=== PATIENT | male | born 1960 | race Caucasian/White ===

== ENCOUNTER → 2016-09-28 | Outpatient (CLI) | payer MEDICARE, BC, OTHER ==
[~2016-09-28] MED LIST: /AMLO25TA PO; /AUGM875TA; Bactrim DS PO; CAPT12.5; Captopril; Carvedilol PO; DOCU100C PO; FLUO20CA8 PO; GABA300C2 PO; LANS30CA PO; METF500T4; MYFO360T PO; Multivitamin PO; OXYC30TA84 PO; PRED5TAB PO; PROP10TAB; Propranolol; RANI75TA12 PO; SULFAMETHOXAZOLE PO; TACR5CAP PO; TACR5CAP4 PO; TRAM50TA2; TRIMETHOPRIM PO; ZOLPIDEM PO
[2016-09-28 17:49] LABS: ALBUMIN 3.9 GM/DL (3.2-5.2); ALBUMIN/GLOBULIN RATIO 1.44 (1.00-1.93); BILIRUBIN,TOTAL 0.6 MG/DL (0.2-1.0); CALCIUM LEVEL 8.7 MG/DL (8.5-10.1); CREATININE FOR GFR 1.96 MG/DL (0.70-1.30); GLOMERULAR FILTRATION RATE 37.7 (>56); MAGNESIUM LEVEL 1.8 MG/DL (1.8-2.4); POTASSIUM SERUM 3.6 MEQ/L (3.5-5.1); TOTAL PROTEIN 6.6 GM/DL (6.4-8.2)
[2016-09-28 17:54] LABS: MEAN CORPUSCULAR HGB CONC 33.4 g/dl (32.0-36.5); MEAN CORPUSCULAR VOLUME 89.8 fl (80.0-96.0); RED CELL DISTRIBUTION WIDTH 14.6 % (11.5-14.5); WHITE BLOOD COUNT 4.9 K/mm3 (4.0-10.0)
== END ==
LOC: M WUC 10:51
PROVIDERS: ATTEND Nurse Practitioner Adult Health
DX: Z94.4 Liver transplant status (principal); Z41.8 Encounter for other procedures for purposes other than remedying health state; Z79.899 Other long term (current) drug therapy

== ENCOUNTER → 2016-09-28 | Outpatient (CLI) | payer MEDICARE, BC, OTHER ==
[2016-09-28 17:55] LABS: BASO # 0.1 K/mm3 (0.0-0.2); BASO % 1.4 % (0.0-1.0); EOS # 0.1 K/mm3 (0.0-0.50); LARGE UNSTAINED CELL # 0.1 K/mm3 (0.0-0.4); LARGE UNSTAINED CELL % 1.5 % (0.0-4.0); LYMPH # 1.5 K/mm3 (1.5-4.5); LYMPH % 26.1 % (24.0-44.0); MEAN CORPUSCULAR HEMOGLOBIN 29.8 pg (27.0-33.0); MEAN CORPUSCULAR HGB CONC 33.2 g/dl (32.0-36.5); MEAN CORPUSCULAR VOLUME 89.7 fl (80.0-96.0); MONO # 0.4 K/mm3 (0.0-0.8); NEUTROPHILS # 3.3 K/mm3 (1.8-7.7); PLATELET COUNT, AUTOMATED 134 k/mm3 (150-450); RED CELL DISTRIBUTION WIDTH 14.7 % (11.5-14.5); WHITE BLOOD COUNT 5.3 K/mm3 (4.0-10.0)
[2016-09-28 18:30] LABS: FOLATE > 24.0 NG/ML; VITAMIN B12 LEVEL > 2000 PG/ML
[2016-09-28 18:31] LABS: ALBUMIN 3.9 GM/DL (3.2-5.2); ALBUMIN/GLOBULIN RATIO 1.39 (1.00-1.93); ALKALINE PHOSPHATASE 76 U/L (45-117); ALT/SGPT 17 U/L (12-78); ANION GAP 11 MEQ/L (8-16); AST/SGOT 27 U/L (15-37); BILIRUBIN,TOTAL 0.5 MG/DL (0.2-1.0); BLOOD UREA NITROGEN 24 MG/DL (7-18); CALCIUM LEVEL 8.6 MG/DL (8.5-10.1); CARBON DIOXIDE LEVEL 26 MEQ/L (21-32); CHLORIDE LEVEL 106 MEQ/L (98-107); CHOLESTEROL LEVEL 136 MG/DL (<200); CREATININE FOR GFR 1.98 MG/DL (0.70-1.30); GLOMERULAR FILTRATION RATE 37.3 (>56); GLUCOSE, FASTING 71 MG/DL (70-105); MAGNESIUM LEVEL 1.8 MG/DL (1.8-2.4); POTASSIUM SERUM 3.6 MEQ/L (3.5-5.1); SODIUM LEVEL 143 MEQ/L (136-145); TOTAL PROTEIN 6.7 GM/DL (6.4-8.2); TRIGLYCERIDES LEVEL 124 MG/DL (<150)
== END ==
LOC: M WUC 10:48
PROVIDERS: ATTEND Emergency Medicine
DX: I10 Essential (primary) hypertension (principal); E83.42 Hypomagnesemia; E78.2 Mixed hyperlipidemia; E55.9 Vitamin D deficiency, unspecified; Z98.84 Bariatric surgery status; N18.3 Chronic kidney disease, stage 3 (moderate); N40.1 Benign prostatic hyperplasia with lower urinary tract symptoms; Z94.4 Liver transplant status; Z41.8 Encounter for other procedures for purposes other than remedying health state; Z79.899 Other long term (current) drug therapy
CPT/HCPCS: 36415; 80053; 80061; 80197; 82306; 82607; 82746; 82977; 83735; 85025; G0103

== ENCOUNTER → 2016-11-09 | Outpatient (CLI) | payer MEDICARE, BC, OTHER ==
[2016-11-09 16:53] LABS: BASO % 0.4 % (0.0-1.0); EOS # 0.1 K/mm3 (0.0-0.50); EOS % 2.1 % (0.0-3.0); LARGE UNSTAINED CELL # 0.1 K/mm3 (0.0-0.4); LYMPH # 1.1 K/mm3 (1.5-4.5); LYMPH % 18.2 % (24.0-44.0); MEAN CORPUSCULAR HEMOGLOBIN 29.2 pg (27.0-33.0); MEAN CORPUSCULAR VOLUME 91.3 fl (80.0-96.0); MONO # 0.4 K/mm3 (0.0-0.8); MONO % 6.4 % (0.0-5.0); NEUTROPHILS # 4.3 K/mm3 (1.8-7.7); NEUTROPHILS % 70.9 % (36.0-66.0); PLATELET COUNT, AUTOMATED 156 k/mm3 (150-450); RED CELL DISTRIBUTION WIDTH 13.6 % (11.5-14.5); WHITE BLOOD COUNT 6.1 K/mm3 (4.0-10.0)
[2016-11-09 17:13] LABS: ALBUMIN/GLOBULIN RATIO 1.33 (1.00-1.93); BILIRUBIN,TOTAL 0.5 MG/DL (0.2-1.0); CALCIUM LEVEL 9.1 MG/DL (8.5-10.1); CREATININE FOR GFR 1.87 MG/DL (0.70-1.30); FREE T4 0.89 NG/DL (0.76-1.46); GLOMERULAR FILTRATION RATE 39.8 (>56); POTASSIUM SERUM 4.9 MEQ/L (3.5-5.1)
== END ==
LOC: M WUC 12:20
PROVIDERS: ATTEND Internal Medicine Nephrology
DX: Z94.4 Liver transplant status (principal); N25.81 Secondary hyperparathyroidism of renal origin; E03.9 Hypothyroidism, unspecified

== ENCOUNTER → 2016-11-18 | Outpatient (CLI) | payer MEDICARE, BC, OTHER ==
[2016-11-18 13:55] LABS: MEAN CORPUSCULAR HEMOGLOBIN 29.5 pg (27.0-33.0); MEAN CORPUSCULAR HGB CONC 32.7 g/dl (32.0-36.5); MEAN CORPUSCULAR VOLUME 90.2 fl (80.0-96.0); WHITE BLOOD COUNT 6.2 K/mm3 (4.0-10.0)
[2016-11-18 14:33] LABS: ALBUMIN 3.6 GM/DL (3.2-5.2); ALBUMIN/GLOBULIN RATIO 1.33 (1.00-1.93); BILIRUBIN,TOTAL 0.3 MG/DL (0.2-1.0); CALCIUM LEVEL 8.9 MG/DL (8.5-10.1); CREATININE FOR GFR 1.55 MG/DL (0.70-1.30); GLOMERULAR FILTRATION RATE 49.4 (>56); MAGNESIUM LEVEL 2.2 MG/DL (1.8-2.4); POTASSIUM SERUM 5.1 MEQ/L (3.5-5.1); TOTAL PROTEIN 6.3 GM/DL (6.4-8.2)
== END ==
LOC: M WUC 10:48
PROVIDERS: ATTEND Nurse Practitioner Adult Health
DX: Z41.8 Encounter for other procedures for purposes other than remedying health state (principal); Z94.4 Liver transplant status; Z79.899 Other long term (current) drug therapy

== ENCOUNTER → 2017-01-13 | Outpatient (CLI) | payer MEDICARE, BC, OTHER ==
[2017-01-13 12:53] LABS: MEAN CORPUSCULAR HEMOGLOBIN 30.8 pg (27.0-33.0); MEAN CORPUSCULAR HGB CONC 33.7 g/dl (32.0-36.5); MEAN CORPUSCULAR VOLUME 91.4 fl (80.0-96.0); RED CELL DISTRIBUTION WIDTH 13.9 % (11.5-14.5); WHITE BLOOD COUNT 4.5 K/mm3 (4.0-10.0)
[2017-01-13 13:37] LABS: ALBUMIN 3.6 GM/DL (3.2-5.2); ALBUMIN/GLOBULIN RATIO 1.29 (1.00-1.93); BILIRUBIN,TOTAL 0.5 MG/DL (0.2-1.0); CALCIUM LEVEL 8.9 MG/DL (8.5-10.1); CREATININE FOR GFR 1.52 MG/DL (0.70-1.30); GLOMERULAR FILTRATION RATE 50.6 (>56); MAGNESIUM LEVEL 2.5 MG/DL (1.8-2.4); POTASSIUM SERUM 4.4 MEQ/L (3.5-5.1); TOTAL PROTEIN 6.4 GM/DL (6.4-8.2)
== END ==
LOC: M WUC 10:34
PROVIDERS: ATTEND Internal Medicine Gastroenterology
DX: Z94.4 Liver transplant status (principal); Z41.8 Encounter for other procedures for purposes other than remedying health state; Z79.899 Other long term (current) drug therapy

== ENCOUNTER → 2017-02-15 | Outpatient (CLI) | payer MEDICARE, BC, OTHER ==
[2017-02-15 12:53] LABS: BASO % 0.1 % (0.0-1.0); EOS % 0.4 % (0.0-3.0); LARGE UNSTAINED CELL % 1.1 % (0.0-4.0); LYMPH % 5.5 % (24.0-44.0); MEAN CORPUSCULAR HEMOGLOBIN 31.3 pg (27.0-33.0); MEAN CORPUSCULAR HGB CONC 33.7 g/dl (32.0-36.5); MEAN CORPUSCULAR VOLUME 92.8 fl (80.0-96.0); NEUTROPHILS # 8.2 K/mm3 (1.8-7.7); NEUTROPHILS % 88.9 % (36.0-66.0); PLATELET COUNT, AUTOMATED 141 k/mm3 (150-450); RED CELL DISTRIBUTION WIDTH 13.2 % (11.5-14.5); WHITE BLOOD COUNT 9.2 K/mm3 (4.0-10.0)
[2017-02-15 12:54] LABS: DIFF SLIDE NUMBER 173; LARGE UNSTAINED CELL # 0.1 K/mm3 (0.0-0.4); LYMPH # 0.5 K/mm3 (1.5-4.5); MONO # 0.4 K/mm3 (0.0-0.8)
[2017-02-15 13:00] LABS: ALBUMIN 3.4 GM/DL (3.2-5.2); ALBUMIN/GLOBULIN RATIO 1.1 (1.00-1.93); BILIRUBIN,TOTAL 0.6 MG/DL (0.2-1.0); CALCIUM LEVEL 8.8 MG/DL (8.5-10.1); CREATININE FOR GFR 1.54 MG/DL (0.70-1.30); GLOMERULAR FILTRATION RATE 49.8 (>56); POTASSIUM SERUM 4.8 MEQ/L (3.5-5.1); TOTAL PROTEIN 6.5 GM/DL (6.4-8.2)
== END ==
LOC: M WUC 09:38
PROVIDERS: ATTEND Internal Medicine Nephrology
DX: Z94.4 Liver transplant status (principal); N25.81 Secondary hyperparathyroidism of renal origin; E55.9 Vitamin D deficiency, unspecified

== ENCOUNTER → 2017-04-06 | Outpatient (CLI) | payer MEDICARE, BC, OTHER ==
[2017-04-06 17:07] LABS: MEAN CORPUSCULAR HEMOGLOBIN 31.6 pg (27.0-33.0); MEAN CORPUSCULAR HGB CONC 34.1 g/dl (32.0-36.5); MEAN CORPUSCULAR VOLUME 92.6 fl (80.0-96.0); RED CELL DISTRIBUTION WIDTH 13.7 % (11.5-14.5); WHITE BLOOD COUNT 4.7 K/mm3 (4.0-10.0)
[2017-04-06 17:53] LABS: ALBUMIN 3.9 GM/DL (3.2-5.2); ALBUMIN/GLOBULIN RATIO 1.39 (1.00-1.93); BILIRUBIN,TOTAL 0.8 MG/DL (0.2-1.0); CALCIUM LEVEL 8.6 MG/DL (8.5-10.1); CREATININE FOR GFR 1.34 MG/DL (0.70-1.30); GLOMERULAR FILTRATION RATE 58.3 (>56); MAGNESIUM LEVEL 1.8 MG/DL (1.8-2.4); POTASSIUM SERUM 4.5 MEQ/L (3.5-5.1); TOTAL PROTEIN 6.7 GM/DL (6.4-8.2)
== END ==
LOC: M WUC 11:00
PROVIDERS: ATTEND Internal Medicine Gastroenterology
DX: Z94.4 Liver transplant status (principal); Z41.8 Encounter for other procedures for purposes other than remedying health state; Z79.899 Other long term (current) drug therapy; I12.9 Hypertensive chronic kidney disease with stage 1 through stage 4 chronic kidney disease, or unspecified chronic kidney disease; N18.3 Chronic kidney disease, stage 3 (moderate); E78.2 Mixed hyperlipidemia; E55.9 Vitamin D deficiency, unspecified; Z98.84 Bariatric surgery status

== ENCOUNTER → 2017-04-06 | Outpatient (CLI) | payer MEDICARE, BC, OTHER ==
[2017-04-06 17:08] LABS: BASO % 1.5 % (0.0-1.0); EOS # 0.1 K/mm3 (0.0-0.50); EOS % 2.9 % (0.0-3.0); LARGE UNSTAINED CELL # 0.1 K/mm3 (0.0-0.4); LARGE UNSTAINED CELL % 2.4 % (0.0-4.0); LYMPH % 29.4 % (24.0-44.0); MEAN CORPUSCULAR HEMOGLOBIN 31.1 pg (27.0-33.0); MEAN CORPUSCULAR HGB CONC 33.9 g/dl (32.0-36.5); MEAN CORPUSCULAR VOLUME 91.9 fl (80.0-96.0); MONO # 0.3 K/mm3 (0.0-0.8); MONO % 8.1 % (0.0-5.0); NEUTROPHILS # 1.8 K/mm3 (1.8-7.7); NEUTROPHILS % 55.8 % (36.0-66.0); PLATELET COUNT, AUTOMATED 126 k/mm3 (150-450); RED CELL DISTRIBUTION WIDTH 13.9 % (11.5-14.5); WHITE BLOOD COUNT 3.3 K/mm3 (4.0-10.0)
[2017-04-06 17:56] LABS: ALBUMIN 3.9 GM/DL (3.2-5.2); ALBUMIN/GLOBULIN RATIO 1.3 (1.00-1.93); BILIRUBIN,TOTAL 0.9 MG/DL (0.2-1.0); CALCIUM LEVEL 8.6 MG/DL (8.5-10.1); CREATININE FOR GFR 1.32 MG/DL (0.70-1.30); GLOMERULAR FILTRATION RATE 59.3 (>56); MAGNESIUM LEVEL 1.9 MG/DL (1.8-2.4); POTASSIUM SERUM 4.2 MEQ/L (3.5-5.1); TOTAL PROTEIN 6.9 GM/DL (6.4-8.2)
[2017-04-06 19:32] LABS: FOLATE 23.8 NG/ML
== END ==
LOC: M WUC 10:55
PROVIDERS: ATTEND Emergency Medicine
DX: I12.9 Hypertensive chronic kidney disease with stage 1 through stage 4 chronic kidney disease, or unspecified chronic kidney disease (principal); N18.3 Chronic kidney disease, stage 3 (moderate); E78.2 Mixed hyperlipidemia; E55.9 Vitamin D deficiency, unspecified; Z98.84 Bariatric surgery status

== ENCOUNTER → 2017-06-26 | Outpatient (CLI) | payer MEDICARE, OTHER, BC ==
[2017-06-26 13:29] LABS: MEAN CORPUSCULAR HEMOGLOBIN 31.1 pg (27.0-33.0); MEAN CORPUSCULAR HGB CONC 34.8 g/dl (32.0-36.5); MEAN CORPUSCULAR VOLUME 89.6 fl (80.0-96.0); RED CELL DISTRIBUTION WIDTH 13.6 % (11.5-14.5)
[2017-06-26 13:49] LABS: ALBUMIN 3.5 GM/DL (3.2-5.2); ALBUMIN/GLOBULIN RATIO 1.35 (1.00-1.93); BILIRUBIN,TOTAL 0.6 MG/DL (0.2-1.0); CALCIUM LEVEL 9.1 MG/DL (8.5-10.1); CREATININE FOR GFR 1.45 MG/DL (0.70-1.30); GLOMERULAR FILTRATION RATE 53.2 (>56); MAGNESIUM LEVEL 2.1 MG/DL (1.8-2.4); POTASSIUM SERUM 5.1 MEQ/L (3.5-5.1); TOTAL PROTEIN 6.1 GM/DL (6.4-8.2)
== END ==
LOC: M WUC 10:13
PROVIDERS: ATTEND Nurse Practitioner Adult Health
DX: Z51.81 Encounter for therapeutic drug level monitoring (principal); Z79.899 Other long term (current) drug therapy; Z94.4 Liver transplant status; Z41.8 Encounter for other procedures for purposes other than remedying health state

== ENCOUNTER → 2017-08-21 | Outpatient (CLI) | payer MEDICARE, OTHER, BC ==
[2017-08-21 14:33] LABS: BASO % 0.6 % (0.0-1.0); EOS # 0.1 10^3/uL (0.0-0.50); EOS % 1.6 % (0.0-3.0); IMMATURE GRANULOCYTE % 0.2 % (0-0); LYMPH # 1.3 10^3/uL (1.5-4.5); LYMPH % 25.7 % (24.0-44.0); MEAN CORPUSCULAR HEMOGLOBIN 30.4 pg (27.0-33.0); MEAN CORPUSCULAR HGB CONC 32.9 g/dl (32.0-36.5); MEAN CORPUSCULAR VOLUME 92.4 fl (80.0-96.0); MONO # 0.4 10^3/uL (0.0-0.8); NEUTROPHILS # 3.1 10^3/uL (1.8-7.7); NEUTROPHILS % 62.9 % (36.0-66.0); PLATELET COUNT, AUTOMATED 147 10^3/uL (150-450); RED CELL DISTRIBUTION WIDTH 14.1 % (11.5-14.5); WHITE BLOOD COUNT 4.9 10^3/uL (4.0-10.0)
[2017-08-21 15:36] LABS: ALBUMIN 3.6 GM/DL (3.2-5.2); ALBUMIN/GLOBULIN RATIO 1.33 (1.00-1.93); BILIRUBIN,TOTAL 0.6 MG/DL (0.2-1.0); CALCIUM LEVEL 9.1 MG/DL (8.5-10.1); CREATININE FOR GFR 1.31 MG/DL (0.70-1.30); GLOMERULAR FILTRATION RATE 59.8 (>56); POTASSIUM SERUM 4.4 MEQ/L (3.5-5.1); TOTAL PROTEIN 6.3 GM/DL (6.4-8.2)
== END ==
LOC: M WUC 10:15
PROVIDERS: ATTEND Internal Medicine Nephrology
DX: N25.81 Secondary hyperparathyroidism of renal origin (principal); Z94.4 Liver transplant status

== ENCOUNTER → 2017-08-21 | Outpatient (CLI) | payer MEDICARE, OTHER, BC ==
[2017-08-21 14:33] LABS: MEAN CORPUSCULAR HEMOGLOBIN 30.3 pg (27.0-33.0); MEAN CORPUSCULAR HGB CONC 32.9 g/dl (32.0-36.5); MEAN CORPUSCULAR VOLUME 92.2 fl (80.0-96.0); PLATELET COUNT, AUTOMATED 149 10^3/uL (150-450); RED CELL DISTRIBUTION WIDTH 14.1 % (11.5-14.5); WHITE BLOOD COUNT 5.3 10^3/uL (4.0-10.0)
[2017-08-21 15:14] LABS: ALBUMIN 3.5 GM/DL (3.2-5.2); ALBUMIN/GLOBULIN RATIO 1.21 (1.00-1.93); ALKALINE PHOSPHATASE 85 U/L (45-117); ALT/SGPT 15 U/L (12-78); ANION GAP 9 MEQ/L (8-16); AST/SGOT 13 U/L (7-37); BILIRUBIN,TOTAL 0.7 MG/DL (0.2-1.0); BLOOD UREA NITROGEN 19 MG/DL (7-18); CARBON DIOXIDE LEVEL 28 MEQ/L (21-32); CHLORIDE LEVEL 103 MEQ/L (98-107); CREATININE FOR GFR 1.29 MG/DL (0.70-1.30); GAMMA GLUTAMYLTRANSPEPTIDASE 36 U/L (15-85); GLOMERULAR FILTRATION RATE > 60.0 (>56); GLUCOSE, FASTING 69 MG/DL (70-105); POTASSIUM SERUM 4.7 MEQ/L (3.5-5.1); SODIUM LEVEL 140 MEQ/L (136-145); TOTAL PROTEIN 6.4 GM/DL (6.4-8.2)
== END ==
LOC: M WUC 10:19
PROVIDERS: ATTEND Nurse Practitioner Adult Health
DX: Z41.8 Encounter for other procedures for purposes other than remedying health state (principal); N25.81 Secondary hyperparathyroidism of renal origin; Z94.4 Liver transplant status

== ENCOUNTER → 2017-09-27 | Outpatient (CLI) | payer MEDICARE, OTHER, BC ==
[2017-09-27 13:58] LABS: BASO % 0.4 % (0.0-1.0); EOS # 0.1 10^3/uL (0.0-0.50); EOS % 1.7 % (0.0-3.0); HEMATOCRIT 36.6 % (42.0-52.0); HEMOGLOBIN 12.3 g/dl (14.0-18.0); IMMATURE GRANULOCYTE % 0.2 % (0-0); LYMPH % 19.4 % (24.0-44.0); MEAN CORPUSCULAR HEMOGLOBIN 30.8 pg (27.0-33.0); MEAN CORPUSCULAR HGB CONC 33.6 g/dl (32.0-36.5); MEAN CORPUSCULAR VOLUME 91.5 fl (80.0-96.0); MONO # 0.6 10^3/uL (0.0-0.8); MONO % 10.5 % (0.0-5.0); NEUTROPHILS # 3.6 10^3/uL (1.8-7.7); NEUTROPHILS % 67.8 % (36.0-66.0); PLATELET COUNT, AUTOMATED 155 10^3/uL (150-450); RED CELL DISTRIBUTION WIDTH 13.6 % (11.5-14.5); WHITE BLOOD COUNT 5.3 10^3/uL (4.0-10.0)
[2017-09-27 14:10] LABS: FOLATE > 24.0 NG/ML; TOTAL 25(OH) VITAMIN D 65.9 NG/ML (30.0-100.0); VITAMIN B12 LEVEL > 2000 PG/ML
[2017-09-27 14:13] LABS: ALBUMIN 3.2 GM/DL (3.2-5.2); ALBUMIN/GLOBULIN RATIO 1.07 (1.00-1.93); ALKALINE PHOSPHATASE 92 U/L (45-117); ALT/SGPT 33 U/L (12-78); ANION GAP 8 MEQ/L (8-16); AST/SGOT 62 U/L (7-37); BILIRUBIN,TOTAL 0.7 MG/DL (0.2-1.0); BLOOD UREA NITROGEN 25 MG/DL (7-18); CALCIUM LEVEL 8.6 MG/DL (8.5-10.1); CARBON DIOXIDE LEVEL 27 MEQ/L (21-32); CHLORIDE LEVEL 99 MEQ/L (98-107); CHOLESTEROL LEVEL 148 MG/DL (<200); CHOLESTEROL RISK RATIO 1.423 (<5); CREATININE FOR GFR 1.23 MG/DL (0.70-1.30); GLOMERULAR FILTRATION RATE > 60.0 (>56); GLUCOSE, FASTING 58 MG/DL (70-105); HDL CHOLESTEROL 104 MG/DL (>40); MAGNESIUM LEVEL 1.9 MG/DL (1.8-2.4); NON-HDL-C 44 MG/DL; PROSTATIC SPECIFIC AG MONITOR 2.38 NG/ML (< 4.0); SODIUM LEVEL 134 MEQ/L (136-145); TOTAL PROTEIN 6.2 GM/DL (6.4-8.2); TRIGLYCERIDES LEVEL 45 MG/DL (<150)
== END ==
LOC: M WUC 10:18
DX: I10 Essential (primary) hypertension (principal); E78.2 Mixed hyperlipidemia; E55.9 Vitamin D deficiency, unspecified
CPT/HCPCS: 82746

== ENCOUNTER → 2017-11-20 | Outpatient (CLI) | payer MEDICARE, OTHER, BC ==
[2017-11-20 13:40] LABS: ALBUMIN 3.5 GM/DL (3.2-5.2); ALBUMIN/GLOBULIN RATIO 1.21 (1.00-1.93); ALKALINE PHOSPHATASE 100 U/L (45-117); ALT/SGPT 19 U/L (12-78); ANION GAP 10 MEQ/L (8-16); AST/SGOT 36 U/L (7-37); BILIRUBIN,TOTAL 0.3 MG/DL (0.2-1.0); BLOOD UREA NITROGEN 22 MG/DL (7-18); CALCIUM LEVEL 8.3 MG/DL (8.5-10.1); CARBON DIOXIDE LEVEL 26 MEQ/L (21-32); CHLORIDE LEVEL 102 MEQ/L (98-107); CREATININE FOR GFR 1.42 MG/DL (0.70-1.30); GAMMA GLUTAMYLTRANSPEPTIDASE 61 U/L (15-85); GLOMERULAR FILTRATION RATE 54.5 (>56); GLUCOSE, FASTING 86 MG/DL (70-100); POTASSIUM SERUM 4.1 MEQ/L (3.5-5.1); SODIUM LEVEL 138 MEQ/L (136-145); TOTAL PROTEIN 6.4 GM/DL (6.4-8.2)
== END ==
LOC: M WUC 09:28
DX: Z51.81 Encounter for therapeutic drug level monitoring (principal); Z94.4 Liver transplant status; Z41.8 Encounter for other procedures for purposes other than remedying health state; Z79.899 Other long term (current) drug therapy
CPT/HCPCS: 82977

== ENCOUNTER → 2018-03-06 | Outpatient (CLI) | payer MEDICARE, OTHER, BC ==
[2018-03-06 15:55] LABS: BASO % 0.3 % (0.0-1.0); EOS # 0.1 10^3/uL (0.0-0.50); EOS % 0.7 % (0.0-3.0); HEMATOCRIT 32.2 % (42.0-52.0); HEMOGLOBIN 10.8 g/dl (13.5-17.5); IMMATURE GRANULOCYTE % 0.6 % (0-3.0); LYMPH # 0.9 10^3/uL (1.5-4.5); LYMPH % 13.2 % (24.0-44.0); MEAN CORPUSCULAR HEMOGLOBIN 29.8 pg (27.0-33.0); MEAN CORPUSCULAR HGB CONC 33.5 g/dl (32.0-36.5); MONO # 0.7 10^3/uL (0.0-0.8); MONO % 9.8 % (0.0-5.0); NEUTROPHILS # 5.2 10^3/uL (1.8-7.7); NEUTROPHILS % 75.4 % (36.0-66.0); PLATELET COUNT, AUTOMATED 162 10^3/uL (150-450); RED BLOOD COUNT 3.62 10^6/uL (4.30-6.10); RED CELL DISTRIBUTION WIDTH 13.4 % (11.5-14.5); WHITE BLOOD COUNT 6.9 10^3/uL (4.0-10.0)
[2018-03-06 15:58] LABS: ALBUMIN 3.6 GM/DL (3.2-5.2); ALBUMIN/GLOBULIN RATIO 1.16 (1.00-1.93); ALKALINE PHOSPHATASE 83 U/L (45-117); ALT/SGPT 18 U/L (12-78); ANION GAP 10 MEQ/L (8-16); AST/SGOT 17 U/L (7-37); BLOOD UREA NITROGEN 29 MG/DL (7-18); CARBON DIOXIDE LEVEL 26 MEQ/L (21-32); CHLORIDE LEVEL 93 MEQ/L (98-107); CREATININE FOR GFR 1.69 MG/DL (0.70-1.30); GLOMERULAR FILTRATION RATE 44.6 (>56); GLUCOSE, FASTING 89 MG/DL (70-100); POTASSIUM SERUM 4.5 MEQ/L (3.5-5.1); SODIUM LEVEL 129 MEQ/L (136-145); TOTAL PROTEIN 6.7 GM/DL (6.4-8.2)
[2018-03-06 16:03] LABS: PTH INTACT 36.3 PG/ML (18.5-88.0)
[2018-03-06 16:46] LABS: APPEARANCE, URINE CLEAR (CLEAR); BACTERIA, URINE AUTO NEGATIVE (NEGATIVE); BILIRUBIN, URINE AUTO 1+ (NEGATIVE); BLOOD, URINE BLOOD NEGATIVE (NEGATIVE); COLOR, URINE YELLOW (YELLOW); GLUCOSE, URINE (UA) AUTO NEGATIVE (NEGATIVE); KETONE, URINE AUTO NEGATIVE (NEGATIVE); LEUKOCYTE ESTERASE, URINE AUTO NEGATIVE (NEGATIVE); MUCUS, URINE SMALL (NEGATIVE); NITRITE, URINE AUTO NEGATIVE (NEGATIVE); PROTEIN, URINE AUTO NEGATIVE (NEGATIVE); RBC, URINE AUTO 4 /HPF (0-3); SPECIFIC GRAVITY URINE AUTO 1.017 (1.002-1.035); SQUAMOUS EPITHELIAL CELL UR AU 0 /HPF (0-6); UROBILINOGEN, URINE AUTO 0.2 mg/dL (0.0-2.0); WBC, URINE AUTO 1 /HPF (0-3)
== END ==
LOC: M WUC 11:12
DX: Z94.4 Liver transplant status (principal); N25.81 Secondary hyperparathyroidism of renal origin

== ENCOUNTER → 2018-03-06 | Outpatient (CLI) | payer MEDICARE, OTHER, BC ==
[2018-03-06 15:54] LABS: HEMATOCRIT 32.2 % (42.0-52.0); MEAN CORPUSCULAR HEMOGLOBIN 30.5 pg (27.0-33.0); MEAN CORPUSCULAR HGB CONC 34.2 g/dl (32.0-36.5); MEAN CORPUSCULAR VOLUME 89.2 fl (80.0-96.0); PLATELET COUNT, AUTOMATED 170 10^3/uL (150-450); RED BLOOD COUNT 3.61 10^6/uL (4.30-6.10); RED CELL DISTRIBUTION WIDTH 13.3 % (11.5-14.5)
[2018-03-06 15:56] LABS: ALBUMIN 3.5 GM/DL (3.2-5.2); ALBUMIN/GLOBULIN RATIO 1.09 (1.00-1.93); ALKALINE PHOSPHATASE 89 U/L (45-117); ALT/SGPT 17 U/L (12-78); ANION GAP 9 MEQ/L (8-16); AST/SGOT 18 U/L (7-37); BLOOD UREA NITROGEN 28 MG/DL (7-18); CARBON DIOXIDE LEVEL 26 MEQ/L (21-32); CHLORIDE LEVEL 94 MEQ/L (98-107); CREATININE FOR GFR 1.69 MG/DL (0.70-1.30); GAMMA GLUTAMYLTRANSPEPTIDASE 35 U/L (15-85); GLOMERULAR FILTRATION RATE 44.6 (>56); GLUCOSE, FASTING 87 MG/DL (70-100); MAGNESIUM LEVEL 1.8 MG/DL (1.8-2.4); POTASSIUM SERUM 4.5 MEQ/L (3.5-5.1); SODIUM LEVEL 129 MEQ/L (136-145); TOTAL PROTEIN 6.7 GM/DL (6.4-8.2)
== END ==
LOC: M WUC 11:08
DX: Z51.81 Encounter for therapeutic drug level monitoring (principal); Z79.899 Other long term (current) drug therapy; N25.81 Secondary hyperparathyroidism of renal origin; Z94.4 Liver transplant status
CPT/HCPCS: 82977

== ENCOUNTER → 2018-04-09 | Outpatient (CLI) | payer MEDICARE, OTHER, BC ==
[2018-04-09 13:10] LABS: BASO % 0.5 % (0.0-1.0); EOS # 0.1 10^3/uL (0.0-0.50); EOS % 1.5 % (0.0-3.0); HEMATOCRIT 31.1 % (42.0-52.0); HEMOGLOBIN 10.5 g/dl (13.5-17.5); IMMATURE GRANULOCYTE % 0.3 % (0-3.0); LYMPH # 1.8 10^3/uL (1.5-4.5); LYMPH % 23.8 % (24.0-44.0); MEAN CORPUSCULAR HEMOGLOBIN 30.3 pg (27.0-33.0); MEAN CORPUSCULAR HGB CONC 33.8 g/dl (32.0-36.5); MEAN CORPUSCULAR VOLUME 89.9 fl (80.0-96.0); MONO # 0.6 10^3/uL (0.0-0.8); NEUTROPHILS # 4.9 10^3/uL (1.8-7.7); NEUTROPHILS % 65.9 % (36.0-66.0); PLATELET COUNT, AUTOMATED 148 10^3/uL (150-450); RED BLOOD COUNT 3.46 10^6/uL (4.30-6.10); RED CELL DISTRIBUTION WIDTH 14.3 % (11.5-14.5); WHITE BLOOD COUNT 7.4 10^3/uL (4.0-10.0)
[2018-04-09 13:33] LABS: ALBUMIN 3.3 GM/DL (3.2-5.2); ALBUMIN/GLOBULIN RATIO 1.06 (1.00-1.93); ALKALINE PHOSPHATASE 96 U/L (45-117); ALT/SGPT 16 U/L (12-78); ANION GAP 9 MEQ/L (8-16); AST/SGOT 15 U/L (7-37); BILIRUBIN,TOTAL 0.6 MG/DL (0.2-1.0); BLOOD UREA NITROGEN 27 MG/DL (7-18); CALCIUM LEVEL 8.5 MG/DL (8.5-10.1); CARBON DIOXIDE LEVEL 28 MEQ/L (21-32); CHLORIDE LEVEL 101 MEQ/L (98-107); CHOLESTEROL LEVEL 117 MG/DL (<200); CHOLESTEROL RISK RATIO 1.409 (<5); CREATININE FOR GFR 1.54 MG/DL (0.70-1.30); GLOMERULAR FILTRATION RATE 49.5 (>56); GLUCOSE, FASTING 73 MG/DL (70-100); HDL CHOLESTEROL 83 MG/DL (>40); NON-HDL-C 34 MG/DL; POTASSIUM SERUM 4.5 MEQ/L (3.5-5.1); SODIUM LEVEL 138 MEQ/L (136-145); TOTAL PROTEIN 6.4 GM/DL (6.4-8.2); TRIGLYCERIDES LEVEL 50 MG/DL (<150)
[2018-04-09 14:59] LABS: FOLATE 21.9 NG/ML; TOTAL 25(OH) VITAMIN D 78.7 NG/ML (30.0-100.0); VITAMIN B12 LEVEL 1941 PG/ML
== END ==
LOC: M WUC 10:27
DX: I10 Essential (primary) hypertension (principal); E78.2 Mixed hyperlipidemia; E55.9 Vitamin D deficiency, unspecified; Z98.84 Bariatric surgery status
CPT/HCPCS: 82746

== ENCOUNTER → 2018-07-09 | Outpatient (CLI) | payer MEDICARE, OTHER, BC ==
[2018-07-09 13:25] LABS: HEMATOCRIT 34.4 % (42.0-52.0); HEMOGLOBIN 11.3 g/dl (13.5-17.5); MEAN CORPUSCULAR HEMOGLOBIN 30.2 pg (27.0-33.0); MEAN CORPUSCULAR HGB CONC 32.8 g/dl (32.0-36.5); PLATELET COUNT, AUTOMATED 149 10^3/uL (150-450); RED BLOOD COUNT 3.74 10^6/uL (4.30-6.10); RED CELL DISTRIBUTION WIDTH 13.2 % (11.5-14.5); WHITE BLOOD COUNT 4.9 10^3/uL (4.0-10.0)
[2018-07-09 13:49] LABS: ALBUMIN 3.3 GM/DL (3.2-5.2); ALBUMIN/GLOBULIN RATIO 1.14 (1.00-1.93); ALKALINE PHOSPHATASE 86 U/L (45-117); ALT/SGPT 14 U/L (12-78); ANION GAP 11 MEQ/L (8-16); AST/SGOT 13 U/L (7-37); BILIRUBIN,TOTAL 0.5 MG/DL (0.2-1.0); BLOOD UREA NITROGEN 26 MG/DL (7-18); CALCIUM LEVEL 8.5 MG/DL (8.5-10.1); CARBON DIOXIDE LEVEL 24 MEQ/L (21-32); CHLORIDE LEVEL 106 MEQ/L (98-107); CREATININE FOR GFR 1.33 MG/DL (0.70-1.30); GAMMA GLUTAMYLTRANSPEPTIDASE 35 U/L (15-85); GLOMERULAR FILTRATION RATE 58.6 (>56); GLUCOSE, FASTING 81 MG/DL (70-100); MAGNESIUM LEVEL 1.9 MG/DL (1.8-2.4); POTASSIUM SERUM 4.2 MEQ/L (3.5-5.1); SODIUM LEVEL 141 MEQ/L (136-145); TOTAL PROTEIN 6.2 GM/DL (6.4-8.2)
[2018-07-12 00:08] LABS: FK 506 (TACROLIMUS) LABCORP 3.3 ng/mL (2.0-20.0)
== END ==
LOC: M WUC 09:55
DX: Z79.4 Long term (current) use of insulin (principal)
CPT/HCPCS: 82977

== ENCOUNTER 2019-04-02 09:58 | Emergency (ER) | payer MEDICARE, BC, OTHER ==
[~2019-04-02] VITALS: Ht 177.8 cm; Wt 63.6 kg
[~2019-04-02 09:58] MED LIST changes: -/AMLO25TA PO; +NORV2TAB PO
[2019-04-02] MEDS ORDERED: GABA-843 (10:05)
[2019-04-02] MEDS ORDERED: TRAZ-252 (10:05)
--- NOTE | 2019-04-02 11:06 | REP ---
LEFT WRIST SERIES: Four views. HISTORY: Injury in a fall. FINDINGS: Four views left wrist demonstrate an impacted fracture of the distal radial metaphysis. There is diffuse osteopenia. No distal ulnar fracture is appreciated. No carpal fracture is seen. Vascular calcification is seen. There is associated soft-tissue swelling. IMPRESSION: Impacted fracture of the distal radius. Diffuse osteopenia. Vascular calcification and soft tissue swelling. Electronically Signed by Jeramie Luna MD 04/02/2019 04:51 P
[2019-04-02 12:12] VITALS: BP 128/85
== END 2019-04-02 12:13 | disposition home or self-care (01) ==
LOC: M ED 09:58
DX: S52.592A Other fractures of lower end of left radius, initial encounter for closed fracture (principal); W18.39XA Other fall on same level, initial encounter; Y92.018 Other place in single-family (private) house as the place of occurrence of the external cause; I12.9 Hypertensive chronic kidney disease with stage 1 through stage 4 chronic kidney disease, or unspecified chronic kidney disease; N18.3 Chronic kidney disease, stage 3 (moderate); E11.9 Type 2 diabetes mellitus without complications; F33.9 Major depressive disorder, recurrent, unspecified; F41.9 Anxiety disorder, unspecified; Z94.4 Liver transplant status; Z98.84 Bariatric surgery status

== ENCOUNTER → 2019-04-12 | Outpatient (REF) | payer MEDICARE, OTHER ==
[~2019-04-12] MED LIST changes: +GABA-843; +TRAZ-252
[2019-04-22 14:07] LABS: ALPRAZOLAM, URINE Negative (Cutoff=100); BENZODIAZEPINES, URINE Positive ng/mL (Cutoff=100); CANNABINOID, URINE Positive (Cutoff=20); CARBOXY THC (GC/MS) 108 ng/mL (Cutoff=10); CLONAZEPAM, URINE Negative (Cutoff=100); CODEINE, URINE Negative (Cutoff=100); CREATININE, URINE 171.4 mg/dL (20.0-300.0); FLURAZEPAM, URINE Negative (Cutoff=100); HYDROCODONE, URINE Negative (Cutoff=100); HYDROMORPHONE CONFIRM, URINE 372 ng/mL (Cutoff=100); HYDROMORPHONE, URINE Positive (.); LORAZEPAM, URINE Negative (Cutoff=100); MIDAZOLAM, URINE Negative (Cutoff=100); MORPHINE CONFIRM, URINE >10000 ng/mL (Cutoff=100); MORPHINE, URINE Positive (.); NORDIAZEPAM, URINE Positive (.); NORDIAZEPAM, URINE CONFIRM 362 ng/mL (Cutoff=100); OPIATES, URINE Positive ng/mL (Cutoff=300); OXAZEPAM, URINE Positive (.); OXAZEPAM, URINE CONFIRM 17200 ng/mL (Cutoff=100); TEMAZEPAM, URINE Positive (.); TEMAZEPAM, URINE CONFIRM >1000 ng/mL (Cutoff=100); TRIAZOLAM, URINE Negative (Cutoff=100)
== END ==
LOC: M SFHCLACO 15:08
PROVIDERS: ATTEND Physician Assistant
DX: Z79.891 Long term (current) use of opiate analgesic (principal)
CPT/HCPCS: 80307; G0463

== ENCOUNTER 2020-11-15 06:37 | Inpatient (IN) | payer BC, MEDICARE, OTHER ==
[2020-11-15] VITALS (11 sets, daily range): BP systolic 132–164; BP diastolic 71–91
[~2020-11-15] VITALS: Ht 177.8 cm; Wt 76.5 kg
[~2020-11-15 06:37] MED LIST changes: +GABA-282; -GABA-843
[2020-11-15 08:13] LABS: BASO # 0.1 10^3/uL (0.0-0.2); BASO % 0.6 % (0.0-1.0); EOS # 0.6 10^3/uL (0.0-0.5); EOS % 7.1 % (0.0-3.0); HEMATOCRIT 23.1 % (42.0-52.0); HEMOGLOBIN 7.2 g/dl (13.5-17.5); LYMPH # 1.7 10^3/uL (1.5-5.0); LYMPH % 20.3 % (24.0-44.0); MEAN CORPUSCULAR HEMOGLOBIN 27.6 pg (27.0-33.0); MEAN CORPUSCULAR HGB CONC 31.2 g/dl (32.0-36.5); MEAN CORPUSCULAR VOLUME 88.5 fl (80.0-96.0); MONO # 0.9 10^3/uL (0.0-0.8); MONO % 10.7 % (2.0-8.0); NEUTROPHILS # 5.1 10^3/uL (1.5-8.5); NEUTROPHILS % 60.8 % (36.0-66.0); PLATELET COUNT, AUTOMATED 139 10^3/uL (150-450); RED BLOOD COUNT 2.61 10^6/uL (4.30-6.10); WHITE BLOOD COUNT 8.3 10^3/uL (4.0-10.0)
[2020-11-15 08:22] LABS: INR 1.01; PROTHROMBIN TIME 13.5 SECONDS (12.5-14.3)
[2020-11-15 08:23] LABS: PARTIAL THROMBOPLASTIN TIME 29.7 SECONDS (24.2-38.5)
--- NOTE | 2020-11-15 08:24 | REP ---
INDICATION: chest discomfort, sob. COMPARISON: 06/29/2015 TECHNIQUE: Two views. FINDINGS: The lung savage are well inflated there is no pleural effusion or pneumothorax. There may be some patchy atelectasis or infiltrate in the infrahilar region of the right lung. No dense consolidation with air bronchograms. No apical scarring or pneumothorax. Heart is not enlarged. There is no vascular redistribution or pulmonary edema. Some calcification of the aortic arch noted without aneurysm. Airway intact. Bony thorax shows no compression deformity or focal lesion. IMPRESSION: Some patchy infrahilar atelectasis or infiltrate on the right is suggested with no dense consolidation, pleural effusion or other acute finding. No cardiomegaly, edema, pneumothorax or focal bone lesion. <Electronically signed by Faizan Israel > 11/15/20 [id number]
[2020-11-15 08:27] LABS: ALBUMIN 2.5 GM/DL (3.2-5.2); ALT/SGPT 20 U/L (12-78); BILIRUBIN,DIRECT < 0.1 MG/DL (0.0-0.2); BILIRUBIN,TOTAL 0.1 MG/DL (0.2-1.0); C REACTIVE PROTEIN QUANTITATIV < 0.30 MG/DL (0.00-0.30); CK-MB VALUE MASS 10.8 NG/ML (<3.6); CPK CREATINE PHOSPHOKINASE 186 U/L (39-308); MB/CK RELATIVE INDEX 5.81 (< OR =4); TOTAL PROTEIN 5.8 GM/DL (6.4-8.2); TROPONIN I 0.03 NG/ML (< 0.10)
--- NOTE | 2020-11-15 08:34 | REP ---
INDICATION: severe leg pain, swelling. TECHNIQUE: Multiple ultrasonographic images of the deep venous structures of the bilateral thighs were obtained from the level of the common femoral vein to the popliteal vein in the longitudinal and transverse scan planes along with Doppler interrogation and color flow Doppler imaging. FINDINGS: There is no abnormal echogenic material seen within any of the visualized deep venous structures that would suggest acute thrombosis. Coaptation is unremarkable throughout. Doppler interrogation shows an expected response to respiratory variability and augmentation. The color flow Doppler images show what appears to be a normal vascular pattern throughout. The left side in the proximal calf within the gastrocnemius muscle is a small vein with nonocclusive thrombus. IMPRESSION: There is nonocclusive thrombus in a small calf vein within the gastrocnemius on the left. This is not considered a deep vein thrombosis. There is no ultrasonographic evidence of deep venous thrombosis involving any of the visualized deep venous structures of the bilateral thighs as described above. Accredited by the [employer] in Vascular Peripheral Ultrasound. <Electronically signed by Faizan Israel > 11/15/20 0831
[2020-11-15] MEDS ORDERED: GABA-282 PO (08:38)
[2020-11-15] MEDS ORDERED: TACR1CAP3 PO ×2 (08:38)
[2020-11-15] MEDS ORDERED: ZOLO100T PO (08:38)
[2020-11-15] MEDS ORDERED: DIAZ5TAB PO (08:38)
[2020-11-15] MEDS ORDERED: MIRT-62 PO (08:38)
[2020-11-15] MEDS ORDERED: VITA100018 PO (08:38)
[2020-11-15] MEDS ORDERED: MYCO1TAB PO (08:38)
[2020-11-15] MEDS ORDERED: VITA200038 PO (08:38)
[2020-11-15] MEDS ORDERED: TRAZ-252 PO (08:38)
[2020-11-15] MEDS ORDERED: LANS30CA PO (08:38)
[2020-11-15] MEDS ORDERED: OXYC10TA12 PO (08:38)
[2020-11-15 08:58] LABS: ERYTHROCYTE SEDIMENTATION RATE 73 mm/hr (0-20)
[2020-11-15] MEDS ORDERED: hydrALAZINE 20MG/ML 1ML VIAL (J0360 PER 20MG) IV ONE (09:00)
[2020-11-15] MEDS ORDERED: MORPHINE 2 MG/ML 1ML VIAL (J2270) IV ONE (09:00)
[2020-11-15] MEDS ORDERED: ONDANSETRON 4MG/2ML VIAL IV ONE (09:00)
[2020-11-15] MEDS ORDERED: ENTER DRUG NAME HERE (PATIENT'S OWN MED) PO SCH (09:00)
[2020-11-15 09:19] LABS: AMPHETAMINES LEVEL URINE NEGATIVE (NEGATIVE); BARBITURATES URINE NEGATIVE (NEGATIVE); BENZODIAZEPINES URINE NEGATIVE (NEGATIVE); CANNABINOIDS URINE NEGATIVE (NEGATIVE); COCAINE METABOLITE URINE NEGATIVE (NEGATIVE); METHADONE URINE NEGATIVE (NEGATIVE); OPIATES URINE NEGATIVE (NEGATIVE); PHENCYCLIDINE URINE NEGATIVE (NEGATIVE)
[2020-11-15 09:32] LABS: ACETAMINOPHEN LEVEL < 2.0 UG/ML (10.0-30.0); ETHYL ALCOHOL (ETHANOL) < 0.003 % (0.000-0.010); NT-PRO BNP 46380 PG/ML (<125); SALICYLATE LEVEL < 1.7 MG/DL (5.0-30.0)
--- NOTE | 2020-11-15 09:33 | ECGEPIP ---
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
[2020-11-15 10:28] LABS: FERRITIN 172 NG/ML (26-388); IRON (FE) 64 UG/DL (65-175); PERCENT SATURATION 25.6 % (19.7-50.0); TOTAL IRON BINDING CAPACITY 250 UG/DL (250-450)
[2020-11-15] MEDS: SUCRALFATE 1 GM TAB PO SCH ×3 (10:53→21:07)
[2020-11-15] MEDS: NITROGLYCERIN 2% OINT 1 GM *U/D* PKT TOP SCH ×3 (10:55→20:00)
[2020-11-15] MEDS ORDERED: cloNIDine 0.1MG TABLET PO ONE (11:00)
[2020-11-15] MEDS ORDERED: PERCOCET 5MG/325MG TAB PO ONE (11:00)
[2020-11-15] MEDS ORDERED: HYDROMORPHONE HCL 0.5 MG/ 0.5 ML SYRINGE (J1170 PER 1) IV ONE (11:00)
--- NOTE | 2020-11-15 11:19 | REP ---
INDICATION: RENAL FAILURE. COMPARISON: 05/27/2013 TECHNIQUE: Standard renal sonography FINDINGS: Sonographic evaluation shows the right kidney 11.5 x 5.5 x 4.4 cm. The cortex is echogenic compared to that of the adjacent liver. No cortical atrophy. I see no hydronephrosis or hydroureter. No visible stone, mass or cyst on these images. A trace of perinephric fluid is seen. The left kidney is 11.8 x 4.3 x 5.4 cm. It also has an echogenic cortex. Both kidneys show echogenic vessels at the hilus. There is no hydronephrosis or hydroureter visible. There is no cyst, stone or mass visible. Trace of perinephric fluid is seen. The bladder measures 7.7 by 7.1 x 5.1 cm. No visible mass, stone, debris or wall thickening. IMPRESSION: 1. No atrophy but the renal cortex is hyperechoic compared to that of the liver indicating medical renal disease. No visible cyst, solid mass, stone or hydronephrosis. There is a trace amount of perinephric fluid bilaterally. 2. The bladder partially filled without the abnormal wall thickness, stone, mass or debris. <Electronically signed by Faizan Israel > 11/15/20 [id number]
--- NOTE | 2020-11-15 11:26 | HPEPDOC ---
[facility] Medical History & Physical Date of Admission Nov 15, 2020 Date of Service: Nov 15, 2020 History and Physical CHIEF COMPLAINT:" My feet hurt" x 1 month HISTORY OF PRESENT ILLNESS: 60-year-old male for code with past medical history significant for choledochoduodenostomy with biliary leak and Manoj-en-Y hepaticojejunostomy, laparoscopic sleeve gastrectomy, chronic kidney disease stage III, hypertension, diabetes, dyslipidemia, reflux, liver cirrhosis, nonalcoholic, anxiety, depression, insomnia, degenerative joint disease. Vitamin D deficiency. Positive PPD treated with INH and chronic urine retention was in his usual state of health until about a month ago when he started to complain of bilateral lower extremity pain, worse in the past week, unable to ambulate due to severe pain rated a 10 out of 10 with swelling and redness. Patient denies any fever, chills he's had increasing lower extremity edema but notes complaints of chest pain, pressure, tightness, lightheadedness, shortness of breath, dyspnea on exertion or pleuritic chest pain. In the ER evaluation included venous Dopplers bilateral lower extremities which was negative for deep venous thrombosis but with superficial nonocclusive thrombus, chest x-ray shows no acute infiltrate, coronavirus 19 is negative, patient was found to be anemic with hemoglobin of 7.2, hypertensive with systolic pressure of 200 and creatinine of 3.0. Hospitalist was called to admit for evaluation of anemia, lower extremity pain and RBC transfusion. Patient had denied any bright red blood per rectum, melena, black tarry stools, coffee-ground emesis, no prior history of esophageal varices, peptic ulcer disease. He denies any nonsteroidal anti-inflammatory use. Despite uncontrolled hypertension with systolic pressure over 200. Patient denies any visual changes, headache or confusion. PAST MEDICAL HISTORY: Hypertension, diabetes, dyslipidemia, chronic kidney disease stage III, peripheral venous insufficiency, gastroesophageal reflux disease, liver cirr hosis , not due to alcohol, gastric sleeve surgery, major depression, generalized anxiety disorder, insomnia, degenerative joint disease of the knees and joints. Vitamin D deficiency. Magnesium deficiency, history of positive PPD treated with INH. Chronic urine retention PAST SURGICAL HISTORY: Gastric bypass surgery with Manoj-en-Y hepaticojejunostomy due to biliary leak after choledochoduodenostomy 2012, liver transplant, September 2012, laparoscopic sleeve gastrectomy 2011, left knee replacement 2008 SOCIAL HISTORY: Denies any recreational drug use, alcohol or cigarette use. full code FAMILY HISTORY: Mother: Father: ALLERGIES: Please see below. REVIEW OF SYSTEMS: 12 point review of systems negative aside from positive findings in HPI HOME MEDICATIONS: Please see below. PHYSICAL EXAMINATION: VITAL SIGNS: See below GENERAL APPEARANCE: Awake, alert, oriented to person, place and time. Patient has pressured speech, difficult to ask questions and has tangential conver sations unrelated to directed questioning Slight pallor. No icterus or jaundice, cachectic, disheveled HEENT: Dry mucous membranes. No JVD, thyromegaly. Poor dentition. No cervical lymphadenopathy CARDIOVASCULAR: S1, S2, sinus rhythm LUNGS: Diminished fine crepitations bilaterally ABDOMEN: Positive bowel sounds. Surgical scars well-healed. No rebound, guarding EXTREMITIES: No cyanosis or clubbing. Positive edema bilateral lower extremities with some erythema. Chronic venous changes LABORATORY DATA: See below. IMAGIN11/15/20 VENOUS DOPPLER B/L LE INDICATION: severe leg pain, swelling. TECHNIQUE: Multiple ultrasonographic images of the deep venous structures of the bilateral thighs were obtained from the level of the common femoral vein to the popliteal vein in the longitudinal and transverse scan planes along with Doppler interrogation and color flow Doppler imaging. FINDINGS: There is no abnormal echogenic material seen within any of the visualized deep venous structures that would suggest acute thrombosis. Coaptation is unremarkable throughout. Doppler interrogation shows an expected response to respiratory variability and augmentation. The color flow Doppler images show what appears to be a normal vascular pattern throughout. The left side in the proximal calf within the gastrocnemius muscle is a small vein with nonocclusive thrombus. IMPRESSION: There is nonocclusive thrombus in a small calf vein within the gastrocnemius on the left. This is not considered a deep vein thrombosis. There is no ultrasonographic evidence of deep venous thrombosis involving any of the visualized deep venous structures of the bilateral thighs as described above. Accredited by the [employer] in Vascular Peripheral Ultrasound. <Electronically signed by Faizan Israel > 11/15/20 0831 CXR 11/15/20 INDICATION: chest discomfort, sob. COMPARISON: 06/29/2015 TECHNIQUE: Two views. FINDINGS: The lung savage are well inflated there is no pleural effusion or pneumothorax. There may be some patchy atelectasis or infiltrate in the infrahilar region of the right lung. No dense consolidation with air bronchograms. No apical scarring or pneumothorax. Heart is not enlarged. There is no vascular redistribution or pulmonary edema. Some calcification of the aortic arch noted without aneurysm. Airway intact. Bony thorax shows no compression deformity or focal lesion. IMPRESSION: Some patchy infrahilar atelectasis or infiltrate on the right is suggested with no dense consolidation, pleural effusion or other acute finding. No cardiomegaly, edema, pneumothorax or focal bone lesion. <Electronically signed by Faizan Israel > 11/15/20 0820 MICROBIOLOGY: Please see below. ASSESSMENT/PLAN: 60-year-old male for code with past medical history significant for choledochoduodenostomy with biliary leak and Manoj-en-Y hepaticojejunostomy, laparoscopic sleeve gastrectomy, chronic kidney disease stage III, hypertension, diabetes, dyslipidemia, reflux, liver cirrhosis, nonalcoholic, anxiety, depression, insomnia, degenerative joint disease. Vitamin D deficiency. Positive PPD treated with INH and chronic urine retention was in his usual state of health until about a month ago when he started to complain of bilateral lower extremity pain, worse in the past week, unable to ambulate due to severe pain rated a 10 out of 10 with swelling and redness. Patient denies any fever, chills he's had increasing lower extremity edema but denies lightheadedness, shortness of breath, dyspnea on exertion or pleuritic chest pain. In the ER evaluation included venous Dopplers bilateral lower extremities which was negative for deep venous thrombosis but with superficial nonocclusive thrombus, chest x-ray shows no acute infiltrate, coronavirus 19 is negative, patient was found to be anemic with hemoglobin of 7.2 and creatinine of 3.0. Hospitalist was called to admit for evaluation of anemia, lower extremity pain and RBC transfusion. Patient had denied any bright red blood per rectum, melena, black tarry stools, coffee- ground emesis, no prior history of esophageal varices, peptic ulcer disease. He denies any nonsteroidal anti-inflammatory use.. He does complain of chest pressure without radiation of the neck or down the left arm Hypertensive urgency -Patient hasn't been admitted to the telemetry unit. EKG showed no acute ischemic changes. Patient has been given nitroglycerin 1 inch every 4 hourly, clonidine, he may be resumed on his home medications to keep systolic pressure less than 1 40 mmHg cycle cardiac markers every 6 hourly and transfuse RBC to keep hemoglobin above 9 Anemia, hemoglobin of 7 -Iron studies, Hemoccult stool have been sent, reticulocyte count, peripheral blood smell. Transfuse 3 units of RBCs to keep hemoglobin above 9 due to complaints of chest pain and unstable angina. He has active bleeding at this time and will not be given DVT prophylaxis with Lovenox or heparin compression stockings will be given. Acute on chronic renal failure Creatinine of 3 -Renal ultrasound. Strict I's and O's, daily weights, and Dillon catheter placement. Monitor urine output Bilateral lower extremity pain. Negative DVT on ultrasound -Rule out peripheral arterial disease with arterial Dopplers bilateral lower ext remities. When necessary pain medications, IV for breakthrough pain diabetes Insulin sliding scale with coverage consistent carbohydrate diet. Hypoglycemic protocol. Check A1c dyslipidemia, Check lipid profile in the morning peripheral venous insufficiency, -Patient has chronic venous stasis changes in bilateral lower extremities -No DVT on venous Dopplers bilateral lower extremities gastroesophageal reflux disease, -Started on PPI and Carafate every before meals at bedtime liver cirrhosis , Nonalcoholic , Avoid excessive acetaminophen use History of liver transplant, resume on home medications , Anxiety, depression, insomnia -Chronic DVT prophylaxis compression stockings Diet renal consistent carbohydrate CODE STATUS full code Vital Signs Vital Signs Date Time Temp Pulse Resp B/P (MAP) Pulse Ox O2 Delivery O2 Flow Rate FiO2 11/15/20 10:15 96.4 83 22 191/83 (119) 100 Room Air Laboratory Data Labs 24H Laboratory Tests 2 11/15/20 07:16: Immature Granulocyte % (Auto) 0.5, Neutrophils (%) (Auto) 60.8, Lymphocytes (%) (Auto) 20.3L, Monocytes (%) (Auto) 10.7H, Eosinophils (%) (Auto) 7.1H, Basophils (%) (Auto) 0.6, Neutrophils # (Auto) 5.1, Lymphocytes # (Auto) 1.7, Monocytes # (Auto) 0.9H, Eosinophils # (Auto) 0.6H, Basophils # (Auto) 0.1, Nucleated Red Blood Cells % (auto) 0.0, Erythrocyte Sedimentation Rate 73H, Prothrombin Time 13.5, Prothromb Time International Ratio 1.01, Activated Partial Thromboplast Time 29.7, Lactic Acid Level 0.7, Iron Level 64L, Total Iron Binding Capacity 250, Transferrin % Saturation 25.6, Ferritin 172, Total Bilirubin 0.1L, Direct Bilirubin < 0.1, Aspartate Amino Transf (AST/SGOT) 22, Alanine Aminotransferase (ALT/SGPT) 20, Alkaline Phosphatase 129H, Total Creatine Kinase 186, Creatine Kinase MB 10.8H, Creatine Kinase MB Relative Index 5.81H, Troponin I 0.03, C- Reactive Protein, Quantitative < 0.30, AR-Bcz-E-Type Natriuretic Peptide 30579F, Total Protein 5.8L, Albumin 2.5L, Albumin/Globulin Ratio 0.8, Prostate Specific Antigen Screen 0.65, Thyroid Stimulating Hormone (TSH) 3.340, Salicylates Level < 1.7L, Acetaminophen Level < 2.0L, Ethyl Alcohol Level < 0.003 11/15/20 07:25: Reticulocyte # (auto) 30.2, Differential Slide Review Report, Peripheral Blood Smear Path Consult PERIPHERAL SMEAR, Percent Reticulocyte Count 1.1, Reticulocyte Hemoglobin Equivalent 33.1 11/15/20 07:54: POC Glucose (Misc Panel) 67L, POC Sodium (Misc Panel) 141, POC Potassium (Misc Panel) 4.7, POC Chloride (Misc Panel) 116H, POC Total CO2 (Misc Panel) 17.0L, POC Blood Urea Nitrogen (Misc Panel 49H, POC Ionized Calcium (Misc Panel) 4.7, POC Creatinine (Misc Panel) 3.4H, POC Hematocrit (Misc Panel) 19.0L 11/15/20 08:48: Urine Color YELLOW, Urine Appearance HAZY, Urine pH 5.0, Urine Specific [place] 1.014, Urine Protein 3+H, Urine Glucose (UA) 1+H, Urine Ketones NEGATIVE, Urine Blood 1+H, Urine Nitrite NEGATIVE, Urine Bilirubin NEGATIVE, Urine Urobilinogen 0.2, Urine Leukocyte Esterase NEGATIVE, Urine WBC (Auto) 4H, Urine RBC (Auto) 12H, Urine Hyaline Casts (Auto) 0, Urine Bacteria (Auto) NEGATIVE, Urine Squamous Epithelial Cells 0, Urine Amorphous Sediment SMALLH, Urine Granular Casts (Auto) 8, Urine Sperm (Auto) , Urine Opiates Screen NEGATIVE, Urine Methad one Screen NEGATIVE, Urine Barbiturates Screen NEGATIVE, Urine Phencyclidine Screen NEGATIVE, Urine Amphetamines Screen NEGATIVE, Urine Benzodiazepines Screen NEGATIVE, Urine Cocaine Metabolite Screen NEGATIVE, Urine Cannabinoids Screen NEGATIVE CBC/BMP Laboratory Tests 11/15/20 07:16 Microbiology Microbiology 11/15/20 Respiratory Virus Panel (PCR) (SIVAKUMAR) - Final, Complete 11/15/20 Blood Culture, Received Pending 11/15/20 Blood Culture, Received Pending Home Medications Scheduled Mycophenolate Sodium (Mycophenolic Acid) 180 Mg Tablet.dr, 180 MG PO BID Tacrolimus (Tacrolimus) 1 Mg Capsule, 2 MG PO DAILY Tacrolimus (Tacrolimus) 1 Mg Capsule, 1 MG PO QHS Scheduled PRN Diazepam (Diazepam) 5 Mg Tablet, 5 MG PO TID PRN for ANXIETY Oxycodone HCl (Oxycodone HCl) 10 Mg Tablet, 10 MG PO Q6H PRN for PAIN Allergies Coded Allergies: No Known Allergies (Unverified , 11/15/20) A-FIB/CHADSVASC A-FIB History Current/History of A-Fib/PAF?: No Current PO Anticoag Therapy: No Age/Risk Factor Scoring CHADSVASC: CHADSVASC Response (Comments) Value Age Risk Factor Age < 65 years old 0 Gender Risk Factor Male 0 Hx of CHF No 0 Hx of HTN Yes 1 Hx of Stroke/TIA/or VTE No 0 Hx of Diabetes Yes 1 Hx of Vascular Disease No 0 Total 2 Treatment Treatment ordered: NONE KUSH RENEE MD Nov 15, 2020 10:44
[2020-11-15] MEDS ORDERED: DEXTROSE 50% 50 ML SYRINGE IV PRN (14:30)
[2020-11-15] MEDS ORDERED: GLUCOSE 4GM CHEW TABLET PO PRN (14:30)
[2020-11-15] MEDS ORDERED: GLUCAGON INJ 1MG VIAL SC PRN (14:30)
[2020-11-15] MEDS: TACROLIMUS 1 MG CAP (J7507) PO SCH ×2 (15:03→21:07)
[2020-11-15] MEDS: TRIAMCINOLONE ACET 0.1% OINTMENT 15 GM TOP SCH ×2 (16:27→21:07)
[2020-11-15] MEDS: diazePAM 5MG TABLET PO PRN (17:35)
[2020-11-15] MEDS: HumaLOG INSULIN (NovoLOG) PER UNIT SC SCH ×2 (17:49→20:57)
[2020-11-15 19:48] LABS: HEMATOCRIT 29.8 % (42.0-52.0)
[2020-11-15 19:54] LABS: HEMOGLOBIN 9.5 g/dl (13.5-17.5)
[2020-11-16] VITALS (9 sets, daily range): BP systolic 130–194; BP diastolic 71–94; O2SAT 96
[2020-11-16] MEDS: NITROGLYCERIN 2% OINT 1 GM *U/D* PKT TOP SCH ×2 (00:11→04:38)
[2020-11-16 00:18] LABS: HEMATOCRIT 29.8 % (42.0-52.0); HEMOGLOBIN 9.5 g/dl (13.5-17.5)
[2020-11-16] MEDS: diazePAM 5MG TABLET PO PRN ×2 (00:22→09:33)
[2020-11-16] MEDS: oxyCODONE 5MG TAB PO PRN ×3 (00:22→20:58)
[2020-11-16 06:39] LABS: ALBUMIN 2.2 GM/DL (3.2-5.2); BILIRUBIN,TOTAL 0.3 MG/DL (0.2-1.0); CALCIUM LEVEL 7.5 MG/DL (8.8-10.2); CREATININE FOR GFR 3.09 MG/DL (0.70-1.30); HEMATOCRIT 28.7 % (42.0-52.0); HEMOGLOBIN 9.1 g/dl (13.5-17.5); MAGNESIUM LEVEL 1.9 MG/DL (1.8-2.4); MEAN CORPUSCULAR HEMOGLOBIN 27.9 pg (27.0-33.0); MEAN CORPUSCULAR HGB CONC 31.7 g/dl (32.0-36.5); PLATELET COUNT, AUTOMATED 133 10^3/uL (150-450); POTASSIUM SERUM 5.1 MEQ/L (3.5-5.1); RED BLOOD COUNT 3.26 10^6/uL (4.30-6.10); TOTAL PROTEIN 5.1 GM/DL (6.4-8.2); WHITE BLOOD COUNT 6.3 10^3/uL (4.0-10.0)
[2020-11-16] MEDS ORDERED: DEXTROSE 50% 50 ML SYRINGE IV ONE (07:15)
[2020-11-16] MEDS: HumaLOG INSULIN (NovoLOG) PER UNIT SC SCH ×4 (07:30→21:00)
[2020-11-16] MEDS ORDERED: NS 1,000 ML IV ONE (07:30)
[2020-11-16] MEDS: **hydrALAZINE HCL** 25 MG TAB PO SCH ×4 (08:00→23:40)
[2020-11-16 09:30] LABS: CK-MB VALUE MASS 7.7 NG/ML (<3.6); MB/CK RELATIVE INDEX 5.7 (< OR =4); TROPONIN I 0.02 NG/ML (< 0.10)
[2020-11-16] MEDS: GABAPENTIN 100 MG CAP PO SCH ×4 (09:33→20:58)
[2020-11-16] MEDS: SODIUM BICARBONATE 325 MG TAB PO SCH ×2 (09:33→20:58)
[2020-11-16] MEDS: SUCRALFATE 1 GM TAB PO SCH ×4 (09:33→20:58)
[2020-11-16] MEDS: TACROLIMUS 1 MG CAP (J7507) PO SCH ×2 (09:35→20:58)
[2020-11-16] MEDS: TRIAMCINOLONE ACET 0.1% OINTMENT 15 GM TOP SCH ×2 (09:35→21:00)
--- NOTE | 2020-11-16 09:38 | IPN ---
PROGRESS NOTE DATE: 11/16/2020 SUBJECTIVE: The patient complains of bilateral burning pain in his lower extremities, not alleviated by dilaudid given yesterday. He denies any bright red blood per rectum, melena, back tarry stools, coffee-ground emesis, hematemesis with hemoglobin increasing to 9.1 with previous admission hemoglobin of 7.2. The patient denies any chest pain, pressure, tightness, lightheadedness or dizziness. Repeat creatinine was 3.0 this morning with admission creatinine of 3.4. Urine output overnight was 250 and 400 after midnight. Current weight is 76.6 kilograms. He denies any chest pain, pressure, tightness, lightheadedness, dizziness or shortness of breath, no palpitations. Telemetry was unremarkable, remains in sinus rhythm, ventricular rate of 61 to 94. OBJECTIVE: PHYSICAL EXAM: VITAL SIGNS: Temperature 97.6, pulse 68, respiratory rate 18, blood pressure 140/88, 100% on room air. GENERAL: The patient is awake, alert and oriented to person, place and time. He is slightly irritated with pressured speech, difficult to get words in and the patient has long winded answers and goes back to his prior surgeries in [place] whenever asked how he is. No respiratory distress. Use of accessory muscles. He has no pallor, icterus, jaundice. HEENT: Dry mucous membranes. NECK: No JVD, thyromegaly or cervical lymphadenopathy. LUNGS: Diminished. Air entry is equal, clear to auscultation. No wheezing or rales. HEART: S1, S2, sinus rhythm. ABDOMEN: Soft, nontender and nondistended. Positive bowel sounds. EXTREMITIES: No cyanosis, no clubbing. Some erythema. LABORATORY DATA: White count 6.3, hemoglobin 9.5, hematocrit 28. Previous hemoglobin is 7.2, hematocrit 23, platelet count 133. Previous platelet count was 139. Metabolic panel: Sodium 144, potassium 5.1, chloride 116, bicarb 18, BUN 60, creatinine 3.09, glucose of 59. Renal ultrasound showed no hydronephrosis, kidney stone, no atrophy with hyperechoic renal cortex, indicating medical renal disease. Respiratory panel for coronavirus was negative. Chest x-ray showed patchy infrahilar atelectasis or infiltrate on the right with no consolidation, pleural effusion or acute finding. No pneumothorax. ASSESSMENT AND PLAN: This is a 60-year-old male with history of laparoscopic sleeve gastrectomy with choledochoduodenostomy with biliary leak and Manoj-en-Y hepatojejunostomy, nonalcoholic liver cirrhosis, chronic kidney disease stage 3, hypertension, diabetes, dyslipidemia, anxiety, depression, insomnia, vitamin D deficiency, presented to the emergency room with complaints of bilateral lower extremity pain for the past one month, found to be anemic with hemoglobin of 7 with [id number] renal failure, creatinine of 3 and hypertensive urgency with systolic pressure of 248. IMPRESSION: 1. Hypertensive urgency, resolved. The patient was given nitro patch one inch every four hourly, one dose of clonidine 0.3 in the emergency room. Due to renal failure, the patient could not be given ARBs or ROSARIO inhibitors. He will be transitioned to isosorbide and hydralazine today and discontinue nitroglycerine one inch ointment q.4 hourly, keep blood pressure less than 130 mmHg systolic. 2. Anemia. Awaiting stool for blood. The patient has been transfused three units of blood with resultant improvement of hemoglobin from 7 to 9. He did have complaints of chest tightness yesterday most likely due to unstable angina but could not be treated with aspirin due to severe anemia with possible GI bleed. The patient was given PPI and Carafate. Troponins were cycled with troponin being 0.03. 3. [id number] renal failure, stage 3-4. Renally dose all medications. Obtain a nuclear med renal scan, renal Doppler ultrasound to rule out renal artery stenosis due to hypertensive urgency and renal failure, avoid ROSARIO inhibitors and ARB until renal ultrasound with Doppler. He is kept NPO for now for renal ultrasound with Doppler. 4. Nonalcoholic liver cirrhosis. No signs of decompensation at this time. 5. Chronic thrombocytopenia most likely due to liver disease. 6. Metabolic acidosis most likely due to renal failure. Monitor and sodium bicarb supplements. 7. Bilateral lower extremity pain most likely due to neuropathy from diabetes. We will check for peripheral arterial disease with arterial Dopplers. The patient will be given and started on Neurontin to be titrated for comfort. 8. Anxiety, depression, chronic. 9. DVT prophylaxis due to anemia ,compression stockings. [facility]
[2020-11-16] MEDS: ISOSORBIDE MONONITRATE 10MG TABLET PO SCH ×2 (09:47→14:31)
--- NOTE | 2020-11-16 14:37 | REP ---
INDICATION: htn urgency renal failure r/o renal artery sternosis. COMPARISON: Comparison urinary tract sonography November 15, 2021.. TECHNIQUE: Renal sonography and renal artery Doppler exam. FINDINGS: Renal cortical echogenicity pattern is increased bilaterally consistent with chronic medical renal disease. Right renal dimensions are 12.8 x 7.6 x 5.2 cm. The left kidney measures 13.1 x 5.3 x 5.9 cm. There is no evidence of hydronephrosis. Renal Doppler: The abdominal aorta and the proximal renal arteries could not be assessed directly by Doppler ultrasound due to bowel gas. Resistive indices and acceleration times are measured in the intralobar arteries of each or of kidney in the upper, mid and lower pole region. These values are normal bilaterally. There is no indirect evidence to suggest renal artery stenosis. IMPRESSION: The exam is significantly limited by bowel gas precluding visualization of the aorta and the main renal arteries. Intra lobar arterial Doppler data is normal the some no indirect evidence of renal artery stenosis. Increased renal cortical echogenicity consistent with chronic medical renal disease. <Electronically signed by Rocael Luna > 11/16/20 [id number]
--- NOTE | 2020-11-16 14:39 | REP ---
INDICATION: claudication r/o peripheral arterial disease. COMPARISON: None. TECHNIQUE: Bilateral lower extremity arterial Doppler ultrasound. FINDINGS: Ankle brachial indices could not be acquired due to heavily calcified noncompressible vessels. Mild plaquing is observed with extensively calcified arteries bilaterally. No high-grade stenosis or occlusion is appreciated. Relatively normal arterial waveforms are noted, biphasic and triphasic throughout. The Right lower extremity arterial Doppler velocity chart: Right BUSINESS ADVISOR PSV 67 cm/S Profundal 52 Proximal SFA 63 Mid SFA 78 Distal SFA 82 Popliteal 80 Proximal SEAMUS 42 Tibial-peroneal trunk 76 Proximal VACUUM EXTRACTOR OPERATOR 60 Distal VACUUM EXTRACTOR OPERATOR 103 Distal SEAMUS 88 Left lower extremity arterial Doppler velocity chart: Left BUSINESS ADVISOR PSV 81 cm/S Profundal 38 Proximal SFA 25 Mid SFA 95 Distal SFA 89 Popliteal 66 Proximal SEAMUS 62 Tibial-peroneal trunk 62 Proximal VACUUM EXTRACTOR OPERATOR 50 Distal VACUUM EXTRACTOR OPERATOR 111 Distal SEAMUS 87 IMPRESSION: Heavily calcified vessels. Mild atherosclerotic changes. No high-grade stenosis or occlusion. <Electronically signed by Rocael Luna > 11/16/20 [id number]
--- NOTE | 2020-11-16 14:58 | REP ---
INDICATION: renal failure. COMPARISON: Comparison is made with renal sonography from November 15 and November 16, 2020.. TECHNIQUE: 8.3 mCi of Technetium-99m MAG3 is injected and sequential posterior flow and excretory phase imaging are acquired. Renal cortical regions of interest are drawn and time activity curves are plotted for renal functional analysis. Pre and postvoid images including the kidneys and bladder were acquired. FINDINGS: Posterior flow study shows symmetric LEEP very poor renal bed perfusion. Excretory phase images show no evidence of a renal mass on either side. The renal collecting systems are labeled bilaterally on the 4 minutes image. Subsequent images show no evidence of obstructive uropathy. Differential renal function analysis is essentially symmetric with 47% of overall renal cortical counts coming from the right kidney and 53% from the left. Time to peak activity is normal approximately 1 minute bilaterally. Time to half max activity is delayed bilaterally, 14 minutes on the left and greater than 30 minutes on the right. Bilaterally flat excretion curves are noted. IMPRESSION: Delayed flow symmetrically and bilaterally. Impaired renal excretion with flat excretion curves bilaterally. No evidence of obstructive uropathy. <Electronically signed by Rocael Luna > 11/16/20 [id number]
[2020-11-17 06:00] VITALS: BP 172/90
[2020-11-17] MEDS: ISOSORBIDE MONONITRATE 10MG TABLET PO SCH ×2 (06:04→14:54)
[2020-11-17] MEDS: **hydrALAZINE HCL** 25 MG TAB PO SCH ×3 (06:04→17:39)
[2020-11-17 06:59] LABS: HEMATOCRIT 28.3 % (42.0-52.0); MEAN CORPUSCULAR HGB CONC 31.8 g/dl (32.0-36.5); MEAN CORPUSCULAR VOLUME 88.2 fl (80.0-96.0); PLATELET COUNT, AUTOMATED 141 10^3/uL (150-450); RED BLOOD COUNT 3.21 10^6/uL (4.30-6.10); WHITE BLOOD COUNT 7.2 10^3/uL (4.0-10.0)
[2020-11-17 07:30] LABS: BILIRUBIN,TOTAL 0.2 MG/DL (0.2-1.0); CALCIUM LEVEL 7.7 MG/DL (8.8-10.2); GLOMERULAR FILTRATION RATE 22.8 (>49); MAGNESIUM LEVEL 1.9 MG/DL (1.8-2.4); POTASSIUM SERUM 5.2 MEQ/L (3.5-5.1); TOTAL PROTEIN 4.7 GM/DL (6.4-8.2)
[2020-11-17] MEDS: SUCRALFATE 1 GM TAB PO SCH ×4 (07:30→20:01)
[2020-11-17] MEDS: HumaLOG INSULIN (NovoLOG) PER UNIT SC SCH ×4 (07:30→20:02)
[2020-11-17] MEDS: TACROLIMUS 1 MG CAP (J7507) PO SCH ×2 (09:23→20:01)
[2020-11-17] MEDS: GABAPENTIN 100 MG CAP PO SCH ×4 (09:24→20:01)
[2020-11-17] MEDS: SODIUM BICARBONATE 325 MG TAB PO SCH ×2 (09:24→20:01)
[2020-11-17] MEDS: TRIAMCINOLONE ACET 0.1% OINTMENT 15 GM TOP SCH ×2 (09:24→20:02)
[2020-11-17 14:00] VITALS: BP 161/78
--- NOTE | 2020-11-17 14:16 | IPNPDOC ---
Text Note Date of Service The patient was seen on 11/17/20. NOTE Subjective: Patient was seen and examined this morning at bedside. Very talkative and distractible tangential in his speech. Denies any blood in stool. Denies black stools. States his lower extremity pain is better. Denies any dizziness or lightheadedness. Tells me he is making good urine output. There is no acute overnight events reported to me. Patient denies chest pain or shortness of breath. Objective: Constitutional: Awake and alert, in no apparent distress, tangential speech ENT: Sclera are clear Respiratory: Lungs CTA bilaterally. No respiratory distress. Cardiovascular: RRR S1 and S2 are normal Gastrointestinal: Abdomen is soft, non distended, non tender, BS present. Musculoskeletal: Trace lower extremity edema Neurologic: No focal neurological deficit. Mental Status: A&O x3 Skin: Warm, dry Assessment/plan: This is a 60-year-old male with history of laparoscopic sleeve gastrectomy with choledochoduodenostomy with biliary leak and Manoj-en-Y hepatojejunostomy, nonalcoholic liver cirrhosis, chronic kidney disease stage 3, hypertension, diabetes, dyslipidemia, anxiety, depression, insomnia, vitamin D deficiency, presented to the emergency room with complaints of bilateral lower extremity pain for the past one month, found to be anemic with hemoglobin of 7 with [id number] renal failure, creatinine of 3 and hypertensive urgency with systolic pressure of 248. # hypertensive urgency: Blood pressure improved. Due to his renal failure micky ent cannot be given ARBs/ROSARIO inhibitors. He was transitioned to isosorbide and hydralazine. # Anemia: Stool occult blood ordered. Patient is being transfused 3 units of blood his hemoglobin did improve from 7->9 and is stable. Patient is on PPI and Carafate. # Acute on chronic renal failure stage 3-4: I consulted nephrology given that renal function hasn't substantially improved. Avoid nephrotoxins. Renally dose medications. # Nonalcoholic liver cirrhosis: Compensated. # s/p Liver transplant: ok to continue tacrolimus and mecophenolate. Follow up with PCP. # Chronic thrombocytopenia: This is likely due to his underlying liver disease # Bilateral lower extremity pain: This is likely neuropathy from diabetes patient was started on gabapentin. Pain improved. # DVT prophylaxis: Compression stockings only due to anemia A Yousef Hospitalist Ada BROCK, I+O VS, Ada I+O Laboratory Tests 11/17/20 06:29 Vital Signs Date Time Temp Pulse Resp B/P (MAP) Pulse Ox O2 Delivery O2 Flow Rate FiO2 11/17/20 12:20 157/76 11/17/20 06:00 97.5 67 17 99 Room Air 11/16/20 09:34 18.0 I&O- Last 24 Hours up to 6 AM 11/17/20 06:00 Intake Total 2840 ml Output Total 900 ml Balance 1940 ml LAILA FISHER MD Nov 17, 2020 14:16
[2020-11-17] MEDS ORDERED: NS 1,000 ML IV SCH (14:30)
[2020-11-17] MEDS: EXCEDRIN MIGRAINE TABLET PO PRN (14:54)
[2020-11-17] MEDS ORDERED: SOD POLYSTYRENE SULFONATE SUSP 15 GM/60 ML UD PO ONE (15:30)
[2020-11-17 22:00] VITALS: BP 170/92
[2020-11-18] MEDS: EXCEDRIN MIGRAINE TABLET PO PRN ×2 (00:51→10:09)
[2020-11-18] MEDS: diazePAM 5MG TABLET PO PRN (00:51)
[2020-11-18] MEDS: **hydrALAZINE HCL** 25 MG TAB PO SCH ×3 (00:51→12:02)
[2020-11-18 06:00] VITALS: BP 160/86
[2020-11-18] MEDS: ISOSORBIDE MONONITRATE 10MG TABLET PO SCH ×2 (06:07→15:18)
[2020-11-18 06:33] LABS: HEMATOCRIT 27.8 % (42.0-52.0); HEMOGLOBIN 8.8 g/dl (13.5-17.5); MEAN CORPUSCULAR HEMOGLOBIN 27.8 pg (27.0-33.0); MEAN CORPUSCULAR HGB CONC 31.7 g/dl (32.0-36.5); PLATELET COUNT, AUTOMATED 140 10^3/uL (150-450); RED BLOOD COUNT 3.16 10^6/uL (4.30-6.10); WHITE BLOOD COUNT 7.3 10^3/uL (4.0-10.0)
[2020-11-18] MEDS: oxyCODONE 5MG TAB PO PRN (06:53)
[2020-11-18 07:05] LABS: ALBUMIN 1.9 GM/DL (3.2-5.2); BILIRUBIN,TOTAL 0.2 MG/DL (0.2-1.0); CALCIUM LEVEL 8.1 MG/DL (8.8-10.2); CREATININE FOR GFR 2.9 MG/DL (0.70-1.30); GLOMERULAR FILTRATION RATE 23.7 (>49); MAGNESIUM LEVEL 1.8 MG/DL (1.8-2.4); POTASSIUM SERUM 4.2 MEQ/L (3.5-5.1); TOTAL PROTEIN 5.1 GM/DL (6.4-8.2)
[2020-11-18] MEDS: HumaLOG INSULIN (NovoLOG) PER UNIT SC SCH ×2 (07:30→12:05)
[2020-11-18] MEDS: FUROSEMIDE 40MG/4ML VIAL (J1940) IV SCH ×2 (09:30→10:08)
[2020-11-18] MEDS: TRIAMCINOLONE ACET 0.1% OINTMENT 15 GM TOP SCH (09:58)
[2020-11-18] MEDS: GABAPENTIN 100 MG CAP PO SCH ×2 (09:58→12:02)
[2020-11-18] MEDS: TACROLIMUS 1 MG CAP (J7507) PO SCH (09:58)
[2020-11-18] MEDS: SODIUM BICARBONATE 325 MG TAB PO SCH (09:58)
[2020-11-18] MEDS: SUCRALFATE 1 GM TAB PO SCH ×2 (09:59→12:05)
[2020-11-18] MEDS ORDERED: amLODIPine 5 MG TAB PO SCH (10:30)
--- NOTE | 2020-11-18 11:53 | CR ---
CONSULTATION DATE: 11/18/2020 REQUESTING PHYSICIAN: LAILA FISHER MD CONSULTING PHYSICIAN: OCTAVIO HARRISON MD REASON FOR CONSULTATION: Management of acute renal failure and hypertension. CHIEF COMPLAINT: The patient presented to the hospital on November 15 with uncontrolled hypertension and foot pain. HISTORY OF PRESENT ILLNESS: Note: History was obtained from the Medical Team and from patient's chart, patient is not a very good historian and he is very tangential in his thoughts and history. Flor Henderson is a 60-year-old man with a past medical history of gastric bypass surgery. Postop course had a lot of complications. He needed choledochoduodenostomy which had a biliary leak. He was admitted to the hospital for a long time. He reports because of that he developed liver cirrhosis, he ended up needing a liver transplant in 2012. The patient also reports a history of chronic kidney disease Stage III, currently not following up with any generator repairer as an outpatient. He presented to the hospital on November 15, 2020 with progressive swelling of the bilateral lower extremities. He was found to have bilateral lower extremity edema. He was found to have elevated blood pressures, his systolic blood pressures were in the 200s. He had acute kidney injury with a creatinine of 3 on arrival. His blood pressure was optimized by the Medical Team. He is currently on hydralazine and isosorbide. Systolic blood pressures are running in the 150s and 160s. Despite that, his renal function did not significantly improve. His creatinine is 2.9 on the latest labs so Nephrology Service was called for further help in the management of this patient. I saw and evaluated the patient today morning at the bedside. He was actually sitting up on the sofa. He denies any chest pain or shortness of breath. He does report lower extremity edema but he reports that is slightly better today as compared with three days ago. PAST MEDICAL HISTORY: History of hypertension, diabetes, liver transplant status, hyperlipidemia, peripheral vascular disease, chronic kidney disease Stage III. The best creatinine that I have in our system is from 2018 and it was 1.3. Gastroesophageal reflux disease. Gastric bypass surgery. Major depression. Generalized anxiety disorder. Degenerative joint disease. History of positive PPD treated with INH and chronic urinary retention. PAST SURGICAL HISTORY: Status post gastric bypass surgery with Manoj-en-Y hepato-jejunostomy due to biliary leak after choledochoduodenostomy in 2012, liver transplant was done in September 2012, laparoscopic sleeve gastrectomy was done in 2011, and left knee replacement in 2008. ALLERGIES: No known drug allergies. FAMILY HISTORY: No significant family history of endstage renal disease. SOCIAL HISTORY: He denies any smoking or illicit drug abuse, or alcohol abuse. REVIEW OF SYSTEMS: Constitutional: He denies any fevers or chills. Eyes: He denies any blurry vision or double vision. ENT: Denies any dysphagia or odynophagia. Cardiovascular: He did report chest tightness when he arrived. He currently denies any cardiovascular symptoms except lower extremity edema. Respiratory: He denies any cough. He did have shortness of breath on arrival. GI: He reports liver transplant status and gastric bypass. Genitourinary: He denies any dysuria or hematuria. Musculoskeletal: He reports bilateral lower extremity pain because of edema. Skin: He denies any rashes or ulcers. Psych: He reports a history of depression and anxiety. Hematologic/Oncologic: He denies any easy bleeding or bruising. CALL CENTER CONSULTANT: He denies any strokes or seizures. All other review of systems are negative. PHYSICAL EXAMINATION: GENERAL: Patient is awake, alert and oriented x3 sitting up on the sofa in no apparent distress. VITAL SIGNS: Temperature is 97.8 degrees Fahrenheit, blood pressure is 160/86, pulse is 69, respiratory rate of 18, saturating 98% on room air. HEAD AND NECK EXAM: Extraocular muscles intact. Patient has bitemporal wasting. Mucous membranes are moist. Neck is supple. Mildly elevated JVD. CARDIOVASCULAR: S1 and S2, regular rate. 2+ edema of the bilateral lower extremities. RESPIRATORY: Chest is clear to auscultation bilaterally. Bilateral equal air entry. No rales or rhonchi. ABDOMEN: Soft, positive bowel sounds. Old surgical scars from liver transplant is noted. GENITOURINARY: Bladder is nonpalpable. MUSCULOSKELETAL: No clubbing or cyanosis. Lower extremity edema and mild erythema in the ankle was noted bilaterally. CALL CENTER CONSULTANT: No focal deficit. Power is 5/5 in all extremities. LABORATORY DATA: CBC showed a WBC of 7.3, hemoglobin 8.8, platelets of 740,00. Urinalysis done on November 15 showed 3+ protein and 1+ blood. BMP showed a sodium of 141, potassium of 4.2, chloride 114, bicarbonate 18, BUN 65, creatinine is 2.9. Magnesium is 1.8. Albumin is 1.9. Microbiology: Respiratory viral panel is negative. Blood cultures are negative. IMAGING: Nuclear renal scan was done yesterday which showed delayed flow symmetrically and bilaterally impaired renal excretion bilaterally. No evidence of obstructive uropathy. A renal Doppler was also done yesterday which was negative for renal artery stenosis. Ultrasound done on November 15 showed renal cortex hyperechoic compared to that of the liver. CURRENT INPATIENT MEDICATIONS: Patient's medications were all reviewed by myself. He is on Tylenol p.r.n., amlodipine was started by myself 5 mg p.o. daily, he is on Valium 5 mg p.o. three times a day p.r.n. anxiety. I have started the patient on Lasix 40 mg IV twice a day. He is on Gabapentin 100 mg four times a day, Hydralazine 25 mg p.o. q. 6 hourly, Insulin Lispro sliding scale, Isosorbide 10 mg p.o. twice a day, Oxycodone 10 mg q. 6 hours p.r.n. pain, Mycophenolate 180 mg twice a day, sodium bicarbonate 650 mg p.o. twice a day, Kayexalate 30 grams p.o. one dose was given yesterday, he is on Carafate four times a day, Tacrolimus 2 mg in the morning and 1 mg q.h.s. ASSESSMENT AND PLAN: 1. Acute renal failure superimposed on chronic kidney disease. Patient's baseline creatinine available in our system is from three years ago. He was probably not following with his physicians regularly. I believe that he has progressed to chronic kidney disease Stage IV now. Hypertension is secondary to combination of worsening renal function and use of immunosuppression for liver transplant. He does not need any urgent hemodialysis. However, he will need to follow-up with Nephrology as an outpatient for his chronic kidney disease Stage IV management. His antihypertensive medications are being optimized. 2. Hypertension. Patient does not have any latest echocardiogram available. He most likely he must have some diastolic dysfunction as well. Hypertension again is associated with chronic kidney disease and use of immunosuppression. He is already on Hydralazine and Isosorbide. I have added amlodipine. Beta blockers are not being used because his pulse rate is in running in the low 60s. Avoid use of Josiah inhibitors or angiotensin receptor blockers. There was no evidence of renal artery stenosis. 3. Lower extremity edema. Patient has evidence of mild fluid overload. I have started the patient on Lasix 40 mg IV twice a day. 4. Metabolic acidosis. It is secondary to worsening renal failure. He has already been started on sodium bicarbonate 650 mg p.o. twice a day. Bicarbonate level is slowly improving. 5. Anemia and chronic kidney disease. Patient's iron levels were reviewed, they are within the acceptable range. Hemoglobin level is low. Once his blood pressure gets better I would start the patient on Aranesp. 6. Liver transplant status. Okay to continue Tacrolimus and Mycophenolate. Patient is not sure if he was on prednisone or not. I have ordered a Tacrolimus level as well and dose will be adjusted according to the levels. 7. Gastric bypass status. 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 Thank you for involving me in the care of this patient. I shall be happy to follow the patient along with you tomorrow morning. JON
--- NOTE | 2020-11-18 12:08 | IPNPDOC ---
Text Note Date of Service The patient was seen on 11/18/20. NOTE Subjective: Patient was seen and examined this morning at bedside. He continues to be very talkative distractible and tangential. Denies any blood in stool. Denies black stools, has daily bowel movements but keeps flushing his stools without informing his nurse despite being instructed to his nurse know so we can obtain a stool sample. Tells me has brown stools without any bleeding. Denies having lower extremity pain today. Denies any dizziness or lightheadedness. Tells me he is making good urine output. There is no acute overnight events reported to me. Patient denies chest pain or shortness of breath. Objective: Constitutional: Awake and alert, in no apparent distress, tangential speech ENT: Sclera are clear Respiratory: Lungs CTA bilaterally. No respiratory distress. Cardiovascular: RRR S1 and S2 are normal Gastrointestinal: Abdomen is soft, non distended, non tender, BS present. Musculoskeletal: Trace lower extremity edema Neurologic: No focal neurological deficit. Mental Status: A&O x3 Skin: Warm, dry Assessment/plan: This is a 60-year-old male with history of laparoscopic sleeve gastrectomy with choledochoduodenostomy with biliary leak and Manoj-en-Y hepatojejunostomy, nonalcoholic liver cirrhosis, chronic kidney disease stage 3, hypertension, diabetes, dyslipidemia, anxiety, depression, insomnia, vitamin D deficiency, presented to the emergency room with complaints of bilateral lower extremity pain for the past one month, found to be anemic with hemoglobin of 7 with [id number] renal failure, creatinine of 3 and hypertensive urgency with systolic pressure of 248. # hypertensive urgency: Blood pressure improved. Due to his renal failure patient cannot be given ARBs/ROSARIO inhibitors. He was transitioned to isosorbide and hydralazine, amlodipine was added also. # Anemia: Stool occult blood ordered. Patient is being transfused 3 units of blood his hemoglobin did improve from 7->9 and is stable. Patient is on PPI and Carafate. Hemoglobin has been stable patient is not providing stool sample to nurse tells me there is no blood in his stools. If unable to obtain a stool sample I will have him follow-up with his primary care physician Naina need an outpatient colonoscopy setup. # Acute on chronic renal failure stage 3-4: I consulted nephrology given that renal function hasn't substantially improved. Avoid nephrotoxins. Renally dose medications. Dr Patton suspects due to his poor compliance and follow up he has probably progressed to stage IV CKD, he will be referred to follow up with nephrology in the clinic. # Nonalcoholic liver cirrhosis: Compensated.He does have some trace LE edema will get some diuresis with a dose of IV lasix, I will discharge him on daily 20mg PO lasix for 30 days until he is able to get an echo setup as an outpatient with his PCP. # s/p Liver transplant: ok to continue tacrolimus and mecophenolate. Follow up with PCP. # Chronic thrombocytopenia: This is likely due to his underlying liver disease # Bilateral lower extremity pain: This is likely neuropathy from diabetes patient was started on gabapentin. Pain improved. # DVT prophylaxis: Compression stockings only due to anemia A Liang Hospitalist VSAda, I+O VSAda I+O Laboratory Tests 11/18/20 05:47 Vital Signs Date Time Temp Pulse Resp B/P (MAP) Pulse Ox O2 Delivery O2 Flow Rate FiO2 11/18/20 09:53 18 11/18/20 06:07 160/86 11/18/20 06:00 97.8 69 98 Room Air 11/16/20 09:34 18.0 I&O- Last 24 Hours up to 6 AM 11/18/20 06:00 Intake Total 1190 ml Output Total 200 ml Balance 990 ml LAILA FISHER MD Nov 18, 2020 12:08
--- NOTE | 2020-11-18 12:14 | DS.PDOC ---
Discharge Summary General Date of Admission Nov 15, 2020 at 10:03 Date of Discharge 11/18/20 Discharge Summary PROCEDURES PERFORMED DURING STAY: [None]. ADMITTING/DISCHARGE DIAGNOSES: Hypertensive urgency Progression of chronic kidney failure Poor compliance and follow-up Anemia COMPLICATIONS/CHIEF COMPLAINT: Hypertensive Urgency. HISTORY OF PRESENT ILLNESS: Her admitting H&P:60-year-old male for code with past medical history significant for choledochoduodenostomy with biliary leak and Manoj-en-Y hepaticojejunostomy, laparoscopic sleeve gastrectomy, chronic kidney disease stage III, hypertension, diabetes, dyslipidemia, reflux, liver cirrhosis, nonalcoholic, anxiety, depression, insomnia, degenerative joint disease. Vitamin D deficiency. Positive PPD treated with INH and chronic urine retention was in his usual state of health until about a month ago when he started to complain of bilateral lower extremity pain, worse in the past week, unable to ambulate due to severe pain rated a 10 out of 10 with swelling and redness. Patient denies any fever, chills he's had increasing lower extremity edema but notes complaints of chest pain, pressure, tightness, lightheadedness, shortness of breath, dyspnea on exertion or pleuritic chest pain. In the ER evaluation included venous Dopplers bilateral lower extremities which was negative for deep venous thrombosis but with superficial nonocclusive thrombus, chest x-ray shows no acute infiltrate, coronavirus 19 is negative, patient was found to be anemic with hemoglobin of 7.2, hypertensive with systolic pressure of 200 and creatinine of 3.0. Hospitalist was called to admit for evaluation of anemia, lower extremity pain and RBC transfusion. Patient had denied any bright red blood per rectum, melena, black tarry stools, coffee-ground emesis, no prior history of esophageal varices, peptic ulcer disease. He denies any nonsteroidal anti-inflammatory use. Despite uncontrolled hypertension with systolic pressure over 200. Patient denies any visual changes, headache or confusion. HOSPITAL COURSE: This is a 60-year-old male with history of laparoscopic sleeve gastrectomy with choledochoduodenostomy with biliary leak and Manoj-en-Y hepatojejunostomy, nonalcoholic liver cirrhosis, chronic kidney disease stage 3, hypertension, diabetes, dyslipidemia, anxiety, depression, insomnia, vitamin D deficiency, presented to the emergency room with complaints of bilateral lower extremity pain for the past one month, found to be anemic with hemoglobin of 7 with [id number] renal failure, creatinine of 3 and hypertensive urgency with systolic pressure of 248. # hypertensive urgency: Blood pressure improved. Due to his renal failure patient cannot be given ARBs/ROSARIO inhibitors. He was transitioned to isosorbide and hydralazine, amlodipine was added also. # Anemia: Stool occult blood ordered. Patient is being transfused 3 units of blood his hemoglobin did improve from 7->9 and is stable. Patient is on PPI and Carafate. Hemoglobin has been stable patient is not providing stool sample to nurse tells me there is no blood in his stools. We were unable to obtain a stool sample I will have him follow-up with his primary care physician as he need an outpatient colonoscopy setup. # Acute on chronic renal failure stage 3-4: I consulted nephrology given that renal function hasn't substantially improved. Avoid nephrotoxins. Renally dose medications. Dr Patton suspects due to his poor compliance and follow up he has probably progressed to stage IV CKD, he will be referred to follow up with nephrology in the clinic. # Nonalcoholic liver cirrhosis: Compensated.He does have some trace LE edema will get some diuresis with a dose of IV lasix, I will discharge him on daily 20mg PO lasix for 30 days until he is able to get an echo setup as an outpatient with his PCP. # s/p Liver transplant: ok to continue tacrolimus and mecophenolate. Follow up with PCP. # Chronic thrombocytopenia: This is likely due to his underlying liver disease # Bilateral lower extremity pain: This is likely neuropathy from diabetes patient was started on gabapentin. Pain improved. DISCHARGE MEDICATIONS: Please see below. ALLERGIES: Please see below. PHYSICAL EXAMINATION ON DISCHARGE: VITAL SIGNS: Please see below. Constitutional: Awake and alert, in no apparent distress, tangential speech ENT: Sclera are clear Respiratory: Lungs CTA bilaterally. No respiratory distress. Cardiovascular: RRR S1 and S2 are normal Gastrointestinal: Abdomen is soft, non distended, non tender, BS present. Musculoskeletal: Trace lower extremity edema Neurologic: No focal neurological deficit. Mental Status: A&O x3 Skin: Warm, dry LABORATORY DATA: Please see below. IMAGING: See chart PROGNOSIS: Fair ACTIVITY: [As tolerated]. DIET: Low-salt diet DISPOSITION: Home DISCHARGE INSTRUCTIONS: Please follow up with your primary care physician within 1 week from discharge. If you do not have one, please follow up with us to schedule an appointment. Please keep all of your follow up appointments. Please call central to book your appointments with hospital specialists. Please take all your medications as prescribed. Please call/come to Clinic or go to the Emergency Department if - Temp >101, intractable Nausea/Vomiting, Diarrhea, Mouth sores, Headaches, Altered mental status, Seizures, sudden onset of swelling, bleeding, shortness of breath or chest pain. ITEMS TO FOLLOWUP ON ON OUTPATIENT: Follow-up with primary care physician U will need to be set up with an outpatient colonoscopy, echocardiogram Referral to nephrology DISCHARGE CONDITION: [Stable]. TIME SPENT ON DISCHARGE: 40 minutes. Vital Signs/I&Os Vital Signs Date Time Temp Pulse Resp B/P (MAP) Pulse Ox O2 Delivery O2 Flow Rate FiO2 11/18/20 09:53 18 11/18/20 06:07 160/86 11/18/20 06:00 97.8 69 98 Room Air 11/16/20 09:34 18.0 I&O- Last 24 Hours up to 6 AM 11/18/20 06:00 Intake Total 1190 ml Output Total 200 ml Balance 990 ml Laboratory Data Labs 24H Laboratory Tests 2 11/17/20 16:33: Bedside Glucose (Misc Panel) 102 11/17/20 19:59: Bedside Glucose (Misc Panel) 104 11/18/20 05:43: 11/18/20 05:47: Nucleated Red Blood Cells % (auto) 0.0, Anion Gap 9, Glomerular Filtration Rate 23.7L, Calcium Level 8.1L, Magnesium Level 1.8, Total Bilirubin 0.2, Aspartate Amino Transf (AST/SGOT) 16, Alanine Aminotransferase (ALT/SGPT) 15, Alkaline Phosphatase 86, Total Protein 5.1L, Albumin 1.9L, Albumin/Globulin Ratio 0.6 11/18/20 11:40: Bedside Glucose (Misc Panel) 111 CBC/BMP Laboratory Tests 11/18/20 05:47 FSBS Laboratory Tests Test 11/17/20 16:33 11/17/20 19:59 11/18/20 11:40 Range/Units Bedside Glucose (Misc Panel) 102 104 111 80-115 MG/DL Microbiology Microbiology 11/15/20 Respiratory Virus Panel (PCR) (SIVAKUMAR) - Final, Complete 11/15/20 Blood Culture - Preliminary, Resulted No Growth after 72 hours. All specime... 11/15/20 Blood Culture - Preliminary, Resulted No Growth after 72 hours. All specime... Discharge Medications Scheduled Amlodipine Besylate (Amlodipine Besylate) 5 Mg Tablet, 5 MG PO DAILY Furosemide (Lasix) 20 Mg Tablet, 20 MG PO DAILY Gabapentin (Gabapentin) 100 Mg Capsule, 100 MG PO QID Hydralazine HCl (Hydralazine HCl) 25 Mg Tablet, 25 MG PO Q6H Isosorbide Mononitrate (Isosorbide Mononitrate) 10 Mg Tablet, 10 MG PO BID@,14 Mycophenolate Sodium (Mycophenolic Acid) 180 Mg Tablet.dr, 180 MG PO BID, (Reported) Sodium Bicarbonate (Sodium Bicarbonate) 325 Mg Tablet, 650 MG PO BID Sucralfate (Sucralfate) 1 Gm Tablet, 1 GM PO ACHS Tacrolimus (Tacrolimus) 1 Mg Capsule, 2 MG PO DAILY, (Reported) Tacrolimus (Tacrolimus) 1 Mg Capsule, 1 MG PO QHS, (Reported) Triamcinolone Acet (Triamcinolone Acetonide 0.1% Oint) 15 Gm Oint...g., 1 DOSE TOP BID Scheduled PRN Diazepam (Diazepam) 5 Mg Tablet, 5 MG PO TID PRN for ANXIETY, (Reported) Oxycodone HCl (Oxycodone HCl) 10 Mg Tablet, 10 MG PO Q6H PRN for PAIN, (Reported) Allergies Coded Allergies: No Known Allergies (Unverified , 11/15/20) LAILA FISHER MD Nov 18, 2020 12:14
[2020-11-18] MEDS ORDERED: SUCR1TA PO (12:22)
[2020-11-18] MEDS ORDERED: LASI20TA3 PO (12:22)
[2020-11-18] MEDS ORDERED: ISOS10TAB PO (12:22)
[2020-11-18] MEDS ORDERED: AMLO1TAB24 PO (12:22)
[2020-11-18] MEDS ORDERED: SODI325T9 PO (12:22)
[2020-11-18] MEDS ORDERED: HYDR25TA PO (12:22)
[2020-11-18] MEDS ORDERED: GABA-1171 PO (12:22)
[2020-11-18] MEDS ORDERED: TRIA1OI TOP (12:28)
[2020-11-18] MEDS ORDERED: CALCIUM/VITAMIN D 500 MG TAB PO SCH (12:30)
[2020-11-18 14:00] VITALS: BP 174/97
[2020-11-18 15:18] VITALS: BP 173/91
[2020-11-18] MEDS ORDERED: MYCO1TAB PO (16:02)
[2020-11-18] MEDS ORDERED: TACR1CAP3 PO ×2 (16:02)
[2020-11-19] MEDS ORDERED: ENTER DRUG NAME HERE (PATIENT'S OWN MED) PO SCH (09:00)
== END 2020-11-18 17:51 | disposition home or self-care (01) | DRG 812 ==
LOC: M ED 06:37 → M ED INP 10:03 → M PCU 12:13 → M MSPAV 11-16 10:44
PROVIDERS: ADMIT General Practice; ATTEND Family Medicine
PROC: 30233N1 Transfusion of Nonautologous Red Blood Cells into Peripheral Vein, Percutaneous Approach (ICD-10-PCS; principal; 2020-11-15)
DX: D64.9 Anemia, unspecified (principal); Z94.4 Liver transplant status; E87.2 Acidosis; N18.4 Chronic kidney disease, stage 4 (severe); I16.0 Hypertensive urgency; E11.22 Type 2 diabetes mellitus with diabetic chronic kidney disease; I87.8 Other specified disorders of veins; E11.40 Type 2 diabetes mellitus with diabetic neuropathy, unspecified; Z91.19 Patient's noncompliance with other medical treatment and regimen; I12.9 Hypertensive chronic kidney disease with stage 1 through stage 4 chronic kidney disease, or unspecified chronic kidney disease; E78.5 Hyperlipidemia, unspecified; K74.60 Unspecified cirrhosis of liver; G47.00 Insomnia, unspecified; F41.9 Anxiety disorder, unspecified; F32.9 Major depressive disorder, single episode, unspecified; E55.9 Vitamin D deficiency, unspecified; D69.6 Thrombocytopenia, unspecified; Z79.899 Other long term (current) drug therapy; I73.9 Peripheral vascular disease, unspecified

== ENCOUNTER 2021-05-02 13:20 | Emergency (ER) | payer MEDICARE ==
[~2021-05-02] VITALS: Ht 177.8 cm; Wt 79.5 kg
[~2021-05-02 13:20] MED LIST changes: +AMLO1TAB24 PO; +DIAZ5TAB PO; +GABA-1171 PO; +GABA-282 PO; +HYDR25TA PO; +ISOS10TAB PO; +LASI20TA3 PO; +MIRT-62 PO; +MYCO1TAB PO; +OXYC10TA12 PO; +SODI325T9 PO; +SUCR1TA PO; +TACR1CAP3 PO; +TRAZ-252 PO; +TRIA1OI TOP; +VITA100018 PO; +VITA200038 PO; +ZOLO100T PO
[2021-05-02 16:21] LABS: BASO % 0.6 % (0.0-1.0); EOS # 0.4 10^3/uL (0.0-0.5); EOS % 6.4 % (0.0-3.0); HEMATOCRIT 29.6 % (42.0-52.0); HEMOGLOBIN 9.4 g/dl (13.5-17.5); LYMPH # 1.2 10^3/uL (1.5-5.0); LYMPH % 17.9 % (24.0-44.0); MEAN CORPUSCULAR HEMOGLOBIN 28.2 pg (27.0-33.0); MEAN CORPUSCULAR HGB CONC 31.8 g/dl (32.0-36.5); MEAN CORPUSCULAR VOLUME 88.9 fl (80.0-96.0); MONO # 0.7 10^3/uL (0.0-0.8); MONO % 10.6 % (2.0-8.0); NEUTROPHILS # 4.2 10^3/uL (1.5-8.5); NEUTROPHILS % 64.2 % (36.0-66.0); PLATELET COUNT, AUTOMATED 151 10^3/uL (150-450); RED BLOOD COUNT 3.33 10^6/uL (4.30-6.10); WHITE BLOOD COUNT 6.5 10^3/uL (4.0-10.0)
[2021-05-02 17:05] VITALS: BP 168/98
== END 2021-05-02 17:05 | disposition home or self-care (01) ==
LOC: M ED 13:20
DX: H91.91 Unspecified hearing loss, right ear (principal); I12.9 Hypertensive chronic kidney disease with stage 1 through stage 4 chronic kidney disease, or unspecified chronic kidney disease; F33.9 Major depressive disorder, recurrent, unspecified; F41.9 Anxiety disorder, unspecified; R22.31 Localized swelling, mass and lump, right upper limb; N18.30 Chronic kidney disease, stage 3 unspecified; Z99.2 Dependence on renal dialysis; D64.9 Anemia, unspecified; F14.10 Cocaine abuse, uncomplicated; N40.0 Benign prostatic hyperplasia without lower urinary tract symptoms; Z98.84 Bariatric surgery status; Z94.4 Liver transplant status; Z79.899 Other long term (current) drug therapy

== ENCOUNTER 2021-05-10 21:02 | Inpatient (IN) | payer MEDICARE ==
[~2021-05-10] VITALS: Ht 177.8 cm; Wt 79.5 kg
[2021-05-10 22:09] LABS: HEMATOCRIT 30.8 % (42.0-52.0); MEAN CORPUSCULAR HEMOGLOBIN 28.2 pg (27.0-33.0); MEAN CORPUSCULAR HGB CONC 32.5 g/dl (32.0-36.5); MEAN CORPUSCULAR VOLUME 86.8 fl (80.0-96.0); PLATELET COUNT, AUTOMATED 155 10^3/uL (150-450); RED BLOOD COUNT 3.55 10^6/uL (4.30-6.10); WHITE BLOOD COUNT 6.5 10^3/uL (4.0-10.0)
[2021-05-10 22:51] LABS: ACETAMINOPHEN LEVEL 2.6 UG/ML (10.0-30.0); ALT/SGPT 19 U/L (12-78); BILIRUBIN,DIRECT 0.1 MG/DL (0.0-0.2); BILIRUBIN,TOTAL 0.4 MG/DL (0.2-1.0); BLOOD UREA NITROGEN 16 MG/DL (7-18); CALCIUM LEVEL 7.6 MG/DL (8.8-10.2); CARBON DIOXIDE LEVEL 30 MEQ/L (21-32); CHLORIDE LEVEL 107 MEQ/L (98-107); CREATININE FOR GFR 2.04 MG/DL (0.70-1.30); ETHYL ALCOHOL (ETHANOL) < 0.003 % (0.000-0.010); GLOMERULAR FILTRATION RATE 35.4 (>49); GLUCOSE, FASTING 107 MG/DL (70-100); POTASSIUM SERUM 3.6 MEQ/L (3.5-5.1); SALICYLATE LEVEL < 1.7 MG/DL (5.0-30.0); SODIUM LEVEL 143 MEQ/L (136-145); TOTAL PROTEIN 6.2 GM/DL (6.4-8.2)
[2021-05-11 00:43] LABS: RSV AMPLIFICATION NEGATIVE (NEGATIVE)
[2021-05-11] MEDS ORDERED: AMLO1TAB25 PO (03:06)
[2021-05-11] MEDS ORDERED: FERR325T82 PO (03:06)
[2021-05-11] MEDS ORDERED: CALC1CAP31 PO (03:06)
[2021-05-11] MEDS ORDERED: ALPRAZolam 0.25 MG TAB PO ONE (05:05)
[2021-05-11 05:55] LABS: AMPHETAMINES LEVEL URINE NEGATIVE (NEGATIVE); BARBITURATES URINE NEGATIVE (NEGATIVE); BENZODIAZEPINES URINE NEGATIVE (NEGATIVE); CANNABINOIDS URINE NEGATIVE (NEGATIVE); COCAINE METABOLITE URINE NEGATIVE (NEGATIVE); METHADONE URINE NEGATIVE (NEGATIVE); OPIATES URINE NEGATIVE (NEGATIVE); PHENCYCLIDINE URINE NEGATIVE (NEGATIVE)
--- NOTE | 2021-05-11 07:48 | ECGEPIP ---
[facility] - ED Test Date: 2021-05-10 Pat Name: MENDY WELCH Department: Room: - Gender: Male Etcher Machine: PAUL : 1960 Requested By: YUNIER DA SILVA Order Number: [id number] Reading MD: Yunier Tang Measurements Intervals [place] Rate: 63 P: 62 AR: 192 QRS: 15 QRSD: 92 T: 81 QT: 494 QTc: 505 Interpretive Statements Normal sinus rhythm Minimal voltage criteria for LVH, may be normal variant Nonspecific T wave abnormality Prolonged QTc interval increased from tracing done 11-15-20 Electronically Signed on 05-11-2021 7:47:38 EDT by Yunier Tang
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
[2021-05-11] MEDS ORDERED: buPROPion (WELLBUTRIN SR) 100 MG SR TAB PO SCH (09:00)
[2021-05-11] MEDS ORDERED: LORATADINE 10 MG TAB PO SCH (09:00)
[2021-05-11] MEDS ORDERED: CALCITRIOL 0.25 MCG CAP (S0169) PO SCH (09:00)
[2021-05-11] MEDS ORDERED: MYCOPHENOLATE MOFETIL 250 MG CAP (J7517) PO SCH (09:00)
[2021-05-11] MEDS ORDERED: FERROUS SULFATE 325MG TAB PO SCH (09:00)
[2021-05-11] MEDS ORDERED: FINASTERIDE 5 MG TAB PO SCH (09:00)
[2021-05-11] MEDS ORDERED: TAMSULOSIN 0.4 MG CAP PO SCH (09:00)
[2021-05-11] MEDS ORDERED: TACROLIMUS 1 MG CAP (J7507) PO SCH ×2 (09:00→21:00)
[2021-05-11] MEDS ORDERED: RENV2TAB PO (09:46)
[2021-05-11] MEDS ORDERED: FINA5TAB2 PO (09:46)
[2021-05-11] MEDS ORDERED: CELL250C PO (09:46)
[2021-05-11] MEDS ORDERED: BUPR1TAB52 PO (09:46)
[2021-05-11] MEDS ORDERED: TACR1CAP3 PO ×2 (09:46)
[2021-05-11] MEDS ORDERED: GABA-1171 PO (09:46)
[2021-05-11] MEDS ORDERED: TRAM50TA2 PO (09:46)
[2021-05-11] MEDS ORDERED: LORA-930 PO (09:46)
[2021-05-11] MEDS ORDERED: FLOM0.4C39 PO (09:46)
[2021-05-11] MEDS ORDERED: VENO20IN7 IV (09:48)
[2021-05-11] MEDS ORDERED: APAP325T4 PO (09:48)
[2021-05-11] MEDS ORDERED: HOME MED LIST COMPLETE! XX SCH (09:50)
[2021-05-11] MEDS ORDERED: ACETAMINOPHEN TAB 650MG DOSE (2X325MG) PO PRN (10:10)
[2021-05-11] MEDS ORDERED: traMADol 50 MG TAB PO PRN (10:10)
[2021-05-11] MEDS ORDERED: MOM 30ML SUSPENSION UDC PO PRN (13:10)
[2021-05-11] MEDS ORDERED: MAALOX 30 ML SUSP *UDC PO PRN (13:10)
[2021-05-11] MEDS: GABAPENTIN 100 MG CAP PO SCH ×3 (14:31→20:37)
[2021-05-11 15:40] VITALS: BP 142/67
[2021-05-11] MEDS: (RENVELA) SEVELAMER **CARBONate** 800 MG TAB PO SCH (17:57)
[2021-05-11] MEDS: NICOTINE 21MG/24HR 1 EA TRANSDERMAL TD SCH (17:58)
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
[2021-05-11] MEDS ORDERED: SODIUM CHLORIDE 0.9% 1000ML IV PRN (18:50)
[2021-05-11] MEDS: FERROUS SULFATE 325MG TAB PO SCH (20:36)
[2021-05-11] MEDS: buPROPion (WELLBUTRIN SR) 100 MG SR TAB PO SCH (20:37)
[2021-05-11] MEDS: MYCOPHENOLATE MOFETIL 250 MG CAP (J7517) PO SCH (20:37)
[2021-05-11] MEDS: TACROLIMUS 1 MG CAP (J7507) PO SCH (20:37)
[2021-05-11] MEDS: traZODone 50 MG TAB PO PRN (20:40)
[2021-05-12 06:51] VITALS: BP 158/74
[2021-05-12] MEDS: (RENVELA) SEVELAMER **CARBONate** 800 MG TAB PO SCH ×3 (07:45→17:38)
[2021-05-12] MEDS: TAMSULOSIN 0.4 MG CAP PO SCH (08:17)
[2021-05-12] MEDS: FERROUS SULFATE 325MG TAB PO SCH ×2 (08:17→21:12)
[2021-05-12] MEDS: MYCOPHENOLATE MOFETIL 250 MG CAP (J7517) PO SCH ×2 (08:17→21:12)
[2021-05-12] MEDS: LORATADINE 10 MG TAB PO SCH (08:17)
[2021-05-12] MEDS: FINASTERIDE 5 MG TAB PO SCH (08:17)
[2021-05-12] MEDS: CALCITRIOL 0.25 MCG CAP (S0169) PO SCH (08:17)
[2021-05-12] MEDS: buPROPion (WELLBUTRIN SR) 100 MG SR TAB PO SCH (08:17)
[2021-05-12] MEDS: GABAPENTIN 100 MG CAP PO SCH ×4 (08:17→21:12)
[2021-05-12] MEDS: TACROLIMUS 1 MG CAP (J7507) PO SCH ×2 (08:18→21:12)
[2021-05-12] MEDS: NICOTINE 21MG/24HR 1 EA TRANSDERMAL TD SCH (08:18)
[2021-05-12] MEDS ORDERED: DARBEPOETIN 100 MCG/0.5 ML *DIALYSIS* SYRINGE (J0882) IV SCH (10:10)
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
[2021-05-12] MEDS: SERTRALINE HCL 25 MG TABLET PO SCH (15:36)
[2021-05-12 16:16] VITALS: BP 162/70
[2021-05-12] MEDS: traZODone 50 MG TAB PO PRN (21:12)
--- NOTE | 2021-05-12 21:15 | CR ---
CONSULTATION DATE: 05/12/2021 REQUESTING PHYSICIAN: Yunier Tang MD CONSULTING PHYSICIAN: Apple Murphy DO REASON FOR CONSULTATION: Management of end-stage renal disease on hemodialysis. HISTORY OF PRESENT ILLNESS: Mr. Henderson is a 61-year-old male who is currently admitted to inpatient mental health unit for depressed mood with suicidal ideation. He has a past medical history of end-stage renal disease on hemodialysis on a Monday, Monday, Monday schedule via a Permacath. He also has a maturing arteriovenous access in the right arm. Other past medical history includes hypertension, diabetes, liver cirrhosis, status post liver transplant on chronic immunosuppressive therapy, anxiety, depression, insomnia and other comorbid conditions mentioned below. Patient has multiple ongoing psychosocial stressors and had suicidal ideation and feels overwhelmed and is currently receiving inpatient psychiatric care in the mental health unit and nephrology evaluation was requested for help in the management of his chronic hemodialysis. PAST MEDICAL HISTORY: 1. End-stage renal disease on hemodialysis. 2. Hypertension. 3. Diabetes mellitus. 4. Dyslipidemia. 5. Peripheral venous insufficiency. 6. Gastroesophageal reflux disease. 7. History of liver transplant. 8. Chronic immunosuppression therapy. 9. Major depression. 10. Generalized anxiety disorder. 11. Insomnia. 12. Degenerative joint disease. 13. Vitamin D deficiency. 14. Secondary hyperparathyroidism of renal origin. 15. Anemia of chronic renal failure. 16. History of PPD positivity (treated in the past with Isoniazid). 17. BPH. PAST SURGICAL HISTORY: Gastric bypass surgery with Manoj-en-Y hepaticoduodenostomy, biliary leak after choledochoduodenostomy in 2012, history of liver transplant, left knee replacement, Permacath placement, arteriovenous access. SOCIAL HISTORY: Denies alcohol or cigarettes but does have a history of abusing cocaine. ALLERGIES: No known drug allergies. REVIEW OF SYSTEMS: Constitutional: He denies fevers or chills. Eyes: Denies visual changes or tearing. ENT: Reports trouble hearing and recently sought ENT specialist because of something stuck in his ear canal. He denies odynophagia. Cardiac: Denies chest pain or palpitations. Respiratory: Denies shortness of breath or cough. Gastrointestinal: Reports a history of liver transplant and GERD, denies nausea or vomiting. Genitourinary: Denies hematuria or dysuria. Endocrine: Reports history of diabetes and secondary hyperparathyroidism. Musculoskeletal: He has a history of arthritis and degenerative joint disease. Denies leg swelling. Neurologic: Denies seizures or syncope. Psychiatric: Reports major depression, generalized anxiety disorder. Currently in inpatient mental health. Hematologic: He has anemia of chronic renal failure. Denies chronic anticoagulant use. Skin: Denies any new rashes or pruritus. Remainder of review of systems is negative or as per HPI. HOME MEDICATIONS: 1. Amlodipine 10 mg daily. 2. Bupropion 100 mg p.o. daily. 3. Calcitriol 0.25 mcg p.o. daily. 4. Ferrous sulfate 325 mg p.o. b.i.d. 5. Finasteride 5 mg p.o. daily. 6. Gabapentin 100 mg p.o. q.i.d. 7. Venofer with dialysis. 8. Mycophenolate mofetil 250 mg p.o. b.i.d. 9. Renvela 800 mg tablet, takes three tablets with each meal. 10. Tacrolimus 1 mg in the evening, 2 mg in the morning. 11. Flomax 0.4 mg p.o. daily. FAMILY HISTORY: Denies a history of renal failure. PHYSICAL EXAMINATION: Vital signs: Temperature 97.9, pulse 64, respiratory rate 18, blood pressure 162/70, saturating 100% on room air. Intake yesterday was not fully recorded. Dialysis today removed two liters. General: Patient seen in the hemodialysis unit with a one-to-one sitter present at the bedside. He is talking nonstop during his treatment, is very verbose. HEENT: Extraocular muscles are intact. Tongue is moist. Neck: Supple. Tunneled hemodialysis catheter is presently in use. Heart: Heart sounds are regular, S1, S2. Lungs: Clear to auscultation bilaterally, no crackles or rales. Abdomen: Soft and nontender. Extremities: Negative for edema or cyanosis. There is arteriovenous access in the right arm with thrill and bruit. Neurologic: He is oriented x3, no focal deficit. Psychiatric: Patient speaks continuously and seems to be in good spirits during his dialysis treatment. LABORATORY DATA: Show white count 6.5, hemoglobin 10.0, platelet 155. Sodium 143, potassium 3.6, bicarbonate 30, BUN 16, creatinine 2.0. Albumin 3.0. INPATIENT MEDICATIONS: Reviewed by myself. 1. Ysabel courtney.marjorie. 2. Amlodipine 10 mg p.o. daily. 3. Wellbutrin 100 mg p.o. daily. 4. Calcitriol 0.25 mcg p.o. daily. 5. Aranesp with dialysis. 6. Ferrous sulfate 325 mg p.o. b.i.d. 7. Finasteride 5 mg p.o. daily. 8. Gabapentin 100 mg p.o. q.i.d. 9. Loratadine 10 mg p.o. daily. 10. CellCept 250 mg p.o. b.i.d. 11. Nicotine patch. 12. Renvela 2400 mg p.o. with meal. 13. Tacrolimus 1 mg in the p.m. and 2 mg in the a.m. 14. Flomax 0.4 mg p.o. daily. 15. Trazodone 50 mg p.o. as needed at nighttime p.r.n. insomnia. PROBLEMS: 1. End-stage renal disease on hemodialysis on a Monday, Monday, Monday schedule. The patient is dialyzed today per his maintenance scheduled. We removed two liters today. His electrolytes and volume status are acceptable. We are currently dialyzing via his Permacath but I will check and see if we can ascertain if his arm is ready for use or not. We will check labs intermittently while he is in the inpatient mental health unit. Next set of labs is ordered for May 14 which is his next day of dialysis. 2. Hypertension. Blood pressures are a little high. He is currently on amlodipine. I am not making any changes today. We will see how his blood pressure does post-dialysis. 3. Secondary hyperparathyroidism of renal origin. He continues on Renvela and Calcitriol. 4. Suicidal ideation. This is addressed and managed by inpatient psychiatry. 5. Anemia of chronic renal failure. He is on Aranesp with dialysis and we will check iron stores. His hemoglobin is currently .
[2021-05-13 06:46] VITALS: BP 150/72
[2021-05-13] MEDS: FINASTERIDE 5 MG TAB PO SCH (08:44)
[2021-05-13] MEDS: CALCITRIOL 0.25 MCG CAP (S0169) PO SCH (08:44)
[2021-05-13] MEDS: buPROPion (WELLBUTRIN SR) 100 MG SR TAB PO SCH (08:44)
[2021-05-13] MEDS: MYCOPHENOLATE MOFETIL 250 MG CAP (J7517) PO SCH ×2 (08:45→21:26)
[2021-05-13] MEDS: (RENVELA) SEVELAMER **CARBONate** 800 MG TAB PO SCH ×3 (08:45→17:20)
[2021-05-13] MEDS: SERTRALINE HCL 25 MG TABLET PO SCH (08:46)
[2021-05-13] MEDS: TAMSULOSIN 0.4 MG CAP PO SCH (08:46)
[2021-05-13] MEDS: TACROLIMUS 1 MG CAP (J7507) PO SCH ×2 (08:46→21:26)
[2021-05-13] MEDS: GABAPENTIN 100 MG CAP PO SCH ×4 (08:47→21:26)
[2021-05-13] MEDS: FERROUS SULFATE 325MG TAB PO SCH ×2 (08:47→21:25)
[2021-05-13] MEDS: LORATADINE 10 MG TAB PO SCH (08:47)
[2021-05-13] MEDS: NICOTINE 21MG/24HR 1 EA TRANSDERMAL TD SCH (08:48)
[2021-05-13 12:48] LABS: CHOLESTEROL RISK RATIO 2.714 (<5)
--- NOTE | 2021-05-13 14:33 | ECGEPIP ---
[facility] Test Date: 2021-05-13 Pat Name: MENDY WELCH Department: Room: [place] [address] Gender: Male Php Lamp Developer: RADHA : 1960 Requested By: HATTIE Rodriguez Order Number: [id number] Reading MD: Yunier Yin Measurements Intervals [place] Rate: 69 P: 69 SD: 200 QRS: 9 QRSD: 90 T: 76 QT: 442 QTc: 473 Interpretive Statements Normal sinus rhythm with sinus arrhythmia Minimal voltage criteria for LVH, may be normal variant ( Sokolow-Escalante ) Nonspecific ST-T abnormality. Electronically Signed on 05-13-2021 14:33:19 EDT by Yunier Yin
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
[2021-05-13 18:23] VITALS: BP 151/90
[2021-05-13] MEDS: traZODone 50 MG TAB PO PRN (21:25)
[2021-05-14 06:45] VITALS: BP 138/67
[2021-05-14] MEDS: (RENVELA) SEVELAMER **CARBONate** 800 MG TAB PO SCH ×3 (07:39→17:09)
[2021-05-14] MEDS: TAMSULOSIN 0.4 MG CAP PO SCH (07:39)
[2021-05-14] MEDS: FINASTERIDE 5 MG TAB PO SCH (07:39)
[2021-05-14] MEDS: MYCOPHENOLATE MOFETIL 250 MG CAP (J7517) PO SCH ×2 (07:39→20:37)
[2021-05-14] MEDS: TACROLIMUS 1 MG CAP (J7507) PO SCH ×2 (07:39→20:37)
[2021-05-14] MEDS: FERROUS SULFATE 325MG TAB PO SCH ×2 (07:39→20:36)
[2021-05-14] MEDS: LORATADINE 10 MG TAB PO SCH (07:40)
[2021-05-14] MEDS: NICOTINE 21MG/24HR 1 EA TRANSDERMAL TD SCH (07:40)
[2021-05-14] MEDS: CALCITRIOL 0.25 MCG CAP (S0169) PO SCH (07:40)
[2021-05-14] MEDS: GABAPENTIN 100 MG CAP PO SCH ×4 (07:40→20:36)
[2021-05-14 08:01] LABS: HEMATOCRIT 31.3 % (42.0-52.0); HEMOGLOBIN 9.9 g/dl (13.5-17.5); MEAN CORPUSCULAR HEMOGLOBIN 27.5 pg (27.0-33.0); MEAN CORPUSCULAR HGB CONC 31.6 g/dl (32.0-36.5); MEAN CORPUSCULAR VOLUME 86.9 fl (80.0-96.0); PLATELET COUNT, AUTOMATED 186 10^3/uL (150-450); WHITE BLOOD COUNT 6.7 10^3/uL (4.0-10.0)
[2021-05-14] MEDS ORDERED: SODIUM CHLORIDE 0.9% 1000ML IV PRN (08:20)
[2021-05-14 08:25] LABS: CALCIUM LEVEL 8.3 MG/DL (8.8-10.2); CHOLESTEROL RISK RATIO 2.6 (<5); CREATININE FOR GFR 3.54 MG/DL (0.70-1.30); GLOMERULAR FILTRATION RATE 18.7 (>49); POTASSIUM SERUM 5.2 MEQ/L (3.5-5.1)
[2021-05-14 10:28] LABS: PERCENT SATURATION 34.7 % (19.7-50.0)
[2021-05-14] MEDS ORDERED: ONDANSETRON 4 MG TAB PO PRN (13:40)
[2021-05-14] MEDS ORDERED: ANALGESIC BALM CRM 3OZ TOP PRN (13:45)
[2021-05-14 16:04] VITALS: BP 151/70
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
[2021-05-14] MEDS: traMADol 50 MG TAB PO PRN (17:13)
--- NOTE | 2021-05-14 18:43 | IPN ---
NEPHROLOGY PROGRESS NOTE DATE: 05/14/2021 SUBJECTIVE: Patient was seen and examined this morning in the hemodialysis unit. His treatment is uneventful. He complains about the renal diet and wants his diet to be a regular diet. Otherwise, he has no complaints. No shortness of breath. No chest pain. OBJECTIVE: VITAL SIGNS: Temperature 97.6, pulse 67, respiratory rate 16, blood pressure 151/70, saturating 100% on room air. INTAKE AND OUTPUT: Output today during dialysis removed 2.5 liters. GENERAL: Patient seen awake, alert, oriented. Speaks nonstop and jumps from topic to topic. HEENT: Extraocular muscles are intact. Tongue is moist. Neck is supple. Permacath is in use. Jugular veins are not elevated. HEART SOUNDS: Regular. S1, S2. There is trace leg edema. LUNGS: Show symmetric breath sounds bilaterally. No crackle or rale. ABDOMEN: Soft and nontender. EXTREMITIES: There is a graft in the right arm which is patent with thrill and bruit. Extremities negative for cyanosis. There is trace edema of the legs. NEUROLOGIC: Oriented times three, at baseline mentation. LABORATORY DATA: White count 6.7, hemoglobin 9.9, platelets 186. Sodium 132, potassium 5.2, bicarbonate 25, BUN 39. Iron 99, transferrin saturation 34%. INPATIENT MEDICATIONS: Reviewed by myself and no changes noted over the past day. PROBLEMS: 1. End-stage renal disease on hemodialysis on a Monday, Monday, Monday schedule. Patient is dialyzed today. 2.5 liters were removed. I am not sure if his right arm access is ready for use or not. Patient is presently dialyzing by Permacath. He has mild hyperkalemia on labs and it will improve with dialysis. His next treatment will be on Monday. 2. Hyperkalemia. It is mild. He does not want to follow the renal diet. He tells me he had bananas yesterday. I am switching him over to a 2 gram potassium diet instead and he is dialyzed today with 2.0 mEq bath. 3. Anemia of chronic renal failure. Iron stores were checked and are acceptable. He continues on Aranesp with dialysis for goal hemoglobin of 10-11. 4. Hypertension. Blood pressures are acceptable. Continue current antihypertensive regimen of amlodipine. 5. Hypervolemic hyponatremia. It will improve with dialysis and fluid removal; 2.5 liters were removed today.
[2021-05-14] MEDS: traZODone 50 MG TAB PO PRN (20:36)
[2021-05-14] MEDS: BALMEX CREAM 60GM EXT PRN (20:39)
[2021-05-15 06:25] VITALS: BP 132/62
[2021-05-15] MEDS: traMADol 50 MG TAB PO PRN ×3 (06:40→21:37)
[2021-05-15] MEDS: (RENVELA) SEVELAMER **CARBONate** 800 MG TAB PO SCH ×3 (07:27→17:15)
[2021-05-15] MEDS: GABAPENTIN 100 MG CAP PO SCH ×4 (08:38→21:36)
[2021-05-15] MEDS: FERROUS SULFATE 325MG TAB PO SCH ×2 (08:38→21:38)
[2021-05-15] MEDS: LORATADINE 10 MG TAB PO SCH (08:38)
[2021-05-15] MEDS: CALCITRIOL 0.25 MCG CAP (S0169) PO SCH (08:39)
[2021-05-15] MEDS: TACROLIMUS 1 MG CAP (J7507) PO SCH ×2 (08:39→21:38)
[2021-05-15] MEDS: TAMSULOSIN 0.4 MG CAP PO SCH (08:39)
[2021-05-15] MEDS: FINASTERIDE 5 MG TAB PO SCH (08:40)
[2021-05-15] MEDS: MYCOPHENOLATE MOFETIL 250 MG CAP (J7517) PO SCH ×2 (08:40→21:38)
[2021-05-15] MEDS: NICOTINE 21MG/24HR 1 EA TRANSDERMAL TD SCH (08:43)
--- NOTE | 2021-05-15 16:14 | MHIPNPDOC ---
[facility] Progress Note Progress Note DATE OF SERVICE: 05/15/21 HISTORY: 59-year-old man with no known previous mental health history admitted for disorganization and bizarre behavior. Was started on Abilify by primary te am and antidepressants were discontinued due to concerns of luz. Flor reports that he is sleeping quite well, his primary concern today is with his arthritic pain in his shoulder and right knee. We reviewed his use of medications, and he felt that the Abilify was helping him begin to think more clearly and feel better. He spent extensive time detailing his medical history related to his gastric bypass surgery and subsequent liver damage related to presumed surgical injury. VITAL SIGNS: See below. NEW TEST RESULTS: No new results. CURRENT MEDICATIONS: See below. MENTAL STATUS EXAMINATION: Patient is a 61-year old male, who is dressed in hospital clothing, sitting in chair, also ambulating about room at times to demonstrate his difficulty with walking. Speech: Is clear, regular rate rhythm and volume, voluble, mildly pressured but interruptible. Language skills are intact. Thought processes including: Circumstantial, denies SI, denies HI, denies auditory or visual hallucination. Thought content: Focused mostly on his arthritis and trying to have that resolved, questions about need for orthopedic consult. Abstract reasoning, and computation: Appeared intact. Description of associations: Circumstantial. Description of abnormal or psychotic thoughts: Denied auditory or visual hallucinations, delusions, or paranoia. Appeared to be still somewhat pressured and thought, with mildly rapid speech and highly circumstantial discussions. Judgment: Fair. Insight: Poor. Orientation: X3. Recent and remote memory: Appeared intact. Attention span and concentration: Intact. Language: Fluent. Fund of knowledge: Excellent, able to describe in detail his medical procedures and what been done. Mood: Good. Affect: Euthymic, stable, congruent and appropriate. DIAGNOSES: 1. Unspecified bipolar disorder R/o Bipolar mixed episode, depression due to a medical condition, primary psychotic disorder 2. Unspecified anxiety disorder 3. Cocaine use disorder 4. Tobacco use disorder per hx, supp. patch ASSESSMENT: Flor appears to be responding well to the Abilify, he is on day 3 of the medication. At this time we will not make further changes to his dose as he may need additional time to stabilize given his age and previous medical history of liver and kidney disease. We will continue to monitor and evaluate progress over time. Primary team will continue to plan for discharge. MANAGEMENT PLAN: Continue Abilify 5 mg. TIME SPENT: 20 minutes. Vital Signs Vital Signs Date Time Temp Pulse Resp B/P (MAP) Pulse Ox O2 Delivery O2 Flow Rate FiO2 05/15/21 08:41 64 151/67 05/15/21 07:30 18 05/15/21 06:25 97.7 Room Air 05/14/21 16:04 100 Current Medications Current Medications Medications (Trade) Dose Ordered Sig/Kathryn Route PRN Reason Start Time Stop Time Status Last Admin Dose Admin Acetaminophen (Tylenol Tab) 650 mg Q4HP PRN PO MILD PAIN (PS 1-4) 05/11/21 10:10 05/11/21 17:56 DC Al Hydrox/Mg Hydrox/Simethicone (Mylanta) 30 ml Q4HP PRN PO HEARTBURN/INDIGESTION 05/11/21 13:10 Amlodipine Besylate (Norvasc) 10 mg DAILY PO 05/11/21 09:00 05/11/21 17:56 DC 05/11/21 11:59 Amlodipine Besylate (Norvasc) 10 mg DAILY PO 05/12/21 09:00 05/15/21 08:41 Aripiprazole (AbiLIFY) 5 mg QHS PO 05/13/21 21:00 05/14/21 20:36 Bupropion HCl (Wellbutrin Sr) 100 mg DAILY PO 05/11/21 09:00 05/11/21 17:56 DC Bupropion HCl (Wellbutrin Sr) 100 mg DAILY PO 05/11/21 09:00 05/13/21 09:12 DC 05/13/21 08:44 Calcitriol (Rocaltrol) 0.25 mcg DAILY PO 05/11/21 09:00 05/11/21 17:56 DC Calcitriol (Rocaltrol) 0.25 mcg DAILY PO 05/12/21 09:00 05/15/21 08:39 Darbepoetin Manohar (Aranesp (Dialysis Use)) 100 mcg HD IV 05/12/21 10:10 05/14/21 09:12 Ferrous Sulfate (Ferrous Sulfate) 325 mg BID PO 05/11/21 09:00 05/11/21 17:56 DC 05/11/21 12:00 Ferrous Sulfate (Ferrous Sulfate) 325 mg BID PO 05/11/21 21:00 05/15/21 08:38 Finasteride (Proscar) 5 mg DAILY PO 05/11/21 09:00 05/11/21 17:56 DC 05/11/21 11:59 Finasteride (Proscar) 5 mg DAILY PO 05/12/21 09:00 05/15/21 08:40 Gabapentin (Neurontin) 100 mg QID PO 05/11/21 13:00 05/11/21 17:56 DC 05/11/21 17:57 Gabapentin (Neurontin) 100 mg QID PO 05/11/21 21:00 05/15/21 12:07 Heparin Sodium (Heparin) Please refer to ... ASDIRECTED XX 05/11/21 18:50 05/12/21 18:49 DC Heparin Sodium (Heparin) Please refer to ... ASDIRECTED XX 05/14/21 08:20 05/15/21 08:19 DC Heparin Sodium (Heparin) dose as per volume indica... ASDIRECTED PRN IV SEE LABEL COMMENTS 05/11/21 18:50 05/12/21 18:49 DC Heparin Sodium (Heparin) dose as per volume indica... ASDIRECTED PRN IV SEE LABEL COMMENTS 05/14/21 08:20 05/15/21 08:19 DC Home Med (Home Med List Complete!) ASDIRECTED XX 05/11/21 09:50 05/11/21 09:50 DC Loratadine (Claritin) 10 mg DAILY PO 05/11/21 09:00 05/11/21 17:56 DC 05/11/21 12:01 Loratadine (Claritin) 10 mg DAILY PO 05/12/21 09:00 05/15/21 08:38 Magnesium Hydroxide (Milk Of Magnesia) 30 ml DAILYPRN PRN PO CONSTIPATION 05/11/21 13:10 Menthol/Methyl Salicylate (Bengay Cream) Apply to right Knee for pain ASDIRECTED PRN TOP PAIN 05/14/21 13:45 Mycophenolate Mofetil (Cellcept) 250 mg BID PO 05/11/21 09:00 05/11/21 17:56 DC Mycophenolate Mofetil (Cellcept) 250 mg BID PO 05/11/21 21:00 05/15/21 08:40 Nicotine (Nicoderm Cq 21mg) 1 patch DAILY TD 05/11/21 09:00 Ondansetron HCl (Zofran) 4 mg BIDP PRN PO NAUSEA 05/14/21 13:40 Sertraline HCl (Zoloft) 25 mg QAM PO 05/12/21 09:00 05/13/21 09:12 DC 05/13/21 08:46 Sevelamer Carbonate (Renvela) 2,400 mg WM PO 05/11/21 18:00 05/15/21 12:07 Sodium Chloride (Nacl 0.9%) 200 ml ASDIRECTED PRN IV SEE LABEL COMMENTS 05/11/21 18:50 05/12/21 18:49 DC Sodium Chloride (Nacl 0.9%) 200 ml ASDIRECTED PRN IV SEE LABEL COMMENTS 05/14/21 08:20 05/15/21 08:19 DC Tacrolimus (Prograf) 1 mg QHS PO 05/11/21 21:00 05/11/21 17:56 DC Tacrolimus (Prograf) 1 mg QHS PO 05/11/21 21:00 05/14/21 20:37 Tacrolimus (Prograf) 2 mg DAILY PO 05/12/21 09:00 05/15/21 08:39 Tacrolimus (Prograf) 2 mg QAM PO 05/11/21 09:00 05/11/21 17:56 DC Tamsulosin HCl (Flomax) 0.4 mg DAILY PO 05/11/21 09:00 05/11/21 17:56 DC 05/11/21 12:00 Tamsulosin HCl (Flomax) 0.4 mg DAILY PO 05/12/21 09:00 05/15/21 08:39 Tramadol HCl (Ultram) 50 mg Q4H PRN PO SEVERE PAIN (PS 8-10) 05/11/21 18:30 05/15/21 06:40 Tramadol HCl (Ultram) 50 mg Q4HP PRN PO SEVERE PAIN (PS 8-10) 05/11/21 10:10 05/11/21 17:56 DC Trazodone HCl (Desyrel) 50 mg QHSP PRN PO INSOMNIA 05/11/21 13:10 05/14/21 20:36 Zinc Oxide (Balmex Cream) Apply up to twice daily ... BID PRN EXT RASH/ITCHING 05/14/21 13:45 05/14/21 20:39 Allergies Coded Allergies: No Known Allergies (Unverified , 11/15/20) REE VANCE MD May 15, 2021 16:14
[2021-05-15 16:32] VITALS: BP 138/80
[2021-05-15] MEDS: traZODone 50 MG TAB PO PRN (21:36)
[2021-05-15] MEDS: BALMEX CREAM 60GM EXT PRN (21:38)
[2021-05-16 06:51] VITALS: BP 142/70
[2021-05-16] MEDS: (RENVELA) SEVELAMER **CARBONate** 800 MG TAB PO SCH ×3 (07:35→17:16)
[2021-05-16] MEDS: traMADol 50 MG TAB PO PRN ×2 (07:35→20:55)
[2021-05-16] MEDS: CALCITRIOL 0.25 MCG CAP (S0169) PO SCH (08:22)
[2021-05-16] MEDS: LORATADINE 10 MG TAB PO SCH (08:22)
[2021-05-16] MEDS: TAMSULOSIN 0.4 MG CAP PO SCH (08:22)
[2021-05-16] MEDS: GABAPENTIN 100 MG CAP PO SCH ×4 (08:22→20:52)
[2021-05-16] MEDS: FERROUS SULFATE 325MG TAB PO SCH ×2 (08:22→20:51)
[2021-05-16] MEDS: TACROLIMUS 1 MG CAP (J7507) PO SCH ×2 (08:25→20:52)
[2021-05-16] MEDS: FINASTERIDE 5 MG TAB PO SCH (08:25)
[2021-05-16] MEDS: MYCOPHENOLATE MOFETIL 250 MG CAP (J7517) PO SCH ×2 (08:25→20:52)
[2021-05-16] MEDS: NICOTINE 21MG/24HR 1 EA TRANSDERMAL TD SCH (08:31)
[2021-05-16] MEDS ORDERED: ONDANSETRON 4 MG ORAL DISINTEGRATING TAB PO PRN (15:45)
[2021-05-16] MEDS ORDERED: ONDANSETRON 4 MG ORAL DISINTEGRATING TAB PO ONE (16:00)
--- NOTE | 2021-05-16 16:18 | REP ---
INDICATION: vomiting abd pain COMPARISON: None. TECHNIQUE: Supine view of the abdomen and pelvis. FINDINGS: Bowel gas pattern is nonspecific although moderate fecal stasis is suspected. No definite evidence for obstruction or perforation. Postsurgical changes identified. No significant abnormal calcifications. Skeletal structures intact. IMPRESSION: Moderate fecal stasis suggested. <Electronically signed by Mauri Garcia > 05/16/21 [id number]
[2021-05-16 16:32] VITALS: BP 104/59
[2021-05-16] MEDS ORDERED: MIRALAX *UNIT DOSE* 17GM PACKET PO PRN (16:40)
[2021-05-16] MEDS ORDERED: SENOKOT S TAB PO PRN (16:40)
[2021-05-16 17:38] LABS: BASO # 0.1 10^3/uL (0.0-0.2); BASO % 0.7 % (0.0-1.0); EOS # 0.6 10^3/uL (0.0-0.5); EOS % 8.4 % (0.0-3.0); HEMATOCRIT 29.9 % (42.0-52.0); HEMOGLOBIN 9.9 g/dl (13.5-17.5); LYMPH # 1.5 10^3/uL (1.5-5.0); LYMPH % 20.7 % (24.0-44.0); MEAN CORPUSCULAR HEMOGLOBIN 28.2 pg (27.0-33.0); MEAN CORPUSCULAR HGB CONC 33.1 g/dl (32.0-36.5); MEAN CORPUSCULAR VOLUME 85.2 fl (80.0-96.0); MONO # 0.8 10^3/uL (0.0-0.8); NEUTROPHILS # 4.2 10^3/uL (1.5-8.5); NEUTROPHILS % 59.1 % (36.0-66.0); PLATELET COUNT, AUTOMATED 202 10^3/uL (150-450); RED BLOOD COUNT 3.51 10^6/uL (4.30-6.10); WHITE BLOOD COUNT 7.2 10^3/uL (4.0-10.0)
--- NOTE | 2021-05-16 17:42 | IPNPDOC ---
Date Seen The patient was seen on 05/16/21. Progress Note SUBJECTIVE: 4-day history of nausea after starting a meal sometimes during breakfast sometimes at lunch or dinner usually food emesis nonprojectile nonbilious without fever chills or abdominal pain patient is concerned that this may be a an adverse reaction to his Renvela which was just started. Patient otherwise denies any weight gain or weight loss .he says that when he has dialysis he usually loses a few pounds. He has a bowel movement every day which is formed around 1030- 11:00 in the morning, and says that he is pretty "regular." OBJECTIVE PHYSICAL EXAMINATION: VITAL SIGNS: Please see below. GENERAL: Awake alert oriented to person place and time no distress HEENT: No JVD thyromegaly moist mucous membranes CARDIOVASCULAR: S1-S2 regular rate rhythm RESPIRATORY: Clear to auscultation bilaterally air entry is equal ABDOMINAL: Positive bowel sounds soft slightly tender around the umbilical area and epigastric area EXTREMITIES: 2+ pitting edema bilaterally LABORATORY DATA, IMAGING STUDIES, MICROBIOLOGY: Please see below. ASSESSMENT AND PLAN: 61-year-old male with end-stage renal disease on maintenance dialysis Monday via permacath right upper extremity AV fistula hypertension diabetes dyslipidemia peripheral venous insufficiency gastroesophageal reflux disease with history of liver transplant chronic immunosuppressive therapy depression anxiety insomnia vitamin D deficiency secondary hyperparathyroidism chronic anemia BPH history of gastric bypass surgery with Manoj-en-Y hepaticoduodenostomy with biliary leak after choledochoduodenostomy in 2012 admitted to the inpatient mental health unit due to ongoing suicidal ideation and severe depression. Nausea vomiting -Patient had recently started having intractable nausea vomiting daily for the past 4 days. -Differential diagnoses include adverse effect from Renvela, diabetic gastroparesis, fecal stasis causing ileus and nausea vomiting. -Defer to automotive services manager if an alternative to Renvela can be given -Zofran as needed for nausea -If persistent and need to confirm gastroparesis we can check a nuclear medicine gastric emptying scan, but the patient needs to be n.p.o. after midnight the day before. -If gastroparesis is confirmed, patient can be given small frequent meals, liquid diet, or pured diet, or a trial of Reglan before meals and before bedtime. -Bowel regimen in case fecal stasis and constipation is causing patient's intractable nausea and vomiting. VS, I&O, 24H, Fishbone Vital Signs/I&O Vital Signs Date Time Temp Pulse Resp B/P (MAP) Pulse Ox O2 Delivery O2 Flow Rate FiO2 05/16/21 16:32 97.9 63 16 104/59 (74) 97 Room Air Laboratory Data 24H LABS Laboratory Tests 2 05/16/21 17:13: CBC/BMP KUSH RENEE MD May 16, 2021 17:42
[2021-05-16 18:04] LABS: ALBUMIN 3.4 GM/DL (3.2-5.2); BILIRUBIN,TOTAL 0.3 MG/DL (0.2-1.0); C REACTIVE PROTEIN QUANTITATIV 0.3 MG/DL (0.00-0.30); CALCIUM LEVEL 7.9 MG/DL (8.8-10.2); CREATININE FOR GFR 3.92 MG/DL (0.70-1.30); GLOMERULAR FILTRATION RATE 16.7 (>49); POTASSIUM SERUM 5.7 MEQ/L (3.5-5.1); TOTAL PROTEIN 6.8 GM/DL (6.4-8.2)
[2021-05-16 18:11] LABS: ERYTHROCYTE SEDIMENTATION RATE 35 mm/hr (0-20)
[2021-05-16] MEDS: traZODone 50 MG TAB PO PRN (20:51)
[2021-05-17 05:49] VITALS: BP 160/76
[2021-05-17] MEDS: (RENVELA) SEVELAMER **CARBONate** 800 MG TAB PO SCH ×3 (06:27→18:27)
[2021-05-17] MEDS: traMADol 50 MG TAB PO PRN (06:27)
[2021-05-17] MEDS: CALCITRIOL 0.25 MCG CAP (S0169) PO SCH (07:36)
[2021-05-17] MEDS: FINASTERIDE 5 MG TAB PO SCH (07:36)
[2021-05-17] MEDS: TAMSULOSIN 0.4 MG CAP PO SCH (07:36)
[2021-05-17] MEDS: MYCOPHENOLATE MOFETIL 250 MG CAP (J7517) PO SCH ×2 (07:36→21:20)
[2021-05-17] MEDS: FERROUS SULFATE 325MG TAB PO SCH ×2 (07:37→21:19)
[2021-05-17] MEDS: LORATADINE 10 MG TAB PO SCH (07:37)
[2021-05-17] MEDS: GABAPENTIN 100 MG CAP PO SCH ×4 (07:37→21:20)
[2021-05-17] MEDS: TACROLIMUS 1 MG CAP (J7507) PO SCH ×2 (08:42→21:20)
[2021-05-17] MEDS: NICOTINE 21MG/24HR 1 EA TRANSDERMAL TD SCH (08:42)
[2021-05-17 14:25] VITALS: BP 188/70
[2021-05-17] MEDS ORDERED: ACETAMINOPHEN 500 MG TAB PO ONE (15:00)
--- NOTE | 2021-05-17 15:19 | REP ---
INDICATION: FALL HEAD TRAUMA. COMPARISON: 07/14/2016 TECHNIQUE: 5 x 5 mm contiguous transaxial sections were obtained from the skull base to the cerebral convexities using helical technique. FINDINGS: The ventricles and sulci are consistent with the patient's age and unchanged. There are no extra-axial fluid collections. There is no mass effect. The deep cerebral white matter is consistent with the patient's age and unchanged. The orbital and petrous structures, cerebellopontine angles, and posterior fossa are unremarkable. The sella turcica, cavernous, and paracavernous structures are essentially unremarkable. The visualized portions of the paranasal sinuses and mastoid air cells are clear. Images of the skull base show no gross abnormality. IMPRESSION: Essentially unremarkable CT examination of the brain. No significant change compared to the prior exam. <Electronically signed by Juan Baer > 05/17/21 [id number]
--- NOTE | 2021-05-17 15:27 | REP ---
INDICATION: FALL. COMPARISON: None. TECHNIQUE: AP view of the pelvis with neutral and frog-lateral views of the bilateral hips. FINDINGS: Age-related osteopenia and degenerative changes are noted. No obvious acute fracture or dislocation. IMPRESSION: Degenerative changes. No acute fracture or dislocation. <Electronically signed by Mauri Garcia > 05/17/21 1521
--- NOTE | 2021-05-17 15:29 | REP ---
INDICATION: RIGHT KNEE S/P FALL COMPARISON: 07/14/2016 TECHNIQUE: AP and cross-table lateral views. FINDINGS: Osteopenia and advanced tricompartmental osteoarthritic degenerative changes noted. No acute fracture or dislocation identified. No definite acute effusion. Vascular calcifications noted. IMPRESSION: Osteopenia and advanced tricompartmental degenerative changes. No acute fracture or dislocation. <Electronically signed by Mauri Garcia > 05/17/21 [id number]
--- NOTE | 2021-05-17 15:30 | REP ---
INDICATION: FALL , KNEE PAIN COMPARISON: 07/14/2016 TECHNIQUE: AP and lateral left knee. FINDINGS: Prior knee replacement in stable satisfactory position. Osseous structures demonstrate osteopenia without acute fracture or dislocation. No definite acute effusion. Vascular calcifications noted. IMPRESSION: No evidence for acute fracture or dislocation. <Electronically signed by Mauri Garcia > 05/17/21 [id number]
--- NOTE | 2021-05-17 15:31 | REP ---
INDICATION: FALL LOW BACK PAIN COMPARISON: 07/18/2013 TECHNIQUE: AP, lateral, bilateral oblique, and coned-down views of the lumbar spine. FINDINGS: Alignment and lordosis maintained. No acute fracture/compression injury or subluxation. Advanced multilevel degenerative changes include bulky bridging osteophytes, endplate sclerosis, elements of disc space narrowing, and facet hypertrophy.. IMPRESSION: Multilevel degenerative spondylosis. No acute fracture/compression injury or subluxation. <Electronically signed by Mauri Garcia > 05/17/21 1528
--- NOTE | 2021-05-17 15:39 | REP ---
INDICATION: abd pain intractable nausea. COMPARISON: None. TECHNIQUE: Standard helical technique without intravenous or oral bowel preparatory contrast administration. This causes significant exam limitations. FINDINGS: Fibrotic and/or subsegmental atelectatic changes are seen in the lung bases. There are no pleural or pericardial effusions. There is evidence of four-chamber cardiac enlargement. There is a small amount of curvilinear air density which is either within the portal venous system or is periportal representing a small amount of pneumobilia. This is difficult to evaluate since no intravenous contrast was administered. The pancreas is seen in a limited fashion but appears to be unremarkable. There is no evidence of free intraperitoneal air. There is a small amount of fluid seen in each of the paracolic gutters and in the posterior left Leonora renal space there is an oval-shaped 2.6 cm sized smoothly marginated low-density structure but having higher than water density Hounsfield units. There is metallic density in the left kidney causing significant spray artifact. I have been given no history of previous renal surgery however. Surgical clips are seen circumferential to the pre and post hepatic inferior vena cava secondary to previous liver transplant. The adrenal glands are within normal limits. The right kidney is unremarkable. There is evidence of para-aortic, inguinal, and pelvic sidewall adenopathy. There is no gross bowel loop abnormality although the bowel loops are seen in a very limited fashion. Bone window technique throughout the examination shows chronic spinal degenerative changes. IMPRESSION: 1. Findings involving the liver as described above. The patient is status post liver transplant, however, I have no priors for comparison and stat report was requested. This examination needs to be compared to priors. A contrast-enhanced examination using both intravenous contrast and oral bowel preparatory contrast is recommended. 2. Small left posterior Leonora renal space mass of uncertain etiology as described above. 3. Small amount of free fluid as described above. 4. Adenopathy of uncertain etiology. 5. Other findings and exam limitations as described above. <Electronically signed by Juan Baer > 05/17/21 [id number]
--- NOTE | 2021-05-17 15:42 | IPN ---
PROGRESS NOTE DATE: 05/17/2021 SUBJECTIVE: Mr. Henderson is seen this morning during hemodialysis. He is feeling well and denies any nausea, vomiting, dyspnea or chest pain; however, he does have increased lower extremity edema. He had several questions about his diet, phosphate binders and his AV fistula which were all answered. PHYSICAL EXAMINATION: Temperature 97.8 degrees Fahrenheit, heart rate 65 per minute and respiratory rate 16 per minute. Blood pressure 139/84 mmHg and oxygen saturation 98% on room air. Head: Atraumatic. Neck: Supple and JVD not abnormally elevated. He has a right sided internal jugular vein hemodialysis catheter in place. Heart: Sounds are regular. Lungs: Clear to auscultation. Abdomen: Soft and nontender and bowel sounds are normal. Old surgical scars are well healed. Extremities: Without any cyanosis or clubbing. He has an AV graft in his right arm which has not been used so far and seems to be very well healed. Neurologically: Patient is awake and at his baseline mentation without any focal deficit. LABORATORY DATA: Labs from yesterday, May 16, showed: Hemoglobin 9.8, hematocrit 29.9. Sodium 128, potassium 5.7, BUN 44, creatinine 3.92. BNP level was 20,363. PROBLEMS/PLAN: 1. End-stage renal disease: Patient is dialysis dependent and he is being dialyzed today. He is tolerating his dialysis treatment well. Currently we are using his Permacath; however, his right arm AV graft seems to be well healed and probably can be used with next dialysis treatment. 2. Hyponatremia: Patient has developed significant hyponatremia over the last week probably related to fluid overload. We are removing 2.5 liters of fluid and patient is being dialyzed with a 140 mEq sodium bath which is likely to improve his hyponatremia significantly. 3. Hyperkalemia: Patient claims that he is trying to follow his dietary restrictions. We are dialyzing him with a 1 mEq potassium bath. I discussed with him at length about need for ongoing low potassium diet. I have explained to him that he cannot be on a regular diet. 4. Hyperphosphatemia: We do not have a recent phosphorus level. Patient had several questions about his phosphate binders and I have advised the compliance with a low phosphate diet and use of phosphate binders regularly with every meal. He can take his binder either just before meal, during meal or right after the meal. 5. Anemia: His anemia is stable at present and we will continue to monitor closely. He receives Aranesp 100 mcg once a week.
[2021-05-17] MEDS ORDERED: ACETAMINOPHEN TAB 650MG DOSE (2X325MG) PO PRN (16:20)
[2021-05-17] MEDS: ANALGESIC BALM CRM 3OZ TOP SCH ×2 (17:00→21:21)
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
--- NOTE | 2021-05-17 17:33 | IPNPDOC ---
Date Seen The patient was seen on 05/17/21. Progress Note SUBJECTIVE: Patient had a mechanical fall this morning and hospitalist was asked to evaluate the patient due to complaints of headache neck back pain bilateral knee pain and shoulder discomfort. Patient was walking and had a witnessed fall after his left knee popped, stumbling and turning backwards and sideways hitting his head on the ground as well as twisting his knee , losing his balance despite having a cane. [facility] nurse was at the scene and witnessed the entire event .patient had no prodromal symptoms such as shortness of breath chest pain pressure tightness lightheadedness or dizziness prior to the episode. OBJECTIVE PHYSICAL EXAMINATION: VITAL SIGNS: Please see below. GENERAL: Awake alert oriented x3 HEENT: scalp hematoma 5cm face is symmetric tongue is midline patient has no respiratory distress speaks in full sentences CARDIOVASCULAR: S1-S2 regular rate rhythm RESPIRATORY: Clear to auscultation bilaterally air entry is equal ABDOMINAL: Positive bowel sounds soft nontender nondistended no rebound or guarding EXTREMITIES: Postop left knee well-healed hardware pops and patient is able to put it back and there is no erythema NEUROLOGICAL: PSYCHOLOGICAL: LABORATORY DATA, IMAGING STUDIES, MICROBIOLOGY: Please see below. ASSESSMENT: 61-year-old male status post mechanical fall with a scalp hematoma neck back pain and bilateral knee pain shoulder discomfort Mechanical fall secondary to left knee popping status post repair Intractable nausea vomiting PLAN: CT head negative x-ray bilateral hips negative x-ray bilateral knees negative supportive care with ice Flector patch BenGay Tylenol . patient had a prior history of opioid addiction. PT evaluation to check if patient requires a walker. he appears to be unstable with his cane. Outpatient orthopedic referral regarding his left knee that pops and causes imbalance. Patient discussed his concerns about Renvela causing his nausea. Dr. Murphy suggested taking the Renvela after his meals Zofran as needed. We will check nuclear gastric emptying scan in the morning n.p.o. after midnight VS, I&O, 24H, Fishbone Vital Signs/I&O Vital Signs Date Time Temp Pulse Resp B/P (MAP) Pulse Ox O2 Delivery O2 Flow Rate FiO2 05/17/21 14:25 99.0 87 20 188/70 (109) 100 Room Air KUSH RENEE MD May 17, 2021 17:33
[2021-05-17] MEDS: METOCLOPRAMIDE 5 MG TAB PO SCH ×2 (18:27→21:20)
[2021-05-17 19:23] VITALS: BP 143/92
[2021-05-17] MEDS: ARIPiprazole 10 MG TAB PO SCH (21:20)
[2021-05-17] MEDS: DICLOFENAC EPOLAMINE 1.3 % PATCH TOP SCH (21:21)
[2021-05-18 06:33] VITALS: BP 147/70
[2021-05-18 07:12] LABS: ALBUMIN 2.6 GM/DL (3.2-5.2); CALCIUM LEVEL 7.7 MG/DL (8.8-10.2); CREATININE FOR GFR 2.83 MG/DL (0.70-1.30); GLOMERULAR FILTRATION RATE 24.3 (>49); PHOSPHORUS LEVEL 3.8 MG/DL (2.5-4.9); POTASSIUM SERUM 5.3 MEQ/L (3.5-5.1)
[2021-05-18] MEDS: (RENVELA) SEVELAMER **CARBONate** 800 MG TAB PO SCH ×3 (08:08→17:19)
[2021-05-18] MEDS: METOCLOPRAMIDE 5 MG TAB PO SCH ×4 (08:08→20:19)
[2021-05-18] MEDS: NICOTINE 21MG/24HR 1 EA TRANSDERMAL TD SCH (09:00)
[2021-05-18] MEDS: DICLOFENAC EPOLAMINE 1.3 % PATCH TOP SCH ×3 (09:00→20:21)
[2021-05-18] MEDS: CALCITRIOL 0.25 MCG CAP (S0169) PO SCH (09:13)
[2021-05-18] MEDS: FINASTERIDE 5 MG TAB PO SCH (09:14)
[2021-05-18] MEDS: TACROLIMUS 1 MG CAP (J7507) PO SCH ×2 (09:15→20:19)
[2021-05-18] MEDS: GABAPENTIN 100 MG CAP PO SCH ×4 (09:18→20:19)
[2021-05-18] MEDS: LORATADINE 10 MG TAB PO SCH (09:18)
[2021-05-18] MEDS: FERROUS SULFATE 325MG TAB PO SCH ×2 (09:18→20:19)
[2021-05-18] MEDS: TAMSULOSIN 0.4 MG CAP PO SCH (09:18)
[2021-05-18] MEDS: MYCOPHENOLATE MOFETIL 250 MG CAP (J7517) PO SCH ×2 (09:19→20:19)
[2021-05-18] MEDS: ANALGESIC BALM CRM 3OZ TOP SCH ×4 (09:21→20:19)
[2021-05-18] MEDS ORDERED: DICLOFENAC EPOLAMINE 1.3 % PATCH TOP SCH (14:00)
[2021-05-18] MEDS: traMADol 50 MG TAB PO PRN (17:20)
--- NOTE | 2021-05-18 18:07 | MHIPNPDOC ---
[facility] Progress Note Progress Note DATE OF SERVICE: 05/18/21 HISTORY: Patient was admitted for suicidal ideation in context of multiple life stressor including financial, multiple health conditions, recently started on dialysis 1 month ago. Interval: Charts reviewed, has a fall due to supporting R knee dislocating, hit head, was witnessed by nursing, hospitalist team called for evaluation. On interview after the event, reported no acute physical complaints apart from arthritic pain in R knee and L shoulder joint on movement, rash improved. VITAL SIGNS: See below. NEW TEST RESULTS: CT head negative, xray bilateral hips negative, bilateral knee xrays negative, CURRENT MEDICATIONS: See below. MENTAL STATUS EXAMINATION: Patient is a 61-year old male, who is mildly overweight, in no acute distress, walks with a cane, able to wear shoes, fair hygiene, good eye contact. Speech: Decreased amount, no longer pressured Language skills are fair Thought processes including: Circumstantial Thought content: Denies suicidal thoughts intent or plan. Abstract reasoning, and computation: Intact description of associations: Remains somewhat intact Description of abnormal or psychotic thoughts: Denies Judgment: Fair, improving Insight: Fair, improving Orientation: x3 Recent and remote memory: intact Attention span and concentration: Poor Language: chilean Fund of knowledge: Average Mood: "good" Affect: Less elevated, still mildly expansive, mood congruent. DIAGNOSES: 1. Unspecified bipolar disorder versus depression with psychotic features versus substance-induced mood disorder 2. Unspecified anxiety disorder 3. Cocaine use disorder 4. Tobacco use disorder per hx, supp. patch ASSESSMENT: Patient reports more stable and significant improvement in mood. less pressured, more calm, going to groups, less anxiety, despite fall. Reports increased dose of abilify has improved concentration and mood. MANAGEMENT PLAN: Medical conditions followed by hospitalist team, hospitalist team ordering gastric emptying scan for nausea, n.p.o after midnight, although patient reports significant improvement with taking medications after eating. Ordered OT/PT evaluation for unstable knee, communicated to nursing, to see if needs device for ambulation assistance other than cane. Has flector patch and bengay for knee pain, hx opioid use. Needs outpatient orthopedic referral for regarding R knee that pops out per chart review. Time spent: 35 minutes, including coordination of care. Vital Signs Vital Signs Date Time Temp Pulse Resp B/P (MAP) Pulse Ox O2 Delivery O2 Flow Rate FiO2 8/24/21 17:20 88 18 05/18/21 09:18 147/70 05/18/21 06:33 97.9 96 Room Air Laboratory Data 24H Labs Laboratory Tests 2 05/18/21 06:14: Anion Gap 4L, Glomerular Filtration Rate 24.3L, Calcium Level 7.7L, Phosphorus Level 3.8, Albumin 2.6#L CBC/BMP Laboratory Tests 05/18/21 06:14 Current Medications Current Medications Medications (Trade) Dose Ordered Sig/Kathryn Route PRN Reason Start Time Stop Time Status Last Admin Dose Admin Acetaminophen (Tylenol Tab) 650 mg Q4HP PRN PO MILD PAIN (PS 1-4) 05/11/21 10:10 05/11/21 17:56 DC Acetaminophen (Tylenol Tab) 650 mg Q4HP PRN PO MILD PAIN or TEMP > 101 05/17/21 16:20 Al Hydrox/Mg Hydrox/Simethicone (Mylanta) 30 ml Q4HP PRN PO HEARTBURN/INDIGESTION 05/11/21 13:10 Amlodipine Besylate (Norvasc) 10 mg DAILY PO 05/11/21 09:00 05/11/21 17:56 DC 05/11/21 11:59 Amlodipine Besylate (Norvasc) 10 mg DAILY PO 05/12/21 09:00 05/18/21 09:18 Aripiprazole (AbiLIFY) 5 mg QHS PO 05/13/21 21:00 05/17/21 17:08 DC 05/16/21 20:52 Aripiprazole (AbiLIFY) 10 mg QHS PO 05/17/21 21:00 05/17/21 21:20 Bupropion HCl (Wellbutrin Sr) 100 mg DAILY PO 05/11/21 09:00 05/11/21 17:56 DC Bupropion HCl (Wellbutrin Sr) 100 mg DAILY PO 05/11/21 09:00 05/13/21 09:12 DC 05/13/21 08:44 Calcitriol (Rocaltrol) 0.25 mcg DAILY PO 05/11/21 09:00 05/11/21 17:56 DC Calcitriol (Rocaltrol) 0.25 mcg DAILY PO 05/12/21 09:00 05/18/21 09:13 Darbepoetin Manohar (Aranesp (Dialysis Use)) 100 mcg HD IV 05/12/21 10:10 05/14/21 09:12 Diclofenac Epolamine (Flector 1.3%) 1 patch Q12H TOP 05/17/21 21:00 05/18/21 12:25 DC 05/17/21 21:21 Diclofenac Epolamine (Flector 1.3%) 1 patch Q12H TOP 05/18/21 09:00 05/18/21 15:26 Diclofenac Epolamine (Flector 1.3%) 1 patch Q12H TOP 05/18/21 14:00 05/18/21 15:24 DC Ferrous Sulfate (Ferrous Sulfate) 325 mg BID PO 05/11/21 09:00 05/11/21 17:56 DC 05/11/21 12:00 Ferrous Sulfate (Ferrous Sulfate) 325 mg BID PO 05/11/21 21:00 05/18/21 09:18 Finasteride (Proscar) 5 mg DAILY PO 05/11/21 09:00 05/11/21 17:56 DC 05/11/21 11:59 Finasteride (Proscar) 5 mg DAILY PO 05/12/21 09:00 05/18/21 09:14 Gabapentin (Neurontin) 100 mg QID PO 05/11/21 13:00 05/11/21 17:56 DC 05/11/21 17:57 Gabapentin (Neurontin) 100 mg QID PO 05/11/21 21:00 05/18/21 17:19 Heparin Sodium (Heparin) Please refer to ... ASDIRECTED XX 05/11/21 18:50 05/12/21 18:49 DC Heparin Sodium (Heparin) Please refer to ... ASDIRECTED XX 05/14/21 08:20 05/15/21 08:19 DC Heparin Sodium (Heparin) dose as per volume indica... ASDIRECTED PRN IV SEE LABEL COMMENTS 05/11/21 18:50 05/12/21 18:49 DC Heparin Sodium (Heparin) dose as per volume indica... ASDIRECTED PRN IV SEE LABEL COMMENTS 05/14/21 08:20 05/15/21 08:19 DC Home Med (Home Med List Complete!) ASDIRECTED XX 05/11/21 09:50 05/11/21 09:50 DC Loratadine (Claritin) 10 mg DAILY PO 05/11/21 09:00 05/11/21 17:56 DC 05/11/21 12:01 Loratadine (Claritin) 10 mg DAILY PO 05/12/21 09:00 05/18/21 09:18 Magnesium Hydroxide (Milk Of Magnesia) 30 ml DAILYPRN PRN PO CONSTIPATION 05/11/21 13:10 Menthol/Methyl Salicylate (Bengay Cream) Apply to right Knee for pain ASDIRECTED PRN TOP PAIN 05/14/21 13:45 05/17/21 16:19 DC Menthol/Methyl Salicylate (Bengay Cream) BL KNEES X 5DAYS QID TOP 05/17/21 17:00 05/22/21 13:01 05/18/21 17:18 Metoclopramide HCl (Reglan) 5 mg ACHS PO 05/17/21 17:30 05/18/21 17:19 Mycophenolate Mofetil (Cellcept) 250 mg BID PO 05/11/21 09:00 05/11/21 17:56 DC Mycophenolate Mofetil (Cellcept) 250 mg BID PO 05/11/21 21:00 05/18/21 09:19 Nicotine (Nicoderm Cq 21mg) 1 patch DAILY TD 05/11/21 09:00 05/18/21 15:36 DC Ondansetron HCl (Zofran Odt) 4 mg Q4HP PRN PO NAUSEA OR VOMITING 05/16/21 15:45 Ondansetron HCl (Zofran) 4 mg BIDP PRN PO NAUSEA 05/14/21 13:40 05/16/21 15:45 DC Polyethylene Glycol (Miralax) 1 pkt BIDP PRN PO CONSTIPATION 05/16/21 16:40 Senna/Docusate Sodium (Senokot S) 2 tab BIDP PRN PO CONSTIPATION 05/16/21 16:40 Sertraline HCl (Zoloft) 25 mg QAM PO 05/12/21 09:00 05/13/21 09:12 DC 05/13/21 08:46 Sevelamer Carbonate (Renvela) 2,400 mg WM PO 05/11/21 18:00 05/18/21 17:19 Sodium Chloride (Nacl 0.9%) 200 ml ASDIRECTED PRN IV SEE LABEL COMMENTS 05/11/21 18:50 05/12/21 18:49 DC Sodium Chloride (Nacl 0.9%) 200 ml ASDIRECTED PRN IV SEE LABEL COMMENTS 05/14/21 08:20 05/15/21 08:19 DC Tacrolimus (Prograf) 1 mg QHS PO 05/11/21 21:00 05/11/21 17:56 DC Tacrolimus (Prograf) 1 mg QHS PO 05/11/21 21:00 05/17/21 21:20 Tacrolimus (Prograf) 2 mg DAILY PO 05/12/21 09:00 05/18/21 09:15 Tacrolimus (Prograf) 2 mg QAM PO 05/11/21 09:00 05/11/21 17:56 DC Tamsulosin HCl (Flomax) 0.4 mg DAILY PO 05/11/21 09:00 05/11/21 17:56 DC 05/11/21 12:00 Tamsulosin HCl (Flomax) 0.4 mg DAILY PO 05/12/21 09:00 05/18/21 09:18 Tramadol HCl (Ultram) 50 mg Q4H PRN PO SEVERE PAIN (PS 8-10) 05/11/21 18:30 05/18/21 17:20 Tramadol HCl (Ultram) 50 mg Q4HP PRN PO SEVERE PAIN (PS 8-10) 05/11/21 10:10 05/11/21 17:56 DC Trazodone HCl (Desyrel) 50 mg QHSP PRN PO INSOMNIA 05/11/21 13:10 05/16/21 20:51 Zinc Oxide (Balmex Cream) Apply up to twice daily ... BID PRN EXT RASH/ITCHING 05/14/21 13:45 05/15/21 21:38 Allergies Coded Allergies: No Known Allergies (Unverified , 11/15/20) HATTIE ORTEGA MD May 18, 2021 18:07
[2021-05-18 18:23] VITALS: BP 151/70
[2021-05-18] MEDS: ARIPiprazole 10 MG TAB PO SCH (20:19)
[2021-05-18] MEDS: traZODone 50 MG TAB PO PRN (20:19)
[2021-05-19 07:05] VITALS: BP 160/78
[2021-05-19] MEDS: METOCLOPRAMIDE 5 MG TAB PO SCH ×3 (08:13→16:56)
[2021-05-19] MEDS: (RENVELA) SEVELAMER **CARBONate** 800 MG TAB PO SCH ×3 (08:13→17:31)
[2021-05-19] MEDS: DICLOFENAC EPOLAMINE 1.3 % PATCH TOP SCH (08:14)
[2021-05-19] MEDS: GABAPENTIN 100 MG CAP PO SCH ×3 (09:00→16:56)
[2021-05-19] MEDS: ANALGESIC BALM CRM 3OZ TOP SCH ×3 (09:00→17:00)
--- NOTE | 2021-05-19 11:27 | IPN ---
PROGRESS NOTE DATE: 05/19/2021 SUBJECTIVE: Mr. Henderson is seen this morning during hemodialysis. He does not like a renal diet and keeps on insisting to be switched to a regular diet. This is his only concern. We evaluated his right arm AV graft on the and I felt that it as ready to be used so we decided to use it today and it is working without any problem. He had both needles placed without any difficulty. Patient is also concerned about leg edema but denies any dyspnea or chest pain. OBJECTIVE: VITAL SIGNS: Temperature is 96.9 degrees Fahrenheit, heart rate is 76 per minute and respiratory rate is 18 per minute. Blood pressure is 140/70 mmHg, and oxygen saturation 93% on room air. HEENT: Head is atraumatic. NECK: Supple without JVD or thyroid enlargement. He has a Perm-A-Cath on the right upper chest without any signs of infection. HEART: Heart sounds are regular. LUNGS: Clear to auscultation. ABDOMEN: Soft and nontender. Old surgical scars are well-healed. EXTREMITIES: Without any cyanosis or clubbing. Right arm AV graft is currently being used for dialysis. Lower extremity edema is present. NEUROLOGIC: He is at his baseline mentation without any focal deficit. LABORATORY DATA: Patient did not have any new labs today. Yesterday, his potassium was 5.3, sodium 134, BUN is 29, and creatinine is 2.83. PROBLEMS: 1. Endstage renal disease. Patient is currently being dialyzed. We are using his right arm AV graft which is working well. He is tolerating his dialysis treatment very well. 2. Lower extremity edema/hypervolemia. He does have mild hypervolemia and we are trying to remove about 2.5 liters of fluid again today. He is tolerating it well so far. 3. Hyperkalemia, I have advised the patient to try to follow the renal diet, however he insists to be switched to a regular diet. He is trying to take restrict his potassium himself. I am switching his diet to renal and we are dialyzing him with 2.0 mEq bath today. I hope this will help to improve his hyperkalemia. 4. Hyponatremia. Sodium level did improve and it is likely to improve further with dialysis today. Patient needs to follow fluid restriction of about 1500 ml per day. 5. Congestive heart failure. His BNP level was elevated at 20,363 on May 16. Patient understands that fluid restriction is important for him to follow. 6. Anemia, his anemia has been stable and CBC will be checked again with the next blood work.
[2021-05-19] MEDS: FERROUS SULFATE 325MG TAB PO SCH (13:28)
[2021-05-19] MEDS: LORATADINE 10 MG TAB PO SCH (13:29)
[2021-05-19 13:30] VITALS: BP 143/90
[2021-05-19] MEDS: TACROLIMUS 1 MG CAP (J7507) PO SCH (13:30)
[2021-05-19] MEDS: CALCITRIOL 0.25 MCG CAP (S0169) PO SCH (13:31)
[2021-05-19] MEDS: TAMSULOSIN 0.4 MG CAP PO SCH (13:31)
[2021-05-19] MEDS: MYCOPHENOLATE MOFETIL 250 MG CAP (J7517) PO SCH (13:31)
[2021-05-19] MEDS: FINASTERIDE 5 MG TAB PO SCH (13:31)
--- NOTE | 2021-05-19 15:25 | MHIPNPDOC ---
[facility] Progress Note Progress Note DATE OF SERVICE: 05/19/21 HISTORY: Patient was admitted for suicidal ideation in context of multiple life stressor including financial, multiple health conditions, recently started on dialysis 1 month ago. Interval: Charts reviewed, went to dialysis today. Reports feeling very tired and nauseated after dialysis. States was not sleeping so well due to pain on his shoulders post fall the other day and that overall he feels that over the weekend when talking to staff or other patients that he felt he was not wanted here. Was reassured that the staff keeps track of the patient's for safety reasons and that he is here to become stable with eventual transition to outpatient treatment, states he is agreeable with this plan. Reports significant interscapular pain and tenderness, states that this pain prevents him from sleeping and lasting only at 1 to 2 hours of sleep. Also was asking about a knee brace for the right knee, currently has obtained a walker after PT evaluation. Told him I would speak with the hospitalist team to address these acute concerns, no other acute concerns or physical complaints endorsed. VITAL SIGNS: See below. NEW TEST RESULTS: None CURRENT MEDICATIONS: See below. MENTAL STATUS EXAMINATION: Patient is a 61-year old male, who is mildly overweight, in no acute distress, walks with a cane, able to wear shoes, fair hygiene, good eye contact. Speech: Decreased amount, no longer pressured Language skills are fair Thought processes including: Circumstantial Thought content: Denies suicidal thoughts intent or plan. Abstract reasoning, and computation: Intact description of associations: Remains somewhat intact Description of abnormal or psychotic thoughts: Denies Judgment: Fair, improving Insight: Fair, improving Orientation: x3 Recent and remote memory: intact Attention span and concentration: Poor Language: cuban Fund of knowledge: Average Mood: "Not great today" Affect: Mildly dysthymic, still mildly expansive, mood congruent. DIAGNOSES: 1. Unspecified bipolar disorder versus depression with psychotic features versus substance-induced mood disorder 2. Unspecified anxiety disorder 3. Cocaine use disorder 4. Tobacco use disorder per hx, supp. patch ASSESSMENT: Patient reports more stable and significant improvement in mood. less pressured, more calm, going to groups, less anxiety, despite fall. Reports increased dose of abilify has improved concentration and mood. MANAGEMENT PLAN: Medical conditions followed by hospitalist team, hospitalist team ordering gastric emptying scan for nausea tomorrow. Spoke with hospitalist team to evaluate due to interscapular pain, reportedly prevents him from getting sleep, which has affected his energy and mood. Needs outpatient orthopedic referral for regarding R knee that pops out per chart review, discussed with nursing to see if we could arrange for something to be fitted while in the hospital. Time spent: 40 minutes, including coordination of care. Vital Signs Vital Signs Date Time Temp Pulse Resp B/P (MAP) Pulse Ox O2 Delivery O2 Flow Rate FiO2 05/19/21 13:30 96 143/90 05/19/21 07:05 96.9 18 93 Room Air Current Medications Current Medications Medications (Trade) Dose Ordered Sig/Kathryn Route PRN Reason Start Time Stop Time Status Last Admin Dose Admin Acetaminophen (Tylenol Tab) 650 mg Q4HP PRN PO MILD PAIN (PS 1-4) 05/11/21 10:10 05/11/21 17:56 DC Acetaminophen (Tylenol Tab) 650 mg Q4HP PRN PO MILD PAIN or TEMP > 101 05/17/21 16:20 05/18/21 20:21 Al Hydrox/Mg Hydrox/Simethicone (Mylanta) 30 ml Q4HP PRN PO HEARTBURN/INDIGESTION 05/11/21 13:10 Amlodipine Besylate (Norvasc) 10 mg DAILY PO 05/11/21 09:00 05/11/21 17:56 DC 05/11/21 11:59 Amlodipine Besylate (Norvasc) 10 mg DAILY PO 05/12/21 09:00 05/19/21 13:30 Aripiprazole (AbiLIFY) 5 mg QHS PO 05/13/21 21:00 05/17/21 17:08 DC 05/16/21 20:52 Aripiprazole (AbiLIFY) 10 mg QHS PO 05/17/21 21:00 05/19/21 11:06 DC 05/18/21 20:19 Aripiprazole (AbiLIFY) 15 mg QHS PO 05/19/21 21:00 Bupropion HCl (Wellbutrin Sr) 100 mg DAILY PO 05/11/21 09:00 05/11/21 17:56 DC Bupropion HCl (Wellbutrin Sr) 100 mg DAILY PO 05/11/21 09:00 05/13/21 09:12 DC 05/13/21 08:44 Calcitriol (Rocaltrol) 0.25 mcg DAILY PO 05/11/21 09:00 05/11/21 17:56 DC Calcitriol (Rocaltrol) 0.25 mcg DAILY PO 05/12/21 09:00 05/19/21 13:31 Darbepoetin Manohar (Aranesp (Dialysis Use)) 100 mcg HD IV 05/12/21 10:10 05/14/21 09:12 Diclofenac Epolamine (Flector 1.3%) 1 patch Q12H TOP 05/17/21 21:00 05/18/21 12:25 DC 05/17/21 21:21 Diclofenac Epolamine (Flector 1.3%) 1 patch Q12H TOP 05/18/21 09:00 05/19/21 08:14 Diclofenac Epolamine (Flector 1.3%) 1 patch Q12H TOP 05/18/21 14:00 05/18/21 15:24 DC Ferrous Sulfate (Ferrous Sulfate) 325 mg BID PO 05/11/21 09:00 05/11/21 17:56 DC 05/11/21 12:00 Ferrous Sulfate (Ferrous Sulfate) 325 mg BID PO 05/11/21 21:00 05/19/21 13:28 Finasteride (Proscar) 5 mg DAILY PO 05/11/21 09:00 05/11/21 17:56 DC 05/11/21 11:59 Finasteride (Proscar) 5 mg DAILY PO 05/12/21 09:00 05/19/21 13:31 Gabapentin (Neurontin) 100 mg QID PO 05/11/21 13:00 05/11/21 17:56 DC 05/11/21 17:57 Gabapentin (Neurontin) 100 mg QID PO 05/11/21 21:00 05/19/21 13:28 Heparin Sodium (Heparin) Please refer to ... ASDIRECTED XX 05/11/21 18:50 05/12/21 18:49 DC Heparin Sodium (Heparin) Please refer to ... ASDIRECTED XX 05/14/21 08:20 05/15/21 08:19 DC Heparin Sodium (Heparin) dose as per volume indica... ASDIRECTED PRN IV SEE LABEL COMMENTS 05/11/21 18:50 05/12/21 18:49 DC Heparin Sodium (Heparin) dose as per volume indica... ASDIRECTED PRN IV SEE LABEL COMMENTS 05/14/21 08:20 05/15/21 08:19 DC Home Med (Home Med List Complete!) ASDIRECTED XX 05/11/21 09:50 05/11/21 09:50 DC Loratadine (Claritin) 10 mg DAILY PO 05/11/21 09:00 05/11/21 17:56 DC 05/11/21 12:01 Loratadine (Claritin) 10 mg DAILY PO 05/12/21 09:00 05/19/21 13:29 Magnesium Hydroxide (Milk Of Magnesia) 30 ml DAILYPRN PRN PO CONSTIPATION 05/11/21 13:10 Menthol/Methyl Salicylate (Bengay Cream) Apply to right Knee for pain ASDIRECTED PRN TOP PAIN 05/14/21 13:45 05/17/21 16:19 DC Menthol/Methyl Salicylate (Bengay Cream) BL KNEES X 5DAYS QID TOP 05/17/21 17:00 05/22/21 13:01 05/19/21 13:34 Metoclopramide HCl (Reglan) 5 mg ACHS PO 05/17/21 17:30 05/19/21 13:26 Mycophenolate Mofetil (Cellcept) 250 mg BID PO 05/11/21 09:00 05/11/21 17:56 DC Mycophenolate Mofetil (Cellcept) 250 mg BID PO 05/11/21 21:00 05/19/21 13:31 Nicotine (Nicoderm Cq 21mg) 1 patch DAILY TD 05/11/21 09:00 05/18/21 15:36 DC Ondansetron HCl (Zofran Odt) 4 mg Q4HP PRN PO NAUSEA OR VOMITING 05/16/21 15:45 Ondansetron HCl (Zofran) 4 mg BIDP PRN PO NAUSEA 05/14/21 13:40 05/16/21 15:45 DC Polyethylene Glycol (Miralax) 1 pkt BIDP PRN PO CONSTIPATION 05/16/21 16:40 Senna/Docusate Sodium (Senokot S) 2 tab BIDP PRN PO CONSTIPATION 05/16/21 16:40 Sertraline HCl (Zoloft) 25 mg QAM PO 05/12/21 09:00 05/13/21 09:12 DC 05/13/21 08:46 Sevelamer Carbonate (Renvela) 2,400 mg WM PO 05/11/21 18:00 05/19/21 13:26 Sodium Chloride (Nacl 0.9%) 200 ml ASDIRECTED PRN IV SEE LABEL COMMENTS 05/11/21 18:50 05/12/21 18:49 DC Sodium Chloride (Nacl 0.9%) 200 ml ASDIRECTED PRN IV SEE LABEL COMMENTS 05/14/21 08:20 05/15/21 08:19 DC Tacrolimus (Prograf) 1 mg QHS PO 05/11/21 21:00 05/11/21 17:56 DC Tacrolimus (Prograf) 1 mg QHS PO 05/11/21 21:00 05/18/21 20:19 Tacrolimus (Prograf) 2 mg DAILY PO 05/12/21 09:00 05/19/21 13:30 Tacrolimus (Prograf) 2 mg QAM PO 05/11/21 09:00 05/11/21 17:56 DC Tamsulosin HCl (Flomax) 0.4 mg DAILY PO 05/11/21 09:00 05/11/21 17:56 DC 05/11/21 12:00 Tamsulosin HCl (Flomax) 0.4 mg DAILY PO 05/12/21 09:00 05/19/21 13:31 Tramadol HCl (Ultram) 50 mg Q4H PRN PO SEVERE PAIN (PS 8-10) 05/11/21 18:30 05/18/21 17:20 Tramadol HCl (Ultram) 50 mg Q4HP PRN PO SEVERE PAIN (PS 8-10) 05/11/21 10:10 05/11/21 17:56 DC Trazodone HCl (Desyrel) 50 mg QHSP PRN PO INSOMNIA 05/11/21 13:10 05/18/21 20:19 Zinc Oxide (Balmex Cream) Apply up to twice daily ... BID PRN EXT RASH/ITCHING 05/14/21 13:45 05/15/21 21:38 Allergies Coded Allergies: No Known Allergies (Unverified , 11/15/20) HATTIE ORTEGA MD May 19, 2021 15:25
--- NOTE | 2021-05-19 16:16 | CR ---
CONSULTATION DATE: / / CONSULT FOR: Dr. Smith. HISTORY OF PRESENT ILLNESS: I was asked to see Mr. Henderson by Dr. Smith due to interscapular pain. Patient fell on 05/17 as previously noted in Dr. Cat's consult note. Imaging tests were performed. For the last 24 hours, he has had interscapular pain. It has interfered with sleep. It is getting progressively worse. He has no numbness, tingling, weakness, or other paresthesias in the upper extremities. PHYSICAL EXAMINATION: Tender to percuss along the midline thoracic spine to the scapular area. Paramuscular spasm noted. Normal strength, reflexes, and sensation in the upper extremities. IMPRESSION: Thoracic spine pain after a fall. PLAN: He already has a Lidoderm patch ordered. I have ordered thoracic spine films to make sure he has not developed a compression fracture. If that is negative, then would recommend just continuing with the Lidoderm patches. Apparently a heating pad is not permitted on the Inpatient Mental Health Unit, but that would be useful upon discharge if the pain persists. addendum: nurse reports low grade temp. She has concerns about dialysis catheter. I ordered labs and asked her make nephro aware in the morning so they can assess the dialysis access site MTDD
[2021-05-19 18:06] VITALS: BP 156/77
--- NOTE | 2021-05-19 19:09 | REP ---
INDICATION: interscapular pain after fall. COMPARISON: Comparison chest x-ray November 15, 2020. TECHNIQUE: Three views of the thoracic spine are provided. FINDINGS: Swimmer's lateral view demonstrates a 5 mm anterior subluxation of C5 on C6. This was not apparent on previous cervical spine CT study of June 29, 2015. There is degenerative disc disease at C5-6 and C6-7 as well. No definite fracture. AP and lateral views of the thoracic spine demonstrate evidence of pneumo mediastinum suggesting pulmonary barotrauma. There is no observable pneumothorax on these T-spine views. Thoracic vertebral body heights are preserved. Thoracic vertebral alignment is normal. There is degenerative disc disease diffusely along the right lateral and anterior margins of the thoracic spine. No paravertebral soft tissue mass is seen. A right-sided central venous catheter is observed. IMPRESSION: 1. Interval development of a 5 mm C5-6 subluxation, C5 anterior with respect to C6. Question cervical spine injury. Recommend cervical spine CT study. 2. Pneumomediastinum noted consistent with pulmonary barotrauma. Consider chest CT. 3. Degenerative disc disease in the thoracic spine. No other traumatic abnormality seen. 4. Findings were relayed at the time of this dictation to the referring provider. <Electronically signed by Rocael Luna > 05/19/21 [id number]
[2021-05-19 19:16] LABS: BASO % 0.6 % (0.0-1.0); EOS # 0.6 10^3/uL (0.0-0.5); EOS % 8.8 % (0.0-3.0); HEMATOCRIT 27.9 % (42.0-52.0); HEMOGLOBIN 9.2 g/dl (13.5-17.5); LYMPH # 1.1 10^3/uL (1.5-5.0); LYMPH % 16.6 % (24.0-44.0); MEAN CORPUSCULAR HEMOGLOBIN 28.4 pg (27.0-33.0); MEAN CORPUSCULAR VOLUME 86.1 fl (80.0-96.0); MONO # 0.8 10^3/uL (0.0-0.8); MONO % 12.9 % (2.0-8.0); NEUTROPHILS # 3.9 10^3/uL (1.5-8.5); NEUTROPHILS % 60.8 % (36.0-66.0); PLATELET COUNT, AUTOMATED 205 10^3/uL (150-450); RED BLOOD COUNT 3.24 10^6/uL (4.30-6.10); WHITE BLOOD COUNT 6.5 10^3/uL (4.0-10.0)
[2021-05-19 19:45] LABS: ALBUMIN 3.1 GM/DL (3.2-5.2); BILIRUBIN,TOTAL 0.3 MG/DL (0.2-1.0); CALCIUM LEVEL 8.4 MG/DL (8.8-10.2); CREATININE FOR GFR 2.25 MG/DL (0.70-1.30); GLOMERULAR FILTRATION RATE 31.6 (>49); POTASSIUM SERUM 4.5 MEQ/L (3.5-5.1); TOTAL PROTEIN 6.6 GM/DL (6.4-8.2)
[2021-05-19] MEDS ORDERED: ACETAMINOPHEN 500 MG TAB PO PRN (19:50)
[2021-05-19] MEDS ORDERED: ARIPiprazole 15 MG TAB (AbiLIFY) PO SCH ×2 (21:00)
[2021-05-19] MEDS ORDERED: METOCLOPRAMIDE 5 MG TAB PO SCH (21:00)
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
== END 2021-05-19 20:52 | disposition short-term general hospital (02) | DRG 885 ==
LOC: M ED 21:02 → M ED INP 05-11 13:09 → M PSY 05-11 15:18
PROVIDERS: ADMIT Psychiatry & Neurology Psychiatry; ATTEND Student in an Organized Health Care Education/Training Program
PROC: 5A1D70Z Performance of Urinary Filtration, Intermittent, Less than 6 Hours Per Day (ICD-10-PCS; principal; 2021-05-12)
DX: F31.81 Bipolar II disorder (principal); N18.6 End stage renal disease; Z94.4 Liver transplant status; I12.0 Hypertensive chronic kidney disease with stage 5 chronic kidney disease or end stage renal disease; R45.851 Suicidal ideations; N25.81 Secondary hyperparathyroidism of renal origin; E87.1 Hypo-osmolality and hyponatremia; F41.9 Anxiety disorder, unspecified; S00.03XA Contusion of scalp, initial encounter; F14.11 Cocaine abuse, in remission; R11.2 Nausea with vomiting, unspecified; E11.9 Type 2 diabetes mellitus without complications; E78.5 Hyperlipidemia, unspecified; D63.1 Anemia in chronic kidney disease; I87.2 Venous insufficiency (chronic) (peripheral); E87.5 Hyperkalemia; K21.9 Gastro-esophageal reflux disease without esophagitis; N40.0 Benign prostatic hyperplasia without lower urinary tract symptoms; Z99.2 Dependence on renal dialysis; Z20.822 Contact with and (suspected) exposure to COVID-19; E55.9 Vitamin D deficiency, unspecified; Z98.84 Bariatric surgery status; Z96.652 Presence of left artificial knee joint; Z79.899 Other long term (current) drug therapy; M54.6 Pain in thoracic spine; W18.30XA Fall on same level, unspecified, initial encounter; Y92.239 Unspecified place in hospital as the place of occurrence of the external cause; Y93.89 Activity, other specified; Y99.8 Other external cause status

== ENCOUNTER 2021-05-19 19:26 | Inpatient (IN) | payer MEDICARE ==
[~2021-05-19] VITALS: Ht 177.8 cm; Wt 94.2 kg
[~2021-05-19 19:26] MED LIST changes: +AMLO1TAB25 PO; +APAP325T4 PO; +BUPR1TAB52 PO; +CALC1CAP31 PO; +CELL250C PO; +FERR325T82 PO; +FINA5TAB2 PO; +FLOM0.4C39 PO; +LORA-930 PO; +RENV2TAB PO; +TRAM50TA2 PO; +VENO20IN7 IV
[2021-05-19] MEDS ORDERED: ACETAMINOPHEN 500 MG TAB PO PRN (19:55)
[2021-05-19 20:55] VITALS: BP 179/78
[2021-05-19] MEDS: TAMSULOSIN 0.4 MG CAP PO SCH (21:33)
[2021-05-19] MEDS: GABAPENTIN 100 MG CAP PO SCH (21:33)
[2021-05-19] MEDS: MYCOPHENOLATE MOFETIL 250 MG CAP (J7517) PO SCH (21:37)
[2021-05-19] MEDS: METOCLOPRAMIDE 5 MG TAB PO SCH (21:37)
[2021-05-19] MEDS: TACROLIMUS 1 MG CAP (J7507) PO SCH (21:37)
--- NOTE | 2021-05-19 21:54 | REPVR ---
PROCEDURE INFORMATION: Exam: CT Cervical Spine Without Contrast Exam date and time: 05/19/2021 9:03 PM Age: 61 years old Clinical indication: Neck pain; Additional info: R/O FX TECHNIQUE: Imaging protocol: Computed tomography images of the cervical spine without contrast. Radiation optimization: All CT scans at this facility use at least one of these dose optimization techniques: automated exposure control; mA and/or kV adjustment per patient size (includes targeted exams where dose is matched to clinical indication); or iterative reconstruction. COMPARISON: CT Spine,cervical w/o contrast 06/29/2015 4:52 PM FINDINGS: Bones/joints: [id number] anterolisthesis of C5 on C6 likely degenerative. Clinical correlation to exclude ligamentous related injury. Discs/Spinal canal/Neural foramina: There are degenerative changes demonstrated in the atlantoaxial joint at C1-C2 with osteophytes and joint space narrowing. The transverse ligament is normal. Disc space narrowing at C5-C6 and C6-C7. Moderate foraminal stenosis on the right at C2, severe foraminal stenosis on the right at C3 moderate to severe foraminal stenosis on the right at C4 bilateral moderate foraminal stenosis at C5 and C6, findings secondary to osteophytic encroachment. Multilevel disc osteophyte complexes without cord impingement. Lungs: Bilateral apical pleuroparenchymal scarring. Soft tissues: See "Bones/joints" finding. IMPRESSION: 1. [id number] anterolisthesis of C5 on C6 likely degenerative. Clinical correlation to exclude ligamentous related injury. 2. Degenerative spondylosis. 3. Multilevel foraminal stenosis as described above. Electronically signed by: Zachary Aleman On 05/19/2021 21:53:50 PM
--- NOTE | 2021-05-19 21:59 | REPVR ---
PROCEDURE INFORMATION: Exam: CT Chest Without Contrast; Diagnostic Exam date and time: 05/19/2021 9:03 PM Age: 61 years old Clinical indication: Other: Pneumomediastinum TECHNIQUE: Imaging protocol: Diagnostic computed tomography of the chest without contrast. 3D rendering (Not supervised by radiologist): MIP and/or 3D reconstructed images were created by the technologist. Radiation optimization: All CT scans at this facility use at least one of these dose optimization techniques: automated exposure control; mA and/or kV adjustment per patient size (includes targeted exams where dose is matched to clinical indication); or iterative reconstruction. COMPARISON: OR Chest, 2 view PA, Lat 11/15/2020 7:19 AM FINDINGS: Lungs: Bilateral apical pleuroparenchymal scarring. Bibasilar atelectasis. Pleural spaces: Small bilateral pleural effusions. Heart: There is mild atherosclerotic calcification of the coronary arteries. Cardiomegaly. Small pericardial effusion. Aorta: There is fusiform dilatation of the ascending thoracic aorta which measures 4.8 cm. maximally. There is no saccular component. There is mild atherosclerosis in the thoracic aorta. Veins: Calcifications demonstrated in the wall of the inferior vena cava. Tip of central venous line via right jugular approach located in the superior vena cava. Lymph nodes: Multiple mediastinal lymph nodes likely postinflammatory. Stomach and bowel: This patient is status post gastric bypass surgery. Intraperitoneal space: There is a small amount of free intraperitoneal fluid present. Bones/joints: Unremarkable. No acute fracture. Soft tissues: Anasarca demonstrated in the visualized upper abdomen. IMPRESSION: 1. There is fusiform dilatation of the ascending thoracic aorta which measures 4.8 cm. maximally. There is no saccular component. 2. Small bilateral pleural effusions. 3. Cardiomegaly. Small pericardial effusion. 4. This patient is status post gastric bypass surgery. 5. There is a small amount of free intraperitoneal fluid present. 6. Anasarca demonstrated in the visualized upper abdomen. Electronically signed by: Zachary Aleman On 05/19/2021 21:58:49 PM
[2021-05-20] VITALS: BP 157/72
[2021-05-20] MEDS: hydrOXYzine 25 MG TAB PO PRN (02:29)
[2021-05-20 04:00] VITALS: BP 154/68
--- NOTE | 2021-05-20 05:46 | IPN ---
PROGRESS NOTE DATE: 05/19/2021 SUBJECTIVE: I got a telephone call from Dr. Jeramie Luna of Radiology. I ordered a thoracic spine film today on Mr. Henderson who fell a few days ago, struck his back. The plain film shows a subluxation at C5-C6 of 4 or 5 mm and pneumomediastinum. I have communicated this with Dr. Tavera who is the night Hospitalist. Will transfer the patient to the PCU in a cervical collar. We will get a stat CT of the cervical spine and chest and proceed from there. [facility] will be called after this dictation and transfer orders will be entered.
[2021-05-20 06:26] LABS: HEMATOCRIT 26.1 % (42.0-52.0); HEMOGLOBIN 8.4 g/dl (13.5-17.5); MEAN CORPUSCULAR HEMOGLOBIN 27.8 pg (27.0-33.0); MEAN CORPUSCULAR HGB CONC 32.2 g/dl (32.0-36.5); MEAN CORPUSCULAR VOLUME 86.4 fl (80.0-96.0); PLATELET COUNT, AUTOMATED 178 10^3/uL (150-450); RED BLOOD COUNT 3.02 10^6/uL (4.30-6.10)
[2021-05-20 06:51] LABS: CALCIUM LEVEL 8.1 MG/DL (8.8-10.2); CREATININE FOR GFR 2.68 MG/DL (0.70-1.30); GLOMERULAR FILTRATION RATE 25.8 (>49); POTASSIUM SERUM 4.7 MEQ/L (3.5-5.1)
[2021-05-20 07:30] VITALS: BP 169/79
[2021-05-20] MEDS: GABAPENTIN 100 MG CAP PO SCH ×4 (09:14→21:10)
[2021-05-20] MEDS: FINASTERIDE 5 MG TAB PO SCH (09:15)
[2021-05-20] MEDS: FERROUS SULFATE 325MG TAB PO SCH (09:15)
[2021-05-20] MEDS: CALCITRIOL 0.25 MCG CAP (S0169) PO SCH (09:15)
[2021-05-20] MEDS: MYCOPHENOLATE MOFETIL 250 MG CAP (J7517) PO SCH ×2 (09:15→21:14)
[2021-05-20] MEDS: (RENVELA) SEVELAMER **CARBONate** 800 MG TAB PO SCH ×3 (09:15→17:28)
[2021-05-20] MEDS: TACROLIMUS 1 MG CAP (J7507) PO SCH ×2 (09:16→21:14)
[2021-05-20] MEDS: METOCLOPRAMIDE 5 MG TAB PO SCH ×4 (09:16→21:13)
--- NOTE | 2021-05-20 10:05 | HPE ---
HISTORY AND PHYSICAL DATE OF ADMISSION: 05/19/2021 DIAGNOSIS: Pneumomediastinum HISTORY OF PRESENT ILLNESS: Flor Henderson was on the inpatient mental health unit and I was called to assess him this afternoon because he was having interscapular pain that kept him awake last night. He indicated some pleuritic discomfort and on exam he had spinal tenderness to percussion as well as paravertebral muscle spasm in the interscapular area. I ordered plain films of his thoracic spine. Dr. Jeramie Luna from radiology called me with the urgent finding of suspected C5-C6 five (5) mm subluxation new from previous spine imaging from 2014 as well as a pneumomediastinum. Patient was still on the mental health unit. I called his nurse, asked her to place him immediately in a cervical collar, called the nursing show design supervisor and asked her to assist in this and attend to proper application of the cervical collar. Patient will be placed at bedrest and I made arrangements for transfer to the progressive care unit. MEDICAL HISTORY: He has a history of depressed mood with suicidal ideation for which he was admitted to the inpatient mental health unit. He is 61 and has a history of end-stage renal disease on hemodialysis, history of remote choledochoduodenostomy with biliary leak, Manoj-en-Y, hepatojejunostomy, laparoscopy sleeve gastrectomy, hypertension, type 2 diabetes, hyperlipidemia, Giardia, liver cirrhosis status post liver transplant and on chronic immunosuppressive medications, chronic anxiety disorder and insomnia. He has a complex medical debility, frequent admissions to [facility]. SURGICAL HISTORY: 1. Gastric bypass surgery. 2. Manoj-en-Y complicated with biliary leak 2012. 3. Liver transplant September 2012. 4. Sleeve gastrectomy 2011. 5. Left knee replacement 2008 and left knee dislocates and dislocated when he fell recently in inpatient mental health unit ([facility]). REVIEW OF SYSTEMS: He fell in the [facility] on 05/17/2021. He fell backwards, struck his upper back and the back of his head. His left knee dislocated and then spontaneously reduced. Apparently, this has happened in the past. He had extensive imaging done of his knee, CT of his head, lumbar spine, knee, CT of abdomen and pelvis done at that time. His end-stage renal disease is managed by the nephrology group. Dr. Apple Murphy has been seeing him. Note Pako, Monday, Monday hemodialysis via permacath. He also has a maturing arteriovenous (AV) fistula in his right arm. Nursing staff noted a low-grade fever and they had some concerns about the permacath site this evening such that I ordered CBC, CMP and blood cultures prior to getting the report on the findings from the thoracic spine films. SOCIAL HISTORY: He does abuse cocaine. No alcohol, no cigarettes. He is estranged from his children. He has financial stressors and is concerned about his home being foreclosed. ALLERGIES: None known. CURRENT MEDICATIONS: 1. Abilify 15 mg at bedtime 2. Flector patch to painful areas 3. Reglan 5 mg before meals and at bedtime (He has a nuclear medicine gastric emptying study scheduled for tomorrow.) 4. Art-Bosch to his knees four times a day 5. Tylenol as needed 6. MiraLAX as needed 7. Senokot as needed 8. Zofran as needed 9. Aranesp with dialysis 10. Flomax 0.4 mg daily 11. Prograf 2 mg in the morning, 1 mg at bedtime 12. Claritin 10 mg daily 13. Proscar 5 mg daily 14. Calcitriol 0.25 mcg daily 15. Amlodipine 10 mg daily 16. CellCept 250 mg twice a day 17. Neurontin 100 mg four times a day 18. Ferrous sulfate 225 mg twice a day 19. Tramadol 50 mg q. 4 hours p.r.n. 20. Renvela 2400 mg with meals 21. Trazodone 50 mg at bedtime PHYSICAL EXAMINATION: His blood pressure was 143/90, pulse 96, respirations 15, 93% O2 saturation when I assessed him this afternoon. He is alert, oriented and conversant. Lungs clear. Abdomen soft, nontender; no chest crepitance. He is tender to palpation along costal line in midline in the thoracic spine, interscapular and the paravertebral muscles were spastic. Abdomen soft, nontender; no significant edema. Neurologic exam was grossly nonfocal. Today, white count is 6.5, hemoglobin 9.2 which is stable. Platelets 205. CMP is pending. Blood cultures are pending. Covid test was negative. IMPRESSION: 1. Pneumomediastinum. Patient is being discharged from inpatient mental health unit, working on a stat transfer to [facility]. Stat CT of the chest has been ordered. Nicole's overnight physician is Dr. Tavera and he has been aware of all these arrangements and discussed the case. Dr. Gamble has been on for pulmonology and case was discussed with her as well. 2. Suspected cervical subluxation. Stat CT of the cervical spine has been ordered. I spoke to nursing show design supervisor as well as the patient's nurse in inpatient mental health unit ([facility]). Cervical collar has been ordered and asked the nursing show design supervisor to supervise the application of this, and transfer the patient. 3. End-stage renal disease. Continue current nephrology care. 4. Suicidal ideation. Sitter has been ordered and psychiatry care will need to be reinstituted tomorrow. 5. Suspected gastric emptying problem. Patient is status post Manoj-en-Y gastric bypass. He has a gastric emptying study scheduled for tomorrow under nuclear medicine which we will have to wait and see how the pending imaging goes before we decide if we are going to proceed with that. 6. Hypertension. Continue current medications. 7. Anemia secondary to chronic kidney disease. Continue his Iron and Aranesp. 8. History of liver transplant. Continue antirejection medications. They increase his risk of osteoporosis fracture risk.
--- NOTE | 2021-05-20 13:30 | IPN ---
PROGRESS NOTE DATE: 05/20/2021 SUBJECTIVE: Mr. Henderson is seen this morning on his bedside in the Progressive Care Unit. He was transferred from inpatient Mental Health yesterday due to abnormal chest x-ray findings after a fall. Apparently, he fell a few days ago and was complaining of pain in his neck due to which x-rays were done. There was a suspicion for subluxation at C4-5 level and also pneumomediastinum reported due to which he was transferred to the Progressive Care Unit. He had a CT scan done which ruled out any pneumomediastinum and also any cervical subluxation. He is feeling well and denies any chest pain, dyspnea, nausea or vomiting. He reports that he ate well this morning and also had a normal bowel movement. He was dialyzed yesterday and his AV graft was used for the first time without any problems. OBJECTIVE: VITAL SIGNS: Temperature is 98.4 degrees Fahrenheit, heart rate is 75 per minute and respiratory rate is 18 per minute, blood pressure is 169/79 mmHg and oxygen saturation is 96% on room air. HEENT: Head is atraumatic. NECK: Supple without JVD or thyroid enlargement. HEART: Heart sounds are regular. LUNGS: Clear to auscultation. ABDOMEN: Soft and nontender. Bowel sounds are normal. Old surgical scars are well-healed. EXTREMITIES: Without any cyanosis or clubbing. Right arm AV graft is patent. He has only trace ankle edema. LABORATORY DATA: Today's labs shows WBC count of 6.0, hemoglobin is 8.4, hematocrit 26.1. Sodium is 134, potassium is 4.7, CO2 25, BUN 26 and creatinine 2.68. PROBLEMS: 1. Endstage renal disease. Patient was dialyzed yesterday and he does not need dialysis today. His volume status is well-compensated and electrolytes are stable. I will schedule his next dialysis for tomorrow. 2. Anemia, this is related to endstage renal disease and is being treated with dialysis. He has been receiving Aranesp once a week which will be continued. We will also monitor his iron studies and he will continue with oral iron supplement at this point. 3. Secondary hyperparathyroidism. The patient has been on Calcitriol 0.25 mcg daily which will be continued. 4. Hypertension, blood pressure is slightly on the high side, however he is also quite an anxious person. He remains on amlodipine 10 mg daily. 5. Status post liver transplant. His liver function has been stable and he will continue with chronic antirejection medications. 6. Hyperphosphatemia, patient remains on Renvela 2400 mg t.i.d. with meals.
--- NOTE | 2021-05-20 13:30 | DSES ---
DISCHARGE SUMMARY DATE OF ADMISSION: 05/19/2021 DATE OF DISCHARGE: / / CHIEF COMPLAINT: Back pain with shortness of breath. HISTORY: Flor Henderson was on the [facility]. He had fallen two days prior to his transfer and struck the back of his head and his upper back as well as dislocating and then reducing a knee and having various other soft tissue and bony contusions. I was called yesterday by Psychiatry to see him for interscapular pain, worse with breathing. I ordered thoracic spine films. Was called by the radiologist who was concerned about subluxation of C5 on C6, 4 or 5 mm, as well as a pneumomediastinum. It was time for shift change in the [facility]. I had concerns about trying to work this up in the [facility] setting and nursing staff capacity to deal with the potential cervical subluxation. I talked to the nursing postal supervisor and had her arrange cervical collar and transfer to PCU where we ordered stat imaging. Fortunately the stat imaging of the cervical spine did not show subluxation. It showed some degenerative changes, no fracture. CT of the chest did not show a pneumomediastinum. There were some chronic findings but nothing acute. He does have an ascending thoracic aortic dilatation without a saccular component but again no pneumomediastinum. Today he is stable for transfer back to the [facility]. PHYSICAL EXAMINATION: VITAL SIGNS: His vital signs are stable. LUNGS: His lungs are clear. HEART: Regular rhythm. ABDOMEN: Soft, nontender. EXTREMITIES: Trace peripheral edema. SPINE: Still a little bony tenderness to percuss of the thoracic spine. LABORATORY DATA: Labs today: White count 6, hemoglobin 8.4, platelets 178. Sodium 134, potassium 4.7, BUN 26, creatinine 2.68. IMPRESSION/PLAN: 1. Shortness of breath. I think this is from the thoracic spine contusion. He is not hypoxemic and seems to be dealing with this well with the Lidoderm patch. 2. Thoracic aortic aneurysm. This is not an acute problem but will need periodic follow up as an outpatient. 3. End-stage renal disease. He gets dialyzed Monday, Monday, and Monday. I did speak with Dr. Mruphy today so he is aware of the recent circumstances. 4. Suicidal ideation. He is stable for transfer back to [facility]. I spoke with his attending psychiatrist today. There are no beds in [facility]. He does currently have a sitter. 5. Suspected gastric emptying problem. He was supposed to have had a nuclear medicine gastric emptying study today. It had to be canceled because of his transfer. We are going to try to get that set up for tomorrow. He is status post Manoj-en-Y gastric bypass, and that is probably the etiology of the emptying problems. CURRENT MEDICATIONS: 1. Ferrous sulfate 325 mg daily. 2. Calcitriol 0.25 mcg daily. 3. Finasteride 5 mg daily. 4. Amlodipine 10 mg daily. 5. Prograf 2 mg in the morning and 1 mg in the evening. 6. Renvela 2,400 mg with meals. 7. Hydroxyzine 25 mg q.6 hours p.r.n. 8. Reglan 5 mg before meals and at bedtime. 9. CellCept 250 mg b.i.d. 10. Flomax 0.4 mg daily. 11. Neurontin 100 mg q.i.d. 12. Tramadol as needed for pain. 13. Tylenol as needed for pain.
[2021-05-20 16:48] VITALS: BP 158/77
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
[2021-05-20 20:00] VITALS: BP 142/77
[2021-05-20] MEDS: TAMSULOSIN 0.4 MG CAP PO SCH (21:13)
[2021-05-20] MEDS: traMADol 50 MG TAB PO PRN (21:14)
[2021-05-20] MEDS ORDERED: LIDOCAINE 5% (LIDODERM) PATCH TD ONE (22:00)
[2021-05-21] VITALS: BP 142/67
[2021-05-21 04:00] VITALS: BP 158/77
[2021-05-21 06:01] LABS: HEMATOCRIT 27.1 % (42.0-52.0); HEMOGLOBIN 8.7 g/dl (13.5-17.5); MEAN CORPUSCULAR HEMOGLOBIN 28.3 pg (27.0-33.0); MEAN CORPUSCULAR HGB CONC 32.1 g/dl (32.0-36.5); MEAN CORPUSCULAR VOLUME 88.3 fl (80.0-96.0); PLATELET COUNT, AUTOMATED 178 10^3/uL (150-450); RED BLOOD COUNT 3.07 10^6/uL (4.30-6.10); WHITE BLOOD COUNT 6.3 10^3/uL (4.0-10.0)
[2021-05-21 06:21] LABS: CALCIUM LEVEL 8.1 MG/DL (8.8-10.2); CREATININE FOR GFR 3.53 MG/DL (0.70-1.30); GLOMERULAR FILTRATION RATE 18.8 (>49); POTASSIUM SERUM 4.5 MEQ/L (3.5-5.1)
[2021-05-21] MEDS: METOCLOPRAMIDE 5 MG TAB PO SCH ×3 (07:30→17:30)
[2021-05-21 08:00] VITALS: BP 141/65
[2021-05-21] MEDS: (RENVELA) SEVELAMER **CARBONate** 800 MG TAB PO SCH ×3 (08:00→18:00)
[2021-05-21] MEDS ORDERED: METO5TAB2 PO (08:57)
[2021-05-21] MEDS ORDERED: TRAM50TA2 PO (08:57)
[2021-05-21] MEDS ORDERED: ABIL1TAB12 PO (08:57)
[2021-05-21] MEDS ORDERED: HYDR-3363 PO (08:57)
[2021-05-21] MEDS: GABAPENTIN 100 MG CAP PO SCH ×3 (09:00→17:58)
[2021-05-21] MEDS: FINASTERIDE 5 MG TAB PO SCH (09:41)
[2021-05-21] MEDS: TACROLIMUS 1 MG CAP (J7507) PO SCH (09:42)
[2021-05-21 09:43] VITALS: BP 141/65
[2021-05-21] MEDS: MYCOPHENOLATE MOFETIL 250 MG CAP (J7517) PO SCH (09:43)
[2021-05-21] MEDS ORDERED: **NOTE PATIENT COMMENT** MISC XX SCH (10:00)
--- NOTE | 2021-05-21 13:09 | IPN ---
PROGRESS NOTE DATE: 05/21/2021 Mr. Henderson is seen this morning on his bedside. He is sitting in his bed at present. He denies any nausea, vomiting, dyspnea, or chest pain. He is scheduled for gastric emptying study later this morning, and his dialysis is postponed to afternoon. Patient is likely to be discharged after dialysis today. PHYSICAL EXAMINATION: Temperature 98.8 degrees Fahrenheit, heart rate 78 per minute, respiratory rate 16 per minute, blood pressure 141/65 mmHg, and oxygen saturation 97% on room air. Head is atraumatic. Neck supple and without jugular venous distention or thyroid enlargement. He has a right internal jugular vein hemodialysis catheter in place. Heart sounds are regular and lungs clear to auscultation. Abdomen soft and nontender, and bowel sounds are normal. Extremities without any cyanosis or clubbing. He has a hemodialysis graft in his right upper arm. Neurologically he is at his baseline mentation. Today's labs show WBC count 6.3, hemoglobin 8.7, and hematocrit 27.1. Sodium 138, potassium 4.5, CO2 of 25, BUN 31, and creatinine 3.53. Glucose 106 and calcium 8.1. PROBLEMS: 1. End-stage renal disease. Patient is due for dialysis today and will be dialyzed this afternoon after he gets done with his gastric emptying study. We have been removing 1.5-2 liters fluid as tolerated. 2. Hypervolemia and lower extremity edema. His volume status has improved with fluid removal. We will try to remove another 2 liters today with dialysis. 3. Anemia. His anemia is chronic and related to end-stage renal disease. This is likely to correct with Aranesp and intravenous iron that he is receiving in dialysis. No other intervention is needed. DISPOSITION: From a renal standpoint, patient can be discharged to home after dialysis today. He already has an outpatient dialysis scheduled for Monday.
--- NOTE | 2021-05-21 13:43 | REP ---
INDICATION: gastroparesis. COMPARISON: None. TECHNIQUE/RADIOTRACER AND DOSE: 1.04 mCi of Technetium-99m sulfur colloid was ingested in two scrambled eggs and 6 ounces of water and sequential anterior and posterior images are acquired for an 89-minute imaging observation period. Regions of interest are drawn around the stomach to plot gastric emptying. FINDINGS: Expected T1/2 is 90 minutes. Ninety% emptying is observed in this patient during the 89-minute imaging observation period, for a calculated T1/2 in this patient of 44 minutes. IMPRESSION: Normal gastric emptying. <Electronically signed by Rocael Luna > 05/21/21 [id number]
[2021-05-21] MEDS: hydrOXYzine 25 MG TAB PO PRN (14:10)
[2021-05-21] MEDS: FERROUS SULFATE 325MG TAB PO SCH (17:58)
[2021-05-21] MEDS: CALCITRIOL 0.25 MCG CAP (S0169) PO SCH (17:58)
[2021-05-21] MEDS: traMADol 50 MG TAB PO PRN (18:02)
[2021-05-21] MEDS ORDERED: FLOM0.4C39 PO (19:23)
[2021-05-21] MEDS ORDERED: AMLO1TAB25 PO (19:23)
[2021-05-21] MEDS ORDERED: ACET-683 PO (19:23)
[2021-05-21] MEDS ORDERED: PROG1CAP11 PO ×2 (19:29)
[2021-05-21] MEDS ORDERED: CALC1CAP31 PO (19:29)
[2021-05-21] MEDS ORDERED: GABA-1171 PO (19:29)
[2021-05-21] MEDS ORDERED: FERR1TAB8 PO (19:29)
[2021-05-21] MEDS ORDERED: CELL250C PO (19:29)
[2021-05-21] MEDS ORDERED: FINA5TAB2 PO (19:29)
[2021-05-21] MEDS ORDERED: VENO20IN7 IV (19:33)
[2021-05-21] MEDS ORDERED: LORA-930 PO (19:33)
[2021-05-21] MEDS ORDERED: RENV2TAB PO ×4 (19:33→22:00)
== END 2021-05-21 19:10 | disposition home or self-care (01) | DRG 604 ==
LOC: M PCU 19:27
PROVIDERS: ADMIT Family Medicine; ATTEND Family Medicine
PROC: 5A1D70Z Performance of Urinary Filtration, Intermittent, Less than 6 Hours Per Day (ICD-10-PCS; principal; 2021-05-20)
DX: S20.229A Contusion of unspecified back wall of thorax, initial encounter (principal); N18.6 End stage renal disease; Z94.4 Liver transplant status; N25.81 Secondary hyperparathyroidism of renal origin; F31.81 Bipolar II disorder; I12.0 Hypertensive chronic kidney disease with stage 5 chronic kidney disease or end stage renal disease; E11.22 Type 2 diabetes mellitus with diabetic chronic kidney disease; R06.02 Shortness of breath; I71.2 Thoracic aortic aneurysm, without rupture; E78.5 Hyperlipidemia, unspecified; F41.9 Anxiety disorder, unspecified; F14.11 Cocaine abuse, in remission; D63.1 Anemia in chronic kidney disease; G47.00 Insomnia, unspecified; Z99.2 Dependence on renal dialysis; Z98.84 Bariatric surgery status; Z96.652 Presence of left artificial knee joint; Z79.899 Other long term (current) drug therapy; W18.30XA Fall on same level, unspecified, initial encounter; Y92.239 Unspecified place in hospital as the place of occurrence of the external cause; Z79.891 Long term (current) use of opiate analgesic; Y93.89 Activity, other specified; Y99.8 Other external cause status

== ENCOUNTER → 2021-06-24 | Outpatient (CLI) | payer MEDICARE ==
[~2021-06-24] MED LIST changes: +ABIL1TAB12 PO; +ACET-683 PO; +FERR1TAB8 PO; +HYDR-3363 PO; +METO5TAB2 PO; +PROG1CAP11 PO
== END ==
LOC: M OUTALCOH 10:04
PROVIDERS: ATTEND Psychiatry & Neurology Psychiatry
DX: F14.20 Cocaine dependence, uncomplicated (principal); F12.10 Cannabis abuse, uncomplicated

== ENCOUNTER 2021-07-23 11:00 | Outpatient (RCR) | payer MEDICARE | END 2021-07-25 | LOC: M OUTALCOH 11:00 | PROVIDERS: ATTEND Psychiatry & Neurology Psychiatry | DX: F14.20 Cocaine dependence, uncomplicated (principal); F12.10 Cannabis abuse, uncomplicated ==

== ENCOUNTER → 2021-07-27 | Outpatient (POV) | payer MEDICARE ==
[~2021-07-27] VITALS: Ht 177.8 cm; Wt 79.5 kg
[2021-07-27 11:10] VITALS: BP 162/88
--- NOTE | 2021-07-29 12:38 | IRPN ---
[facility] IR Progress Note IR Progress Note DATE: Jul 27, 2021 History: Patient with end-stage renal disease, has right-sided PermCath placed at [facility]. Patient is now dialyzing successfully through a right arm graft. Patient would like his PermCath removed. ON EXAMINATION: Right chest PermCath. No surrounding erythema. Imaging: Right IJ/subclavian PermCath in place. IMPRESSION: We discussed the risks and benefits of PermCath removal and patient is willing to proceed. We have scheduled the patient for PermCath removal. Thank you for this referral Allergies Coded Allergies: No Known Allergies (Unverified , 11/15/20) VS,Fishbone, I+O VS, Fishbone, I+O Vital Signs Date Time Temp Pulse Resp B/P (MAP) Pulse Ox O2 Delivery O2 Flow Rate FiO2 07/27/21 11:10 98.9 66 20 162/88 (112) 98 Room Air CL WELSH MD Jul 29, 2021 12:38
== END ==
LOC: M IRPOV 10:53
PROVIDERS: ATTEND Radiology Diagnostic Radiology
DX: N18.6 End stage renal disease (principal); Z45.2 Encounter for adjustment and management of vascular access device; Z95.828 Presence of other vascular implants and grafts

== ENCOUNTER → 2021-07-28 | Outpatient (CLI) | payer MEDICARE ==
[~2021-07-28] MED LIST changes: +LIDOCAINE 1% MDV 20ML VIAL As Ordered ONE
[2021-07-28 12:26] VITALS: BP 155/76
--- NOTE | 2021-07-29 12:39 | IRPON ---
IR Postoperative Note Date Of Procedure: Jul 28, 2021 Time Of Procedure: 16:00 IR Postoperative Note IR PermCath removal. Clinical indication: Renal failure. The PermCath site was prepped and draped in the usual sterile fashion. Lidocaine was used for local anesthesia. The catheter cuff was dissected out of the soft tissues using blunt dissection. The catheter was removed in it's entirety. Patient tolerated the procedure well, hemostasis achieved and a sterile dressing was applied to the site. Blood loss: Less than 5 mL. Complications: None. Impression: Successful removal of PermCath. CL WELSH MD Jul 29, 2021 12:39
== END ==
LOC: M IRPRO 10:22
PROVIDERS: ATTEND Radiology Diagnostic Radiology
DX: Z45.2 Encounter for adjustment and management of vascular access device (principal); N18.6 End stage renal disease

== ENCOUNTER → 2021-08-24 | Outpatient (RCR) | payer MEDICARE ==
[~2021-08-24] MED LIST changes: -LIDOCAINE 1% MDV 20ML VIAL As Ordered ONE
== END ==
LOC: M OUTALCOH 07-29 10:24
PROVIDERS: ATTEND Psychiatry & Neurology Psychiatry
DX: F14.20 Cocaine dependence, uncomplicated (principal); F12.10 Cannabis abuse, uncomplicated

== ENCOUNTER 2021-09-22 10:56 | Outpatient (RCR) | payer MEDICARE | END 2021-09-24 | LOC: M OUTALCOH 10:56 | PROVIDERS: ATTEND Psychiatry & Neurology Psychiatry | DX: F14.20 Cocaine dependence, uncomplicated (principal); F12.10 Cannabis abuse, uncomplicated | CPT/HCPCS: 90832; 90834; 90853; H0038 ==

== ENCOUNTER 2021-10-13 10:53 | Outpatient (RCR) | payer OTHER | END 2021-10-25 | LOC: M OUTALCOH 10:53 | PROVIDERS: ATTEND Psychiatry & Neurology Psychiatry | DX: F14.20 Cocaine dependence, uncomplicated (principal); F12.10 Cannabis abuse, uncomplicated | CPT/HCPCS: 90832; 90853; H0038 ==

== ENCOUNTER 2021-11-17 11:00 | Outpatient (RCR) | payer OTHER | END 2021-11-22 | LOC: M OUTALCOH 11:00 | PROVIDERS: ATTEND Psychiatry & Neurology Psychiatry | DX: F14.20 Cocaine dependence, uncomplicated (principal); F12.10 Cannabis abuse, uncomplicated | CPT/HCPCS: 90832; H0038 ==

== ENCOUNTER → 2021-12-23 | Outpatient (RCR) | payer OTHER | LOC: M OUTALCOH 12-03 10:47 | PROVIDERS: ATTEND Psychiatry & Neurology Psychiatry | DX: F14.20 Cocaine dependence, uncomplicated (principal); F12.10 Cannabis abuse, uncomplicated ==

== ENCOUNTER → 2021-12-28 | Outpatient (CLI) | payer OTHER ==
[~2021-12-28] MED LIST changes: +AMLO2.5T3 PO; +LIDO1CRE42 TOP
[2021-12-28 14:34] LABS: ALBUMIN 3.6 GM/DL (3.2-5.2); BILIRUBIN,DIRECT 0.1 MG/DL (0.0-0.2); BILIRUBIN,TOTAL 0.5 MG/DL (0.2-1.0); CHOLESTEROL RISK RATIO 2.704 (<5); MAGNESIUM LEVEL 2.4 MG/DL (1.8-2.4); TOTAL PROTEIN 7.1 GM/DL (6.4-8.2)
== END ==
LOC: M PLALAB 11:52
PROVIDERS: ATTEND Nurse Practitioner Family
DX: I10 Essential (primary) hypertension (principal)

== ENCOUNTER → 2021-12-28 | Outpatient (CLI) | payer OTHER | LOC: M PLALAB 11:55 | PROVIDERS: ATTEND Psychiatry & Neurology Psychiatry | DX: F14.20 Cocaine dependence, uncomplicated (principal) ==

== ENCOUNTER 2022-01-18 10:48 | Outpatient (RCR) | payer OTHER | END 2022-01-22 | LOC: M OUTALCOH 10:48 | PROVIDERS: ATTEND Psychiatry & Neurology Psychiatry | DX: F14.20 Cocaine dependence, uncomplicated (principal); F12.10 Cannabis abuse, uncomplicated ==

== ENCOUNTER 2022-02-08 10:42 | Outpatient (RCR) | payer OTHER, MEDICARE ==
[2022-02-14] MEDS ORDERED: AMLO1TAB24 PO (11:22)
[2022-02-14] MEDS ORDERED: GABA-1171 PO (11:22)
[2022-02-14] MEDS ORDERED: VELP5CHW PO (11:22)
[2022-02-14] MEDS ORDERED: PATIENT COMMENT (11:24)
== END 2022-02-22 ==
LOC: M OUTALCOH 10:42
PROVIDERS: ATTEND Psychiatry & Neurology Psychiatry
DX: F14.20 Cocaine dependence, uncomplicated (principal); F12.10 Cannabis abuse, uncomplicated

== ENCOUNTER 2022-02-14 08:33 | Inpatient (IN) | payer MEDICARE, OTHER ==
[~2022-02-14] VITALS: Ht 177.8 cm; Wt 96.2 kg
[2022-02-14] VITALS (15 sets, daily range): BP systolic 109–210; BP diastolic 59–98
[2022-02-14] MEDS ORDERED: ISOVUE-370 76% 100ML VIAL As Ordered ONE (08:41)
[2022-02-14 09:06] LABS: BASO % 0.6 % (0.0-1.0); EOS # 0.3 10^3/uL (0.0-0.5); EOS % 5.1 % (0.0-3.0); HEMATOCRIT 34.2 % (42.0-52.0); HEMOGLOBIN 11.5 g/dl (13.5-17.5); LYMPH # 0.7 10^3/uL (1.5-5.0); LYMPH % 11.3 % (24.0-44.0); MEAN CORPUSCULAR HEMOGLOBIN 30.1 pg (27.0-33.0); MEAN CORPUSCULAR HGB CONC 33.6 g/dl (32.0-36.5); MEAN CORPUSCULAR VOLUME 89.5 fl (80.0-96.0); MONO # 0.5 10^3/uL (0.0-0.8); MONO % 8.7 % (2.0-8.0); NEUTROPHILS # 4.6 10^3/uL (1.5-8.5); PLATELET COUNT, AUTOMATED 191 10^3/uL (150-450); RED BLOOD COUNT 3.82 10^6/uL (4.30-6.10); WHITE BLOOD COUNT 6.2 10^3/uL (4.0-10.0)
[2022-02-14 09:21] LABS: INR 0.94
[2022-02-14 09:22] LABS: PARTIAL THROMBOPLASTIN TIME 32.4 SECONDS (25.9-37.0)
[2022-02-14 09:35] LABS: MB/CK RELATIVE INDEX 4.1 (< OR =4)
[2022-02-14 09:45] LABS: ACETAMINOPHEN LEVEL < 2.0 UG/ML (10.0-30.0); ALT/SGPT 17 U/L (12-78); BILIRUBIN,DIRECT 0.2 MG/DL (0.0-0.2); BILIRUBIN,TOTAL 0.5 MG/DL (0.2-1.0); BLOOD UREA NITROGEN 38 MG/DL (7-18); CARBON DIOXIDE LEVEL 25 MEQ/L (21-32); CHLORIDE LEVEL 99 MEQ/L (98-107); CREATININE FOR GFR 6.48 MG/DL (0.70-1.30); ETHYL ALCOHOL (ETHANOL) < 0.003 % (0.000-0.010); GLOMERULAR FILTRATION RATE 9.3 (>49); GLUCOSE, FASTING 90 MG/DL (70-100); SALICYLATE LEVEL < 1.7 MG/DL (5.0-30.0); SODIUM LEVEL 137 MEQ/L (136-145); TOTAL PROTEIN 7.6 GM/DL (6.4-8.2)
[2022-02-14] MEDS ORDERED: ASPIRIN 300 MG SUPP PR ONE (10:30)
[2022-02-14 10:34] LABS: AMPHETAMINES LEVEL URINE POSITIVE (NEGATIVE); BARBITURATES URINE NEGATIVE (NEGATIVE); BENZODIAZEPINES URINE NEGATIVE (NEGATIVE); CANNABINOIDS URINE POSITIVE (NEGATIVE); COCAINE METABOLITE URINE NEGATIVE (NEGATIVE); METHADONE URINE NEGATIVE (NEGATIVE); OPIATES URINE NEGATIVE (NEGATIVE); PHENCYCLIDINE URINE NEGATIVE (NEGATIVE)
[2022-02-14 10:45] LABS: RSV AMPLIFICATION NEGATIVE (NEGATIVE)
[2022-02-14] MEDS ORDERED: AMLO1TAB24 PO (11:22)
[2022-02-14] MEDS ORDERED: GABA-1171 PO (11:22)
[2022-02-14] MEDS ORDERED: VELP5CHW PO (11:22)
[2022-02-14] MEDS ORDERED: PATIENT COMMENT (11:24)
[2022-02-14] MEDS ORDERED: HOME MED LIST COMPLETE! XX SCH (11:25)
[2022-02-14] MEDS ORDERED: HEPARIN SOD (PORCINE) 5000UNITS/ML 1ML VIAL/SYRINGE SQ SCH (12:00)
[2022-02-14 14:13] LABS: ABG BASE EXCESS -3.9 (-2.0-2.0); ABG HCO3 20.8 MEQ/L (22.0-26.0); ABG PARTIAL PRESSURE CO2 36.8 mmHg (35.0-45.0); ABG PARTIAL PRESSURE O2 159.7 mmHg (75.0-100.0); ABG STANDARD HCO3 21.2 MEQ/L (22.0-26.0); ABG pH (ARTERIAL) 7.371 UNITS (7.350-7.450)
[2022-02-14] MEDS ORDERED: NALOXONE INJ 0.4MG/1ML VIAL (J2310 PER 1MG) IV STA (15:25)
[2022-02-14] MEDS: niCARdipine IV 40 MG in IV 1 EA IV SCH (15:49)
[2022-02-14 16:08] LABS: CHOLESTEROL RISK RATIO 2.014 (<5); CK-MB VALUE MASS 5.5 NG/ML (<3.6); MB/CK RELATIVE INDEX 3.02 (< OR =4)
[2022-02-14] MEDS: D5W/0.9% SODIUM CHLORIDE 1,000 ML IV SCH (17:26)
[2022-02-14] MEDS ORDERED: OLANZapine INTRAMUSCULAR 10MG VIAL IM ONE (19:40)
[2022-02-14] MEDS ORDERED: LORazepam 2 MG/ML VIAL IV STA (20:02)
[2022-02-14] MEDS ORDERED: ATORVASTATIN 20 MG TAB PO SCH (21:00)
[2022-02-14 22:18] LABS: CK-MB VALUE MASS 5.1 NG/ML (<3.6); MB/CK RELATIVE INDEX 2.39 (< OR =4)
[2022-02-14] MEDS: TACROLIMUS 1 MG CAP (J7507) XX SCH (23:32)
[2022-02-14] MEDS: HEPARIN SOD (PORCINE) 5000UNITS/ML 1ML VIAL/SYRINGE SQ SCH (23:34)
[2022-02-15] VITALS (58 sets, daily range): BP systolic 128–220; BP diastolic 56–118
[2022-02-15 05:42] LABS: BASO # 0.1 10^3/uL (0.0-0.2); BASO % 1.1 % (0.0-1.0); EOS # 0.4 10^3/uL (0.0-0.5); EOS % 8.6 % (0.0-3.0); HEMATOCRIT 31.6 % (42.0-52.0); HEMOGLOBIN 10.4 g/dl (13.5-17.5); LYMPH # 1.2 10^3/uL (1.5-5.0); LYMPH % 26.2 % (24.0-44.0); MEAN CORPUSCULAR HEMOGLOBIN 29.7 pg (27.0-33.0); MEAN CORPUSCULAR HGB CONC 32.9 g/dl (32.0-36.5); MEAN CORPUSCULAR VOLUME 90.3 fl (80.0-96.0); MONO # 0.5 10^3/uL (0.0-0.8); MONO % 12.2 % (2.0-8.0); NEUTROPHILS # 2.3 10^3/uL (1.5-8.5); NEUTROPHILS % 51.7 % (36.0-66.0); PLATELET COUNT, AUTOMATED 180 10^3/uL (150-450); WHITE BLOOD COUNT 4.4 10^3/uL (4.0-10.0)
[2022-02-15 06:10] LABS: ALBUMIN 3.2 GM/DL (3.2-5.2); BILIRUBIN,TOTAL 0.4 MG/DL (0.2-1.0); CALCIUM LEVEL 8.4 MG/DL (8.8-10.2); CREATININE FOR GFR 6.93 MG/DL (0.70-1.30); GLOMERULAR FILTRATION RATE 8.6 (>49); MAGNESIUM LEVEL 2.7 MG/DL (1.8-2.4); POTASSIUM SERUM 4.1 MEQ/L (3.5-5.1); TOTAL PROTEIN 6.8 GM/DL (6.4-8.2)
[2022-02-15] MEDS: HEPARIN SOD (PORCINE) 5000UNITS/ML 1ML VIAL/SYRINGE SQ SCH ×3 (06:41→22:00)
[2022-02-15] MEDS ORDERED: SODIUM CHLORIDE 0.9% 1000ML IV PRN (07:35)
[2022-02-15] MEDS ORDERED: LIDOCAINE 1% SDV 5ML VIAL SC PRN (07:35)
[2022-02-15] MEDS: niCARdipine IV 40 MG in IV 1 EA IV SCH ×4 (07:40→22:24)
[2022-02-15] MEDS ORDERED: GLUCOSE 4GM CHEW TABLET PO PRN (09:05)
[2022-02-15] MEDS ORDERED: DEXTROSE 50% 50 ML SYRINGE IV PRN (09:05)
[2022-02-15] MEDS ORDERED: GLUCAGON INJ 1MG VIAL SC PRN (09:05)
[2022-02-15] MEDS: D5W/0.9% SODIUM CHLORIDE 1,000 ML IV SCH ×2 (09:30→14:12)
[2022-02-15] MEDS: ASPIRIN 300 MG SUPP PR SCH (09:42)
[2022-02-15] MEDS: TACROLIMUS 1 MG CAP (J7507) XX SCH (09:42)
[2022-02-15 10:17] LABS: ABG BASE EXCESS -1.8 (-2.0-2.0); ABG HCO3 22.9 MEQ/L (22.0-26.0); ABG O2 SATURATION 97.2 % (95.0-99.0); ABG PARTIAL PRESSURE O2 114.1 mmHg (75.0-100.0); ABG STANDARD HCO3 22.9 MEQ/L (22.0-26.0); ABG TOTAL CO2 24.1 MEQ/L (23.0-31.0); ABG pH (ARTERIAL) 7.387 UNITS (7.350-7.450)
[2022-02-15] MEDS ORDERED: INSULIN LISPRO (NovoLOG) PER UNIT SC SCH (12:00)
[2022-02-15] MEDS ORDERED: fentaNYL 100 MCG/2 ML INJECTION IV ONE (13:50)
[2022-02-16] VITALS (47 sets, daily range): BP systolic 121–193; BP diastolic 56–139
[2022-02-16] MEDS ORDERED: diazePAM 10MG/2ML SYRINGE (J3360 PER 5MG) IV ONE (01:15)
[2022-02-16] MEDS: TACROLIMUS 1 MG CAP (J7507) XX SCH ×3 (03:10→21:19)
[2022-02-16] MEDS ORDERED: dexmedeTOMidine 200 MCG in IV 1 EA IV SCH (04:40)
[2022-02-16 05:03] LABS: BASO # 0.1 10^3/uL (0.0-0.2); BASO % 0.8 % (0.0-1.0); EOS # 0.3 10^3/uL (0.0-0.5); EOS % 4.7 % (0.0-3.0); HEMATOCRIT 33.8 % (42.0-52.0); HEMOGLOBIN 11.3 g/dl (13.5-17.5); LYMPH # 1.1 10^3/uL (1.5-5.0); LYMPH % 16.9 % (24.0-44.0); MEAN CORPUSCULAR HEMOGLOBIN 30.1 pg (27.0-33.0); MEAN CORPUSCULAR HGB CONC 33.4 g/dl (32.0-36.5); MEAN CORPUSCULAR VOLUME 90.1 fl (80.0-96.0); MONO # 0.7 10^3/uL (0.0-0.8); MONO % 10.9 % (2.0-8.0); NEUTROPHILS # 4.2 10^3/uL (1.5-8.5); NEUTROPHILS % 66.5 % (36.0-66.0); PLATELET COUNT, AUTOMATED 188 10^3/uL (150-450); RED BLOOD COUNT 3.75 10^6/uL (4.30-6.10); WHITE BLOOD COUNT 6.4 10^3/uL (4.0-10.0)
[2022-02-16 05:20] LABS: ALBUMIN 3.7 GM/DL (3.2-5.2); BILIRUBIN,TOTAL 0.5 MG/DL (0.2-1.0); CALCIUM LEVEL 8.6 MG/DL (8.8-10.2); CREATININE FOR GFR 5.05 MG/DL (0.70-1.30); GLOMERULAR FILTRATION RATE 12.4 (>49); MAGNESIUM LEVEL 2.2 MG/DL (1.8-2.4); POTASSIUM SERUM 3.4 MEQ/L (3.5-5.1); TOTAL PROTEIN 7.6 GM/DL (6.4-8.2)
[2022-02-16] MEDS: HEPARIN SOD (PORCINE) 5000UNITS/ML 1ML VIAL/SYRINGE SQ SCH ×3 (05:20→21:19)
[2022-02-16] MEDS: niCARdipine IV 40 MG in IV 1 EA IV SCH (07:15)
[2022-02-16] MEDS: D5W/0.9% SODIUM CHLORIDE 1,000 ML IV SCH (08:47)
[2022-02-16] MEDS: ASPIRIN 300 MG SUPP PR SCH (08:48)
[2022-02-16] MEDS: KCL 10MEQ/100ML SWI (KRUN) 10 MEQ in IV 1 EA IV SCH ×2 (08:48→10:28)
[2022-02-16] MEDS: amLODIPine 5 MG TAB PO SCH (12:36)
[2022-02-16] MEDS ORDERED: hydrALAZINE 20MG/ML 1ML VIAL (J0360 PER 20MG) IV STA (13:04)
[2022-02-17] VITALS: BP 135/64
[2022-02-17] MEDS ORDERED: ACETAMINOPHEN TAB 650MG DOSE (2X325MG) PO PRN (01:30)
[2022-02-17 04:00] VITALS: BP 170/76
[2022-02-17] MEDS ORDERED: LIDOCAINE 1% SDV 5ML VIAL SC PRN (05:30)
[2022-02-17] MEDS ORDERED: SODIUM CHLORIDE 0.9% 1000ML IV PRN (05:30)
[2022-02-17 06:06] LABS: BASO % 0.8 % (0.0-1.0); EOS # 0.5 10^3/uL (0.0-0.5); EOS % 9.1 % (0.0-3.0); HEMATOCRIT 32.9 % (42.0-52.0); HEMOGLOBIN 10.7 g/dl (13.5-17.5); LYMPH # 1.5 10^3/uL (1.5-5.0); LYMPH % 29.7 % (24.0-44.0); MEAN CORPUSCULAR HEMOGLOBIN 29.3 pg (27.0-33.0); MEAN CORPUSCULAR HGB CONC 32.5 g/dl (32.0-36.5); MEAN CORPUSCULAR VOLUME 90.1 fl (80.0-96.0); MONO # 0.7 10^3/uL (0.0-0.8); MONO % 14.3 % (2.0-8.0); NEUTROPHILS # 2.3 10^3/uL (1.5-8.5); NEUTROPHILS % 45.9 % (36.0-66.0); PLATELET COUNT, AUTOMATED 186 10^3/uL (150-450); RED BLOOD COUNT 3.65 10^6/uL (4.30-6.10)
[2022-02-17 06:31] LABS: ALBUMIN 3.1 GM/DL (3.2-5.2); BILIRUBIN,TOTAL 0.5 MG/DL (0.2-1.0); CALCIUM LEVEL 8.7 MG/DL (8.8-10.2); CREATININE FOR GFR 5.66 MG/DL (0.70-1.30); GLOMERULAR FILTRATION RATE 10.9 (>49); MAGNESIUM LEVEL 2.4 MG/DL (1.8-2.4); POTASSIUM SERUM 4.3 MEQ/L (3.5-5.1); TOTAL PROTEIN 6.3 GM/DL (6.4-8.2)
[2022-02-17] MEDS: HEPARIN SOD (PORCINE) 5000UNITS/ML 1ML VIAL/SYRINGE SQ SCH ×3 (07:12→21:20)
[2022-02-17] MEDS: TACROLIMUS 1 MG CAP (J7507) XX SCH (08:25)
[2022-02-17] MEDS: ASPIRIN 325 MG TAB PO SCH (08:25)
[2022-02-17] MEDS: amLODIPine 5 MG TAB PO SCH (08:26)
[2022-02-17 08:30] VITALS: BP 170/82
[2022-02-17 12:58] VITALS: BP 158/82
[2022-02-17 16:29] VITALS: BP 147/77
[2022-02-17 20:57] VITALS: BP 158/90
[2022-02-17] MEDS ORDERED: ATORVASTATIN 20 MG TAB PO SCH (21:00)
[2022-02-17] MEDS: TACROLIMUS 1 MG CAP (J7507) PO SCH (21:19)
[2022-02-18 01:26] VITALS: BP 140/62
[2022-02-18 05:09] VITALS: BP 162/70
[2022-02-18] MEDS: HEPARIN SOD (PORCINE) 5000UNITS/ML 1ML VIAL/SYRINGE SQ SCH ×2 (05:29→14:00)
[2022-02-18 06:15] LABS: BASO # 0.1 10^3/uL (0.0-0.2); BASO % 1.1 % (0.0-1.0); EOS # 0.4 10^3/uL (0.0-0.5); HEMATOCRIT 31.6 % (42.0-52.0); HEMOGLOBIN 10.5 g/dl (13.5-17.5); LYMPH # 1.4 10^3/uL (1.5-5.0); LYMPH % 31.1 % (24.0-44.0); MEAN CORPUSCULAR HEMOGLOBIN 30.3 pg (27.0-33.0); MEAN CORPUSCULAR HGB CONC 33.2 g/dl (32.0-36.5); MEAN CORPUSCULAR VOLUME 91.3 fl (80.0-96.0); MONO # 0.6 10^3/uL (0.0-0.8); MONO % 13.7 % (2.0-8.0); NEUTROPHILS # 2.1 10^3/uL (1.5-8.5); NEUTROPHILS % 45.9 % (36.0-66.0); PLATELET COUNT, AUTOMATED 184 10^3/uL (150-450); RED BLOOD COUNT 3.46 10^6/uL (4.30-6.10); WHITE BLOOD COUNT 4.6 10^3/uL (4.0-10.0)
[2022-02-18 06:41] LABS: ALBUMIN 3.1 GM/DL (3.2-5.2); BILIRUBIN,TOTAL 0.5 MG/DL (0.2-1.0); CALCIUM LEVEL 8.5 MG/DL (8.8-10.2); CREATININE FOR GFR 4.06 MG/DL (0.70-1.30); MAGNESIUM LEVEL 2.3 MG/DL (1.8-2.4); POTASSIUM SERUM 4.3 MEQ/L (3.5-5.1); TOTAL PROTEIN 6.5 GM/DL (6.4-8.2)
[2022-02-18 08:09] VITALS: BP 155/78
[2022-02-18 08:17] VITALS: BP 155/78
[2022-02-18] MEDS: amLODIPine 5 MG TAB PO SCH (08:17)
[2022-02-18] MEDS: TACROLIMUS 1 MG CAP (J7507) PO SCH (08:17)
[2022-02-18] MEDS: ASPIRIN 325 MG TAB PO SCH (08:17)
== END 2022-02-18 16:00 | disposition home or self-care (01) | DRG 91 ==
LOC: M ED 08:33 → EDBD 08:33 → M ED INP 10:40 → ENRESERV 12:20 → M PCU 13:00 → M ICU 13:47 → M PCU 02-16 15:10
PROVIDERS: ADMIT Internal Medicine; ATTEND Internal Medicine Nephrology
PROC: 5A1D70Z Performance of Urinary Filtration, Intermittent, Less than 6 Hours Per Day (ICD-10-PCS; principal; 2022-02-15)
DX: G92.8 Other toxic encephalopathy (principal); N18.6 End stage renal disease; I12.0 Hypertensive chronic kidney disease with stage 5 chronic kidney disease or end stage renal disease; Z94.4 Liver transplant status; R47.01 Aphasia; E11.22 Type 2 diabetes mellitus with diabetic chronic kidney disease; E78.5 Hyperlipidemia, unspecified; I87.2 Venous insufficiency (chronic) (peripheral); I16.0 Hypertensive urgency; F32.A Depression, unspecified; E55.9 Vitamin D deficiency, unspecified; K21.9 Gastro-esophageal reflux disease without esophagitis; T43.625A Adverse effect of amphetamines, initial encounter; I65.23 Occlusion and stenosis of bilateral carotid arteries; I67.2 Cerebral atherosclerosis; R06.81 Apnea, not elsewhere classified; E87.6 Hypokalemia; D64.9 Anemia, unspecified; G47.00 Insomnia, unspecified; Z98.84 Bariatric surgery status; Z96.652 Presence of left artificial knee joint; Z99.2 Dependence on renal dialysis; Z79.899 Other long term (current) drug therapy

== ENCOUNTER 2022-03-02 08:07 | Inpatient (IN) | payer MEDICARE ==
[2022-03-02] VITALS (15 sets, daily range): BP systolic 157–215; BP diastolic 68–106
[~2022-03-02] VITALS: Ht 177.8 cm; Wt 89.9 kg
[~2022-03-02 08:07] MED LIST changes: +PATIENT COMMENT; +VELP5CHW PO
[2022-03-02] MEDS ORDERED: LORazepam 2 MG/ML VIAL IV STA ×2 (08:28→10:49)
[2022-03-02 08:56] LABS: BASO % 0.3 % (0.0-1.0); EOS # 0.1 10^3/uL (0.0-0.5); EOS % 0.5 % (0.0-3.0); HEMATOCRIT 35.4 % (42.0-52.0); HEMOGLOBIN 11.7 g/dl (13.5-17.5); LYMPH # 0.9 10^3/uL (1.5-5.0); LYMPH % 7.9 % (24.0-44.0); MEAN CORPUSCULAR HGB CONC 33.1 g/dl (32.0-36.5); MEAN CORPUSCULAR VOLUME 90.8 fl (80.0-96.0); MONO # 1.1 10^3/uL (0.0-0.8); MONO % 10.1 % (2.0-8.0); NEUTROPHILS # 8.8 10^3/uL (1.5-8.5); NEUTROPHILS % 80.7 % (36.0-66.0); PLATELET COUNT, AUTOMATED 237 10^3/uL (150-450); WHITE BLOOD COUNT 10.9 10^3/uL (4.0-10.0)
[2022-03-02 09:22] LABS: INR 1.04; OSMOLALITY SERUM 297 MOSM/KG (280-301)
[2022-03-02 09:24] LABS: CK-MB VALUE MASS 2.4 NG/ML (<3.6); MB/CK RELATIVE INDEX 2.33 (< OR =4)
[2022-03-02 09:37] LABS: RSV AMPLIFICATION NEGATIVE (NEGATIVE)
[2022-03-02 09:43] LABS: ACETAMINOPHEN LEVEL < 2.0 UG/ML (10.0-30.0); ALBUMIN 3.3 GM/DL (3.2-5.2); ALT/SGPT 14 U/L (12-78); BILIRUBIN,DIRECT 0.2 MG/DL (0.0-0.2); BILIRUBIN,TOTAL 0.6 MG/DL (0.2-1.0); BLOOD UREA NITROGEN 26 MG/DL (7-18); CALCIUM LEVEL 8.9 MG/DL (8.8-10.2); CARBON DIOXIDE LEVEL 26 MEQ/L (21-32); CHLORIDE LEVEL 108 MEQ/L (98-107); ETHYL ALCOHOL (ETHANOL) < 0.003 % (0.000-0.010); GLOMERULAR FILTRATION RATE 12.9 (>49); GLUCOSE, FASTING 125 MG/DL (70-100); LIPASE 86 U/L (73-393); POTASSIUM SERUM 4.5 MEQ/L (3.5-5.1); SALICYLATE LEVEL < 1.7 MG/DL (5.0-30.0); SODIUM LEVEL 143 MEQ/L (136-145); TOTAL PROTEIN 6.9 GM/DL (6.4-8.2)
[2022-03-02 10:04] LABS: AMPHETAMINES LEVEL URINE NEGATIVE (NEGATIVE); BARBITURATES URINE NEGATIVE (NEGATIVE); BENZODIAZEPINES URINE NEGATIVE (NEGATIVE); CANNABINOIDS URINE POSITIVE (NEGATIVE); COCAINE METABOLITE URINE NEGATIVE (NEGATIVE); METHADONE URINE NEGATIVE (NEGATIVE); OPIATES URINE NEGATIVE (NEGATIVE); PHENCYCLIDINE URINE NEGATIVE (NEGATIVE)
[2022-03-02] MEDS ORDERED: HOME MED LIST COMPLETE! XX SCH (10:20)
[2022-03-02] MEDS ORDERED: HALOPERIDOL 5MG/ML VIAL (J1630 PER 1) IV ONE (10:25)
[2022-03-02] MEDS ORDERED: NITROGLYCERIN 2% OINT 1 GM *U/D* PKT TOP ONE (11:10)
[2022-03-02] MEDS ORDERED: ASPIRIN 81 MG CHEW TABLET PO ONE (12:35)
[2022-03-02] MEDS ORDERED: METOPROLOL TART 50 MG TAB PO ONE (12:35)
[2022-03-02] MEDS ORDERED: VANCOMYCIN HCL 1,000 MG, VIAL MATE ADAPTER 1 EACH in NS 250 ML IV SCH (14:50)
[2022-03-02] MEDS ORDERED: MOM 30ML SUSPENSION UDC PO PRN (14:50)
[2022-03-02] MEDS ORDERED: cefTRIAXone SOD 1 GM in D5W MINI-BAG PLUS 50 ML IV SCH (14:50)
[2022-03-02] MEDS ORDERED: MAALOX 30 ML SUSP *UDC PO PRN (14:50)
[2022-03-02] MEDS ORDERED: ISOVUE-370 76% 100ML VIAL As Ordered ONE (15:29)
[2022-03-02 15:47] LABS: ERYTHROCYTE SEDIMENTATION RATE 49 mm/hr (0-20)
[2022-03-02] MEDS: cefTRIAXone SOD 2 GM in D5W MINI-BAG PLUS 50 ML IV SCH (16:23)
[2022-03-02] MEDS: HEPARIN SOD (PORCINE) 5000UNITS/ML 1ML VIAL/SYRINGE SQ SCH ×2 (16:24→21:13)
[2022-03-02] MEDS ORDERED: VANCOMYCIN HCL 750 MG, VIAL MATE ADAPTER 1 EACH in NS 250 ML IV ONE ×2 (17:00→18:00)
[2022-03-02] MEDS ORDERED: NALOXONE INJ 0.4MG/1ML VIAL (J2310 PER 1MG) IV STA (17:10)
[2022-03-02] MEDS ORDERED: flumazeniL 0.5 MG/5 ML VIAL IV STA ×2 (17:16→18:00)
[2022-03-02 17:32] LABS: ABG BASE EXCESS 0.9 (-2.0-2.0); ABG HCO3 24.3 MEQ/L (22.0-26.0); ABG O2 SATURATION 95.3 % (95.0-99.0); ABG PARTIAL PRESSURE CO2 34.6 mmHg (35.0-45.0); ABG PARTIAL PRESSURE O2 71.8 mmHg (75.0-100.0); ABG STANDARD HCO3 25.2 MEQ/L (22.0-26.0); ABG TOTAL CO2 25.3 MEQ/L (23.0-31.0); ABG pH (ARTERIAL) 7.464 UNITS (7.350-7.450)
[2022-03-02] MEDS ORDERED: LABETALOL 100MG/20ML VIAL IV STA (17:36)
[2022-03-02] MEDS: SUCROFERRIC OXYHYDROXIDE 500MG CHEW TAB (VELPHORO) PO SCH (18:00)
[2022-03-02] MEDS ORDERED: hydrALAZINE 20MG/ML 1ML VIAL (J0360 PER 20MG) IV STA (19:11)
[2022-03-02] MEDS: TACROLIMUS 1 MG CAP (J7507) PO SCH (20:17)
[2022-03-02] MEDS: LABETALOL 100MG/20ML VIAL IV PRN (20:21)
[2022-03-02] MEDS: niCARdipine IV 40 MG in IV 1 EA IV SCH (23:08)
[2022-03-03] VITALS (25 sets, daily range): BP systolic 116–192; BP diastolic 58–103
[2022-03-03] MEDS ORDERED: ACETAMINOPHEN 650 MG SUPP PR PRN (00:35)
[2022-03-03] MEDS ORDERED: HALOPERIDOL 5MG/ML VIAL (J1630 PER 1) IM STA (02:21)
[2022-03-03] MEDS: HEPARIN SOD (PORCINE) 5000UNITS/ML 1ML VIAL/SYRINGE SQ SCH ×3 (05:04→22:17)
[2022-03-03] MEDS ORDERED: LIDOCAINE 1% SDV 5ML VIAL SC PRN (05:10)
[2022-03-03] MEDS ORDERED: SODIUM CHLORIDE 0.9% 1000ML IV PRN (05:10)
[2022-03-03 05:56] LABS: BASO % 0.4 % (0.0-1.0); EOS % 0.3 % (0.0-3.0); HEMATOCRIT 28.2 % (42.0-52.0); LYMPH # 0.9 10^3/uL (1.5-5.0); LYMPH % 8.8 % (24.0-44.0); MEAN CORPUSCULAR HEMOGLOBIN 30.3 pg (27.0-33.0); MEAN CORPUSCULAR VOLUME 91.9 fl (80.0-96.0); MONO # 1.2 10^3/uL (0.0-0.8); MONO % 12.5 % (2.0-8.0); NEUTROPHILS # 7.6 10^3/uL (1.5-8.5); NEUTROPHILS % 77.6 % (36.0-66.0); PLATELET COUNT, AUTOMATED 187 10^3/uL (150-450); RED BLOOD COUNT 3.07 10^6/uL (4.30-6.10); WHITE BLOOD COUNT 9.8 10^3/uL (4.0-10.0)
[2022-03-03 06:01] LABS: HEMOGLOBIN 9.3 g/dl (13.5-17.5)
[2022-03-03 06:16] LABS: ALBUMIN 3.1 GM/DL (3.2-5.2); BILIRUBIN,TOTAL 0.6 MG/DL (0.2-1.0); C REACTIVE PROTEIN QUANTITATIV 15.3 MG/DL (0.00-0.30); CALCIUM LEVEL 8.1 MG/DL (8.8-10.2); CREATININE FOR GFR 5.85 MG/DL (0.70-1.30); GLOMERULAR FILTRATION RATE 10.5 (>49); MAGNESIUM LEVEL 2.2 MG/DL (1.8-2.4); TOTAL PROTEIN 6.3 GM/DL (6.4-8.2); VANCOMYCIN RANDOM 17.1 UG/ML
[2022-03-03] MEDS: niCARdipine IV 40 MG in IV 1 EA IV SCH ×3 (07:00→22:55)
[2022-03-03] MEDS: SUCROFERRIC OXYHYDROXIDE 500MG CHEW TAB (VELPHORO) PO SCH ×3 (08:00→18:00)
[2022-03-03] MEDS: amLODIPine 5 MG TAB PO SCH (08:54)
[2022-03-03] MEDS: TACROLIMUS 1 MG CAP (J7507) PO SCH ×2 (08:54→19:31)
[2022-03-03] MEDS ORDERED: ENOXAPARIN 40MG/0.4ML SYRINGE (J1650 PER 10MG) SC SCH (09:00)
[2022-03-03] MEDS ORDERED: OLANZapine INTRAMUSCULAR 10MG VIAL IM STA (09:15)
[2022-03-03] MEDS: HALOPERIDOL 5MG/ML VIAL (J1630 PER 1) IV PRN ×3 (10:48→20:18)
[2022-03-03] MEDS: cefTRIAXone SOD 2 GM in D5W MINI-BAG PLUS 50 ML IV SCH (17:31)
[2022-03-03] MEDS: VANCOMYCIN HCL 1,000 MG, VIAL MATE ADAPTER 1 EACH in NS 250 ML IV SCH (17:32)
[2022-03-04] VITALS (23 sets, daily range): BP systolic 133–190; BP diastolic 54–113; O2SAT 98–100
[2022-03-04] MEDS: HEPARIN SOD (PORCINE) 5000UNITS/ML 1ML VIAL/SYRINGE SQ SCH ×3 (06:08→20:57)
[2022-03-04] MEDS: niCARdipine IV 40 MG in IV 1 EA IV SCH (06:09)
[2022-03-04 07:12] LABS: BASO # 0.1 10^3/uL (0.0-0.2); BASO % 0.9 % (0.0-1.0); EOS # 0.3 10^3/uL (0.0-0.5); HEMATOCRIT 30.4 % (42.0-52.0); HEMOGLOBIN 10.1 g/dl (13.5-17.5); LYMPH # 0.8 10^3/uL (1.5-5.0); LYMPH % 11.2 % (24.0-44.0); MEAN CORPUSCULAR HEMOGLOBIN 30.3 pg (27.0-33.0); MEAN CORPUSCULAR HGB CONC 33.2 g/dl (32.0-36.5); MEAN CORPUSCULAR VOLUME 91.3 fl (80.0-96.0); MONO # 0.9 10^3/uL (0.0-0.8); MONO % 12.3 % (2.0-8.0); NEUTROPHILS % 71.2 % (36.0-66.0); PLATELET COUNT, AUTOMATED 186 10^3/uL (150-450); RED BLOOD COUNT 3.33 10^6/uL (4.30-6.10)
[2022-03-04 07:34] LABS: ALBUMIN 3.1 GM/DL (3.2-5.2); BILIRUBIN,TOTAL 0.5 MG/DL (0.2-1.0); C REACTIVE PROTEIN QUANTITATIV 16.8 MG/DL (0.00-0.30); CALCIUM LEVEL 8.3 MG/DL (8.8-10.2); CREATININE FOR GFR 5.77 MG/DL (0.70-1.30); GLOMERULAR FILTRATION RATE 10.7 (>49); MAGNESIUM LEVEL 2.3 MG/DL (1.8-2.4); POTASSIUM SERUM 3.8 MEQ/L (3.5-5.1); TOTAL PROTEIN 6.3 GM/DL (6.4-8.2); VANCOMYCIN RANDOM 23.4 UG/ML
[2022-03-04] MEDS: SUCROFERRIC OXYHYDROXIDE 500MG CHEW TAB (VELPHORO) PO SCH ×3 (08:00→19:01)
[2022-03-04] MEDS: TACROLIMUS 1 MG CAP (J7507) PO SCH ×3 (08:49→21:00)
[2022-03-04] MEDS: LABETALOL 100MG/20ML VIAL IV PRN (08:59)
[2022-03-04] MEDS ORDERED: hydrALAZINE 20MG/ML 1ML VIAL (J0360 PER 20MG) IV ONE (12:45)
[2022-03-04] MEDS: cefTRIAXone SOD 2 GM in D5W MINI-BAG PLUS 50 ML IV SCH (15:35)
[2022-03-04] MEDS: GABAPENTIN 100 MG CAP PO SCH (20:56)
[2022-03-05] VITALS (24 sets, daily range): BP systolic 140–163; BP diastolic 62–71; O2SAT 91–98
[2022-03-05] MEDS: HEPARIN SOD (PORCINE) 5000UNITS/ML 1ML VIAL/SYRINGE SQ SCH ×3 (05:10→21:24)
[2022-03-05] MEDS ORDERED: SODIUM CHLORIDE 0.9% 1000ML IV PRN (06:00)
[2022-03-05] MEDS ORDERED: LIDOCAINE 1% SDV 5ML VIAL SC PRN (06:00)
[2022-03-05] MEDS: SUCROFERRIC OXYHYDROXIDE 500MG CHEW TAB (VELPHORO) PO SCH ×3 (06:55→17:54)
[2022-03-05 07:32] LABS: BASO # 0.1 10^3/uL (0.0-0.2); BASO % 0.8 % (0.0-1.0); EOS # 0.5 10^3/uL (0.0-0.5); EOS % 8.4 % (0.0-3.0); HEMATOCRIT 30.1 % (42.0-52.0); HEMOGLOBIN 9.9 g/dl (13.5-17.5); LYMPH # 1.5 10^3/uL (1.5-5.0); MEAN CORPUSCULAR HEMOGLOBIN 29.8 pg (27.0-33.0); MEAN CORPUSCULAR HGB CONC 32.9 g/dl (32.0-36.5); MEAN CORPUSCULAR VOLUME 90.7 fl (80.0-96.0); MONO # 0.8 10^3/uL (0.0-0.8); MONO % 12.7 % (2.0-8.0); NEUTROPHILS # 3.5 10^3/uL (1.5-8.5); NEUTROPHILS % 54.9 % (36.0-66.0); PLATELET COUNT, AUTOMATED 215 10^3/uL (150-450); RED BLOOD COUNT 3.32 10^6/uL (4.30-6.10); WHITE BLOOD COUNT 6.3 10^3/uL (4.0-10.0)
[2022-03-05 07:58] LABS: BILIRUBIN,TOTAL 0.4 MG/DL (0.2-1.0); CALCIUM LEVEL 8.5 MG/DL (8.8-10.2); CREATININE FOR GFR 6.32 MG/DL (0.70-1.30); GLOMERULAR FILTRATION RATE 9.6 (>49); MAGNESIUM LEVEL 2.6 MG/DL (1.8-2.4); POTASSIUM SERUM 3.7 MEQ/L (3.5-5.1); TOTAL PROTEIN 6.4 GM/DL (6.4-8.2)
[2022-03-05] MEDS: amLODIPine 5 MG TAB PO SCH (09:00)
[2022-03-05] MEDS: TACROLIMUS 1 MG CAP (J7507) PO SCH ×2 (09:32→21:24)
[2022-03-05] MEDS: VANCOMYCIN HCL 1,000 MG, VIAL MATE ADAPTER 1 EACH in NS 250 ML IV SCH (17:54)
[2022-03-05] MEDS: GABAPENTIN 100 MG CAP PO SCH (21:24)
[2022-03-06] VITALS (26 sets, daily range): BP systolic 138–172; BP diastolic 69–78; O2SAT 94–100
[2022-03-06] MEDS: HEPARIN SOD (PORCINE) 5000UNITS/ML 1ML VIAL/SYRINGE SQ SCH ×3 (06:03→21:05)
[2022-03-06 08:04] LABS: BASO # 0.1 10^3/uL (0.0-0.2); BASO % 0.8 % (0.0-1.0); EOS # 0.4 10^3/uL (0.0-0.5); EOS % 6.4 % (0.0-3.0); HEMATOCRIT 30.9 % (42.0-52.0); LYMPH # 1.6 10^3/uL (1.5-5.0); LYMPH % 26.5 % (24.0-44.0); MEAN CORPUSCULAR HEMOGLOBIN 29.7 pg (27.0-33.0); MEAN CORPUSCULAR HGB CONC 32.4 g/dl (32.0-36.5); MEAN CORPUSCULAR VOLUME 91.7 fl (80.0-96.0); MONO # 0.7 10^3/uL (0.0-0.8); MONO % 12.4 % (2.0-8.0); NEUTROPHILS # 3.2 10^3/uL (1.5-8.5); NEUTROPHILS % 53.6 % (36.0-66.0); PLATELET COUNT, AUTOMATED 199 10^3/uL (150-450); RED BLOOD COUNT 3.37 10^6/uL (4.30-6.10)
[2022-03-06 08:31] LABS: ALBUMIN 2.9 GM/DL (3.2-5.2); BILIRUBIN,TOTAL 0.4 MG/DL (0.2-1.0); CALCIUM LEVEL 8.8 MG/DL (8.8-10.2); CREATININE FOR GFR 4.39 MG/DL (0.70-1.30); GLOMERULAR FILTRATION RATE 14.6 (>49); MAGNESIUM LEVEL 2.3 MG/DL (1.8-2.4); POTASSIUM SERUM 3.6 MEQ/L (3.5-5.1); TOTAL PROTEIN 6.4 GM/DL (6.4-8.2)
[2022-03-06] MEDS: TACROLIMUS 1 MG CAP (J7507) PO SCH ×2 (08:40→21:05)
[2022-03-06] MEDS: SUCROFERRIC OXYHYDROXIDE 500MG CHEW TAB (VELPHORO) PO SCH ×3 (08:40→18:10)
[2022-03-06] MEDS: amLODIPine 5 MG TAB PO SCH (08:40)
[2022-03-06] MEDS ORDERED: amLODIPine 5 MG TAB PO SCH (09:00)
[2022-03-06] MEDS: ACETAMINOPHEN TAB 650MG DOSE (2X325MG) PO PRN ×2 (09:30→16:20)
[2022-03-06] MEDS: GABAPENTIN 100 MG CAP PO SCH (21:06)
[2022-03-07] VITALS (18 sets, daily range): BP systolic 128–164; BP diastolic 69–82; O2SAT 91–100
[2022-03-07 05:41] LABS: BASO % 0.7 % (0.0-1.0); EOS # 0.4 10^3/uL (0.0-0.5); EOS % 5.9 % (0.0-3.0); HEMATOCRIT 27.2 % (42.0-52.0); HEMOGLOBIN 8.8 g/dl (13.5-17.5); LYMPH # 1.7 10^3/uL (1.5-5.0); LYMPH % 29.1 % (24.0-44.0); MEAN CORPUSCULAR HEMOGLOBIN 29.3 pg (27.0-33.0); MEAN CORPUSCULAR HGB CONC 32.4 g/dl (32.0-36.5); MEAN CORPUSCULAR VOLUME 90.7 fl (80.0-96.0); MONO # 0.8 10^3/uL (0.0-0.8); MONO % 13.4 % (2.0-8.0); NEUTROPHILS % 50.7 % (36.0-66.0); PLATELET COUNT, AUTOMATED 173 10^3/uL (150-450)
[2022-03-07] MEDS ORDERED: LIDOCAINE 1% SDV 5ML VIAL SC PRN (06:00)
[2022-03-07] MEDS ORDERED: SODIUM CHLORIDE 0.9% 1000ML IV PRN (06:00)
[2022-03-07 06:18] LABS: ALBUMIN 2.7 GM/DL (3.2-5.2); BILIRUBIN,TOTAL 0.5 MG/DL (0.2-1.0); CREATININE FOR GFR 5.29 MG/DL (0.70-1.30); GLOMERULAR FILTRATION RATE 11.8 (>49); MAGNESIUM LEVEL 2.2 MG/DL (1.8-2.4); POTASSIUM SERUM 3.9 MEQ/L (3.5-5.1); TOTAL PROTEIN 5.7 GM/DL (6.4-8.2); VANCOMYCIN RANDOM 24.7 UG/ML
[2022-03-07] MEDS: HEPARIN SOD (PORCINE) 5000UNITS/ML 1ML VIAL/SYRINGE SQ SCH ×3 (06:37→20:23)
[2022-03-07] MEDS: TACROLIMUS 1 MG CAP (J7507) PO SCH ×2 (06:37→20:22)
[2022-03-07] MEDS: ACETAMINOPHEN TAB 650MG DOSE (2X325MG) PO PRN ×2 (06:38→20:23)
[2022-03-07] MEDS: SUCROFERRIC OXYHYDROXIDE 500MG CHEW TAB (VELPHORO) PO SCH ×3 (06:38→18:05)
[2022-03-07] MEDS: GABAPENTIN 100 MG CAP PO SCH (20:22)
[2022-03-08] VITALS (13 sets, daily range): BP systolic 10–167; BP diastolic 70–79; O2SAT 97–100
[2022-03-08] MEDS: HEPARIN SOD (PORCINE) 5000UNITS/ML 1ML VIAL/SYRINGE SQ SCH ×3 (05:56→22:22)
[2022-03-08 07:56] LABS: BASO % 0.5 % (0.0-1.0); EOS # 0.3 10^3/uL (0.0-0.5); HEMATOCRIT 30.9 % (42.0-52.0); HEMOGLOBIN 9.8 g/dl (13.5-17.5); LYMPH # 1.3 10^3/uL (1.5-5.0); MEAN CORPUSCULAR HEMOGLOBIN 29.1 pg (27.0-33.0); MEAN CORPUSCULAR HGB CONC 31.7 g/dl (32.0-36.5); MEAN CORPUSCULAR VOLUME 91.7 fl (80.0-96.0); MONO # 0.7 10^3/uL (0.0-0.8); NEUTROPHILS # 3.2 10^3/uL (1.5-8.5); NEUTROPHILS % 57.3 % (36.0-66.0); PLATELET COUNT, AUTOMATED 188 10^3/uL (150-450); RED BLOOD COUNT 3.37 10^6/uL (4.30-6.10); WHITE BLOOD COUNT 5.5 10^3/uL (4.0-10.0)
[2022-03-08 08:24] LABS: ALBUMIN 3.1 GM/DL (3.2-5.2); BILIRUBIN,TOTAL 0.5 MG/DL (0.2-1.0); CALCIUM LEVEL 9.1 MG/DL (8.8-10.2); CREATININE FOR GFR 3.46 MG/DL (0.70-1.30); GLOMERULAR FILTRATION RATE 19.2 (>49); MAGNESIUM LEVEL 2.3 MG/DL (1.8-2.4); POTASSIUM SERUM 3.6 MEQ/L (3.5-5.1); TOTAL PROTEIN 6.7 GM/DL (6.4-8.2); VANCOMYCIN RANDOM 17.4 UG/ML
[2022-03-08] MEDS: TACROLIMUS 1 MG CAP (J7507) PO SCH ×2 (08:58→22:21)
[2022-03-08] MEDS: SUCROFERRIC OXYHYDROXIDE 500MG CHEW TAB (VELPHORO) PO SCH ×3 (08:58→17:59)
[2022-03-08] MEDS: amLODIPine 5 MG TAB PO SCH (09:00)
[2022-03-08] MEDS ORDERED: VANCOMYCIN HCL 750 MG, VIAL MATE ADAPTER 1 EACH in NS 250 ML IV ONE (10:00)
[2022-03-08] MEDS: ACETAMINOPHEN TAB 650MG DOSE (2X325MG) PO PRN (18:48)
[2022-03-08] MEDS: GABAPENTIN 100 MG CAP PO SCH (22:22)
[2022-03-09 02:00] VITALS: BP 152/74
[2022-03-09 06:00] VITALS: BP 150/55
[2022-03-09] MEDS ORDERED: SODIUM CHLORIDE 0.9% 1000ML IV PRN (06:00)
[2022-03-09] MEDS ORDERED: LIDOCAINE 1% SDV 5ML VIAL SC PRN (06:00)
[2022-03-09] MEDS: HEPARIN SOD (PORCINE) 5000UNITS/ML 1ML VIAL/SYRINGE SQ SCH ×3 (06:10→21:24)
[2022-03-09 06:29] LABS: BASO % 0.5 % (0.0-1.0); EOS # 0.4 10^3/uL (0.0-0.5); HEMATOCRIT 28.8 % (42.0-52.0); HEMOGLOBIN 9.1 g/dl (13.5-17.5); LYMPH # 1.3 10^3/uL (1.5-5.0); LYMPH % 22.2 % (24.0-44.0); MEAN CORPUSCULAR HGB CONC 31.6 g/dl (32.0-36.5); MEAN CORPUSCULAR VOLUME 91.7 fl (80.0-96.0); MONO # 0.8 10^3/uL (0.0-0.8); MONO % 13.3 % (2.0-8.0); NEUTROPHILS # 3.5 10^3/uL (1.5-8.5); NEUTROPHILS % 57.7 % (36.0-66.0); PLATELET COUNT, AUTOMATED 190 10^3/uL (150-450); RED BLOOD COUNT 3.14 10^6/uL (4.30-6.10)
[2022-03-09 07:17] LABS: ALBUMIN 2.8 GM/DL (3.2-5.2); BILIRUBIN,TOTAL 0.4 MG/DL (0.2-1.0); CALCIUM LEVEL 8.2 MG/DL (8.8-10.2); CREATININE FOR GFR 4.23 MG/DL (0.70-1.30); GLOMERULAR FILTRATION RATE 15.3 (>49); MAGNESIUM LEVEL 2.2 MG/DL (1.8-2.4); POTASSIUM SERUM 4.4 MEQ/L (3.5-5.1); TOTAL PROTEIN 5.9 GM/DL (6.4-8.2); VANCOMYCIN RANDOM 22.7 UG/ML
[2022-03-09] MEDS: TACROLIMUS 1 MG CAP (J7507) PO SCH ×2 (08:22→21:24)
[2022-03-09] MEDS: SUCROFERRIC OXYHYDROXIDE 500MG CHEW TAB (VELPHORO) PO SCH ×3 (08:22→18:41)
[2022-03-09 09:00] VITALS: O2SAT 97
[2022-03-09 14:50] VITALS: BP 119/82
[2022-03-09] MEDS: VANCOMYCIN HCL 750 MG, VIAL MATE ADAPTER 1 EACH in NS 250 ML IV SCH (15:20)
[2022-03-09 18:00] VITALS: BP 158/80
[2022-03-09 21:17] VITALS: BP 162/86
[2022-03-10] VITALS (11 sets, daily range): BP systolic 148–210; BP diastolic 72–98; O2SAT 95–97
[2022-03-10] MEDS: ACETAMINOPHEN TAB 650MG DOSE (2X325MG) PO PRN (01:20)
[2022-03-10] MEDS: HEPARIN SOD (PORCINE) 5000UNITS/ML 1ML VIAL/SYRINGE SQ SCH ×3 (05:04→22:09)
[2022-03-10 06:42] LABS: HEMATOCRIT 27.1 % (42.0-52.0); HEMOGLOBIN 8.8 g/dl (13.5-17.5); MEAN CORPUSCULAR HEMOGLOBIN 29.5 pg (27.0-33.0); MEAN CORPUSCULAR HGB CONC 32.5 g/dl (32.0-36.5); MEAN CORPUSCULAR VOLUME 90.9 fl (80.0-96.0); PLATELET COUNT, AUTOMATED 194 10^3/uL (150-450); RED BLOOD COUNT 2.98 10^6/uL (4.30-6.10); WHITE BLOOD COUNT 5.6 10^3/uL (4.0-10.0)
[2022-03-10 07:03] LABS: CALCIUM LEVEL 8.8 MG/DL (8.8-10.2); CREATININE FOR GFR 3.19 MG/DL (0.70-1.30); GLOMERULAR FILTRATION RATE 21.1 (>49); POTASSIUM SERUM 4.1 MEQ/L (3.5-5.1)
[2022-03-10] MEDS: SUCROFERRIC OXYHYDROXIDE 500MG CHEW TAB (VELPHORO) PO SCH ×3 (08:03→17:36)
[2022-03-10] MEDS: TACROLIMUS 1 MG CAP (J7507) PO SCH ×2 (08:03→23:45)
[2022-03-10] MEDS: amLODIPine 5 MG TAB PO SCH (08:08)
[2022-03-10 08:19] LABS: ABG BASE EXCESS 5.5 (-2.0-2.0); ABG HCO3 29.2 MEQ/L (22.0-26.0); ABG O2 SATURATION 96.5 % (95.0-99.0); ABG PARTIAL PRESSURE O2 85.4 mmHg (75.0-100.0); ABG STANDARD HCO3 29.4 MEQ/L (22.0-26.0); ABG TOTAL CO2 30.4 MEQ/L (23.0-31.0); ABG pH (ARTERIAL) 7.492 UNITS (7.350-7.450)
[2022-03-10] MEDS ORDERED: **hydrALAZINE** 10 MG TAB PO SCH (16:00)
[2022-03-10] MEDS ORDERED: ISOVUE-370 76% 100ML VIAL As Ordered ONE (17:43)
[2022-03-10 17:51] LABS: C REACTIVE PROTEIN QUANTITATIV 5.26 MG/DL (0.00-0.30)
[2022-03-10 18:12] LABS: VITAMIN B12 LEVEL 575 PG/ML (247-911)
[2022-03-10] MEDS ORDERED: hydrALAZINE 20MG/ML 1ML VIAL (J0360 PER 20MG) IV ONE (18:40)
[2022-03-10] MEDS ORDERED: cloNIDine 0.1MG TABLET PO ONE (18:50)
[2022-03-10] MEDS ORDERED: hydrALAZINE 20MG/ML 1ML VIAL (J0360 PER 20MG) IV STA (19:40)
[2022-03-10] MEDS: QUEtiapine FUMARATE 25 MG TAB PO SCH (22:09)
[2022-03-10] MEDS: **hydrALAZINE** 50 MG TAB PO SCH (22:09)
[2022-03-11] VITALS (8 sets, daily range): BP systolic 149–182; BP diastolic 47–94; O2SAT 97–98
[2022-03-11] MEDS: **hydrALAZINE** 50 MG TAB PO SCH ×4 (03:58→23:27)
[2022-03-11] MEDS: HEPARIN SOD (PORCINE) 5000UNITS/ML 1ML VIAL/SYRINGE SQ SCH ×3 (05:22→20:15)
[2022-03-11] MEDS ORDERED: DARBEPOETIN 100 MCG/0.5 ML *DIALYSIS* SYRINGE (J0882) IV SCH (06:00)
[2022-03-11] MEDS ORDERED: SODIUM CHLORIDE 0.9% 1000ML IV PRN (06:00)
[2022-03-11] MEDS ORDERED: LIDOCAINE 1% SDV 5ML VIAL SC PRN (06:00)
[2022-03-11 08:37] LABS: HEMATOCRIT 29.4 % (42.0-52.0); HEMOGLOBIN 9.3 g/dl (13.5-17.5); MEAN CORPUSCULAR HEMOGLOBIN 29.2 pg (27.0-33.0); MEAN CORPUSCULAR HGB CONC 31.6 g/dl (32.0-36.5); MEAN CORPUSCULAR VOLUME 92.2 fl (80.0-96.0); PLATELET COUNT, AUTOMATED 222 10^3/uL (150-450); RED BLOOD COUNT 3.19 10^6/uL (4.30-6.10); WHITE BLOOD COUNT 6.2 10^3/uL (4.0-10.0)
[2022-03-11 09:07] LABS: CALCIUM LEVEL 9.1 MG/DL (8.8-10.2); CREATININE FOR GFR 4.32 MG/DL (0.70-1.30); GLOMERULAR FILTRATION RATE 14.9 (>49); POTASSIUM SERUM 4.5 MEQ/L (3.5-5.1); VANCOMYCIN RANDOM 23.4 UG/ML
[2022-03-11] MEDS: SUCROFERRIC OXYHYDROXIDE 500MG CHEW TAB (VELPHORO) PO SCH ×3 (12:30→17:51)
[2022-03-11] MEDS: VANCOMYCIN HCL 750 MG, VIAL MATE ADAPTER 1 EACH in NS 250 ML IV SCH (15:55)
[2022-03-11] MEDS: QUEtiapine FUMARATE 25 MG TAB PO SCH (20:15)
[2022-03-11] MEDS: TACROLIMUS 1 MG CAP (J7507) PO SCH (21:55)
[2022-03-11] MEDS: RAMELTEON 8 MG TAB (ROZEREM) PO PRN (23:26)
[2022-03-12] VITALS (7 sets, daily range): BP systolic 135–188; BP diastolic 56–86
[2022-03-12] MEDS: HALOPERIDOL 5MG/ML VIAL (J1630 PER 1) IV PRN (00:01)
[2022-03-12] MEDS ORDERED: OLANZapine INTRAMUSCULAR 10MG VIAL IM ONE (01:00)
[2022-03-12] MEDS ORDERED: diphenhydrAMINE 50MG/ML VIAL (J1200) IV PRN (02:05)
[2022-03-12] MEDS: **hydrALAZINE** 50 MG TAB PO SCH ×3 (05:20→18:01)
[2022-03-12] MEDS: HEPARIN SOD (PORCINE) 5000UNITS/ML 1ML VIAL/SYRINGE SQ SCH ×3 (05:21→21:17)
[2022-03-12 07:21] LABS: HEMATOCRIT 30.4 % (42.0-52.0); HEMOGLOBIN 9.7 g/dl (13.5-17.5); MEAN CORPUSCULAR HGB CONC 31.9 g/dl (32.0-36.5); PLATELET COUNT, AUTOMATED 238 10^3/uL (150-450); RED BLOOD COUNT 3.34 10^6/uL (4.30-6.10); WHITE BLOOD COUNT 5.6 10^3/uL (4.0-10.0)
[2022-03-12 07:40] LABS: CALCIUM LEVEL 8.7 MG/DL (8.8-10.2); CREATININE FOR GFR 3.35 MG/DL (0.70-1.30)
[2022-03-12] MEDS: SUCROFERRIC OXYHYDROXIDE 500MG CHEW TAB (VELPHORO) PO SCH ×3 (08:03→18:01)
[2022-03-12] MEDS: TACROLIMUS 1 MG CAP (J7507) PO SCH ×2 (08:05→21:17)
[2022-03-12] MEDS: QUEtiapine FUMARATE 25 MG TAB PO SCH ×2 (11:36→21:17)
[2022-03-12] MEDS: ACETAMINOPHEN TAB 650MG DOSE (2X325MG) PO PRN (11:36)
[2022-03-13 00:07] VITALS: BP 161/72
[2022-03-13] MEDS: **hydrALAZINE** 50 MG TAB PO SCH ×5 (00:48→23:05)
[2022-03-13 03:51] VITALS: BP 161/77
[2022-03-13] MEDS: HEPARIN SOD (PORCINE) 5000UNITS/ML 1ML VIAL/SYRINGE SQ SCH ×3 (06:04→21:05)
[2022-03-13 07:14] LABS: HEMATOCRIT 28.7 % (42.0-52.0); HEMOGLOBIN 9.2 g/dl (13.5-17.5); MEAN CORPUSCULAR HEMOGLOBIN 29.5 pg (27.0-33.0); MEAN CORPUSCULAR HGB CONC 32.1 g/dl (32.0-36.5); PLATELET COUNT, AUTOMATED 234 10^3/uL (150-450); RED BLOOD COUNT 3.12 10^6/uL (4.30-6.10); WHITE BLOOD COUNT 5.4 10^3/uL (4.0-10.0)
[2022-03-13 07:44] LABS: ALBUMIN 3.1 GM/DL (3.2-5.2); BILIRUBIN,DIRECT 0.4 MG/DL (0.0-0.2); BILIRUBIN,TOTAL 0.4 MG/DL (0.2-1.0); C REACTIVE PROTEIN QUANTITATIV 4.06 MG/DL (0.00-0.30); CALCIUM LEVEL 8.5 MG/DL (8.8-10.2); CREATININE FOR GFR 4.73 MG/DL (0.70-1.30); GLOMERULAR FILTRATION RATE 13.4 (>49); POTASSIUM SERUM 4.6 MEQ/L (3.5-5.1); TOTAL PROTEIN 6.2 GM/DL (6.4-8.2)
[2022-03-13 07:51] LABS: ERYTHROCYTE SEDIMENTATION RATE 63 mm/hr (0-20)
[2022-03-13 08:00] VITALS: BP 155/70
[2022-03-13] MEDS: SUCROFERRIC OXYHYDROXIDE 500MG CHEW TAB (VELPHORO) PO SCH ×3 (08:19→17:33)
[2022-03-13] MEDS: QUEtiapine FUMARATE 25 MG TAB PO SCH ×2 (08:19→21:05)
[2022-03-13] MEDS: TACROLIMUS 1 MG CAP (J7507) PO SCH ×2 (08:19→21:05)
[2022-03-13 12:00] VITALS: BP 145/67
[2022-03-13 16:00] VITALS: BP 150/78
[2022-03-13 19:32] VITALS: BP 170/78
[2022-03-14] VITALS (7 sets, daily range): BP systolic 148–186; BP diastolic 66–81
[2022-03-14] MEDS: QUEtiapine FUMARATE 25 MG TAB PO SCH ×2 (05:04→20:06)
[2022-03-14] MEDS: TACROLIMUS 1 MG CAP (J7507) PO SCH ×2 (05:04→20:06)
[2022-03-14] MEDS: **hydrALAZINE** 50 MG TAB PO SCH ×3 (05:04→16:26)
[2022-03-14] MEDS: HEPARIN SOD (PORCINE) 5000UNITS/ML 1ML VIAL/SYRINGE SQ SCH ×3 (05:05→21:18)
[2022-03-14] MEDS: ACETAMINOPHEN TAB 650MG DOSE (2X325MG) PO PRN (05:08)
[2022-03-14] MEDS: SUCROFERRIC OXYHYDROXIDE 500MG CHEW TAB (VELPHORO) PO SCH ×3 (06:45→18:00)
[2022-03-14] MEDS ORDERED: LIDOCAINE 1% SDV 5ML VIAL SC PRN (08:10)
[2022-03-14] MEDS ORDERED: SODIUM CHLORIDE 0.9% 1000ML IV PRN (08:10)
[2022-03-14 09:21] LABS: HEMATOCRIT 26.6 % (42.0-52.0); HEMOGLOBIN 8.8 g/dl (13.5-17.5); MEAN CORPUSCULAR HEMOGLOBIN 30.1 pg (27.0-33.0); MEAN CORPUSCULAR HGB CONC 33.1 g/dl (32.0-36.5); MEAN CORPUSCULAR VOLUME 91.1 fl (80.0-96.0); PLATELET COUNT, AUTOMATED 241 10^3/uL (150-450); RED BLOOD COUNT 2.92 10^6/uL (4.30-6.10); WHITE BLOOD COUNT 5.5 10^3/uL (4.0-10.0)
[2022-03-14 09:50] LABS: CALCIUM LEVEL 9.1 MG/DL (8.8-10.2); CREATININE FOR GFR 5.59 MG/DL (0.70-1.30); GLOMERULAR FILTRATION RATE 11.1 (>49); POTASSIUM SERUM 4.3 MEQ/L (3.5-5.1)
[2022-03-14 12:54] LABS: PERCENT SATURATION 44.3 % (19.7-50.0)
[2022-03-14] MEDS: HALOPERIDOL 5MG/ML VIAL (J1630 PER 1) IV PRN (13:19)
[2022-03-14 13:31] LABS: ALBUMIN 2.8 GM/DL (3.2-5.2); BILIRUBIN,DIRECT 0.1 MG/DL (0.0-0.2); BILIRUBIN,TOTAL 0.3 MG/DL (0.2-1.0); TOTAL PROTEIN 6.4 GM/DL (6.4-8.2)
[2022-03-15] MEDS: **hydrALAZINE** 50 MG TAB PO SCH ×4 (00:29→18:16)
[2022-03-15] MEDS: ACETAMINOPHEN TAB 650MG DOSE (2X325MG) PO PRN (05:49)
[2022-03-15] MEDS: HEPARIN SOD (PORCINE) 5000UNITS/ML 1ML VIAL/SYRINGE SQ SCH ×3 (05:50→21:04)
[2022-03-15 05:59] VITALS: BP 152/70
[2022-03-15 06:14] LABS: HEMATOCRIT 27.7 % (42.0-52.0); HEMOGLOBIN 8.6 g/dl (13.5-17.5); MEAN CORPUSCULAR HEMOGLOBIN 28.9 pg (27.0-33.0); PLATELET COUNT, AUTOMATED 260 10^3/uL (150-450); RED BLOOD COUNT 2.98 10^6/uL (4.30-6.10); WHITE BLOOD COUNT 5.4 10^3/uL (4.0-10.0)
[2022-03-15 06:35] LABS: ERYTHROCYTE SEDIMENTATION RATE 56 mm/hr (0-20)
[2022-03-15 06:44] LABS: C REACTIVE PROTEIN QUANTITATIV 1.79 MG/DL (0.00-0.30); CALCIUM LEVEL 9.1 MG/DL (8.8-10.2); CREATININE FOR GFR 3.53 MG/DL (0.70-1.30); GLOMERULAR FILTRATION RATE 18.8 (>49)
[2022-03-15 08:35] VITALS: BP 135/70
[2022-03-15] MEDS: SUCROFERRIC OXYHYDROXIDE 500MG CHEW TAB (VELPHORO) PO SCH ×3 (08:36→18:16)
[2022-03-15] MEDS: QUEtiapine FUMARATE 25 MG TAB PO SCH ×2 (08:37→20:48)
[2022-03-15] MEDS: TACROLIMUS 1 MG CAP (J7507) PO SCH ×2 (08:37→20:48)
[2022-03-15] MEDS ORDERED: HYDR50TA PO (09:37)
[2022-03-15] MEDS ORDERED: LISI10TA22 PO (09:37)
[2022-03-15] MEDS ORDERED: AMLO1TAB25 PO (09:37)
[2022-03-15] MEDS ORDERED: QUET1TAB17 PO (09:37)
[2022-03-15 12:46] VITALS: BP 160/70
[2022-03-15] MEDS ORDERED: cloNIDine 0.1MG TABLET PO ONE (12:50)
[2022-03-15 14:00] VITALS: BP 102/56
[2022-03-15] MEDS: RAMELTEON 8 MG TAB (ROZEREM) PO PRN (20:48)
[2022-03-16] MEDS ORDERED: SODIUM CHLORIDE 0.9% 1000ML IV PRN (00:05)
[2022-03-16] MEDS ORDERED: LIDOCAINE 1% SDV 5ML VIAL SC PRN (00:05)
[2022-03-16 05:24] VITALS: BP 161/74
[2022-03-16] MEDS: TACROLIMUS 1 MG CAP (J7507) PO SCH (05:33)
[2022-03-16] MEDS: HEPARIN SOD (PORCINE) 5000UNITS/ML 1ML VIAL/SYRINGE SQ SCH ×2 (05:34→13:52)
[2022-03-16] MEDS: **hydrALAZINE** 50 MG TAB PO SCH ×3 (05:34→13:53)
[2022-03-16 06:23] LABS: HEMATOCRIT 25.8 % (42.0-52.0); MEAN CORPUSCULAR VOLUME 93.5 fl (80.0-96.0); PLATELET COUNT, AUTOMATED 229 10^3/uL (150-450); RED BLOOD COUNT 2.76 10^6/uL (4.30-6.10); WHITE BLOOD COUNT 4.6 10^3/uL (4.0-10.0)
[2022-03-16 06:53] LABS: CREATININE FOR GFR 4.55 MG/DL (0.70-1.30)
[2022-03-16 06:54] LABS: CALCIUM LEVEL 8.3 MG/DL (8.8-10.2)
[2022-03-16] MEDS: SUCROFERRIC OXYHYDROXIDE 500MG CHEW TAB (VELPHORO) PO SCH ×2 (07:33→13:52)
[2022-03-16] MEDS: QUEtiapine FUMARATE 25 MG TAB PO SCH (07:49)
[2022-03-16 13:53] VITALS: BP 109/74
[2022-03-17 16:08] LABS: ANA (HEP2) Negative (.)
== END 2022-03-16 17:40 | disposition home health service (06) | DRG 689 ==
LOC: M ED 08:07 → EDBD 08:07 → M ED INP 14:47 → ENRESERV 15:16 → M PCU 16:52 → M ICU 17:31 → M PCU 03-04 16:28 → M MSPAV 03-08 15:29 → M PCU 03-10 20:08 → M MSPAV 03-14 17:27
PROVIDERS: ADMIT Family Medicine; ATTEND General Practice
PROC: 5A1D70Z Performance of Urinary Filtration, Intermittent, Less than 6 Hours Per Day (ICD-10-PCS; 2022-03-03)
PROC: B246ZZZ Ultrasonography of Right and Left Heart (ICD-10-PCS; principal; 2022-03-06)
DX: N39.0 Urinary tract infection, site not specified (principal); N18.6 End stage renal disease; G92.8 Other toxic encephalopathy; Z94.4 Liver transplant status; E87.2 Acidosis; I67.4 Hypertensive encephalopathy; D84.9 Immunodeficiency, unspecified; I12.0 Hypertensive chronic kidney disease with stage 5 chronic kidney disease or end stage renal disease; R78.81 Bacteremia; Z99.2 Dependence on renal dialysis; E11.22 Type 2 diabetes mellitus with diabetic chronic kidney disease; E78.5 Hyperlipidemia, unspecified; K74.60 Unspecified cirrhosis of liver; Z98.84 Bariatric surgery status; K21.9 Gastro-esophageal reflux disease without esophagitis; F32.A Depression, unspecified; G47.00 Insomnia, unspecified; E55.9 Vitamin D deficiency, unspecified; Z96.652 Presence of left artificial knee joint; Z20.822 Contact with and (suspected) exposure to COVID-19; Z79.899 Other long term (current) drug therapy; I87.2 Venous insufficiency (chronic) (peripheral); R06.81 Apnea, not elsewhere classified; B95.7 Other staphylococcus as the cause of diseases classified elsewhere; I16.0 Hypertensive urgency; Z91.14 Patient's other noncompliance with medication regimen; D63.1 Anemia in chronic kidney disease; S76.192 Other specified injury of left quadriceps muscle, fascia and tendon

== ENCOUNTER → 2022-03-22 | Outpatient (CLI) | payer MEDICARE ==
[~2022-03-22] MED LIST changes: +HYDR50TA PO; +LISI10TA22 PO; +QUET1TAB17 PO
== END ==
LOC: M PLALAB 12:19
DX: Z51.81 Encounter for therapeutic drug level monitoring (principal)

== ENCOUNTER → 2022-03-24 | Outpatient (RCR) | payer MEDICARE | LOC: M OUTALCOH 03-22 14:00 | PROVIDERS: ATTEND Psychiatry & Neurology Psychiatry | DX: F14.20 Cocaine dependence, uncomplicated (principal); F12.10 Cannabis abuse, uncomplicated ==

== ENCOUNTER 2022-04-12 11:00 | Outpatient (RCR) | payer MEDICARE | END 2022-04-24 | LOC: M OUTALCOH 11:00 | PROVIDERS: ATTEND Psychiatry & Neurology Psychiatry | DX: F14.20 Cocaine dependence, uncomplicated (principal); F12.10 Cannabis abuse, uncomplicated ==

== ENCOUNTER → 2022-04-12 | Outpatient (CLI) | payer MEDICARE | LOC: M PLALAB 12:13 | PROVIDERS: ATTEND Psychiatry & Neurology Psychiatry | DX: F14.20 Cocaine dependence, uncomplicated (principal) ==

== ENCOUNTER 2022-07-18 08:27 | Inpatient (IN) | payer MEDICARE ==
[~2022-07-18] VITALS: Ht 177.8 cm; Wt 84.5 kg
[2022-07-18 09:33] LABS: BASO % 0.3 % (0.0-1.0); HEMATOCRIT 30.7 % (42.0-52.0); HEMOGLOBIN 10.5 g/dl (13.5-17.5); LYMPH # 0.5 10^3/uL (1.5-5.0); LYMPH % 4.8 % (24.0-44.0); MEAN CORPUSCULAR HEMOGLOBIN 29.8 pg (27.0-33.0); MEAN CORPUSCULAR HGB CONC 34.2 g/dl (32.0-36.5); MEAN CORPUSCULAR VOLUME 87.2 fl (80.0-96.0); MONO # 0.6 10^3/uL (0.0-0.8); MONO % 6.2 % (2.0-8.0); NEUTROPHILS # 8.7 10^3/uL (1.5-8.5); NEUTROPHILS % 88.3 % (36.0-66.0); PLATELET COUNT, AUTOMATED 124 10^3/uL (150-450); RED BLOOD COUNT 3.52 10^6/uL (4.30-6.10); WHITE BLOOD COUNT 9.9 10^3/uL (4.0-10.0)
[2022-07-18 09:38] LABS: VENOUS BASE EXCESS -3.5 (-2.0-2.0); VENOUS HCO3 19.9 MEQ/L (23.0-27.0); VENOUS O2 SATURATION 98.4 % (60.0-80.0); VENOUS PARTIAL PRESSURE CO2 30.8 mmHg (38.0-50.0); VENOUS PARTIAL PRESSURE O2 139.9 mmHg (30.0-50.0); VENOUS PH 7.429 UNITS (7.330-7.430); VENOUS STANDARD HCO3 21.6 MEQ/L; VENOUS TOTAL CO2 20.9 MEQ/L (24.0-28.0)
[2022-07-18 10:03] LABS: CK-MB VALUE MASS 8.4 NG/ML (<3.6); MB/CK RELATIVE INDEX 0.89 (< OR =4)
[2022-07-18 10:10] LABS: RSV AMPLIFICATION NEGATIVE (NEGATIVE)
[2022-07-18 10:21] LABS: ACETAMINOPHEN LEVEL < 2.0 UG/ML (10.0-30.0); ALBUMIN 3.7 GM/DL (3.2-5.2); ALT/SGPT 21 U/L (12-78); BILIRUBIN,DIRECT 0.4 MG/DL (0.0-0.2); BLOOD UREA NITROGEN 25 MG/DL (7-18); CALCIUM LEVEL 8.8 MG/DL (8.8-10.2); CARBON DIOXIDE LEVEL 20 MEQ/L (21-32); CHLORIDE LEVEL 100 MEQ/L (98-107); ETHYL ALCOHOL (ETHANOL) < 0.003 % (0.000-0.010); GLOMERULAR FILTRATION RATE 10.8 (>49); GLUCOSE, FASTING 93 MG/DL (70-100); POTASSIUM SERUM 2.8 MEQ/L (3.5-5.1); SALICYLATE LEVEL 2.8 MG/DL (5.0-30.0); SODIUM LEVEL 137 MEQ/L (136-145); TOTAL PROTEIN 6.8 GM/DL (6.4-8.2)
[2022-07-18 10:26] LABS: OSMOLALITY SERUM 292 MOSM/KG (280-301)
[2022-07-18] MEDS ORDERED: KCL 10MEQ/100ML SWI (KRUN) 10 MEQ in IV 1 EA IV ONE (10:45)
[2022-07-18] MEDS ORDERED: POTASSIUM CHLORIDE 10MEQ SR TABLET PO ONE (10:45)
[2022-07-18] MEDS ORDERED: AMLO1TAB24 PO (11:51)
[2022-07-18] MEDS ORDERED: LISI10TA22 PO (11:51)
[2022-07-18] MEDS ORDERED: ALPR1TAB3 PO (11:51)
[2022-07-18] MEDS ORDERED: VELP5CHW PO (11:51)
[2022-07-18] MEDS ORDERED: MED REC COMMENT (11:51)
[2022-07-18] MEDS ORDERED: VITA200016 PO (11:51)
[2022-07-18] MEDS ORDERED: HOME MED LIST COMPLETE! XX SCH (12:00)
[2022-07-18 12:01] LABS: INR 1.07; PROTHROMBIN TIME 14.1 SECONDS (12.5-14.5)
[2022-07-18] MEDS ORDERED: EMLA CREAM 5GM TUBE (LIDOCAINE/PRILOCAINE) TOP PRN (12:40)
[2022-07-18] MEDS: hydrALAZINE 20MG/ML 1ML VIAL (J0360 PER 20MG) IV PRN (13:58)
[2022-07-18] MEDS: cefTRIAXone SOD 1 GM in D5W MINI-BAG PLUS 50 ML IV SCH (14:00)
[2022-07-18] MEDS: HEPARIN SOD (PORCINE) 5000UNITS/ML 1ML VIAL/SYRINGE SQ SCH ×2 (14:16→22:23)
[2022-07-18] MEDS ORDERED: amLODIPine 5 MG TAB PO ONE (16:20)
[2022-07-18] MEDS ORDERED: hydrALAZINE 20MG/ML 1ML VIAL (J0360 PER 20MG) IV ONE (16:20)
[2022-07-18 17:13] LABS: AMPHETAMINES LEVEL URINE POSITIVE (NEGATIVE); BARBITURATES URINE NEGATIVE (NEGATIVE); BENZODIAZEPINES URINE POSITIVE (NEGATIVE); CANNABINOIDS URINE POSITIVE (NEGATIVE); COCAINE METABOLITE URINE NEGATIVE (NEGATIVE); METHADONE URINE NEGATIVE (NEGATIVE); OPIATES URINE NEGATIVE (NEGATIVE); PHENCYCLIDINE URINE NEGATIVE (NEGATIVE)
[2022-07-18] MEDS ORDERED: cloNIDine HCL 0.1 MG/24 HR PATCH TOP SCH (18:00)
[2022-07-18] MEDS: TACROLIMUS 1 MG CAP (J7507) PO SCH ×2 (18:07→22:34)
[2022-07-18 18:31] VITALS: BP 145/84
[2022-07-18] MEDS ORDERED: D10W 1,000 ML IV SCH (18:35)
[2022-07-18 20:00] VITALS: BP 188/96
[2022-07-18] MEDS ORDERED: GLUCAGON INJ 1MG VIAL SC PRN (20:25)
[2022-07-18] MEDS ORDERED: GLUCOSE 4GM CHEW TABLET PO PRN (20:25)
[2022-07-18] MEDS ORDERED: DEXTROSE 50% 50 ML SYRINGE IV PRN (20:25)
[2022-07-18] MEDS: INSULIN LISPRO (NovoLOG) PER UNIT SC SCH (21:00)
[2022-07-19] VITALS (8 sets, daily range): BP systolic 172–208; BP diastolic 86–99
[2022-07-19] MEDS: hydrALAZINE 20MG/ML 1ML VIAL (J0360 PER 20MG) IV PRN ×2 (01:49→23:06)
[2022-07-19] MEDS: HEPARIN SOD (PORCINE) 5000UNITS/ML 1ML VIAL/SYRINGE SQ SCH ×3 (06:04→22:23)
[2022-07-19 06:19] LABS: HEMATOCRIT 32.9 % (42.0-52.0); HEMOGLOBIN 11.1 g/dl (13.5-17.5); MEAN CORPUSCULAR HEMOGLOBIN 29.6 pg (27.0-33.0); MEAN CORPUSCULAR HGB CONC 33.7 g/dl (32.0-36.5); MEAN CORPUSCULAR VOLUME 87.7 fl (80.0-96.0); PLATELET COUNT, AUTOMATED 122 10^3/uL (150-450); RED BLOOD COUNT 3.75 10^6/uL (4.30-6.10); WHITE BLOOD COUNT 6.5 10^3/uL (4.0-10.0)
[2022-07-19] MEDS: INSULIN LISPRO (NovoLOG) PER UNIT SC SCH ×4 (06:48→21:00)
[2022-07-19 07:02] LABS: ALBUMIN 3.1 GM/DL (3.2-5.2); BILIRUBIN,TOTAL 0.7 MG/DL (0.2-1.0); CALCIUM LEVEL 8.3 MG/DL (8.8-10.2); CREATININE FOR GFR 6.02 MG/DL (0.70-1.30); GLOMERULAR FILTRATION RATE 10.1 (>49); TOTAL PROTEIN 5.9 GM/DL (6.4-8.2)
[2022-07-19] MEDS ORDERED: SODIUM CHLORIDE 0.9% 1000ML IV PRN (07:05)
[2022-07-19] MEDS ORDERED: LIDOCAINE 1% SDV 5ML VIAL SC PRN (07:05)
[2022-07-19] MEDS: TACROLIMUS 1 MG CAP (J7507) PO SCH ×3 (07:23→22:23)
[2022-07-19] MEDS ORDERED: amLODIPine 5 MG TAB PO SCH (09:00)
[2022-07-19] MEDS ORDERED: POTASSIUM CHLORIDE 10MEQ SR TABLET PO SCH (09:00)
[2022-07-19] MEDS: cefTRIAXone SOD 1 GM in D5W MINI-BAG PLUS 50 ML IV SCH (12:54)
[2022-07-19] MEDS: amLODIPine 5 MG TAB PO SCH (14:36)
[2022-07-19] MEDS: PROMETHAZINE 25 MG TAB PO PRN ×2 (18:11→23:05)
[2022-07-20] VITALS: BP 172/89
[2022-07-20] MEDS ORDERED: RAMELTEON 8 MG TAB (ROZEREM) PO ONE (01:25)
[2022-07-20 04:00] VITALS: BP 175/91
[2022-07-20 06:08] LABS: BASO # 0.1 10^3/uL (0.0-0.2); BASO % 0.9 % (0.0-1.0); EOS # 0.1 10^3/uL (0.0-0.5); EOS % 1.9 % (0.0-3.0); HEMATOCRIT 36.7 % (42.0-52.0); LYMPH # 1.5 10^3/uL (1.5-5.0); LYMPH % 23.5 % (24.0-44.0); MEAN CORPUSCULAR HEMOGLOBIN 29.6 pg (27.0-33.0); MEAN CORPUSCULAR HGB CONC 32.7 g/dl (32.0-36.5); MEAN CORPUSCULAR VOLUME 90.6 fl (80.0-96.0); MONO # 0.6 10^3/uL (0.0-0.8); NEUTROPHILS % 63.5 % (36.0-66.0); PLATELET COUNT, AUTOMATED 153 10^3/uL (150-450); RED BLOOD COUNT 4.05 10^6/uL (4.30-6.10); WHITE BLOOD COUNT 6.4 10^3/uL (4.0-10.0)
[2022-07-20] MEDS: HEPARIN SOD (PORCINE) 5000UNITS/ML 1ML VIAL/SYRINGE SQ SCH ×4 (06:30→22:56)
[2022-07-20] MEDS: TACROLIMUS 1 MG CAP (J7507) PO SCH ×3 (06:31→20:07)
[2022-07-20] MEDS: amLODIPine 5 MG TAB PO SCH (06:31)
[2022-07-20] MEDS: INSULIN LISPRO (NovoLOG) PER UNIT SC SCH ×4 (06:32→21:00)
[2022-07-20 06:38] LABS: ALBUMIN 3.3 GM/DL (3.2-5.2); CALCIUM LEVEL 8.6 MG/DL (8.8-10.2); CREATININE FOR GFR 3.84 MG/DL (0.70-1.30); PHOSPHORUS LEVEL 1.7 MG/DL (2.5-4.9); POTASSIUM SERUM 3.8 MEQ/L (3.5-5.1)
[2022-07-20] MEDS ORDERED: CEFDINIR 300 MG CAP (OMNICEF) PO ONE (07:55)
[2022-07-20 08:00] VITALS: BP 160/73
[2022-07-20] MEDS ORDERED: SODIUM PHOSPHATE INJ 20 MMOL in D5W 250 ML IV ONE (10:00)
[2022-07-20] MEDS ORDERED: QUEtiapine FUMARATE 25 MG TAB PO ONE (14:10)
[2022-07-20] MEDS ORDERED: LACTULOSE 20 GM/30 ML SYRUP UD PO PRN (14:10)
[2022-07-20] MEDS ORDERED: LORazepam 1 MG TAB PO STA (14:14)
[2022-07-20] MEDS: FOLIC ACID 1MG TAB PO SCH ×2 (14:41→14:44)
[2022-07-20] MEDS: MULTIVITAMINS/MINERALS THERAP 1 TAB PO SCH ×2 (14:41→14:44)
[2022-07-20] MEDS: THIAMINE 100 MG TAB PO SCH ×3 (14:41→20:07)
[2022-07-20] MEDS ORDERED: OLANZapine 2.5MG TABLET PO ONE (16:00)
[2022-07-20] MEDS ORDERED: CEFDINIR 300 MG CAP (OMNICEF) PO SCH (16:00)
[2022-07-20 18:31] VITALS: BP 154/71
[2022-07-20 19:11] VITALS: BP 138/62
[2022-07-20] MEDS: DOXYCYCLINE HYCLATE 100MG TABLET PO SCH (20:07)
[2022-07-21] VITALS (7 sets, daily range): BP systolic 115–191; BP diastolic 63–85
[2022-07-21] MEDS: LORazepam 2 MG TAB PO PRN ×2 (01:29→14:09)
[2022-07-21] MEDS: HEPARIN SOD (PORCINE) 5000UNITS/ML 1ML VIAL/SYRINGE SQ SCH ×3 (05:19→21:39)
[2022-07-21 06:32] LABS: BASO % 0.7 % (0.0-1.0); EOS # 0.1 10^3/uL (0.0-0.5); EOS % 3.3 % (0.0-3.0); HEMATOCRIT 32.2 % (42.0-52.0); HEMOGLOBIN 10.6 g/dl (13.5-17.5); LYMPH # 1.2 10^3/uL (1.5-5.0); LYMPH % 28.6 % (24.0-44.0); MEAN CORPUSCULAR HEMOGLOBIN 29.2 pg (27.0-33.0); MEAN CORPUSCULAR HGB CONC 32.9 g/dl (32.0-36.5); MEAN CORPUSCULAR VOLUME 88.7 fl (80.0-96.0); MONO # 0.5 10^3/uL (0.0-0.8); MONO % 10.9 % (2.0-8.0); NEUTROPHILS # 2.4 10^3/uL (1.5-8.5); PLATELET COUNT, AUTOMATED 141 10^3/uL (150-450); RED BLOOD COUNT 3.63 10^6/uL (4.30-6.10); WHITE BLOOD COUNT 4.3 10^3/uL (4.0-10.0)
[2022-07-21 07:17] LABS: ALBUMIN 2.8 GM/DL (3.2-5.2); BILIRUBIN,DIRECT 0.2 MG/DL (0.0-0.2); BILIRUBIN,TOTAL 0.7 MG/DL (0.2-1.0); CALCIUM LEVEL 8.1 MG/DL (8.8-10.2); CREATININE FOR GFR 4.73 MG/DL (0.70-1.30); GLOMERULAR FILTRATION RATE 13.4 (>49); PHOSPHORUS LEVEL 3.1 MG/DL (2.5-4.9); POTASSIUM SERUM 3.9 MEQ/L (3.5-5.1); TOTAL PROTEIN 5.5 GM/DL (6.4-8.2)
[2022-07-21] MEDS: INSULIN LISPRO (NovoLOG) PER UNIT SC SCH ×3 (07:30→17:38)
[2022-07-21] MEDS: FOLIC ACID 1MG TAB PO SCH (10:46)
[2022-07-21] MEDS: amLODIPine 5 MG TAB PO SCH (10:47)
[2022-07-21] MEDS: THIAMINE 100 MG TAB PO SCH ×2 (10:47→21:39)
[2022-07-21] MEDS: MULTIVITAMINS/MINERALS THERAP 1 TAB PO SCH (10:47)
[2022-07-21] MEDS: DOXYCYCLINE HYCLATE 100MG TABLET PO SCH ×2 (10:48→21:39)
[2022-07-21] MEDS: TACROLIMUS 1 MG CAP (J7507) PO SCH ×2 (10:48→18:26)
[2022-07-21] MEDS: PROMETHAZINE 25 MG TAB PO PRN (14:09)
[2022-07-21] MEDS: LIDOCAINE 5% (LIDODERM) PATCH TD SCH ×2 (14:11)
[2022-07-21] MEDS ORDERED: LORazepam 2 MG TAB PO ONE (14:30)
[2022-07-21] MEDS: SENNA 8.6 MG TAB (SENOKOT) PO PRN (18:26)
[2022-07-21] MEDS ORDERED: PROMETHAZINE 25MG/ML 1ML VIAL IV PRN (20:10)
[2022-07-21] MEDS ORDERED: PANTOPRAZOLE 40MG VIAL IV ONE (20:10)
[2022-07-21] MEDS: METAMUCIL (PSYLLIUM) PACKET PO SCH (21:38)
[2022-07-21] MEDS: MIRALAX *UNIT DOSE* 17GM PACKET PO SCH (21:38)
[2022-07-22 02:00] VITALS: BP 118/72
[2022-07-22 03:00] VITALS: BP 118/76
[2022-07-22 06:00] VITALS: BP 153/75
[2022-07-22] MEDS: INSULIN LISPRO (NovoLOG) PER UNIT SC SCH ×4 (06:00→17:43)
[2022-07-22 06:20] LABS: BASO % 0.8 % (0.0-1.0); EOS # 0.1 10^3/uL (0.0-0.5); EOS % 3.3 % (0.0-3.0); HEMATOCRIT 28.1 % (42.0-52.0); HEMOGLOBIN 9.4 g/dl (13.5-17.5); LYMPH # 1.3 10^3/uL (1.5-5.0); LYMPH % 36.5 % (24.0-44.0); MEAN CORPUSCULAR HEMOGLOBIN 29.5 pg (27.0-33.0); MEAN CORPUSCULAR HGB CONC 33.5 g/dl (32.0-36.5); MEAN CORPUSCULAR VOLUME 88.1 fl (80.0-96.0); MONO # 0.5 10^3/uL (0.0-0.8); MONO % 12.8 % (2.0-8.0); NEUTROPHILS # 1.7 10^3/uL (1.5-8.5); NEUTROPHILS % 46.3 % (36.0-66.0); PLATELET COUNT, AUTOMATED 146 10^3/uL (150-450); RED BLOOD COUNT 3.19 10^6/uL (4.30-6.10); WHITE BLOOD COUNT 3.6 10^3/uL (4.0-10.0)
[2022-07-22 06:23] VITALS: BP 153/75
[2022-07-22] MEDS: METAMUCIL (PSYLLIUM) PACKET PO SCH ×2 (06:25→20:02)
[2022-07-22] MEDS: HEPARIN SOD (PORCINE) 5000UNITS/ML 1ML VIAL/SYRINGE SQ SCH ×3 (06:25→20:36)
[2022-07-22] MEDS: MIRALAX *UNIT DOSE* 17GM PACKET PO SCH ×2 (06:25→20:02)
[2022-07-22] MEDS: MULTIVITAMINS/MINERALS THERAP 1 TAB PO SCH (06:26)
[2022-07-22] MEDS: amLODIPine 5 MG TAB PO SCH (06:26)
[2022-07-22] MEDS: DOXYCYCLINE HYCLATE 100MG TABLET PO SCH ×2 (06:26→20:01)
[2022-07-22] MEDS: SENNA 8.6 MG TAB (SENOKOT) PO PRN (06:26)
[2022-07-22] MEDS: THIAMINE 100 MG TAB PO SCH ×2 (06:26→20:01)
[2022-07-22] MEDS: FOLIC ACID 1MG TAB PO SCH (06:27)
[2022-07-22] MEDS: LIDOCAINE 5% (LIDODERM) PATCH TD SCH ×2 (06:46→06:47)
[2022-07-22 07:04] LABS: ALBUMIN 2.7 GM/DL (3.2-5.2); BILIRUBIN,DIRECT 0.2 MG/DL (0.0-0.2); BILIRUBIN,TOTAL 0.5 MG/DL (0.2-1.0); CALCIUM LEVEL 8.1 MG/DL (8.8-10.2); CREATININE FOR GFR 5.01 MG/DL (0.70-1.30); GLOMERULAR FILTRATION RATE 12.5 (>49); POTASSIUM SERUM 3.8 MEQ/L (3.5-5.1); TOTAL PROTEIN 5.1 GM/DL (6.4-8.2)
[2022-07-22] MEDS ORDERED: LIDOCAINE 1% SDV 5ML VIAL SC PRN (08:00)
[2022-07-22] MEDS ORDERED: SODIUM CHLORIDE 0.9% 1000ML IV PRN (08:00)
[2022-07-22] MEDS ORDERED: DARBEPOETIN 100 MCG/0.5 ML *DIALYSIS* SYRINGE (J0882) IV SCH (08:00)
[2022-07-22] MEDS ORDERED: ISOVUE-370 76% 100ML VIAL As Ordered ONE (09:16)
[2022-07-22] MEDS: TACROLIMUS 1 MG CAP (J7507) PO SCH ×2 (09:37→17:57)
[2022-07-22] MEDS: PANTOPRAZOLE 40MG VIAL IV SCH (09:37)
[2022-07-22 10:46] LABS: PERCENT SATURATION 84.6 % (19.7-50.0)
[2022-07-22] MEDS ORDERED: OLANZapine 2.5MG TABLET PO ONE (18:00)
[2022-07-22 19:31] VITALS: BP 163/79
[2022-07-23] MEDS: INSULIN LISPRO (NovoLOG) PER UNIT SC SCH ×3 (00:24→12:00)
[2022-07-23 05:12] VITALS: BP 158/72
[2022-07-23 06:08] LABS: BASO % 0.6 % (0.0-1.0); EOS % 1.2 % (0.0-3.0); HEMATOCRIT 29.2 % (42.0-52.0); HEMOGLOBIN 9.8 g/dl (13.5-17.5); LYMPH # 0.7 10^3/uL (1.5-5.0); LYMPH % 20.3 % (24.0-44.0); MEAN CORPUSCULAR HEMOGLOBIN 29.4 pg (27.0-33.0); MEAN CORPUSCULAR HGB CONC 33.6 g/dl (32.0-36.5); MEAN CORPUSCULAR VOLUME 87.7 fl (80.0-96.0); MONO # 0.4 10^3/uL (0.0-0.8); MONO % 11.6 % (2.0-8.0); NEUTROPHILS # 2.3 10^3/uL (1.5-8.5); PLATELET COUNT, AUTOMATED 155 10^3/uL (150-450); RED BLOOD COUNT 3.33 10^6/uL (4.30-6.10); WHITE BLOOD COUNT 3.4 10^3/uL (4.0-10.0)
[2022-07-23] MEDS: HEPARIN SOD (PORCINE) 5000UNITS/ML 1ML VIAL/SYRINGE SQ SCH (06:15)
[2022-07-23 06:58] LABS: ALBUMIN 2.6 GM/DL (3.2-5.2); BILIRUBIN,DIRECT 0.2 MG/DL (0.0-0.2); BILIRUBIN,TOTAL 0.4 MG/DL (0.2-1.0); CALCIUM LEVEL 8.1 MG/DL (8.8-10.2); CREATININE FOR GFR 3.07 MG/DL (0.70-1.30); PHOSPHORUS LEVEL 2.7 MG/DL (2.5-4.9); TOTAL PROTEIN 5.5 GM/DL (6.4-8.2)
[2022-07-23 10:45] VITALS: BP 165/86
[2022-07-23] MEDS: DOXYCYCLINE HYCLATE 100MG TABLET PO SCH (10:46)
[2022-07-23] MEDS: amLODIPine 5 MG TAB PO SCH (10:46)
[2022-07-23] MEDS: MIRALAX *UNIT DOSE* 17GM PACKET PO SCH (10:47)
[2022-07-23] MEDS: METAMUCIL (PSYLLIUM) PACKET PO SCH (10:47)
[2022-07-23] MEDS: FOLIC ACID 1MG TAB PO SCH (10:47)
[2022-07-23] MEDS: MULTIVITAMINS/MINERALS THERAP 1 TAB PO SCH (10:47)
[2022-07-23] MEDS: TACROLIMUS 1 MG CAP (J7507) PO SCH (10:47)
[2022-07-23] MEDS: PANTOPRAZOLE 40MG VIAL IV SCH (10:47)
[2022-07-23] MEDS: LIDOCAINE 5% (LIDODERM) PATCH TD SCH ×2 (10:56)
[2022-07-23] MEDS ORDERED: LIDO1PAD TOP (13:16)
[2022-07-23] MEDS ORDERED: LISI10TA22 PO (13:16)
[2022-07-23] MEDS ORDERED: TACR1CAP3 PO (13:16)
[2022-07-23] MEDS ORDERED: AMLO1TAB24 PO (13:16)
[2022-07-23] MEDS ORDERED: CLON0.1D3 TOP (13:16)
== END 2022-07-23 13:08 | disposition left against medical advice (07) | DRG 70 ==
LOC: M ED 08:27 → M ED INP 10:54 → M PCU 18:31 → M MSPAV 07-20 18:57
PROVIDERS: ADMIT Internal Medicine; ATTEND Student in an Organized Health Care Education/Training Program
PROC: 5A1D70Z Performance of Urinary Filtration, Intermittent, Less than 6 Hours Per Day (ICD-10-PCS; principal; 2022-07-19)
DX: G93.41 Metabolic encephalopathy (principal); N18.6 End stage renal disease; I16.1 Hypertensive emergency; E87.20 Acidosis, unspecified; Z94.4 Liver transplant status; I12.0 Hypertensive chronic kidney disease with stage 5 chronic kidney disease or end stage renal disease; N39.0 Urinary tract infection, site not specified; F10.139 Alcohol abuse with withdrawal, unspecified; R94.31 Abnormal electrocardiogram [ECG] [EKG]; E11.22 Type 2 diabetes mellitus with diabetic chronic kidney disease; K74.60 Unspecified cirrhosis of liver; F32.A Depression, unspecified; F41.9 Anxiety disorder, unspecified; G47.00 Insomnia, unspecified; K21.9 Gastro-esophageal reflux disease without esophagitis; M24.412 Recurrent dislocation, left shoulder; K59.00 Constipation, unspecified; M19.012 Primary osteoarthritis, left shoulder; F03.90 Unspecified dementia, unspecified severity, without behavioral disturbance, psychotic disturbance, mood disturbance, and anxiety; M25.512 Pain in left shoulder; E78.5 Hyperlipidemia, unspecified; E55.9 Vitamin D deficiency, unspecified; D63.1 Anemia in chronic kidney disease; E87.5 Hyperkalemia; N28.89 Other specified disorders of kidney and ureter; E11.649 Type 2 diabetes mellitus with hypoglycemia without coma; E87.6 Hypokalemia; Z98.84 Bariatric surgery status; Z99.2 Dependence on renal dialysis; Z79.899 Other long term (current) drug therapy; Z96.652 Presence of left artificial knee joint; Z91.14 Patient's other noncompliance with medication regimen

== ENCOUNTER → 2022-08-30 | Outpatient (CLI) | payer MEDICARE ==
[~2022-08-30] MED LIST changes: +ALPR1TAB3 PO; +CLON0.1D3 TOP; +LIDO1PAD TOP; +MED REC COMMENT; +VITA200016 PO
[2022-08-30 12:10] LABS: HEMATOCRIT 33.8 % (42.0-52.0); HEMOGLOBIN 11.6 g/dl (13.5-17.5); MEAN CORPUSCULAR HEMOGLOBIN 28.1 pg (27.0-33.0); MEAN CORPUSCULAR HGB CONC 34.3 g/dl (32.0-36.5); MEAN CORPUSCULAR VOLUME 81.8 fl (80.0-96.0); PLATELET COUNT, AUTOMATED 228 10^3/uL (150-450); RED BLOOD COUNT 4.13 10^6/uL (4.30-6.10); WHITE BLOOD COUNT 6.2 10^3/uL (4.0-10.0)
[2022-08-30 12:43] LABS: BILIRUBIN,TOTAL 0.6 MG/DL (0.3-1.2); CALCIUM LEVEL 10.3 MG/DL (8.3-10.6); CHOLESTEROL RISK RATIO 2.14 (<5); CREATININE FOR GFR 2.82 MG/DL (0.70-1.30); GLOMERULAR FILTRATION RATE 24.3 (>49); HDL CHOLESTEROL 75.1 MG/DL (>40); LDL CHOLESTEROL 73.9 MG/DL (<100); POTASSIUM SERUM 3.4 MMOL/L (3.5-5.1); TOTAL PROTEIN 5.7 G/DL (5.7-8.2)
[2022-08-30 12:45] LABS: THYROID STIMULATING HORMONE 1.89 uIU/ML (0.55-4.78); TOTAL 25(OH) VITAMIN D 24.4 NG/ML (20.0-100.0)
== END ==
LOC: M LAB 10:58
PROVIDERS: ATTEND Family Medicine
DX: I10 Essential (primary) hypertension (principal); Z12.5 Encounter for screening for malignant neoplasm of prostate
CPT/HCPCS: 36415; 80053; 80061; 82306; 83036; 84443; 85027; G0103

== ENCOUNTER → 2022-08-30 | Outpatient (CLI) | payer MEDICARE ==
[~2022-08-30] MED LIST changes: +CLON0.1D3 TD; +FLUO20CA22 PO; +HYDR-3910 PO; +ONDA-83 PO; +VITA100093 PO
[2022-08-30 12:09] LABS: HEMATOCRIT 33.9 % (42.0-52.0); HEMOGLOBIN 11.5 g/dl (13.5-17.5); MEAN CORPUSCULAR HGB CONC 33.9 g/dl (32.0-36.5); MEAN CORPUSCULAR VOLUME 82.7 fl (80.0-96.0); PLATELET COUNT, AUTOMATED 222 10^3/uL (150-450); WHITE BLOOD COUNT 6.2 10^3/uL (4.0-10.0)
[2022-08-30 12:40] LABS: ALBUMIN 3.1 G/DL (3.2-5.2); BILIRUBIN,TOTAL 0.7 MG/DL (0.3-1.2); CALCIUM LEVEL 10.2 MG/DL (8.3-10.6); CREATININE FOR GFR 2.84 MG/DL (0.70-1.30); GLOMERULAR FILTRATION RATE 24.1 (>49); POTASSIUM SERUM 3.4 MMOL/L (3.5-5.1); TOTAL PROTEIN 5.8 G/DL (5.7-8.2)
== END ==
LOC: M LAB 11:01
PROVIDERS: ATTEND Psychiatry & Neurology Child & Adolescent Psychiatry
DX: Z94.4 Liver transplant status (principal)

== ENCOUNTER 2022-09-05 10:09 | Inpatient (IN) | payer MEDICARE ==
[~2022-09-05] VITALS: Ht 177.8 cm; Wt 83.8 kg
[~2022-09-05 10:09] MED LIST changes: -CLON0.1D3 TD; -FLUO20CA22 PO; -HYDR-3910 PO; -ONDA-83 PO; -VITA100093 PO
[2022-09-05 11:20] LABS: BASO % 0.7 % (0.0-1.0); EOS # 0.1 10^3/uL (0.0-0.5); EOS % 1.6 % (0.0-3.0); HEMATOCRIT 30.3 % (42.0-52.0); HEMOGLOBIN 10.4 g/dl (13.5-17.5); LYMPH # 1.5 10^3/uL (1.5-5.0); LYMPH % 25.8 % (24.0-44.0); MEAN CORPUSCULAR HEMOGLOBIN 27.8 pg (27.0-33.0); MEAN CORPUSCULAR HGB CONC 34.3 g/dl (32.0-36.5); MONO # 0.5 10^3/uL (0.0-0.8); MONO % 9.6 % (2.0-8.0); NEUTROPHILS # 3.5 10^3/uL (1.5-8.5); NEUTROPHILS % 61.9 % (36.0-66.0); PLATELET COUNT, AUTOMATED 177 10^3/uL (150-450); RED BLOOD COUNT 3.74 10^6/uL (4.30-6.10); WHITE BLOOD COUNT 5.6 10^3/uL (4.0-10.0)
[2022-09-05 11:29] LABS: VENOUS PH 7.507 UNITS (7.330-7.430)
[2022-09-05 11:30] LABS: VENOUS BASE EXCESS 8.5 (-2.0-2.0); VENOUS HCO3 32.3 MEQ/L (23.0-27.0); VENOUS O2 SATURATION 98.1 % (60.0-80.0); VENOUS PARTIAL PRESSURE CO2 41.7 mmHg (38.0-50.0); VENOUS PARTIAL PRESSURE O2 110.2 mmHg (30.0-50.0); VENOUS STANDARD HCO3 32.3 MEQ/L; VENOUS TOTAL CO2 33.6 MEQ/L (24.0-28.0)
[2022-09-05 11:53] LABS: RSV AMPLIFICATION NEGATIVE (NEGATIVE)
[2022-09-05 12:12] LABS: ETHYL ALCOHOL (ETHANOL) 0.003 % (0.000-0.010)
[2022-09-05 12:13] LABS: ACETAMINOPHEN LEVEL < 2.0 UG/ML (10.0-20.0); BILIRUBIN,DIRECT 0.2 MG/DL (<0.4)
[2022-09-05 12:14] LABS: SALICYLATE LEVEL < 3.0 MG/DL (<30)
[2022-09-05 12:42] LABS: ALBUMIN 2.6 G/DL (3.2-5.2); ALKALINE PHOSPHATASE 72 U/L (46-116); ALT/SGPT 15 U/L (7.0-40); AST/SGOT 22 U/L (<34); BILIRUBIN,TOTAL 0.5 MG/DL (0.3-1.2); BLOOD UREA NITROGEN 6 MG/DL (9-23); CALCIUM LEVEL 9.3 MG/DL (8.3-10.6); CARBON DIOXIDE LEVEL 31 MMOL/L (20-31); CHLORIDE LEVEL 100 MMOL/L (98-107); CK-MB VALUE MASS < 1.0 NG/ML (<3.6); CREATININE FOR GFR 2.12 MG/DL (0.70-1.30); GLOMERULAR FILTRATION RATE 33.8 (>49); GLUCOSE, FASTING 90 MG/DL (74-106); POTASSIUM SERUM 3.3 MMOL/L (3.5-5.1); SODIUM LEVEL 139 MMOL/L (136-145); THYROID STIMULATING HORMONE 2.994 uIU/ML (0.55-4.78); TOTAL PROTEIN 5.4 G/DL (5.7-8.2)
[2022-09-05 12:48] LABS: CPK CREATINE PHOSPHOKINASE 45 U/L (46-171); MB/CK RELATIVE INDEX 2.22 (< OR =4)
[2022-09-05] MEDS ORDERED: hydrALAZINE 20MG/ML 1ML VIAL IV ONE (12:55)
[2022-09-05 14:42] LABS: OSMOLALITY SERUM 288 MOSM/KG (280-301)
[2022-09-05] MEDS ORDERED: LISI10TA22 PO (15:20)
[2022-09-05] MEDS ORDERED: LIDO1CRE42 TOP (15:20)
[2022-09-05] MEDS ORDERED: ALPR1TAB3 PO (15:20)
[2022-09-05] MEDS ORDERED: VELP5CHW PO (15:20)
[2022-09-05] MEDS ORDERED: FLUO20CA22 PO (15:20)
[2022-09-05] MEDS ORDERED: AMLO1TAB24 PO (15:20)
[2022-09-05] MEDS ORDERED: CLON0.1D3 TD (15:20)
[2022-09-05] MEDS ORDERED: VITA100093 PO (15:20)
[2022-09-05] MEDS ORDERED: TACR1CAP3 PO (15:20)
[2022-09-05] MEDS ORDERED: PATIENT COMMENT (15:21)
[2022-09-05] MEDS ORDERED: HOME MED LIST COMPLETE! XX SCH (15:25)
[2022-09-05] MEDS: NITROGLYCERIN 2% OINT 1 GM *U/D* PKT TOP SCH (15:30)
[2022-09-05] MEDS ORDERED: LABETALOL 100MG/20ML VIAL IV SCH (16:00)
[2022-09-05] MEDS ORDERED: D5W/0.45% SODIUM CHLORIDE 1,000 ML IV SCH (16:05)
[2022-09-05] MEDS ORDERED: GLUCOSE 4GM CHEW TABLET PO PRN (16:05)
[2022-09-05] MEDS ORDERED: DEXTROSE 50% 50 ML SYRINGE IV PRN (16:05)
[2022-09-05] MEDS ORDERED: PROMETHAZINE 25MG/ML 1ML VIAL IV ONE (16:05)
[2022-09-05] MEDS ORDERED: GLUCAGON INJ 1MG VIAL SC PRN (16:05)
[2022-09-05] MEDS ORDERED: hydrALAZINE 20MG/ML 1ML VIAL IV SCH (17:00)
[2022-09-05] MEDS ORDERED: KCL 10MEQ/100ML SWI (KRUN) 10 MEQ in IV 1 EA IV ONE (17:00)
[2022-09-05 17:15] VITALS: BP 198/92
[2022-09-05 19:28] VITALS: BP 170/80
[2022-09-05 20:00] VITALS: BP 135/71
[2022-09-05] MEDS ORDERED: ALPRAZolam 0.5 MG TAB PO PRN (21:00)
[2022-09-05 22:35] LABS: CK-MB VALUE MASS < 1.0 NG/ML (<3.6)
[2022-09-05 22:36] LABS: CPK CREATINE PHOSPHOKINASE 28 U/L (46-171); MB/CK RELATIVE INDEX 3.57 (< OR =4)
[2022-09-05] MEDS: amLODIPine 5 MG TAB PO SCH (22:40)
[2022-09-05] MEDS: HEPARIN SOD (PORCINE) 5000UNITS/ML 1ML VIAL/SYRINGE SQ SCH (22:42)
[2022-09-05] MEDS: PROMETHAZINE 25MG/ML 1ML VIAL IV PRN (23:18)
[2022-09-05 23:46] VITALS: BP 131/63
[2022-09-05] MEDS: LABETALOL 100MG/20ML VIAL IV SCH (23:47)
[2022-09-05] MEDS: hydrALAZINE 20MG/ML 1ML VIAL IV SCH (23:47)
[2022-09-06] VITALS (7 sets, daily range): BP systolic 140–180; BP diastolic 68–88
[2022-09-06 05:21] LABS: BASO % 0.5 % (0.0-1.0); EOS # 0.1 10^3/uL (0.0-0.5); EOS % 2.1 % (0.0-3.0); HEMATOCRIT 25.5 % (42.0-52.0); HEMOGLOBIN 8.6 g/dl (13.5-17.5); LYMPH # 1.7 10^3/uL (1.5-5.0); LYMPH % 39.3 % (24.0-44.0); MEAN CORPUSCULAR HEMOGLOBIN 27.9 pg (27.0-33.0); MEAN CORPUSCULAR HGB CONC 33.7 g/dl (32.0-36.5); MEAN CORPUSCULAR VOLUME 82.8 fl (80.0-96.0); MONO # 0.5 10^3/uL (0.0-0.8); MONO % 12.5 % (2.0-8.0); NEUTROPHILS # 1.9 10^3/uL (1.5-8.5); NEUTROPHILS % 45.4 % (36.0-66.0); PLATELET COUNT, AUTOMATED 144 10^3/uL (150-450); RED BLOOD COUNT 3.08 10^6/uL (4.30-6.10); WHITE BLOOD COUNT 4.3 10^3/uL (4.0-10.0)
[2022-09-06 05:34] LABS: MAGNESIUM LEVEL 1.5 MG/DL (1.8-2.4)
[2022-09-06 05:39] LABS: ALBUMIN 2.1 G/DL (3.2-5.2); BILIRUBIN,TOTAL 0.4 MG/DL (0.3-1.2); CALCIUM LEVEL 8.5 MG/DL (8.3-10.6); CREATININE FOR GFR 2.72 MG/DL (0.70-1.30); GLOMERULAR FILTRATION RATE 25.3 (>49); POTASSIUM SERUM 3.1 MMOL/L (3.5-5.1); TOTAL PROTEIN 4.1 G/DL (5.7-8.2)
[2022-09-06] MEDS: LABETALOL 100MG/20ML VIAL IV SCH ×3 (07:00→18:00)
[2022-09-06] MEDS: NITROGLYCERIN 2% OINT 1 GM *U/D* PKT TOP SCH ×2 (07:00→18:00)
[2022-09-06] MEDS: hydrALAZINE 20MG/ML 1ML VIAL IV SCH ×3 (07:00→17:59)
[2022-09-06] MEDS ORDERED: POTASSIUM CHLORIDE 10MEQ SR TABLET PO ONE (08:00)
[2022-09-06] MEDS: SUCROFERRIC OXYHYDROXIDE 500MG CHEW TAB (VELPHORO) PO SCH ×3 (08:00→17:58)
[2022-09-06] MEDS ORDERED: VITAMIN D 1,000 INTERNATIONAL UNITS TABLET PO SCH (09:00)
[2022-09-06] MEDS ORDERED: cloNIDine HCL 0.1 MG/24 HR PATCH TD SCH ×2 (09:00)
[2022-09-06] MEDS ORDERED: ENOXAPARIN 30MG/0.3ML SYRINGE (J1650 PER 10MG) SC SCH (09:00)
[2022-09-06] MEDS: FLUoxetine 20MG CAP PO SCH (09:54)
[2022-09-06] MEDS: HEPARIN SOD (PORCINE) 5000UNITS/ML 1ML VIAL/SYRINGE SQ SCH ×2 (09:55→20:12)
[2022-09-06] MEDS: TACROLIMUS 1 MG CAP (J7507) PO SCH (11:49)
[2022-09-06] MEDS ORDERED: CALCIUM CARBONATE 500 MG CHEW U/D PO PRN (12:10)
[2022-09-06] MEDS: PROMETHAZINE 25MG/ML 1ML VIAL IV PRN (12:18)
[2022-09-06] MEDS ORDERED: E-Z-HD 98% w/w 340GM SUSP BTL As Ordered ONE (14:31)
[2022-09-06] MEDS ORDERED: E-Z-PAQUE 96% w/w SUSP 176GM BTL As Ordered ONE (14:31)
[2022-09-06 18:55] LABS: MAGNESIUM LEVEL 1.6 MG/DL (1.8-2.4)
[2022-09-06 18:56] LABS: CALCIUM LEVEL 8.7 MG/DL (8.3-10.6); CREATININE FOR GFR 3.24 MG/DL (0.70-1.30); GLOMERULAR FILTRATION RATE 20.7 (>49); POTASSIUM SERUM 3.6 MMOL/L (3.5-5.1)
[2022-09-06] MEDS: amLODIPine 5 MG TAB PO SCH (20:12)
[2022-09-07] VITALS (8 sets, daily range): BP systolic 133–167; BP diastolic 71–89
[2022-09-07] MEDS: hydrALAZINE 20MG/ML 1ML VIAL IV SCH ×2 (00:21→05:37)
[2022-09-07 05:09] LABS: BASO % 0.4 % (0.0-1.0); EOS # 0.2 10^3/uL (0.0-0.5); EOS % 3.5 % (0.0-3.0); HEMATOCRIT 26.8 % (42.0-52.0); HEMOGLOBIN 8.8 g/dl (13.5-17.5); LYMPH # 1.9 10^3/uL (1.5-5.0); LYMPH % 41.9 % (24.0-44.0); MEAN CORPUSCULAR HEMOGLOBIN 27.8 pg (27.0-33.0); MEAN CORPUSCULAR HGB CONC 32.8 g/dl (32.0-36.5); MEAN CORPUSCULAR VOLUME 84.8 fl (80.0-96.0); MONO # 0.5 10^3/uL (0.0-0.8); PLATELET COUNT, AUTOMATED 135 10^3/uL (150-450); RED BLOOD COUNT 3.16 10^6/uL (4.30-6.10); WHITE BLOOD COUNT 4.5 10^3/uL (4.0-10.0)
[2022-09-07] MEDS: LABETALOL 100MG/20ML VIAL IV SCH ×2 (05:23)
[2022-09-07] MEDS: NITROGLYCERIN 2% OINT 1 GM *U/D* PKT TOP SCH (05:37)
[2022-09-07] MEDS: TACROLIMUS 1 MG CAP (J7507) PO SCH (05:37)
[2022-09-07] MEDS: FLUoxetine 20MG CAP PO SCH (05:38)
[2022-09-07 05:40] LABS: MAGNESIUM LEVEL 1.6 MG/DL (1.8-2.4)
[2022-09-07 05:42] LABS: BILIRUBIN,TOTAL 0.4 MG/DL (0.3-1.2); CALCIUM LEVEL 8.2 MG/DL (8.3-10.6); CREATININE FOR GFR 3.42 MG/DL (0.70-1.30); GLOMERULAR FILTRATION RATE 19.4 (>49); POTASSIUM SERUM 3.7 MMOL/L (3.5-5.1); TOTAL PROTEIN 4.3 G/DL (5.7-8.2)
[2022-09-07] MEDS ORDERED: HEPARIN 1,000UNITS/ML 10ML VIAL (FOR RADIOLOGY & DIALYSIS ONLY) XX SCH (06:00)
[2022-09-07] MEDS ORDERED: LIDOCAINE 1% SDV 5ML VIAL SC PRN (06:00)
[2022-09-07] MEDS ORDERED: SODIUM CHLORIDE 0.9% 1000ML IV PRN (06:00)
[2022-09-07] MEDS ORDERED: HEPARIN 1,000UNITS/ML 10ML VIAL (FOR RADIOLOGY & DIALYSIS ONLY) IV PRN (06:00)
[2022-09-07] MEDS: SUCROFERRIC OXYHYDROXIDE 500MG CHEW TAB (VELPHORO) PO SCH ×2 (08:00→11:48)
[2022-09-07] MEDS ORDERED: MAGNESIUM OXIDE 400MG TAB (MAG-OX) PO SCH (09:00)
[2022-09-07] MEDS: HEPARIN SOD (PORCINE) 5000UNITS/ML 1ML VIAL/SYRINGE SQ SCH (09:48)
[2022-09-07] MEDS ORDERED: HYDR-3910 PO (11:29)
[2022-09-07] MEDS ORDERED: **hydrALAZINE** 10 MG TAB PO SCH (14:00)
[2022-09-07] MEDS ORDERED: ONDA-83 PO (15:30)
[2022-09-13] MEDS ORDERED: cloNIDine HCL 0.1 MG/24 HR PATCH TD SCH (09:00)
== END 2022-09-07 18:19 | disposition home or self-care (01) | DRG 77 ==
LOC: M ED 10:09 → EDBD 10:09 → M ED INP 15:02 → ENRESERV 15:59 → M PCU 17:12
PROVIDERS: ADMIT General Practice; ATTEND Family Medicine
DX: I67.4 Hypertensive encephalopathy (principal); N18.6 End stage renal disease; Z94.4 Liver transplant status; I12.0 Hypertensive chronic kidney disease with stage 5 chronic kidney disease or end stage renal disease; I16.0 Hypertensive urgency; E11.22 Type 2 diabetes mellitus with diabetic chronic kidney disease; K74.60 Unspecified cirrhosis of liver; F12.90 Cannabis use, unspecified, uncomplicated; E78.5 Hyperlipidemia, unspecified; K21.9 Gastro-esophageal reflux disease without esophagitis; F19.10 Other psychoactive substance abuse, uncomplicated; R11.2 Nausea with vomiting, unspecified; Z91.14 Patient's other noncompliance with medication regimen; Z79.899 Other long term (current) drug therapy; G47.00 Insomnia, unspecified; D63.1 Anemia in chronic kidney disease; F41.9 Anxiety disorder, unspecified; F32.A Depression, unspecified; E55.9 Vitamin D deficiency, unspecified; Z96.652 Presence of left artificial knee joint; N28.89 Other specified disorders of kidney and ureter

== ENCOUNTER 2022-11-07 08:26 | Inpatient (IN) | payer MEDICARE ==
[~2022-11-07] VITALS: Ht 177.8 cm; Wt 75.3 kg
[~2022-11-07 08:26] MED LIST changes: +CLON0.1D3 TD; +FLUO20CA22 PO; +HYDR-3910 PO; +ONDA-83 PO; +VITA100093 PO
[2022-11-07] MEDS ORDERED: ONDANSETRON 4MG 2ML VIAL IV ONE (08:40)
[2022-11-07] MEDS ORDERED: fentaNYL 100 MCG/2 ML INJECTION IV ONE (08:40)
[2022-11-07] MEDS ORDERED: NIFEdipine 10 MG CAP PO STA (09:12)
[2022-11-07] MEDS ORDERED: **hydrALAZINE HCL** 25 MG TAB PO ONE ×2 (09:15→09:40)
[2022-11-07 09:24] LABS: BASO % 0.4 % (0.0-1.0); EOS # 0.1 10^3/uL (0.0-0.5); EOS % 0.9 % (0.0-3.0); HEMATOCRIT 33.3 % (42.0-52.0); HEMOGLOBIN 10.7 g/dl (13.5-17.5); LYMPH # 0.9 10^3/uL (1.5-5.0); MEAN CORPUSCULAR HEMOGLOBIN 29.2 pg (27.0-33.0); MEAN CORPUSCULAR HGB CONC 32.1 g/dl (32.0-36.5); MONO # 0.4 10^3/uL (0.0-0.8); MONO % 7.7 % (2.0-8.0); NEUTROPHILS % 74.8 % (36.0-66.0); PLATELET COUNT, AUTOMATED 242 10^3/uL (150-450); RED BLOOD COUNT 3.66 10^6/uL (4.30-6.10); WHITE BLOOD COUNT 5.3 10^3/uL (4.0-10.0)
[2022-11-07] MEDS ORDERED: amLODIPine 5 MG TAB PO ONE ×2 (09:25→09:40)
[2022-11-07] MEDS ORDERED: ISOVUE-370 76% 100ML VIAL As Ordered ONE (09:54)
[2022-11-07 09:56] LABS: ALBUMIN 2.7 G/DL (3.2-5.2); BILIRUBIN,DIRECT 0.2 MG/DL (<0.4); BILIRUBIN,TOTAL 0.6 MG/DL (0.3-1.2); CALCIUM LEVEL 8.9 MG/DL (8.3-10.6); CK-MB VALUE MASS 1.2 NG/ML (<3.6); CREATININE FOR GFR 2.38 MG/DL (0.70-1.30); FREE T4 1.6 NG/DL (0.89-1.76); GLOMERULAR FILTRATION RATE 29.5 (>49); POTASSIUM SERUM 4.6 MMOL/L (3.5-5.1); THYROID STIMULATING HORMONE 5.262 uIU/ML (0.55-4.78); TOTAL PROTEIN 5.8 G/DL (5.7-8.2)
[2022-11-07 10:02] LABS: INR 1.04; PARTIAL THROMBOPLASTIN TIME 28.9 SECONDS (24.8-34.2); PROTHROMBIN TIME 13.8 SECONDS (12.5-14.5)
[2022-11-07 10:03] LABS: MB/CK RELATIVE INDEX 2.03 (< OR =4)
[2022-11-07 10:19] LABS: RSV AMPLIFICATION NEGATIVE (NEGATIVE)
[2022-11-07 11:07] LABS: CK-MB VALUE MASS < 1.0 NG/ML (<3.6); CPK CREATINE PHOSPHOKINASE 39 U/L (46-171); MB/CK RELATIVE INDEX 2.56 (< OR =4)
[2022-11-07] MEDS: fentaNYL 100 MCG/2 ML INJECTION IV PRN ×2 (11:37→17:34)
[2022-11-07] MEDS ORDERED: LORazepam 1 MG TAB PO STA (13:08)
[2022-11-07 13:40] LABS: CK-MB VALUE MASS 1.2 NG/ML (<3.6); MB/CK RELATIVE INDEX 1.51 (< OR =4)
[2022-11-07] MEDS ORDERED: **hydrALAZINE** 50 MG TAB PO ONE (15:15)
[2022-11-07] MEDS ORDERED: LORazepam 2 MG/ML 1ML VIAL IV STA (16:15)
[2022-11-07] MEDS ORDERED: **hydrALAZINE** 50 MG TAB PO SCH (18:00)
[2022-11-07] MEDS ORDERED: QUEtiapine FUMARATE 25 MG TAB PO ONE (18:40)
[2022-11-07] MEDS ORDERED: TRAM50TA2 PO (18:51)
[2022-11-07] MEDS ORDERED: LISI30TA4 PO (18:51)
[2022-11-07] MEDS ORDERED: OMEP-173 PO (18:52)
[2022-11-07] MEDS ORDERED: ALEV220T22 PO (18:53)
[2022-11-07] MEDS ORDERED: HOME MED LIST COMPLETE! XX SCH (18:55)
[2022-11-07] MEDS: cloNIDine 0.1MG TABLET PO SCH ×2 (19:33→23:49)
[2022-11-07] MEDS: oxyCODONE 5MG TAB PO PRN (19:57)
[2022-11-07 20:00] VITALS: BP 176/113
[2022-11-07] MEDS ORDERED: **hydrALAZINE** 10 MG TAB PO ONE (20:40)
[2022-11-07] MEDS: ALPRAZolam 0.5 MG TAB PO PRN (22:48)
[2022-11-07] MEDS: **hydrALAZINE** 50 MG TAB PO SCH (23:49)
[2022-11-08] VITALS (17 sets, daily range): BP systolic 120–190; BP diastolic 62–99
[2022-11-08] MEDS ORDERED: ACETAMINOPHEN 500 MG TAB PO PRN ×2 (00:25→00:30)
[2022-11-08] MEDS: tiZANidine 4 MG TAB PO PRN ×2 (03:23→09:23)
[2022-11-08] MEDS: oxyCODONE 5MG TAB PO PRN ×3 (03:24→23:04)
[2022-11-08 05:30] LABS: AMPHETAMINES LEVEL URINE NEGATIVE (NEGATIVE); BARBITURATES URINE NEGATIVE (NEGATIVE); COCAINE METABOLITE URINE NEGATIVE (NEGATIVE); METHADONE URINE NEGATIVE (NEGATIVE); PHENCYCLIDINE URINE NEGATIVE (NEGATIVE)
[2022-11-08 05:42] LABS: BENZODIAZEPINES URINE POSITIVE (NEGATIVE); CANNABINOIDS URINE POSITIVE (NEGATIVE); OPIATES URINE POSITIVE (NEGATIVE)
[2022-11-08] MEDS: **hydrALAZINE** 50 MG TAB PO SCH ×6 (06:00→23:07)
[2022-11-08] MEDS: cloNIDine 0.1MG TABLET PO SCH ×4 (06:00→23:08)
[2022-11-08 08:32] LABS: BASO % 0.5 % (0.0-1.0); EOS # 0.1 10^3/uL (0.0-0.5); EOS % 3.2 % (0.0-3.0); HEMATOCRIT 23.6 % (42.0-52.0); LYMPH # 1.2 10^3/uL (1.5-5.0); MEAN CORPUSCULAR HEMOGLOBIN 29.8 pg (27.0-33.0); MEAN CORPUSCULAR HGB CONC 31.8 g/dl (32.0-36.5); MEAN CORPUSCULAR VOLUME 93.7 fl (80.0-96.0); MONO # 0.5 10^3/uL (0.0-0.8); NEUTROPHILS # 2.5 10^3/uL (1.5-8.5); NEUTROPHILS % 56.8 % (36.0-66.0); PLATELET COUNT, AUTOMATED 166 10^3/uL (150-450); RED BLOOD COUNT 2.52 10^6/uL (4.30-6.10); WHITE BLOOD COUNT 4.3 10^3/uL (4.0-10.0)
[2022-11-08 08:55] LABS: HEMOGLOBIN 7.5 g/dl (13.5-17.5)
[2022-11-08 09:09] LABS: ALBUMIN 2.1 G/DL (3.2-5.2); BILIRUBIN,TOTAL 0.4 MG/DL (0.3-1.2); CALCIUM LEVEL 7.8 MG/DL (8.3-10.6); CREATININE FOR GFR 3.47 MG/DL (0.70-1.30); GLOMERULAR FILTRATION RATE 19.1 (>49); TOTAL PROTEIN 4.6 G/DL (5.7-8.2)
[2022-11-08] MEDS: FLUoxetine 20MG CAP PO SCH (09:23)
[2022-11-08 12:04] LABS: MEAN CORPUSCULAR HEMOGLOBIN 29.6 pg (27.0-33.0); MEAN CORPUSCULAR VOLUME 92.6 fl (80.0-96.0); PLATELET COUNT, AUTOMATED 165 10^3/uL (150-450); WHITE BLOOD COUNT 3.9 10^3/uL (4.0-10.0)
[2022-11-08] MEDS ORDERED: CALCIUM CARBONATE 500 MG CHEW U/D PO PRN (14:35)
[2022-11-09 00:06] VITALS: BP 174/80
[2022-11-09] MEDS: ALPRAZolam 0.5 MG TAB PO PRN (01:53)
[2022-11-09 04:49] LABS: HEMATOCRIT 24.2 % (42.0-52.0); HEMOGLOBIN 7.7 g/dl (13.5-17.5); MEAN CORPUSCULAR HEMOGLOBIN 29.3 pg (27.0-33.0); MEAN CORPUSCULAR HGB CONC 31.8 g/dl (32.0-36.5); PLATELET COUNT, AUTOMATED 158 10^3/uL (150-450); RED BLOOD COUNT 2.63 10^6/uL (4.30-6.10); WHITE BLOOD COUNT 4.3 10^3/uL (4.0-10.0)
[2022-11-09 04:59] VITALS: BP 161/71
[2022-11-09] MEDS: cloNIDine 0.1MG TABLET PO SCH ×2 (05:00→12:00)
[2022-11-09] MEDS: **hydrALAZINE** 50 MG TAB PO SCH ×2 (05:10→12:00)
[2022-11-09 05:13] LABS: CALCIUM LEVEL 7.5 MG/DL (8.3-10.6); CREATININE FOR GFR 4.29 MG/DL (0.70-1.30); POTASSIUM SERUM 4.2 MMOL/L (3.5-5.1)
[2022-11-09 06:31] VITALS: BP 156/69
[2022-11-09] MEDS: FLUoxetine 20MG CAP PO SCH (06:32)
[2022-11-09] MEDS ORDERED: HEPARIN 1,000UNITS/ML 10ML VIAL (FOR RADIOLOGY & DIALYSIS ONLY) XX SCH (06:45)
[2022-11-09] MEDS ORDERED: HEPARIN 1,000UNITS/ML 10ML VIAL (FOR RADIOLOGY & DIALYSIS ONLY) IV PRN (06:45)
[2022-11-09] MEDS ORDERED: SODIUM CHLORIDE 0.9% 1000ML IV PRN (06:45)
[2022-11-09] MEDS ORDERED: LIDOCAINE 1% SDV 5ML VIAL SC PRN (06:45)
[2022-11-09 07:04] LABS: PERCENT SATURATION 41.3 % (19.7-50.0)
[2022-11-09] MEDS ORDERED: ONDANSETRON 4MG 2ML VIAL IV PRN (07:35)
[2022-11-09] MEDS: oxyCODONE 5MG TAB PO PRN (07:44)
[2022-11-09 08:00] VITALS: BP 143/67
[2022-11-09 12:00] VITALS: BP 153/74
[2022-11-09] MEDS: tiZANidine 4 MG TAB PO PRN (12:20)
[2022-11-09] MEDS: ANALGESIC BALM CRM 3OZ TOP PRN ×2 (12:20→14:14)
[2022-11-09] MEDS ORDERED: oxyCODONE 5MG TAB PO PRN (13:05)
[2022-11-09] MEDS ORDERED: TIZA10TA PO (14:33)
[2022-11-09] MEDS ORDERED: OXYC-517 PO (14:33)
[2022-11-09] MEDS ORDERED: MUSCCRE9 TOP (14:33)
[2022-11-09] MEDS ORDERED: AMLO1TAB25 PO (14:33)
[2022-11-09] MEDS ORDERED: HYDR-3911 PO (14:33)
[2022-11-09] MEDS ORDERED: ONDA4TAB6 PO (14:35)
[2022-11-09 14:44] VITALS: BP 153/74
== END 2022-11-09 15:30 | disposition home or self-care (01) | DRG 304 ==
LOC: EDBD 08:26 → M ED 08:26 → M ED INP 18:11 → ENRESERV 19:26 → M ICU 19:45
PROVIDERS: ADMIT Internal Medicine Nephrology; ATTEND Internal Medicine Nephrology
PROC: 5A1D70Z Performance of Urinary Filtration, Intermittent, Less than 6 Hours Per Day (ICD-10-PCS; principal; 2022-11-09)
DX: I16.0 Hypertensive urgency (principal); N18.6 End stage renal disease; F05 Delirium due to known physiological condition; Z94.4 Liver transplant status; I67.4 Hypertensive encephalopathy; I12.0 Hypertensive chronic kidney disease with stage 5 chronic kidney disease or end stage renal disease; M54.50 Low back pain, unspecified; F03.90 Unspecified dementia, unspecified severity, without behavioral disturbance, psychotic disturbance, mood disturbance, and anxiety; E78.5 Hyperlipidemia, unspecified; R07.9 Chest pain, unspecified; K44.9 Diaphragmatic hernia without obstruction or gangrene; E55.9 Vitamin D deficiency, unspecified; D63.1 Anemia in chronic kidney disease; E11.22 Type 2 diabetes mellitus with diabetic chronic kidney disease; I87.2 Venous insufficiency (chronic) (peripheral); F32.A Depression, unspecified; G47.00 Insomnia, unspecified; F41.9 Anxiety disorder, unspecified; Z98.84 Bariatric surgery status; Z96.652 Presence of left artificial knee joint; Z79.899 Other long term (current) drug therapy; Z99.2 Dependence on renal dialysis; Z91.14 Patient's other noncompliance with medication regimen

== ENCOUNTER 2022-11-14 12:57 | Inpatient (IN) | payer MEDICARE ==
[~2022-11-14] VITALS: Ht 175.3 cm; Wt 77.6 kg
[~2022-11-14 12:57] MED LIST changes: +ALEV220T22 PO; +HYDR-3911 PO; +LISI30TA4 PO; +MUSCCRE9 TOP; +OMEP-173 PO; +ONDA4TAB6 PO; +OXYC-517 PO; +TIZA10TA PO
[2022-11-14] MEDS ORDERED: ONDANSETRON 4MG ORAL DISINTEGRATING TAB PO ONE (14:55)
[2022-11-14 15:07] LABS: HEMOGLOBIN 11.4 g/dl (13.5-17.5); MEAN CORPUSCULAR HEMOGLOBIN 28.7 pg (27.0-33.0); MEAN CORPUSCULAR HGB CONC 31.7 g/dl (32.0-36.5); MEAN CORPUSCULAR VOLUME 90.7 fl (80.0-96.0); PLATELET COUNT, AUTOMATED 268 10^3/uL (150-450); RED BLOOD COUNT 3.97 10^6/uL (4.30-6.10); WHITE BLOOD COUNT 7.2 10^3/uL (4.0-10.0)
[2022-11-14 15:34] LABS: ETHYL ALCOHOL (ETHANOL) 0.006 % (0.000-0.010)
[2022-11-14 15:36] LABS: ACETAMINOPHEN LEVEL < 2.0 UG/ML (10.0-20.0); SALICYLATE LEVEL < 3.0 MG/DL (<30)
[2022-11-14 15:40] LABS: ALBUMIN 2.9 G/DL (3.2-5.2); ALKALINE PHOSPHATASE 175 U/L (46-116); ALT/SGPT 12 U/L (7.0-40); AST/SGOT 24 U/L (<34); BILIRUBIN,DIRECT 0.2 MG/DL (<0.4); BILIRUBIN,TOTAL 0.4 MG/DL (0.3-1.2); BLOOD UREA NITROGEN 21 MG/DL (9-23); CALCIUM LEVEL 9.8 MG/DL (8.3-10.6); CARBON DIOXIDE LEVEL 25 MMOL/L (20-31); CHLORIDE LEVEL 102 MMOL/L (98-107); CREATININE FOR GFR 4.49 MG/DL (0.70-1.30); GLOMERULAR FILTRATION RATE 14.2 (>49); GLUCOSE, FASTING 92 MG/DL (74-106); POTASSIUM SERUM 4.5 MMOL/L (3.5-5.1); SODIUM LEVEL 134 MMOL/L (136-145); THYROID STIMULATING HORMONE 8.465 uIU/ML (0.55-4.78); TOTAL PROTEIN 6.5 G/DL (5.7-8.2)
[2022-11-14] MEDS ORDERED: GI COCKTAIL 50ML BTL(HYOSCYAMINE/MAALOX/LIDOCAINE VISCOUS)(1:3:1) PO ONE (16:55)
[2022-11-14] MEDS ORDERED: ONDANSETRON 4MG 2ML VIAL IV ONE (16:55)
[2022-11-14] MEDS ORDERED: ACETAMINOPHEN 1000MG 100ML IV BAG IV ONE (16:55)
[2022-11-14] MEDS ORDERED: MORPHINE 2 MG/ML 1ML VIAL IM ONE (17:55)
[2022-11-14] MEDS ORDERED: AMLO1TAB25 PO (18:29)
[2022-11-14 18:30] LABS: CK-MB VALUE MASS 1.1 NG/ML (<3.6)
[2022-11-14 18:31] LABS: CPK CREATINE PHOSPHOKINASE 40 U/L (46-171); MB/CK RELATIVE INDEX 2.75 (< OR =4)
[2022-11-14] MEDS ORDERED: ONDA4TAB6 PO (18:39)
[2022-11-14] MEDS ORDERED: HYDR-3911 PO (18:39)
[2022-11-14] MEDS ORDERED: OXYC-517 PO (18:39)
[2022-11-14] MEDS ORDERED: TIZA10TA PO (18:39)
[2022-11-14] MEDS ORDERED: HOME MED LIST COMPLETE! XX SCH (18:45)
[2022-11-14] MEDS ORDERED: tiZANidine 4 MG TAB PO PRN (21:20)
[2022-11-14] MEDS ORDERED: ACETAMINOPHEN TAB 650MG DOSE (2X325MG) PO PRN (21:20)
[2022-11-14] MEDS ORDERED: MOM 30ML SUSPENSION UDC PO PRN (21:20)
[2022-11-14] MEDS ORDERED: MORPHINE 2 MG/ML 1ML VIAL IV PRN (21:35)
[2022-11-14] MEDS ORDERED: PROMETHAZINE 25MG/ML 1ML VIAL IV PRN (21:35)
[2022-11-14 23:20] VITALS: BP 142/81
[2022-11-15] MEDS: oxyCODONE 5MG TAB PO PRN ×2 (00:39→12:12)
[2022-11-15] MEDS: **hydrALAZINE** 50 MG TAB PO SCH ×4 (00:40→21:42)
[2022-11-15] MEDS: ONDANSETRON 4MG 2ML VIAL IV PRN ×3 (03:49→18:23)
[2022-11-15] MEDS: ALPRAZolam 0.5 MG TAB PO PRN (04:21)
[2022-11-15] MEDS ORDERED: PINK BISMUTH SUSP 524MG/30ML ORAL SYRINGE PO ONE (05:00)
[2022-11-15 06:00] VITALS: BP 111/61
[2022-11-15] MEDS: HEPARIN SOD (PORCINE) 5000UNITS/ML 1ML VIAL/SYRINGE SC SCH ×3 (06:25→21:41)
[2022-11-15 06:28] LABS: HEMATOCRIT 28.5 % (42.0-52.0); MEAN CORPUSCULAR HEMOGLOBIN 29.4 pg (27.0-33.0); MEAN CORPUSCULAR HGB CONC 31.9 g/dl (32.0-36.5); MEAN CORPUSCULAR VOLUME 92.2 fl (80.0-96.0); PLATELET COUNT, AUTOMATED 196 10^3/uL (150-450); RED BLOOD COUNT 3.09 10^6/uL (4.30-6.10); WHITE BLOOD COUNT 8.4 10^3/uL (4.0-10.0)
[2022-11-15 06:53] LABS: CALCIUM LEVEL 8.4 MG/DL (8.3-10.6); CREATININE FOR GFR 5.08 MG/DL (0.70-1.30); GLOMERULAR FILTRATION RATE 12.3 (>49); POTASSIUM SERUM 4.4 MMOL/L (3.5-5.1)
[2022-11-15 07:52] LABS: HEMOGLOBIN 9.1 g/dl (13.5-17.5)
[2022-11-15] MEDS: PANTOPRAZOLE 40MG VIAL IV SCH (09:14)
[2022-11-15] MEDS: TACROLIMUS 1MG CAP PO SCH (09:14)
[2022-11-15] MEDS: FLUoxetine 20MG CAP PO SCH (09:15)
[2022-11-15] MEDS: DOCUSATE SODIUM 100MG CAPSULE PO SCH ×2 (09:16→21:41)
[2022-11-15] MEDS: OMEPRAZOLE 20MG CAP PO SCH (09:16)
[2022-11-15 14:00] VITALS: BP 142/86
[2022-11-15] MEDS ORDERED: GI COCKTAIL 50ML BTL(HYOSCYAMINE/MAALOX/LIDOCAINE VISCOUS)(1:3:1) PO ONE (20:20)
[2022-11-15] MEDS: PERCOCET 5MG/325MG TAB PO PRN (21:42)
[2022-11-15 22:03] VITALS: BP 156/83
[2022-11-16] MEDS: PANTOPRAZOLE 40MG VIAL IV SCH (05:40)
[2022-11-16] MEDS: **hydrALAZINE** 50 MG TAB PO SCH ×3 (05:42→20:36)
[2022-11-16] MEDS: OMEPRAZOLE 20MG CAP PO SCH (05:42)
[2022-11-16] MEDS: HEPARIN SOD (PORCINE) 5000UNITS/ML 1ML VIAL/SYRINGE SC SCH ×3 (05:42→21:14)
[2022-11-16] MEDS: DOCUSATE SODIUM 100MG CAPSULE PO SCH ×2 (05:42→20:36)
[2022-11-16] MEDS: FLUoxetine 20MG CAP PO SCH (05:43)
[2022-11-16 05:45] VITALS: BP 157/84
[2022-11-16] MEDS ORDERED: HEPARIN 1,000UNITS/ML 10ML VIAL (FOR RADIOLOGY & DIALYSIS ONLY) IV PRN (06:00)
[2022-11-16] MEDS ORDERED: SODIUM CHLORIDE 0.9% 1000ML IV PRN (06:00)
[2022-11-16] MEDS ORDERED: HEPARIN 1,000UNITS/ML 10ML VIAL (FOR RADIOLOGY & DIALYSIS ONLY) XX SCH (06:00)
[2022-11-16] MEDS ORDERED: LIDOCAINE 1% SDV 5ML VIAL SC PRN (06:00)
[2022-11-16 06:39] LABS: HEMATOCRIT 30.2 % (42.0-52.0); HEMOGLOBIN 9.6 g/dl (13.5-17.5); MEAN CORPUSCULAR HEMOGLOBIN 28.9 pg (27.0-33.0); MEAN CORPUSCULAR HGB CONC 31.8 g/dl (32.0-36.5); PLATELET COUNT, AUTOMATED 207 10^3/uL (150-450); RED BLOOD COUNT 3.32 10^6/uL (4.30-6.10); WHITE BLOOD COUNT 10.1 10^3/uL (4.0-10.0)
[2022-11-16 07:16] LABS: ALBUMIN 2.4 G/DL (3.2-5.2); ALKALINE PHOSPHATASE 149 U/L (46-116); ALT/SGPT < 9 U/L (7.0-40); AST/SGOT 16 U/L (<34); BILIRUBIN,TOTAL 0.3 MG/DL (0.3-1.2); BLOOD UREA NITROGEN 28 MG/DL (9-23); CALCIUM LEVEL 8.7 MG/DL (8.3-10.6); CARBON DIOXIDE LEVEL 26 MMOL/L (20-31); CHLORIDE LEVEL 102 MMOL/L (98-107); CREATININE FOR GFR 5.47 MG/DL (0.70-1.30); GLOMERULAR FILTRATION RATE 11.3 (>49); GLUCOSE, FASTING 72 MG/DL (74-106); PHOSPHORUS LEVEL 1.7 MG/DL (2.4-5.1); POTASSIUM SERUM 4.8 MMOL/L (3.5-5.1); SODIUM LEVEL 135 MMOL/L (136-145); TOTAL PROTEIN 5.4 G/DL (5.7-8.2)
[2022-11-16] MEDS: ONDANSETRON 4MG 2ML VIAL IV PRN (07:31)
[2022-11-16] MEDS: PERCOCET 5MG/325MG TAB PO PRN ×2 (07:31→20:36)
[2022-11-16] MEDS: ALPRAZolam 0.5 MG TAB PO PRN ×2 (07:31→21:14)
[2022-11-16] MEDS ORDERED: DARBEPOETIN 100MCG/0.5ML *DIALYSIS* SYRINGE IV SCH (11:35)
[2022-11-16] MEDS: TACROLIMUS 1MG CAP PO SCH (12:53)
[2022-11-16 14:30] VITALS: BP 142/64
[2022-11-16] MEDS: PANTOPRAZOLE 40MG TAB (PROTONIX) PO SCH (20:37)
[2022-11-16] MEDS: ONDANSETRON 4MG ORAL DISINTEGRATING TAB PO PRN (20:42)
[2022-11-17] MEDS: HEPARIN SOD (PORCINE) 5000UNITS/ML 1ML VIAL/SYRINGE SC SCH ×2 (05:42→12:50)
[2022-11-17] MEDS: PERCOCET 5MG/325MG TAB PO PRN ×2 (05:43→12:48)
[2022-11-17 06:12] VITALS: BP 159/85
[2022-11-17 06:34] LABS: HEMATOCRIT 31.3 % (42.0-52.0); HEMOGLOBIN 10.1 g/dl (13.5-17.5); MEAN CORPUSCULAR HGB CONC 32.3 g/dl (32.0-36.5); MEAN CORPUSCULAR VOLUME 89.9 fl (80.0-96.0); PLATELET COUNT, AUTOMATED 214 10^3/uL (150-450); RED BLOOD COUNT 3.48 10^6/uL (4.30-6.10)
[2022-11-17 07:47] LABS: ALBUMIN 2.4 G/DL (3.2-5.2); ALKALINE PHOSPHATASE 146 U/L (46-116); ALT/SGPT < 9 U/L (7.0-40); AST/SGOT 17 U/L (<34); BILIRUBIN,TOTAL 0.4 MG/DL (0.3-1.2); BLOOD UREA NITROGEN 13 MG/DL (9-23); CALCIUM LEVEL 8.1 MG/DL (8.3-10.6); CARBON DIOXIDE LEVEL 28 MMOL/L (20-31); CHLORIDE LEVEL 100 MMOL/L (98-107); CREATININE FOR GFR 3.21 MG/DL (0.70-1.30); GLOMERULAR FILTRATION RATE 20.9 (>49); GLUCOSE, FASTING 77 MG/DL (74-106); POTASSIUM SERUM 3.8 MMOL/L (3.5-5.1); SODIUM LEVEL 137 MMOL/L (136-145); TOTAL PROTEIN 5.5 G/DL (5.7-8.2)
[2022-11-17] MEDS: DOCUSATE SODIUM 100MG CAPSULE PO SCH (08:39)
[2022-11-17] MEDS: ONDANSETRON 4MG ORAL DISINTEGRATING TAB PO PRN ×2 (08:39→12:47)
[2022-11-17] MEDS: **hydrALAZINE** 50 MG TAB PO SCH (08:42)
[2022-11-17] MEDS: ALPRAZolam 0.5 MG TAB PO PRN ×2 (08:43→15:37)
[2022-11-17 08:44] VITALS: BP 159/85
[2022-11-17] MEDS: TACROLIMUS 1MG CAP PO SCH (08:44)
[2022-11-17] MEDS: PANTOPRAZOLE 40MG TAB (PROTONIX) PO SCH (08:44)
[2022-11-17] MEDS: FLUoxetine 20MG CAP PO SCH (08:44)
[2022-11-17] MEDS: METOCLOPRAMIDE 5 MG TAB PO SCH ×2 (10:57→15:40)
[2022-11-17] MEDS ORDERED: METO5TAB2 PO (14:12)
[2022-11-17] MEDS ORDERED: OMEP40CA4 PO (14:12)
[2022-11-17] MEDS ORDERED: COLA100C5 PO (14:12)
[2022-11-17] MEDS ORDERED: ACET1TAB55 PO (14:22)
== END 2022-11-17 16:00 | disposition home health service (06) | DRG 562 ==
LOC: M ED 12:57 → EDBD 12:57 → M ED INP 21:20 → M MS5PR 11-15 00:01
PROVIDERS: ADMIT Family Medicine; ATTEND Internal Medicine
PROC: 5A1D70Z Performance of Urinary Filtration, Intermittent, Less than 6 Hours Per Day (ICD-10-PCS; principal; 2022-11-16)
DX: S42.201A Unspecified fracture of upper end of right humerus, initial encounter for closed fracture (principal); N18.6 End stage renal disease; Z94.4 Liver transplant status; I12.0 Hypertensive chronic kidney disease with stage 5 chronic kidney disease or end stage renal disease; K21.9 Gastro-esophageal reflux disease without esophagitis; E78.5 Hyperlipidemia, unspecified; K44.9 Diaphragmatic hernia without obstruction or gangrene; E55.9 Vitamin D deficiency, unspecified; D63.1 Anemia in chronic kidney disease; I87.2 Venous insufficiency (chronic) (peripheral); N28.89 Other specified disorders of kidney and ureter; F03.90 Unspecified dementia, unspecified severity, without behavioral disturbance, psychotic disturbance, mood disturbance, and anxiety; F32.A Depression, unspecified; F41.9 Anxiety disorder, unspecified; G47.00 Insomnia, unspecified; K31.84 Gastroparesis; E11.43 Type 2 diabetes mellitus with diabetic autonomic (poly)neuropathy; R11.2 Nausea with vomiting, unspecified; E11.22 Type 2 diabetes mellitus with diabetic chronic kidney disease; M25.511 Pain in right shoulder; W18.30XA Fall on same level, unspecified, initial encounter; Y92.9 Unspecified place or not applicable; Y93.9 Activity, unspecified; Y99.8 Other external cause status; Z76.5 Malingerer [conscious simulation]; Z99.2 Dependence on renal dialysis; Z98.84 Bariatric surgery status; Z96.652 Presence of left artificial knee joint; Z79.899 Other long term (current) drug therapy

== ENCOUNTER 2022-11-24 16:11 | Emergency (ER) | payer MEDICARE ==
[~2022-11-24] VITALS: Ht 177.8 cm; Wt 68.2 kg
[~2022-11-24 16:11] MED LIST changes: +ACET1TAB55 PO; +COLA100C5 PO; +OMEP40CA4 PO
[2022-11-24] MEDS ORDERED: MORPHINE 4 MG/ML 1ML VIAL IV ONE (19:15)
[2022-11-24 20:06] LABS: BASO % 0.5 % (0.0-1.0); EOS # 0.1 10^3/uL (0.0-0.5); EOS % 1.7 % (0.0-3.0); HEMATOCRIT 39.4 % (42.0-52.0); HEMOGLOBIN 12.9 g/dl (13.5-17.5); LYMPH # 2.1 10^3/uL (1.5-5.0); LYMPH % 33.2 % (24.0-44.0); MEAN CORPUSCULAR HEMOGLOBIN 28.9 pg (27.0-33.0); MEAN CORPUSCULAR HGB CONC 32.7 g/dl (32.0-36.5); MEAN CORPUSCULAR VOLUME 88.1 fl (80.0-96.0); MONO # 0.7 10^3/uL (0.0-0.8); MONO % 11.1 % (2.0-8.0); NEUTROPHILS # 3.4 10^3/uL (1.5-8.5); NEUTROPHILS % 53.2 % (36.0-66.0); PLATELET COUNT, AUTOMATED 329 10^3/uL (150-450); RED BLOOD COUNT 4.47 10^6/uL (4.30-6.10); WHITE BLOOD COUNT 6.4 10^3/uL (4.0-10.0)
[2022-11-24 20:32] LABS: CREATININE FOR GFR 3.46 MG/DL (0.70-1.30); GLOMERULAR FILTRATION RATE 19.2 (>49)
[2022-11-24 21:07] VITALS: BP 149/75
== END 2022-11-24 21:08 | disposition home or self-care (01) ==
LOC: M ED 16:11
DX: M54.6 Pain in thoracic spine (principal); S42.211D Unspecified displaced fracture of surgical neck of right humerus, subsequent encounter for fracture with routine healing; W18.30XD Fall on same level, unspecified, subsequent encounter; E11.9 Type 2 diabetes mellitus without complications; I12.0 Hypertensive chronic kidney disease with stage 5 chronic kidney disease or end stage renal disease; K21.9 Gastro-esophageal reflux disease without esophagitis; N18.6 End stage renal disease; Z94.4 Liver transplant status; E66.9 Obesity, unspecified; F19.10 Other psychoactive substance abuse, uncomplicated; D64.9 Anemia, unspecified; F32.9 Major depressive disorder, single episode, unspecified; Z79.899 Other long term (current) drug therapy; Z79.82 Long term (current) use of aspirin
CPT/HCPCS: 71046; 80048; 84484; 85025; 93005; 96374; 99284; J2270

== ENCOUNTER 2022-11-29 13:41 | Observation (INO) | payer MEDICARE ==
[~2022-11-29] VITALS: Ht 177.8 cm; Wt 68.2 kg
[2022-11-29] MEDS ORDERED: PERCOCET 5MG/325MG TAB PO ONE (19:45)
[2022-11-29 20:45] LABS: BASO % 0.6 % (0.0-1.0); EOS # 0.1 10^3/uL (0.0-0.5); EOS % 1.1 % (0.0-3.0); HEMATOCRIT 34.5 % (42.0-52.0); HEMOGLOBIN 11.4 g/dl (13.5-17.5); LYMPH # 1.7 10^3/uL (1.5-5.0); LYMPH % 22.9 % (24.0-44.0); MEAN CORPUSCULAR HEMOGLOBIN 28.4 pg (27.0-33.0); MONO # 0.7 10^3/uL (0.0-0.8); MONO % 10.3 % (2.0-8.0); NEUTROPHILS # 4.7 10^3/uL (1.5-8.5); NEUTROPHILS % 64.8 % (36.0-66.0); PLATELET COUNT, AUTOMATED 223 10^3/uL (150-450); RED BLOOD COUNT 4.01 10^6/uL (4.30-6.10); WHITE BLOOD COUNT 7.2 10^3/uL (4.0-10.0)
[2022-11-29] MEDS: DOCUSATE SODIUM 100MG CAPSULE PO SCH (21:00)
[2022-11-29 21:09] LABS: ETHYL ALCOHOL (ETHANOL) 0.004 % (0.000-0.010)
[2022-11-29 21:11] LABS: ALBUMIN 2.7 G/DL (3.2-5.2); BILIRUBIN,TOTAL 0.5 MG/DL (0.3-1.2); CREATININE FOR GFR 3.44 MG/DL (0.70-1.30); GLOMERULAR FILTRATION RATE 19.3 (>49); POTASSIUM SERUM 4.1 MMOL/L (3.5-5.1); TOTAL PROTEIN 6.1 G/DL (5.7-8.2)
[2022-11-29 21:11] LABS: ACETAMINOPHEN LEVEL 2.6 UG/ML (10.0-20.0); SALICYLATE LEVEL < 3.0 MG/DL (<30)
[2022-11-29 21:13] LABS: THYROID STIMULATING HORMONE 5.956 uIU/ML (0.55-4.78)
[2022-11-29 21:19] LABS: RSV AMPLIFICATION NEGATIVE (NEGATIVE)
[2022-11-29 21:21] LABS: AMPHETAMINES LEVEL URINE NEGATIVE (NEGATIVE); BARBITURATES URINE NEGATIVE (NEGATIVE)
[2022-11-29 21:22] LABS: COCAINE METABOLITE URINE NEGATIVE (NEGATIVE); METHADONE URINE NEGATIVE (NEGATIVE); PHENCYCLIDINE URINE NEGATIVE (NEGATIVE)
[2022-11-29 21:24] LABS: BENZODIAZEPINES URINE POSITIVE (NEGATIVE); CANNABINOIDS URINE POSITIVE (NEGATIVE); OPIATES URINE POSITIVE (NEGATIVE)
[2022-11-29] MEDS ORDERED: oxyCODONE 5MG TAB PO ONE (22:10)
[2022-11-29] MEDS ORDERED: PROMETHAZINE 25 MG TAB PO ONE (23:00)
[2022-11-29] MEDS ORDERED: MOM 30ML SUSPENSION UDC PO PRN (23:45)
[2022-11-30] MEDS ORDERED: DOCU100C16 PO (00:56)
[2022-11-30] MEDS ORDERED: METH85CR12 TOP (00:56)
[2022-11-30] MEDS ORDERED: PATIENT COMMENT ×2 (00:56→01:02)
[2022-11-30] MEDS ORDERED: LIDOCAINE 5% (LIDODERM) PATCH TD ONE (01:00)
[2022-11-30] MEDS ORDERED: OMEP40CA5 PO (01:01)
[2022-11-30] MEDS ORDERED: METO5TAB2 PO (01:01)
[2022-11-30] MEDS ORDERED: HOME MED LIST COMPLETE! XX SCH (01:05)
[2022-11-30 02:15] VITALS: BP 190/70
[2022-11-30] MEDS: oxyCODONE 5MG TAB PO PRN ×4 (02:19→21:21)
[2022-11-30 03:30] VITALS: BP 190/80
[2022-11-30] MEDS: **hydrALAZINE** 50 MG TAB PO SCH ×2 (04:12→17:12)
[2022-11-30 06:00] VITALS: BP 198/90
[2022-11-30 06:31] LABS: HEMATOCRIT 27.7 % (42.0-52.0); HEMOGLOBIN 9.2 g/dl (13.5-17.5); MEAN CORPUSCULAR HEMOGLOBIN 28.9 pg (27.0-33.0); MEAN CORPUSCULAR HGB CONC 33.2 g/dl (32.0-36.5); MEAN CORPUSCULAR VOLUME 87.1 fl (80.0-96.0); PLATELET COUNT, AUTOMATED 193 10^3/uL (150-450); RED BLOOD COUNT 3.18 10^6/uL (4.30-6.10); WHITE BLOOD COUNT 5.9 10^3/uL (4.0-10.0)
[2022-11-30] MEDS: HEPARIN SOD (PORCINE) 5000UNITS/ML 1ML VIAL/SYRINGE SC SCH ×3 (06:56→21:19)
[2022-11-30 07:03] LABS: ALBUMIN 2.1 G/DL (3.2-5.2); ALKALINE PHOSPHATASE 108 U/L (46-116); ALT/SGPT < 9 U/L (7.0-40); AST/SGOT 17 U/L (<34); BILIRUBIN,TOTAL 0.4 MG/DL (0.3-1.2); BLOOD UREA NITROGEN 23 MG/DL (9-23); CALCIUM LEVEL 7.7 MG/DL (8.3-10.6); CARBON DIOXIDE LEVEL 31 MMOL/L (20-31); CHLORIDE LEVEL 101 MMOL/L (98-107); CREATININE FOR GFR 3.92 MG/DL (0.70-1.30); GLOMERULAR FILTRATION RATE 16.6 (>49); GLUCOSE, FASTING 73 MG/DL (74-106); POTASSIUM SERUM 4.3 MMOL/L (3.5-5.1); SODIUM LEVEL 137 MMOL/L (136-145)
[2022-11-30] MEDS ORDERED: ONDANSETRON 4MG 2ML VIAL IV ONE (08:00)
[2022-11-30] MEDS: lisinopriL 40MG TAB PO SCH (08:02)
[2022-11-30] MEDS: METOCLOPRAMIDE 5 MG TAB PO SCH ×2 (08:47→21:21)
[2022-11-30] MEDS: DOCUSATE SODIUM 100MG CAPSULE PO SCH ×2 (08:47→21:21)
[2022-11-30] MEDS: TACROLIMUS 1MG CAP PO SCH (08:47)
[2022-11-30] MEDS: FLUoxetine 20MG CAP PO SCH (08:47)
[2022-11-30 08:52] VITALS: BP 166/78
[2022-11-30] MEDS ORDERED: LIDOCAINE 5% (LIDODERM) PATCH TD SCH (09:00)
[2022-11-30] MEDS ORDERED: **hydrALAZINE** 50 MG TAB PO SCH (09:00)
[2022-11-30 09:09] LABS: FREE T4 1.14 NG/DL (0.89-1.76)
[2022-11-30] MEDS ORDERED: ISOVUE-370 76% 100ML VIAL As Ordered ONE (09:42)
[2022-11-30] MEDS ORDERED: SODIUM CHLORIDE 0.9% 1000ML IV PRN (10:50)
[2022-11-30] MEDS ORDERED: HEPARIN 1,000UNITS/ML 10ML VIAL (FOR RADIOLOGY & DIALYSIS ONLY) IV PRN (10:50)
[2022-11-30] MEDS ORDERED: LIDOCAINE 1% SDV 5ML VIAL SC PRN (10:50)
[2022-11-30] MEDS ORDERED: HEPARIN 1,000UNITS/ML 10ML VIAL (FOR RADIOLOGY & DIALYSIS ONLY) XX SCH (10:50)
[2022-11-30] MEDS: ALPRAZolam 0.5 MG TAB PO PRN ×2 (11:06→21:20)
[2022-11-30] MEDS: OMEPRAZOLE 20MG CAP PO SCH (13:04)
[2022-11-30] MEDS ORDERED: ACETAMINOPHEN 500 MG TAB PO ONE (15:00)
[2022-11-30] MEDS ORDERED: CEFDINIR 300 MG CAP (OMNICEF) PO SCH (16:00)
[2022-11-30 17:00] VITALS: BP 178/84
[2022-11-30] MEDS: metroNIDAZOLE (FLAGYL) 500MG TABLET PO SCH ×2 (17:12→22:00)
[2022-11-30] MEDS: NS 0.45% 1,000 ML IV SCH (17:12)
[2022-11-30] MEDS ORDERED: **hydrALAZINE HCL** 25 MG TAB PO SCH (21:00)
[2022-11-30 21:08] VITALS: BP 180/90
[2022-12-01] MEDS: NS 0.45% 1,000 ML IV SCH (03:50)
[2022-12-01] MEDS: oxyCODONE 5MG TAB PO PRN ×4 (04:21→21:37)
[2022-12-01] MEDS: HEPARIN SOD (PORCINE) 5000UNITS/ML 1ML VIAL/SYRINGE SC SCH ×3 (06:02→21:37)
[2022-12-01] MEDS: metroNIDAZOLE (FLAGYL) 500MG TABLET PO SCH ×3 (06:02→21:36)
[2022-12-01 06:29] LABS: HEMATOCRIT 28.2 % (42.0-52.0); HEMOGLOBIN 9.2 g/dl (13.5-17.5); MEAN CORPUSCULAR HEMOGLOBIN 28.6 pg (27.0-33.0); MEAN CORPUSCULAR HGB CONC 32.6 g/dl (32.0-36.5); MEAN CORPUSCULAR VOLUME 87.6 fl (80.0-96.0); PLATELET COUNT, AUTOMATED 191 10^3/uL (150-450); RED BLOOD COUNT 3.22 10^6/uL (4.30-6.10); WHITE BLOOD COUNT 4.5 10^3/uL (4.0-10.0)
[2022-12-01 06:42] LABS: CALCIUM LEVEL 7.6 MG/DL (8.3-10.6); CREATININE FOR GFR 2.54 MG/DL (0.70-1.30); GLOMERULAR FILTRATION RATE 27.4 (>49)
[2022-12-01 06:48] VITALS: BP 185/85
[2022-12-01] MEDS: OMEPRAZOLE 20MG CAP PO SCH (09:05)
[2022-12-01] MEDS: METOCLOPRAMIDE 5 MG TAB PO SCH ×2 (09:06→21:36)
[2022-12-01] MEDS: lisinopriL 40MG TAB PO SCH (09:06)
[2022-12-01] MEDS: FLUoxetine 20MG CAP PO SCH (09:06)
[2022-12-01] MEDS: ALPRAZolam 0.5 MG TAB PO PRN ×2 (09:06→21:41)
[2022-12-01] MEDS: TACROLIMUS 1MG CAP PO SCH (09:07)
[2022-12-01] MEDS: **hydrALAZINE** 50 MG TAB PO SCH ×3 (09:08→21:00)
[2022-12-01] MEDS: DOCUSATE SODIUM 100MG CAPSULE PO SCH ×2 (09:08→21:36)
[2022-12-01] MEDS: oxyCODONE 10 MG CR TAB PO SCH (13:07)
[2022-12-01 15:18] VITALS: BP 113/65
[2022-12-01 20:52] VITALS: BP 138/65
[2022-12-02] MEDS: HEPARIN SOD (PORCINE) 5000UNITS/ML 1ML VIAL/SYRINGE SC SCH ×2 (06:15→14:16)
[2022-12-02] MEDS: METOCLOPRAMIDE 5 MG TAB PO SCH (06:16)
[2022-12-02] MEDS: oxyCODONE 10 MG CR TAB PO SCH (06:16)
[2022-12-02] MEDS: OMEPRAZOLE 20MG CAP PO SCH (06:16)
[2022-12-02] MEDS: metroNIDAZOLE (FLAGYL) 500MG TABLET PO SCH ×2 (06:16→14:16)
[2022-12-02] MEDS: TACROLIMUS 1MG CAP PO SCH (06:17)
[2022-12-02] MEDS: DOCUSATE SODIUM 100MG CAPSULE PO SCH (06:17)
[2022-12-02] MEDS: FLUoxetine 20MG CAP PO SCH (06:17)
[2022-12-02 06:28] VITALS: BP 172/94
[2022-12-02] MEDS ORDERED: HEPARIN 1,000UNITS/ML 10ML VIAL (FOR RADIOLOGY & DIALYSIS ONLY) XX SCH (06:55)
[2022-12-02] MEDS ORDERED: LIDOCAINE 1% SDV 5ML VIAL SC PRN (06:55)
[2022-12-02] MEDS ORDERED: SODIUM CHLORIDE 0.9% 1000ML IV PRN (06:55)
[2022-12-02] MEDS ORDERED: DARBEPOETIN 100MCG/0.5ML *DIALYSIS* SYRINGE IV SCH (06:55)
[2022-12-02] MEDS ORDERED: HEPARIN 1,000UNITS/ML 10ML VIAL (FOR RADIOLOGY & DIALYSIS ONLY) IV PRN (06:55)
[2022-12-02 07:46] LABS: HEMATOCRIT 31.4 % (42.0-52.0); HEMOGLOBIN 9.8 g/dl (13.5-17.5); MEAN CORPUSCULAR HEMOGLOBIN 27.8 pg (27.0-33.0); MEAN CORPUSCULAR HGB CONC 31.2 g/dl (32.0-36.5); MEAN CORPUSCULAR VOLUME 89.2 fl (80.0-96.0); PLATELET COUNT, AUTOMATED 237 10^3/uL (150-450); RED BLOOD COUNT 3.52 10^6/uL (4.30-6.10); WHITE BLOOD COUNT 4.8 10^3/uL (4.0-10.0)
[2022-12-02 08:12] LABS: CALCIUM LEVEL 7.9 MG/DL (8.3-10.6); CREATININE FOR GFR 3.5 MG/DL (0.70-1.30); GLOMERULAR FILTRATION RATE 18.9 (>49); MAGNESIUM LEVEL 1.7 MG/DL (1.8-2.4); POTASSIUM SERUM 3.6 MMOL/L (3.5-5.1)
[2022-12-02] MEDS ORDERED: **hydrALAZINE** 50 MG TAB PO SCH (09:00)
[2022-12-02] MEDS: ALPRAZolam 0.5 MG TAB PO PRN (09:50)
[2022-12-02] MEDS ORDERED: MAG SULF 1GM/100ML (MAG RUN) 1 GM in IV 1 EA IV ONE (10:00)
[2022-12-02 11:47] VITALS: BP 144/77
[2022-12-02] MEDS ORDERED: CEFD300CAP PO (12:12)
[2022-12-02] MEDS ORDERED: METR-265 PO (12:12)
[2022-12-02] MEDS ORDERED: LISI40TA4 PO (12:18)
[2022-12-02] MEDS ORDERED: OXYC-673 PO (12:18)
[2022-12-02] MEDS ORDERED: HYDR50TA PO (12:18)
[2022-12-02] MEDS ORDERED: MM S100C PO (12:18)
[2022-12-02 12:46] VITALS: BP 144/77
[2022-12-02] MEDS: lisinopriL 40MG TAB PO SCH (12:46)
== END 2022-12-02 14:45 | disposition home or self-care (01) ==
LOC: M ED 13:41 → M ED INP 23:41 → INTOOBSV 23:41 → M MS5PR 11-30 01:25
PROVIDERS: ADMIT Family Medicine; ATTEND Family Medicine
DX: M25.511 Pain in right shoulder (principal); M79.621 Pain in right upper arm; S42.201D Unspecified fracture of upper end of right humerus, subsequent encounter for fracture with routine healing; M54.10 Radiculopathy, site unspecified; R20.0 Anesthesia of skin; W18.30XD Fall on same level, unspecified, subsequent encounter; N18.6 End stage renal disease; Z99.2 Dependence on renal dialysis; K52.9 Noninfective gastroenteritis and colitis, unspecified; K70.30 Alcoholic cirrhosis of liver without ascites; Z94.4 Liver transplant status; I87.2 Venous insufficiency (chronic) (peripheral); F32.A Depression, unspecified; F41.9 Anxiety disorder, unspecified; K21.9 Gastro-esophageal reflux disease without esophagitis; I12.0 Hypertensive chronic kidney disease with stage 5 chronic kidney disease or end stage renal disease; N28.89 Other specified disorders of kidney and ureter; D63.1 Anemia in chronic kidney disease; Z73.6 Limitation of activities due to disability; Z91.198 Patient's noncompliance with other medical treatment and regimen for other reason; Z79.899 Other long term (current) drug therapy; Z79.891 Long term (current) use of opiate analgesic
CPT/HCPCS: 36415; 73030; 74177; 80048; 80053; 80143; 80197; 80307; 82077; 83735; 84439; 84443; 85025; 85027; 87631; 93971; 96372; 96374; 96375; 97110; 97161; 97165; 97530; 99284; G0257; G0378; J0882; J2405; J7507; Q9967

== ENCOUNTER 2022-12-08 14:22 | Observation (INO) | payer MEDICARE ==
[~2022-12-08] VITALS: Ht 177.8 cm; Wt 73.6 kg
[~2022-12-08 14:22] MED LIST changes: +CEFD300CAP PO; +DOCU100C16 PO; +LISI40TA4 PO; +METH85CR12 TOP; +METR-265 PO; +MM S100C PO; +OMEP40CA5 PO; +OXYC-673 PO
[2022-12-08 15:51] LABS: VENOUS BASE EXCESS 0.5 (-2.0-2.0); VENOUS HCO3 24.1 MEQ/L (23.0-27.0); VENOUS O2 SATURATION 93.4 % (60.0-80.0); VENOUS PARTIAL PRESSURE CO2 35.1 mmHg (38.0-50.0); VENOUS PARTIAL PRESSURE O2 65.5 mmHg (30.0-50.0); VENOUS PH 7.454 UNITS (7.330-7.430); VENOUS STANDARD HCO3 24.8 MEQ/L; VENOUS TOTAL CO2 25.1 MEQ/L (24.0-28.0)
[2022-12-08 15:52] LABS: BASO % 0.6 % (0.0-1.0); EOS # 0.1 10^3/uL (0.0-0.5); EOS % 2.4 % (0.0-3.0); HEMATOCRIT 29.3 % (42.0-52.0); HEMOGLOBIN 9.6 g/dl (13.5-17.5); LYMPH # 1.2 10^3/uL (1.5-5.0); LYMPH % 23.3 % (24.0-44.0); MEAN CORPUSCULAR HEMOGLOBIN 28.9 pg (27.0-33.0); MEAN CORPUSCULAR HGB CONC 32.8 g/dl (32.0-36.5); MEAN CORPUSCULAR VOLUME 88.3 fl (80.0-96.0); MONO # 0.7 10^3/uL (0.0-0.8); MONO % 14.2 % (2.0-8.0); NEUTROPHILS % 59.3 % (36.0-66.0); PLATELET COUNT, AUTOMATED 297 10^3/uL (150-450); RED BLOOD COUNT 3.32 10^6/uL (4.30-6.10); WHITE BLOOD COUNT 5.1 10^3/uL (4.0-10.0)
[2022-12-08 16:19] LABS: ETHYL ALCOHOL (ETHANOL) 0.004 % (0.000-0.010)
[2022-12-08 16:23] LABS: RSV AMPLIFICATION NEGATIVE (NEGATIVE)
[2022-12-08] MEDS ORDERED: LORazepam 2 MG/ML 1ML VIAL IV STA (17:07)
[2022-12-08] MEDS ORDERED: HALOPERIDOL 5MG/ML 1ML VIAL IV ONE (17:10)
[2022-12-08 17:31] LABS: ACETAMINOPHEN LEVEL < 2.0 UG/ML (10.0-20.0)
[2022-12-08 17:32] LABS: ALBUMIN 2.3 G/DL (3.2-5.2); ALKALINE PHOSPHATASE 124 U/L (46-116); ALT/SGPT 11 U/L (7.0-40); AST/SGOT 17 U/L (<34); BILIRUBIN,DIRECT 0.1 MG/DL (<0.4); BILIRUBIN,TOTAL 0.2 MG/DL (0.3-1.2); BLOOD UREA NITROGEN 19 MG/DL (9-23); CARBON DIOXIDE LEVEL 26 MMOL/L (20-31); CHLORIDE LEVEL 104 MMOL/L (98-107); CREATININE FOR GFR 3.25 MG/DL (0.70-1.30); GLOMERULAR FILTRATION RATE 20.6 (>49); GLUCOSE, FASTING 89 MG/DL (74-106); POTASSIUM SERUM 4.2 MMOL/L (3.5-5.1); SALICYLATE LEVEL < 3.0 MG/DL (<30); SODIUM LEVEL 137 MMOL/L (136-145); TOTAL PROTEIN 5.2 G/DL (5.7-8.2)
[2022-12-08 17:34] LABS: THYROID STIMULATING HORMONE 4.456 uIU/ML (0.55-4.78)
[2022-12-08] MEDS ORDERED: HYDR50TA PO (17:48)
[2022-12-08] MEDS ORDERED: MED REC COMMENT (17:49)
[2022-12-08] MEDS ORDERED: HOME MED LIST COMPLETE! XX SCH (17:55)
[2022-12-08] MEDS ORDERED: MORPHINE 2 MG/ML 1ML VIAL IV ONE (19:30)
[2022-12-08] MEDS: ACETAMINOPHEN TAB 650MG DOSE (2X325MG) PO PRN (19:46)
[2022-12-08] MEDS ORDERED: LORazepam 2 MG/ML 1ML VIAL IV ONE (20:15)
[2022-12-08] MEDS ORDERED: ALPRAZolam 0.5 MG TAB PO PRN (20:15)
[2022-12-08 21:13] LABS: AMPHETAMINES LEVEL URINE NEGATIVE (NEGATIVE); BARBITURATES URINE NEGATIVE (NEGATIVE); COCAINE METABOLITE URINE NEGATIVE (NEGATIVE); METHADONE URINE NEGATIVE (NEGATIVE); OPIATES URINE NEGATIVE (NEGATIVE); PHENCYCLIDINE URINE NEGATIVE (NEGATIVE)
[2022-12-08 21:15] LABS: BENZODIAZEPINES URINE POSITIVE (NEGATIVE); CANNABINOIDS URINE POSITIVE (NEGATIVE)
[2022-12-08] MEDS: **hydrALAZINE HCL** 25 MG TAB PO SCH (22:05)
[2022-12-08 22:40] VITALS: BP 208/82
[2022-12-09] VITALS (7 sets, daily range): BP systolic 124–200; BP diastolic 68–90
[2022-12-09] MEDS: oxyCODONE 5MG TAB PO PRN ×4 (00:14→21:25)
[2022-12-09] MEDS: METOCLOPRAMIDE 5 MG TAB PO SCH ×3 (00:15→21:25)
[2022-12-09] MEDS: tiZANidine 4 MG TAB PO PRN ×2 (02:46→23:52)
[2022-12-09 06:24] LABS: HEMATOCRIT 23.3 % (42.0-52.0); MEAN CORPUSCULAR HEMOGLOBIN 28.6 pg (27.0-33.0); MEAN CORPUSCULAR HGB CONC 31.8 g/dl (32.0-36.5); PLATELET COUNT, AUTOMATED 226 10^3/uL (150-450); RED BLOOD COUNT 2.59 10^6/uL (4.30-6.10); WHITE BLOOD COUNT 3.6 10^3/uL (4.0-10.0)
[2022-12-09 06:37] LABS: HEMOGLOBIN 7.4 g/dl (13.5-17.5)
[2022-12-09 06:56] LABS: ALBUMIN 1.7 G/DL (3.2-5.2); ALKALINE PHOSPHATASE 89 U/L (46-116); ALT/SGPT < 9 U/L (7.0-40); AST/SGOT 15 U/L (<34); BILIRUBIN,TOTAL < 0.2 MG/DL (0.3-1.2); BLOOD UREA NITROGEN 21 MG/DL (9-23); CALCIUM LEVEL 6.9 MG/DL (8.3-10.6); CARBON DIOXIDE LEVEL 27 MMOL/L (20-31); CHLORIDE LEVEL 106 MMOL/L (98-107); CREATININE FOR GFR 3.61 MG/DL (0.70-1.30); GLOMERULAR FILTRATION RATE 18.3 (>49); GLUCOSE, FASTING 79 MG/DL (74-106); MAGNESIUM LEVEL 1.8 MG/DL (1.8-2.4); POTASSIUM SERUM 4.4 MMOL/L (3.5-5.1); SODIUM LEVEL 138 MMOL/L (136-145)
[2022-12-09] MEDS ORDERED: SODIUM CHLORIDE 0.9% 1000ML IV PRN (08:50)
[2022-12-09] MEDS ORDERED: HEPARIN 1,000UNITS/ML 10ML VIAL (FOR RADIOLOGY & DIALYSIS ONLY) IV PRN (08:50)
[2022-12-09] MEDS ORDERED: LIDOCAINE 1% SDV 5ML VIAL SC PRN (08:50)
[2022-12-09] MEDS ORDERED: HEPARIN 1,000UNITS/ML 10ML VIAL (FOR RADIOLOGY & DIALYSIS ONLY) XX SCH (08:50)
[2022-12-09] MEDS: **hydrALAZINE HCL** 25 MG TAB PO SCH ×4 (09:00→21:24)
[2022-12-09] MEDS: TACROLIMUS 1MG CAP PO SCH (09:31)
[2022-12-09] MEDS: DOCUSATE SODIUM 100MG CAPSULE PO SCH (09:31)
[2022-12-09] MEDS: FLUoxetine 20MG CAP PO SCH (09:31)
[2022-12-09] MEDS: HEPARIN SOD (PORCINE) 5000UNITS/ML 1ML VIAL/SYRINGE SQ SCH ×2 (15:22→21:23)
[2022-12-09] MEDS ORDERED: hydrALAZINE 20MG/ML 1ML VIAL IV ONE (23:05)
[2022-12-10] VITALS (11 sets, daily range): BP systolic 101–174; BP diastolic 56–84
[2022-12-10] MEDS ORDERED: LORazepam 2 MG TAB PO PRN (00:25)
[2022-12-10] MEDS: ANALGESIC BALM CRM 3OZ TOP PRN (00:50)
[2022-12-10] MEDS: ACETAMINOPHEN TAB 650MG DOSE (2X325MG) PO PRN ×3 (00:57→17:27)
[2022-12-10] MEDS ORDERED: hydrALAZINE 20MG/ML 1ML VIAL IV ONE (04:35)
[2022-12-10] MEDS: HEPARIN SOD (PORCINE) 5000UNITS/ML 1ML VIAL/SYRINGE SQ SCH ×3 (05:39→21:18)
[2022-12-10] MEDS: oxyCODONE 5MG TAB PO PRN ×2 (05:39→13:28)
[2022-12-10 06:09] LABS: BASO # 0.1 10^3/uL (0.0-0.2); BASO % 1.1 % (0.0-1.0); EOS # 0.1 10^3/uL (0.0-0.5); EOS % 2.5 % (0.0-3.0); HEMATOCRIT 25.4 % (42.0-52.0); HEMOGLOBIN 8.2 g/dl (13.5-17.5); LYMPH # 1.4 10^3/uL (1.5-5.0); LYMPH % 31.8 % (24.0-44.0); MEAN CORPUSCULAR HEMOGLOBIN 28.4 pg (27.0-33.0); MEAN CORPUSCULAR HGB CONC 32.3 g/dl (32.0-36.5); MEAN CORPUSCULAR VOLUME 87.9 fl (80.0-96.0); MONO # 0.6 10^3/uL (0.0-0.8); MONO % 14.3 % (2.0-8.0); NEUTROPHILS # 2.2 10^3/uL (1.5-8.5); NEUTROPHILS % 50.1 % (36.0-66.0); PLATELET COUNT, AUTOMATED 231 10^3/uL (150-450); RED BLOOD COUNT 2.89 10^6/uL (4.30-6.10); WHITE BLOOD COUNT 4.5 10^3/uL (4.0-10.0)
[2022-12-10 06:42] LABS: CALCIUM LEVEL 7.2 MG/DL (8.3-10.6); CREATININE FOR GFR 2.37 MG/DL (0.70-1.30); GLOMERULAR FILTRATION RATE 29.7 (>49); PHOSPHORUS LEVEL 3.4 MG/DL (2.4-5.1); POTASSIUM SERUM 3.8 MMOL/L (3.5-5.1)
[2022-12-10] MEDS: FLUoxetine 20MG CAP PO SCH (08:52)
[2022-12-10] MEDS: FOLIC ACID 1MG TAB PO SCH (08:52)
[2022-12-10] MEDS: THIAMINE 100 MG TAB PO SCH ×2 (08:52→21:17)
[2022-12-10] MEDS: METOCLOPRAMIDE 5 MG TAB PO SCH ×2 (08:53→21:17)
[2022-12-10] MEDS: MULTIVITAMINS/MINERALS THERAP 1 TAB PO SCH (08:53)
[2022-12-10] MEDS: tiZANidine 4 MG TAB PO PRN ×2 (08:53→17:27)
[2022-12-10] MEDS: TACROLIMUS 1MG CAP PO SCH (08:54)
[2022-12-10] MEDS: **hydrALAZINE HCL** 25 MG TAB PO SCH (08:54)
[2022-12-10] MEDS: DOCUSATE SODIUM 100MG CAPSULE PO SCH (08:54)
[2022-12-10] MEDS: LIDOCAINE 5% (LIDODERM) PATCH TD SCH (10:20)
[2022-12-10] MEDS: DICLOFENAC EPOLAMINE 1.3% PATCH TOP SCH ×2 (10:21→21:00)
[2022-12-10] MEDS: **hydrALAZINE** 50 MG TAB PO SCH ×2 (16:32→21:00)
[2022-12-11] VITALS (9 sets, daily range): BP systolic 100–180; BP diastolic 58–76
[2022-12-11] MEDS: oxyCODONE 5MG TAB PO PRN ×4 (02:13→21:44)
[2022-12-11] MEDS: HEPARIN SOD (PORCINE) 5000UNITS/ML 1ML VIAL/SYRINGE SQ SCH ×3 (05:12→20:02)
[2022-12-11] MEDS: ANALGESIC BALM CRM 3OZ TOP PRN ×2 (05:12→12:54)
[2022-12-11] MEDS: **hydrALAZINE** 50 MG TAB PO SCH ×3 (05:13→19:58)
[2022-12-11 06:01] LABS: BASO % 0.7 % (0.0-1.0); EOS # 0.1 10^3/uL (0.0-0.5); EOS % 2.7 % (0.0-3.0); HEMATOCRIT 26.9 % (42.0-52.0); HEMOGLOBIN 8.9 g/dl (13.5-17.5); LYMPH # 1.6 10^3/uL (1.5-5.0); LYMPH % 39.7 % (24.0-44.0); MEAN CORPUSCULAR HEMOGLOBIN 29.4 pg (27.0-33.0); MEAN CORPUSCULAR HGB CONC 33.1 g/dl (32.0-36.5); MEAN CORPUSCULAR VOLUME 88.8 fl (80.0-96.0); MONO # 0.7 10^3/uL (0.0-0.8); MONO % 16.7 % (2.0-8.0); NEUTROPHILS # 1.6 10^3/uL (1.5-8.5); PLATELET COUNT, AUTOMATED 230 10^3/uL (150-450); RED BLOOD COUNT 3.03 10^6/uL (4.30-6.10); WHITE BLOOD COUNT 4.1 10^3/uL (4.0-10.0)
[2022-12-11] MEDS: ACETAMINOPHEN TAB 650MG DOSE (2X325MG) PO PRN ×2 (06:08→12:54)
[2022-12-11] MEDS: tiZANidine 4 MG TAB PO PRN ×3 (06:08→23:33)
[2022-12-11 06:33] LABS: ALBUMIN 2.4 G/DL (3.2-5.2); CALCIUM LEVEL 7.6 MG/DL (8.3-10.6); CREATININE FOR GFR 3.32 MG/DL (0.70-1.30); GLOMERULAR FILTRATION RATE 20.1 (>49); PHOSPHORUS LEVEL 4.2 MG/DL (2.4-5.1); POTASSIUM SERUM 3.8 MMOL/L (3.5-5.1)
[2022-12-11] MEDS: THIAMINE 100 MG TAB PO SCH ×2 (09:35→19:57)
[2022-12-11] MEDS: FLUoxetine 20MG CAP PO SCH (09:35)
[2022-12-11] MEDS: DICLOFENAC EPOLAMINE 1.3% PATCH TOP SCH ×2 (09:35→19:56)
[2022-12-11] MEDS: LIDOCAINE 5% (LIDODERM) PATCH TD SCH (09:35)
[2022-12-11] MEDS: MULTIVITAMINS/MINERALS THERAP 1 TAB PO SCH (09:35)
[2022-12-11] MEDS: METOCLOPRAMIDE 5 MG TAB PO SCH ×2 (09:36→19:57)
[2022-12-11] MEDS: FOLIC ACID 1MG TAB PO SCH (09:37)
[2022-12-11] MEDS: TACROLIMUS 1MG CAP PO SCH (09:37)
[2022-12-11] MEDS: DOCUSATE SODIUM 100MG CAPSULE PO SCH (09:37)
[2022-12-12] MEDS ORDERED: CALCIUM CARBONATE 500 MG CHEW U/D PO ONE ×2 (02:40→23:30)
[2022-12-12] MEDS: oxyCODONE 5MG TAB PO PRN ×3 (05:00→20:17)
[2022-12-12] MEDS: HEPARIN SOD (PORCINE) 5000UNITS/ML 1ML VIAL/SYRINGE SQ SCH ×3 (05:01→22:47)
[2022-12-12] MEDS: MULTIVITAMINS/MINERALS THERAP 1 TAB PO SCH (05:39)
[2022-12-12] MEDS: THIAMINE 100 MG TAB PO SCH ×2 (05:39→21:00)
[2022-12-12] MEDS: FOLIC ACID 1MG TAB PO SCH (05:39)
[2022-12-12] MEDS: FLUoxetine 20MG CAP PO SCH (05:39)
[2022-12-12] MEDS: METOCLOPRAMIDE 5 MG TAB PO SCH ×2 (05:39→20:19)
[2022-12-12] MEDS: DOCUSATE SODIUM 100MG CAPSULE PO SCH (05:39)
[2022-12-12] MEDS: TACROLIMUS 1MG CAP PO SCH (05:40)
[2022-12-12] MEDS: **hydrALAZINE** 50 MG TAB PO SCH ×3 (05:40→20:08)
[2022-12-12 05:55] VITALS: BP 124/84
[2022-12-12] MEDS ORDERED: SODIUM CHLORIDE 0.9% 1000ML IV PRN (06:00)
[2022-12-12] MEDS ORDERED: LIDOCAINE 1% SDV 5ML VIAL SC PRN (06:00)
[2022-12-12] MEDS ORDERED: HEPARIN 1,000UNITS/ML 10ML VIAL (FOR RADIOLOGY & DIALYSIS ONLY) IV PRN (06:00)
[2022-12-12 06:49] LABS: BASO % 0.6 % (0.0-1.0); EOS # 0.2 10^3/uL (0.0-0.5); EOS % 4.1 % (0.0-3.0); HEMATOCRIT 28.5 % (42.0-52.0); HEMOGLOBIN 9.2 g/dl (13.5-17.5); LYMPH # 1.4 10^3/uL (1.5-5.0); LYMPH % 30.7 % (24.0-44.0); MEAN CORPUSCULAR HEMOGLOBIN 28.8 pg (27.0-33.0); MEAN CORPUSCULAR HGB CONC 32.3 g/dl (32.0-36.5); MEAN CORPUSCULAR VOLUME 89.1 fl (80.0-96.0); MONO # 0.6 10^3/uL (0.0-0.8); MONO % 13.3 % (2.0-8.0); NEUTROPHILS # 2.4 10^3/uL (1.5-8.5); NEUTROPHILS % 51.1 % (36.0-66.0); PLATELET COUNT, AUTOMATED 224 10^3/uL (150-450); WHITE BLOOD COUNT 4.7 10^3/uL (4.0-10.0)
[2022-12-12 07:11] LABS: ALBUMIN 2.4 G/DL (3.2-5.2); CREATININE FOR GFR 3.77 MG/DL (0.70-1.30); GLOMERULAR FILTRATION RATE 17.4 (>49); PHOSPHORUS LEVEL 4.7 MG/DL (2.4-5.1); POTASSIUM SERUM 4.2 MMOL/L (3.5-5.1)
[2022-12-12] MEDS: tiZANidine 4 MG TAB PO PRN ×2 (08:05→17:06)
[2022-12-12] MEDS: LIDOCAINE 5% (LIDODERM) PATCH TD SCH (08:05)
[2022-12-12] MEDS: DICLOFENAC EPOLAMINE 1.3% PATCH TOP SCH ×2 (08:06→22:54)
[2022-12-12] MEDS ORDERED: DARBEPOETIN 300MCG/0.6ML *DIALYSIS* SYRINGE IV SCH ×2 (09:00→11:25)
[2022-12-12] MEDS: ACETAMINOPHEN TAB 650MG DOSE (2X325MG) PO PRN (12:18)
[2022-12-12] MEDS: ANALGESIC BALM CRM 3OZ TOP PRN (12:19)
[2022-12-12] MEDS ORDERED: oxyCODONE 5MG TAB PO PRN ×3 (14:45→20:15)
[2022-12-12] MEDS ORDERED: oxyCODONE 5MG TAB PO STA (14:57)
[2022-12-12] MEDS: RAMELTEON 8 MG TAB (ROZEREM) PO SCH (20:18)
[2022-12-13] MEDS: oxyCODONE 5MG TAB PO PRN ×5 (00:25→16:48)
[2022-12-13] MEDS: **hydrALAZINE** 50 MG TAB PO SCH ×3 (05:19→20:51)
[2022-12-13] MEDS: HEPARIN SOD (PORCINE) 5000UNITS/ML 1ML VIAL/SYRINGE SQ SCH ×2 (05:19→15:22)
[2022-12-13 06:00] VITALS: BP 175/84
[2022-12-13 08:04] LABS: BASO % 0.7 % (0.0-1.0); EOS # 0.2 10^3/uL (0.0-0.5); EOS % 3.4 % (0.0-3.0); HEMATOCRIT 31.1 % (42.0-52.0); HEMOGLOBIN 10.3 g/dl (13.5-17.5); LYMPH # 1.8 10^3/uL (1.5-5.0); LYMPH % 30.2 % (24.0-44.0); MEAN CORPUSCULAR HEMOGLOBIN 29.3 pg (27.0-33.0); MEAN CORPUSCULAR HGB CONC 33.1 g/dl (32.0-36.5); MEAN CORPUSCULAR VOLUME 88.6 fl (80.0-96.0); MONO # 0.8 10^3/uL (0.0-0.8); MONO % 12.9 % (2.0-8.0); NEUTROPHILS # 3.1 10^3/uL (1.5-8.5); NEUTROPHILS % 52.6 % (36.0-66.0); PLATELET COUNT, AUTOMATED 225 10^3/uL (150-450); RED BLOOD COUNT 3.51 10^6/uL (4.30-6.10)
[2022-12-13] MEDS: TACROLIMUS 1MG CAP PO SCH (08:05)
[2022-12-13] MEDS: FLUoxetine 20MG CAP PO SCH (08:05)
[2022-12-13] MEDS: MULTIVITAMINS/MINERALS THERAP 1 TAB PO SCH (08:05)
[2022-12-13] MEDS: DICLOFENAC EPOLAMINE 1.3% PATCH TOP SCH ×2 (08:06→23:05)
[2022-12-13] MEDS: DOCUSATE SODIUM 100MG CAPSULE PO SCH (08:06)
[2022-12-13] MEDS: METOCLOPRAMIDE 5 MG TAB PO SCH ×2 (08:06→20:50)
[2022-12-13] MEDS: LIDOCAINE 5% (LIDODERM) PATCH TD SCH (08:06)
[2022-12-13] MEDS: FOLIC ACID 1MG TAB PO SCH (08:06)
[2022-12-13 08:45] LABS: ALBUMIN 2.7 G/DL (3.2-5.2); CALCIUM LEVEL 7.8 MG/DL (8.3-10.6); CREATININE FOR GFR 4.17 MG/DL (0.70-1.30); GLOMERULAR FILTRATION RATE 15.5 (>49); POTASSIUM SERUM 4.4 MMOL/L (3.5-5.1)
[2022-12-13] MEDS: ANALGESIC BALM CRM 3OZ TOP PRN (12:02)
[2022-12-13] MEDS: tiZANidine 4 MG TAB PO PRN ×2 (12:02→20:55)
[2022-12-13] MEDS: ACETAMINOPHEN TAB 650MG DOSE (2X325MG) PO PRN (15:42)
[2022-12-13] MEDS: CALCIUM CARBONATE 500 MG CHEW U/D PO PRN (20:15)
[2022-12-13] MEDS: GABAPENTIN 100 MG CAP PO SCH (20:50)
[2022-12-13] MEDS: RAMELTEON 8 MG TAB (ROZEREM) PO SCH (20:51)
[2022-12-13] MEDS: oxyCODONE 15MG CR TAB PO SCH (20:52)
[2022-12-14] MEDS: oxyCODONE 5MG TAB PO PRN ×4 (02:34→19:02)
[2022-12-14 05:30] VITALS: BP 153/74
[2022-12-14] MEDS ORDERED: LIDOCAINE 1% SDV 5ML VIAL SC PRN (06:00)
[2022-12-14] MEDS ORDERED: SODIUM CHLORIDE 0.9% 1000ML IV PRN (06:00)
[2022-12-14] MEDS: DOCUSATE SODIUM 100MG CAPSULE PO SCH (06:29)
[2022-12-14] MEDS: TACROLIMUS 1MG CAP PO SCH (06:31)
[2022-12-14] MEDS: FLUoxetine 20MG CAP PO SCH (06:31)
[2022-12-14] MEDS: MULTIVITAMINS/MINERALS THERAP 1 TAB PO SCH (06:33)
[2022-12-14] MEDS: METOCLOPRAMIDE 5 MG TAB PO SCH ×2 (06:33→22:03)
[2022-12-14] MEDS: oxyCODONE 15MG CR TAB PO SCH ×2 (06:34→22:04)
[2022-12-14] MEDS: DICLOFENAC EPOLAMINE 1.3% PATCH TOP SCH ×2 (06:34→22:05)
[2022-12-14] MEDS: LIDOCAINE 5% (LIDODERM) PATCH TD SCH (06:35)
[2022-12-14] MEDS: FOLIC ACID 1MG TAB PO SCH (06:43)
[2022-12-14] MEDS: **hydrALAZINE** 50 MG TAB PO SCH ×3 (06:43→22:04)
[2022-12-14] MEDS: tiZANidine 4 MG TAB PO PRN ×2 (07:48→16:25)
[2022-12-14] MEDS: HEPARIN SOD (PORCINE) 5000UNITS/ML 1ML VIAL/SYRINGE SQ SCH ×2 (07:48→22:05)
[2022-12-14] MEDS: DARBEPOETIN 200MCG/0.4ML *DIALYSIS* SYRINGE IV SCH (11:10)
[2022-12-14] MEDS: RAMELTEON 8 MG TAB (ROZEREM) PO SCH (22:02)
[2022-12-14] MEDS: GABAPENTIN 100 MG CAP PO SCH (22:02)
[2022-12-15] MEDS: oxyCODONE 5MG TAB PO PRN ×4 (01:01→23:45)
[2022-12-15 06:00] VITALS: BP 154/72
[2022-12-15 06:07] LABS: BASO % 0.9 % (0.0-1.0); EOS # 0.1 10^3/uL (0.0-0.5); HEMATOCRIT 28.8 % (42.0-52.0); HEMOGLOBIN 9.3 g/dl (13.5-17.5); LYMPH # 1.2 10^3/uL (1.5-5.0); LYMPH % 35.4 % (24.0-44.0); MEAN CORPUSCULAR HEMOGLOBIN 28.7 pg (27.0-33.0); MEAN CORPUSCULAR HGB CONC 32.3 g/dl (32.0-36.5); MEAN CORPUSCULAR VOLUME 88.9 fl (80.0-96.0); MONO # 0.6 10^3/uL (0.0-0.8); MONO % 17.9 % (2.0-8.0); NEUTROPHILS # 1.4 10^3/uL (1.5-8.5); NEUTROPHILS % 41.5 % (36.0-66.0); PLATELET COUNT, AUTOMATED 148 10^3/uL (150-450); RED BLOOD COUNT 3.24 10^6/uL (4.30-6.10); WHITE BLOOD COUNT 3.5 10^3/uL (4.0-10.0)
[2022-12-15 06:33] LABS: ALBUMIN 2.2 G/DL (3.2-5.2); CALCIUM LEVEL 7.3 MG/DL (8.3-10.6); CREATININE FOR GFR 2.7 MG/DL (0.70-1.30); GLOMERULAR FILTRATION RATE 25.5 (>49); PHOSPHORUS LEVEL 4.1 MG/DL (2.4-5.1); POTASSIUM SERUM 3.7 MMOL/L (3.5-5.1)
[2022-12-15] MEDS: DOCUSATE SODIUM 100MG CAPSULE PO SCH (09:21)
[2022-12-15] MEDS: oxyCODONE 20MG CR TAB PO SCH ×2 (09:24→21:07)
[2022-12-15] MEDS: **hydrALAZINE** 50 MG TAB PO SCH ×3 (09:24→21:06)
[2022-12-15] MEDS: FOLIC ACID 1MG TAB PO SCH (09:24)
[2022-12-15] MEDS: TACROLIMUS 1MG CAP PO SCH (09:25)
[2022-12-15] MEDS: MULTIVITAMINS/MINERALS THERAP 1 TAB PO SCH (09:25)
[2022-12-15] MEDS: FLUoxetine 20MG CAP PO SCH (09:25)
[2022-12-15] MEDS: METOCLOPRAMIDE 5 MG TAB PO SCH ×2 (09:25→21:07)
[2022-12-15] MEDS: HEPARIN SOD (PORCINE) 5000UNITS/ML 1ML VIAL/SYRINGE SQ SCH ×2 (09:26→21:08)
[2022-12-15] MEDS: LIDOCAINE 5% (LIDODERM) PATCH TD SCH (09:28)
[2022-12-15] MEDS: DICLOFENAC EPOLAMINE 1.3% PATCH TOP SCH ×2 (09:29→21:08)
[2022-12-15] MEDS ORDERED: oxyCODONE 5MG TAB PO PRN (12:00)
[2022-12-15] MEDS: CALCIUM CARBONATE 500 MG CHEW U/D PO PRN ×2 (15:00→21:18)
[2022-12-15] MEDS: GABAPENTIN 100 MG CAP PO SCH (21:05)
[2022-12-15] MEDS: RAMELTEON 8 MG TAB (ROZEREM) PO SCH (21:05)
[2022-12-16] MEDS ORDERED: LIDOCAINE 1% SDV 5ML VIAL SC PRN (06:00)
[2022-12-16] MEDS ORDERED: SODIUM CHLORIDE 0.9% 1000ML IV PRN (06:00)
[2022-12-16 06:13] VITALS: BP 159/81
[2022-12-16] MEDS: METOCLOPRAMIDE 5 MG TAB PO SCH ×2 (07:08→21:07)
[2022-12-16] MEDS: MULTIVITAMINS/MINERALS THERAP 1 TAB PO SCH (07:09)
[2022-12-16] MEDS: FLUoxetine 20MG CAP PO SCH (07:09)
[2022-12-16] MEDS: FOLIC ACID 1MG TAB PO SCH (07:09)
[2022-12-16] MEDS: **hydrALAZINE** 50 MG TAB PO SCH ×3 (07:09→21:06)
[2022-12-16] MEDS: DOCUSATE SODIUM 100MG CAPSULE PO SCH (07:09)
[2022-12-16] MEDS: TACROLIMUS 1MG CAP PO SCH (07:10)
[2022-12-16] MEDS: oxyCODONE 20MG CR TAB PO SCH ×2 (07:11→21:10)
[2022-12-16] MEDS: DICLOFENAC EPOLAMINE 1.3% PATCH TOP SCH ×2 (07:11→21:09)
[2022-12-16] MEDS: LIDOCAINE 5% (LIDODERM) PATCH TD SCH (07:11)
[2022-12-16] MEDS: HEPARIN SOD (PORCINE) 5000UNITS/ML 1ML VIAL/SYRINGE SQ SCH ×2 (07:35→21:07)
[2022-12-16] MEDS: oxyCODONE 5MG TAB PO PRN ×3 (07:49→18:44)
[2022-12-16] MEDS: CALCIUM CARBONATE 500 MG CHEW U/D PO PRN (13:29)
[2022-12-16] MEDS ORDERED: ONDANSETRON 4MG ORAL DISINTEGRATING TAB SL PRN (15:55)
[2022-12-16] MEDS: tiZANidine 4 MG TAB PO PRN (16:42)
[2022-12-16] MEDS: GABAPENTIN 100 MG CAP PO SCH (21:06)
[2022-12-16] MEDS: RAMELTEON 8 MG TAB (ROZEREM) PO SCH (21:07)
[2022-12-17 02:58] VITALS: BP 146/68
[2022-12-17] MEDS: oxyCODONE 5MG TAB PO PRN ×2 (03:05→14:31)
[2022-12-17 06:00] VITALS: BP 147/68
[2022-12-17] MEDS: HEPARIN SOD (PORCINE) 5000UNITS/ML 1ML VIAL/SYRINGE SQ SCH ×2 (08:40→20:38)
[2022-12-17] MEDS: **hydrALAZINE** 50 MG TAB PO SCH ×3 (08:40→20:38)
[2022-12-17] MEDS: TACROLIMUS 1MG CAP PO SCH (08:41)
[2022-12-17] MEDS: oxyCODONE 20MG CR TAB PO SCH ×2 (08:41→20:40)
[2022-12-17] MEDS: FLUoxetine 20MG CAP PO SCH (08:41)
[2022-12-17] MEDS: METOCLOPRAMIDE 5 MG TAB PO SCH ×2 (08:41→20:38)
[2022-12-17] MEDS: DICLOFENAC EPOLAMINE 1.3% PATCH TOP SCH ×2 (08:42→20:39)
[2022-12-17] MEDS: MULTIVITAMINS/MINERALS THERAP 1 TAB PO SCH (08:42)
[2022-12-17] MEDS: FOLIC ACID 1MG TAB PO SCH (08:42)
[2022-12-17] MEDS: DOCUSATE SODIUM 100MG CAPSULE PO SCH (08:42)
[2022-12-17] MEDS: LIDOCAINE 5% (LIDODERM) PATCH TD SCH (08:44)
[2022-12-17] MEDS: CALCIUM CARBONATE 500 MG CHEW U/D PO PRN ×2 (14:30→20:38)
[2022-12-17] MEDS: GABAPENTIN 100 MG CAP PO SCH (20:38)
[2022-12-17] MEDS: RAMELTEON 8 MG TAB (ROZEREM) PO SCH (20:38)
[2022-12-17] MEDS: tiZANidine 4 MG TAB PO PRN (20:38)
[2022-12-17 22:06] VITALS: BP 92/46
[2022-12-18] MEDS: oxyCODONE 5MG TAB PO PRN ×2 (02:00→15:37)
[2022-12-18 06:00] VITALS: BP 137/74
[2022-12-18] MEDS: HEPARIN SOD (PORCINE) 5000UNITS/ML 1ML VIAL/SYRINGE SQ SCH ×2 (09:30→21:40)
[2022-12-18] MEDS: oxyCODONE 20MG CR TAB PO SCH ×2 (09:31→21:40)
[2022-12-18] MEDS: TACROLIMUS 1MG CAP PO SCH (09:31)
[2022-12-18] MEDS: OMEPRAZOLE 20MG CAP PO SCH (09:31)
[2022-12-18] MEDS: FLUoxetine 20MG CAP PO SCH (09:32)
[2022-12-18] MEDS: METOCLOPRAMIDE 5 MG TAB PO SCH ×2 (09:32→21:37)
[2022-12-18] MEDS: MULTIVITAMINS/MINERALS THERAP 1 TAB PO SCH (09:32)
[2022-12-18] MEDS: FOLIC ACID 1MG TAB PO SCH (09:32)
[2022-12-18] MEDS: **hydrALAZINE** 50 MG TAB PO SCH ×3 (09:32→21:36)
[2022-12-18] MEDS: DOCUSATE SODIUM 100MG CAPSULE PO SCH (09:32)
[2022-12-18] MEDS: LIDOCAINE 5% (LIDODERM) PATCH TD SCH (09:33)
[2022-12-18] MEDS: DICLOFENAC EPOLAMINE 1.3% PATCH TOP SCH ×2 (09:33→21:40)
[2022-12-18] MEDS: tiZANidine 4 MG TAB PO PRN (15:37)
[2022-12-18] MEDS: GABAPENTIN 100 MG CAP PO SCH (21:36)
[2022-12-18] MEDS: RAMELTEON 8 MG TAB (ROZEREM) PO SCH (21:36)
[2022-12-19] MEDS: tiZANidine 4 MG TAB PO PRN ×2 (03:55→15:59)
[2022-12-19] MEDS ORDERED: PILL CUTTER 1 EACH XX PRN (04:40)
[2022-12-19] MEDS ORDERED: HEPARIN 1,000UNITS/ML 10ML VIAL (FOR RADIOLOGY & DIALYSIS ONLY) IV PRN (05:25)
[2022-12-19] MEDS ORDERED: HEPARIN 1,000UNITS/ML 10ML VIAL (FOR RADIOLOGY & DIALYSIS ONLY) XX SCH (05:25)
[2022-12-19] MEDS ORDERED: SODIUM CHLORIDE 0.9% 1000ML IV PRN (05:25)
[2022-12-19] MEDS ORDERED: LIDOCAINE 1% SDV 5ML VIAL SC PRN (05:25)
[2022-12-19 06:00] VITALS: BP 142/69
[2022-12-19] MEDS ORDERED: LORazepam 0.5 MG TAB PO ONE (06:00)
[2022-12-19 06:11] LABS: HEMATOCRIT 29.1 % (42.0-52.0); HEMOGLOBIN 9.1 g/dl (13.5-17.5); MEAN CORPUSCULAR HEMOGLOBIN 28.5 pg (27.0-33.0); MEAN CORPUSCULAR HGB CONC 31.3 g/dl (32.0-36.5); MEAN CORPUSCULAR VOLUME 91.2 fl (80.0-96.0); PLATELET COUNT, AUTOMATED 148 10^3/uL (150-450); RED BLOOD COUNT 3.19 10^6/uL (4.30-6.10); WHITE BLOOD COUNT 4.7 10^3/uL (4.0-10.0)
[2022-12-19 06:44] LABS: CREATININE FOR GFR 3.83 MG/DL (0.70-1.30); GLOMERULAR FILTRATION RATE 17.1 (>49); POTASSIUM SERUM 3.8 MMOL/L (3.5-5.1)
[2022-12-19] MEDS: HEPARIN SOD (PORCINE) 5000UNITS/ML 1ML VIAL/SYRINGE SQ SCH ×2 (06:49→21:27)
[2022-12-19] MEDS: **hydrALAZINE** 50 MG TAB PO SCH ×3 (06:49→21:26)
[2022-12-19] MEDS: TACROLIMUS 1MG CAP PO SCH (06:50)
[2022-12-19] MEDS: OMEPRAZOLE 20MG CAP PO SCH (06:50)
[2022-12-19] MEDS: METOCLOPRAMIDE 5 MG TAB PO SCH ×2 (06:51→21:26)
[2022-12-19] MEDS: DOCUSATE SODIUM 100MG CAPSULE PO SCH (06:52)
[2022-12-19] MEDS: FOLIC ACID 1MG TAB PO SCH (06:52)
[2022-12-19] MEDS: MULTIVITAMINS/MINERALS THERAP 1 TAB PO SCH (06:52)
[2022-12-19] MEDS: FLUoxetine 20MG CAP PO SCH (06:52)
[2022-12-19] MEDS: LIDOCAINE 5% (LIDODERM) PATCH TD SCH (06:53)
[2022-12-19] MEDS: DICLOFENAC EPOLAMINE 1.3% PATCH TOP SCH ×2 (06:53→21:27)
[2022-12-19] MEDS: oxyCODONE 20MG CR TAB PO SCH ×2 (08:03→21:27)
[2022-12-19] MEDS: oxyCODONE 5MG TAB PO PRN (12:37)
[2022-12-19] MEDS: GABAPENTIN 100 MG CAP PO SCH (21:24)
[2022-12-19] MEDS: RAMELTEON 8 MG TAB (ROZEREM) PO SCH (21:24)
[2022-12-19] MEDS: SENNA 8.6 MG TAB (SENOKOT) PO SCH (21:25)
[2022-12-20] MEDS: oxyCODONE 5MG TAB PO PRN ×4 (01:42→20:58)
[2022-12-20] MEDS ORDERED: MORPHINE 2 MG/ML 1ML VIAL IV PRN (04:25)
[2022-12-20] MEDS ORDERED: oxyCODONE 5MG TAB PO ONE (04:45)
[2022-12-20 05:21] VITALS: BP 166/78
[2022-12-20] MEDS: MULTIVITAMINS/MINERALS THERAP 1 TAB PO SCH (08:08)
[2022-12-20] MEDS: METOCLOPRAMIDE 5 MG TAB PO SCH ×2 (08:08→20:59)
[2022-12-20] MEDS: TACROLIMUS 1MG CAP PO SCH (08:09)
[2022-12-20] MEDS: OMEPRAZOLE 20MG CAP PO SCH (08:09)
[2022-12-20] MEDS: **hydrALAZINE** 50 MG TAB PO SCH ×3 (08:09→21:02)
[2022-12-20] MEDS: DOCUSATE SODIUM 100MG CAPSULE PO SCH (08:10)
[2022-12-20] MEDS: LIDOCAINE 5% (LIDODERM) PATCH TD SCH (08:10)
[2022-12-20] MEDS: DICLOFENAC EPOLAMINE 1.3% PATCH TOP SCH ×2 (08:10→20:53)
[2022-12-20] MEDS: FLUoxetine 20MG CAP PO SCH (08:10)
[2022-12-20] MEDS: oxyCODONE 20MG CR TAB PO SCH ×2 (08:10→20:58)
[2022-12-20] MEDS: FOLIC ACID 1MG TAB PO SCH (08:10)
[2022-12-20] MEDS: HEPARIN SOD (PORCINE) 5000UNITS/ML 1ML VIAL/SYRINGE SQ SCH ×2 (08:11→20:55)
[2022-12-20 09:34] LABS: BASO % 0.8 % (0.0-1.0); EOS # 0.2 10^3/uL (0.0-0.5); EOS % 6.2 % (0.0-3.0); HEMATOCRIT 33.6 % (42.0-52.0); HEMOGLOBIN 10.2 g/dl (13.5-17.5); LYMPH % 26.4 % (24.0-44.0); MEAN CORPUSCULAR HEMOGLOBIN 28.3 pg (27.0-33.0); MEAN CORPUSCULAR HGB CONC 30.4 g/dl (32.0-36.5); MEAN CORPUSCULAR VOLUME 93.1 fl (80.0-96.0); MONO # 0.5 10^3/uL (0.0-0.8); MONO % 13.7 % (2.0-8.0); NEUTROPHILS # 2.1 10^3/uL (1.5-8.5); NEUTROPHILS % 52.9 % (36.0-66.0); PLATELET COUNT, AUTOMATED 175 10^3/uL (150-450); RED BLOOD COUNT 3.61 10^6/uL (4.30-6.10); WHITE BLOOD COUNT 3.9 10^3/uL (4.0-10.0)
[2022-12-20 09:57] LABS: ALBUMIN 2.4 G/DL (3.2-5.2); ALKALINE PHOSPHATASE 119 U/L (46-116); ALT/SGPT 13 U/L (7.0-40); AST/SGOT 16 U/L (<34); BILIRUBIN,TOTAL < 0.2 MG/DL (0.3-1.2); BLOOD UREA NITROGEN 15 MG/DL (9-23); CALCIUM LEVEL 8.4 MG/DL (8.3-10.6); CARBON DIOXIDE LEVEL 27 MMOL/L (20-31); CHLORIDE LEVEL 105 MMOL/L (98-107); CREATININE FOR GFR 2.59 MG/DL (0.70-1.30); GLOMERULAR FILTRATION RATE 26.8 (>49); GLUCOSE, FASTING 131 MG/DL (74-106); POTASSIUM SERUM 4.4 MMOL/L (3.5-5.1); SODIUM LEVEL 137 MMOL/L (136-145); TOTAL PROTEIN 5.4 G/DL (5.7-8.2)
[2022-12-20 10:03] LABS: ERYTHROCYTE SEDIMENTATION RATE 13 mm/hr (0-20)
[2022-12-20] MEDS: tiZANidine 4 MG TAB PO PRN (10:59)
[2022-12-20] MEDS: RAMELTEON 8 MG TAB (ROZEREM) PO SCH (20:55)
[2022-12-20] MEDS: GABAPENTIN 100 MG CAP PO SCH (20:58)
[2022-12-20] MEDS: SENNA 8.6 MG TAB (SENOKOT) PO SCH (20:59)
[2022-12-21 06:00] VITALS: BP 140/60
[2022-12-21] MEDS: OMEPRAZOLE 20MG CAP PO SCH (06:27)
[2022-12-21] MEDS: CALCIUM CARBONATE 500 MG CHEW U/D PO PRN (06:27)
[2022-12-21] MEDS: HEPARIN SOD (PORCINE) 5000UNITS/ML 1ML VIAL/SYRINGE SQ SCH ×2 (06:27→20:06)
[2022-12-21] MEDS: TACROLIMUS 1MG CAP PO SCH (06:28)
[2022-12-21] MEDS: MULTIVITAMINS/MINERALS THERAP 1 TAB PO SCH (06:28)
[2022-12-21] MEDS: METOCLOPRAMIDE 5 MG TAB PO SCH ×2 (06:29→20:04)
[2022-12-21] MEDS: FLUoxetine 20MG CAP PO SCH (06:29)
[2022-12-21] MEDS: FOLIC ACID 1MG TAB PO SCH (06:30)
[2022-12-21] MEDS: DOCUSATE SODIUM 100MG CAPSULE PO SCH (06:30)
[2022-12-21] MEDS: **hydrALAZINE** 50 MG TAB PO SCH ×3 (06:31→20:05)
[2022-12-21] MEDS: DICLOFENAC EPOLAMINE 1.3% PATCH TOP SCH ×2 (06:32→20:06)
[2022-12-21] MEDS: LIDOCAINE 5% (LIDODERM) PATCH TD SCH (06:32)
[2022-12-21] MEDS ORDERED: SODIUM CHLORIDE 0.9% 1000ML IV PRN (07:25)
[2022-12-21] MEDS ORDERED: HEPARIN 1,000UNITS/ML 10ML VIAL (FOR RADIOLOGY & DIALYSIS ONLY) IV PRN (07:25)
[2022-12-21] MEDS ORDERED: LIDOCAINE 1% SDV 5ML VIAL SC PRN (07:25)
[2022-12-21] MEDS ORDERED: HEPARIN 1,000UNITS/ML 10ML VIAL (FOR RADIOLOGY & DIALYSIS ONLY) XX SCH (07:25)
[2022-12-21] MEDS: oxyCODONE 20MG CR TAB PO SCH ×2 (07:56→20:05)
[2022-12-21] MEDS: DARBEPOETIN 200MCG/0.4ML *DIALYSIS* SYRINGE IV SCH (09:50)
[2022-12-21] MEDS: oxyCODONE 5MG TAB PO PRN (12:33)
[2022-12-21] MEDS: tiZANidine 4 MG TAB PO PRN (14:33)
[2022-12-21] MEDS: RAMELTEON 8 MG TAB (ROZEREM) PO SCH (20:04)
[2022-12-21] MEDS: GABAPENTIN 100 MG CAP PO SCH (20:05)
[2022-12-21] MEDS: SENNA 8.6 MG TAB (SENOKOT) PO SCH (20:05)
[2022-12-22 02:12] VITALS: BP 158/70
[2022-12-22] MEDS: oxyCODONE 5MG TAB PO PRN ×2 (02:14→15:35)
[2022-12-22 06:35] VITALS: BP 152/70
[2022-12-22] MEDS: tiZANidine 4 MG TAB PO PRN ×2 (06:46→15:35)
[2022-12-22] MEDS: HEPARIN SOD (PORCINE) 5000UNITS/ML 1ML VIAL/SYRINGE SQ SCH ×2 (08:36→20:53)
[2022-12-22] MEDS: oxyCODONE 20MG CR TAB PO SCH ×2 (08:37→20:52)
[2022-12-22] MEDS: FOLIC ACID 1MG TAB PO SCH (08:37)
[2022-12-22] MEDS: **hydrALAZINE** 50 MG TAB PO SCH ×3 (08:37→20:53)
[2022-12-22] MEDS: OMEPRAZOLE 20MG CAP PO SCH (08:37)
[2022-12-22] MEDS: DOCUSATE SODIUM 100MG CAPSULE PO SCH (08:37)
[2022-12-22] MEDS: TACROLIMUS 1MG CAP PO SCH (08:37)
[2022-12-22] MEDS: MULTIVITAMINS/MINERALS THERAP 1 TAB PO SCH (08:38)
[2022-12-22] MEDS: FLUoxetine 20MG CAP PO SCH (08:38)
[2022-12-22] MEDS: LIDOCAINE 5% (LIDODERM) PATCH TD SCH (08:38)
[2022-12-22] MEDS: METOCLOPRAMIDE 5 MG TAB PO SCH ×2 (08:38→20:53)
[2022-12-22] MEDS: DICLOFENAC EPOLAMINE 1.3% PATCH TOP SCH ×2 (08:39→20:51)
[2022-12-22] MEDS: SENNA 8.6 MG TAB (SENOKOT) PO SCH (20:53)
[2022-12-22] MEDS: GABAPENTIN 100 MG CAP PO SCH (20:53)
[2022-12-22] MEDS: RAMELTEON 8 MG TAB (ROZEREM) PO SCH (20:53)
[2022-12-23 04:30] VITALS: BP 166/80
[2022-12-23] MEDS: METOCLOPRAMIDE 5 MG TAB PO SCH (06:25)
[2022-12-23] MEDS: MULTIVITAMINS/MINERALS THERAP 1 TAB PO SCH (06:25)
[2022-12-23] MEDS: OMEPRAZOLE 20MG CAP PO SCH (06:25)
[2022-12-23 06:26] VITALS: BP 166/80
[2022-12-23] MEDS: FOLIC ACID 1MG TAB PO SCH (06:26)
[2022-12-23] MEDS: DOCUSATE SODIUM 100MG CAPSULE PO SCH (06:26)
[2022-12-23] MEDS: **hydrALAZINE** 50 MG TAB PO SCH (06:26)
[2022-12-23] MEDS: HEPARIN SOD (PORCINE) 5000UNITS/ML 1ML VIAL/SYRINGE SQ SCH (06:27)
[2022-12-23] MEDS: FLUoxetine 20MG CAP PO SCH (06:27)
[2022-12-23] MEDS: TACROLIMUS 1MG CAP PO SCH (06:27)
[2022-12-23] MEDS: LIDOCAINE 5% (LIDODERM) PATCH TD SCH (06:28)
[2022-12-23] MEDS ORDERED: SODIUM CHLORIDE 0.9% 1000ML IV PRN (07:15)
[2022-12-23] MEDS ORDERED: LIDOCAINE 1% SDV 5ML VIAL SC PRN (07:15)
[2022-12-23] MEDS ORDERED: HEPARIN 1,000UNITS/ML 10ML VIAL (FOR RADIOLOGY & DIALYSIS ONLY) IV PRN (07:15)
[2022-12-23] MEDS ORDERED: HEPARIN 1,000UNITS/ML 10ML VIAL (FOR RADIOLOGY & DIALYSIS ONLY) XX SCH (07:15)
[2022-12-23] MEDS: oxyCODONE 20MG CR TAB PO SCH (08:05)
[2022-12-23] MEDS: DICLOFENAC EPOLAMINE 1.3% PATCH TOP SCH (09:00)
[2022-12-23] MEDS ORDERED: LIDO5TD TD (10:23)
[2022-12-23] MEDS ORDERED: OXYC20TA40 PO (10:23)
[2022-12-23] MEDS ORDERED: HYDR50TA PO (10:23)
[2022-12-23] MEDS ORDERED: SENN18TA PO (10:23)
[2022-12-23] MEDS ORDERED: OXYC-517 PO (10:23)
== END 2022-12-23 13:01 | disposition home or self-care (01) ==
LOC: EDBD 14:22 → M ED 14:22 → INTOOBSV 19:30 → M ED INP 19:30 → ENRESERV 21:24 → M PCU 22:38 → M MSPAV 12-11 17:39
PROVIDERS: ADMIT Internal Medicine; ATTEND General Practice
DX: G93.41 Metabolic encephalopathy (principal); F03.90 Unspecified dementia, unspecified severity, without behavioral disturbance, psychotic disturbance, mood disturbance, and anxiety; N18.6 End stage renal disease; I12.0 Hypertensive chronic kidney disease with stage 5 chronic kidney disease or end stage renal disease; K31.84 Gastroparesis; K70.30 Alcoholic cirrhosis of liver without ascites; Z94.4 Liver transplant status; G89.4 Chronic pain syndrome; K21.9 Gastro-esophageal reflux disease without esophagitis; F19.10 Other psychoactive substance abuse, uncomplicated; R41.9 Unspecified symptoms and signs involving cognitive functions and awareness; F41.9 Anxiety disorder, unspecified; F32.A Depression, unspecified; Z79.899 Other long term (current) drug therapy
CPT/HCPCS: 36415; 70450; 71045; 72070; 72128; 73030; 74018; 74176; 80048; 80053; 80069; 80076; 80143; 80307; 81001; 82077; 82140; 82803; 83036; 83605; 83735; 83930; 84443; 85025; 85027; 85652; 86140; 87631; 93005; 93041; 94760; 96372; 96374; 96375; 96376; 97110; 97161; 97165; 97530; 99285; G0257; G0378; J0360; J0882; J1630; J2060; J7507

== ENCOUNTER 2023-01-03 19:12 | Inpatient (IN) | payer MEDICARE ==
[~2023-01-03] VITALS: Ht 172.7 cm; Wt 71.9 kg
[~2023-01-03 19:12] MED LIST changes: +LIDO5TD TD; +OXYC20TA40 PO; +SENN18TA PO
[2023-01-03 20:49] LABS: BASO % 0.7 % (0.0-1.0); EOS % 0.5 % (0.0-3.0); HEMATOCRIT 34.5 % (42.0-52.0); HEMOGLOBIN 11.3 g/dl (13.5-17.5); LYMPH # 1.5 10^3/uL (1.5-5.0); LYMPH % 35.6 % (24.0-44.0); MEAN CORPUSCULAR HEMOGLOBIN 28.3 pg (27.0-33.0); MEAN CORPUSCULAR HGB CONC 32.8 g/dl (32.0-36.5); MEAN CORPUSCULAR VOLUME 86.5 fl (80.0-96.0); MONO # 0.4 10^3/uL (0.0-0.8); MONO % 9.5 % (2.0-8.0); NEUTROPHILS # 2.2 10^3/uL (1.5-8.5); NEUTROPHILS % 53.5 % (36.0-66.0); PLATELET COUNT, AUTOMATED 220 10^3/uL (150-450); RED BLOOD COUNT 3.99 10^6/uL (4.30-6.10); WHITE BLOOD COUNT 4.1 10^3/uL (4.0-10.0)
[2023-01-03] MEDS ORDERED: hydrALAZINE 20MG/ML 1ML VIAL IV ONE (21:05)
[2023-01-03] MEDS ORDERED: **hydrALAZINE HCL** 25 MG TAB PO ONE (21:05)
[2023-01-03 22:09] LABS: ALBUMIN 2.5 G/DL (3.2-5.2); BILIRUBIN,DIRECT 0.1 MG/DL (<0.4); BILIRUBIN,TOTAL 0.3 MG/DL (0.3-1.2); CALCIUM LEVEL 7.4 MG/DL (8.3-10.6); CK-MB VALUE MASS 1.3 NG/ML (<3.6); CREATININE FOR GFR 3.55 MG/DL (0.70-1.30); GLOMERULAR FILTRATION RATE 18.6 (>49); MB/CK RELATIVE INDEX 2.45 (< OR =4); TOTAL PROTEIN 5.3 G/DL (5.7-8.2)
[2023-01-03] MEDS ORDERED: HYDR50TA PO (23:35)
[2023-01-03] MEDS ORDERED: HOME MED LIST COMPLETE! XX SCH ×2 (23:40)
[2023-01-04] VITALS (14 sets, daily range): BP systolic 135–181; BP diastolic 71–92
[2023-01-04 00:01] LABS: RSV AMPLIFICATION NEGATIVE (NEGATIVE)
[2023-01-04] MEDS ORDERED: DEXTROSE 50% 50ML SYRINGE IV PRN (00:30)
[2023-01-04] MEDS ORDERED: GLUCOSE 4GM CHEW TABLET PO PRN (00:30)
[2023-01-04] MEDS ORDERED: GLUCAGON INJ 1MG VIAL SC PRN (00:30)
[2023-01-04] MEDS ORDERED: LORazepam 2 MG TAB PO PRN ×2 (01:05→12:00)
[2023-01-04] MEDS ORDERED: ONDANSETRON 4MG ORAL DISINTEGRATING TAB PO PRN (03:10)
[2023-01-04] MEDS ORDERED: cloNIDine 0.1MG TABLET PO ONE (04:05)
[2023-01-04] MEDS ORDERED: INSULIN LISPRO (NovoLOG) PER UNIT SC SCH (07:30)
[2023-01-04 07:56] LABS: CALCIUM LEVEL 7.4 MG/DL (8.3-10.6); CREATININE FOR GFR 3.61 MG/DL (0.70-1.30); GLOMERULAR FILTRATION RATE 18.3 (>49); POTASSIUM SERUM 4.3 MMOL/L (3.5-5.1)
[2023-01-04] MEDS: TACROLIMUS 1MG CAP PO SCH (08:19)
[2023-01-04] MEDS: **hydrALAZINE HCL** 25 MG TAB PO SCH ×2 (08:20→17:56)
[2023-01-04] MEDS: FLUoxetine 20MG CAP PO SCH (08:21)
[2023-01-04] MEDS: THIAMINE 100 MG TAB PO SCH ×2 (08:21→20:43)
[2023-01-04] MEDS: FOLIC ACID 1MG TAB PO SCH (08:21)
[2023-01-04] MEDS: DOCUSATE SODIUM 100MG CAPSULE PO SCH (08:21)
[2023-01-04] MEDS: LIDOCAINE 5% (LIDODERM) PATCH TD SCH (08:22)
[2023-01-04] MEDS: MULTIVITAMINS/MINERALS THERAP 1 TAB PO SCH (08:22)
[2023-01-04] MEDS: METOCLOPRAMIDE 5 MG TAB PO SCH ×2 (08:22→20:44)
[2023-01-04] MEDS ORDERED: HEPARIN 1,000UNITS/ML 10ML VIAL (FOR RADIOLOGY & DIALYSIS ONLY) IV PRN (10:10)
[2023-01-04] MEDS ORDERED: LIDOCAINE 1% SDV 5ML VIAL SC PRN (10:10)
[2023-01-04] MEDS ORDERED: HEPARIN 1,000UNITS/ML 10ML VIAL (FOR RADIOLOGY & DIALYSIS ONLY) XX SCH (10:10)
[2023-01-04] MEDS ORDERED: SODIUM CHLORIDE 0.9% 1000ML IV PRN (10:10)
[2023-01-04] MEDS ORDERED: ACETAMINOPHEN TAB 650MG DOSE (2X325MG) PO PRN (10:25)
[2023-01-04] MEDS ORDERED: ALPRAZolam 0.5 MG TAB PO PRN (12:00)
[2023-01-04] MEDS: HEPARIN SOD (PORCINE) 5000UNITS/ML 1ML VIAL/SYRINGE SQ SCH ×2 (17:57→22:37)
[2023-01-04] MEDS: **hydrALAZINE** 50 MG TAB PO SCH (20:43)
[2023-01-04] MEDS ORDERED: SENNA 8.6 MG TAB (SENOKOT) PO SCH (21:00)
[2023-01-05 04:00] VITALS: BP 168/80
[2023-01-05 05:27] LABS: HEMOGLOBIN 10.7 g/dl (13.5-17.5); MEAN CORPUSCULAR HGB CONC 31.5 g/dl (32.0-36.5); PLATELET COUNT, AUTOMATED 183 10^3/uL (150-450); RED BLOOD COUNT 3.82 10^6/uL (4.30-6.10); WHITE BLOOD COUNT 3.8 10^3/uL (4.0-10.0)
[2023-01-05] MEDS: HEPARIN SOD (PORCINE) 5000UNITS/ML 1ML VIAL/SYRINGE SQ SCH (05:34)
[2023-01-05 05:49] LABS: CALCIUM LEVEL 7.6 MG/DL (8.3-10.6); CREATININE FOR GFR 2.44 MG/DL (0.70-1.30); GLOMERULAR FILTRATION RATE 28.7 (>49); MAGNESIUM LEVEL 1.6 MG/DL (1.8-2.4); POTASSIUM SERUM 4.6 MMOL/L (3.5-5.1)
[2023-01-05 07:22] VITALS: BP 154/72
[2023-01-05] MEDS: MAG SULF 1GM/100ML (MAG RUN) 1 GM in IV 1 EA IV SCH ×2 (08:08→08:39)
[2023-01-05] MEDS: FOLIC ACID 1MG TAB PO SCH (08:35)
[2023-01-05] MEDS: THIAMINE 100 MG TAB PO SCH (08:35)
[2023-01-05] MEDS: MULTIVITAMINS/MINERALS THERAP 1 TAB PO SCH (08:35)
[2023-01-05] MEDS: **hydrALAZINE** 50 MG TAB PO SCH (08:35)
[2023-01-05] MEDS: TACROLIMUS 1MG CAP PO SCH (08:35)
[2023-01-05 08:36] VITALS: BP 154/72
[2023-01-05] MEDS: FLUoxetine 20MG CAP PO SCH (08:36)
[2023-01-05] MEDS: DOCUSATE SODIUM 100MG CAPSULE PO SCH (08:36)
[2023-01-05] MEDS: METOCLOPRAMIDE 5 MG TAB PO SCH (08:36)
[2023-01-05] MEDS: LIDOCAINE 5% (LIDODERM) PATCH TD SCH (08:38)
[2023-01-05] MEDS ORDERED: METOPROLOL SUCC *XL* 25MG TAB (TopROL *XL*) PO SCH (09:00)
[2023-01-05 11:33] VITALS: BP 148/80
[2023-01-05] MEDS ORDERED: THIA100TA PO (11:59)
[2023-01-05] MEDS ORDERED: METO1TAB32 PO (11:59)
[2023-01-05] MEDS ORDERED: HYDR100T PO (11:59)
[2023-01-05] MEDS ORDERED: FOLI1TAB11 PO (11:59)
[2023-01-09 23:07] LABS: INSULIN FREE <1.0 uU/mL (.); INSULIN TOTAL2 <1.0 uU/mL (.)
== END 2023-01-05 12:41 | disposition home or self-care (01) | DRG 304 ==
LOC: EDBD 19:12 → M ED 19:12 → M ED INP 22:58 → M PCU 01-04 00:42
PROVIDERS: ADMIT Internal Medicine; ATTEND Internal Medicine
PROC: 5A1D70Z Performance of Urinary Filtration, Intermittent, Less than 6 Hours Per Day (ICD-10-PCS; principal; 2023-01-04)
DX: I16.9 Hypertensive crisis, unspecified (principal); N18.6 End stage renal disease; Z94.4 Liver transplant status; E87.1 Hypo-osmolality and hyponatremia; K90.9 Intestinal malabsorption, unspecified; E11.22 Type 2 diabetes mellitus with diabetic chronic kidney disease; Z98.84 Bariatric surgery status; F10.20 Alcohol dependence, uncomplicated; F03.90 Unspecified dementia, unspecified severity, without behavioral disturbance, psychotic disturbance, mood disturbance, and anxiety; E11.649 Type 2 diabetes mellitus with hypoglycemia without coma; F32.A Depression, unspecified; D13.7 Benign neoplasm of endocrine pancreas; D63.8 Anemia in other chronic diseases classified elsewhere; I12.0 Hypertensive chronic kidney disease with stage 5 chronic kidney disease or end stage renal disease; K21.9 Gastro-esophageal reflux disease without esophagitis; N28.89 Other specified disorders of kidney and ureter; F41.9 Anxiety disorder, unspecified; G47.00 Insomnia, unspecified; Z96.652 Presence of left artificial knee joint; Z99.2 Dependence on renal dialysis; Z91.198 Patient's noncompliance with other medical treatment and regimen for other reason; Z79.899 Other long term (current) drug therapy

== ENCOUNTER 2023-01-06 05:59 | Observation (INO) | payer MEDICARE ==
[~2023-01-06] VITALS: Ht 182.9 cm; Wt 69.8 kg
[~2023-01-06 05:59] MED LIST changes: +FOLI1TAB11 PO; +HYDR100T PO; +METO1TAB32 PO; +THIA100TA PO
[2023-01-06 08:32] LABS: VENOUS HCO3 22.7 MEQ/L (23.0-27.0); VENOUS O2 SATURATION 99.3 % (60.0-80.0); VENOUS PARTIAL PRESSURE CO2 31.4 mmHg (38.0-50.0); VENOUS PARTIAL PRESSURE O2 149.7 mmHg (30.0-50.0); VENOUS PH 7.477 UNITS (7.330-7.430); VENOUS STANDARD HCO3 24.5 MEQ/L; VENOUS TOTAL CO2 23.7 MEQ/L (24.0-28.0)
[2023-01-06 08:38] LABS: BASO % 0.7 % (0.0-1.0); EOS # 0.1 10^3/uL (0.0-0.5); EOS % 0.8 % (0.0-3.0); HEMATOCRIT 38.6 % (42.0-52.0); LYMPH % 16.6 % (24.0-44.0); MEAN CORPUSCULAR HEMOGLOBIN 27.8 pg (27.0-33.0); MEAN CORPUSCULAR HGB CONC 31.1 g/dl (32.0-36.5); MEAN CORPUSCULAR VOLUME 89.6 fl (80.0-96.0); MONO # 0.6 10^3/uL (0.0-0.8); MONO % 9.7 % (2.0-8.0); NEUTROPHILS # 4.4 10^3/uL (1.5-8.5); PLATELET COUNT, AUTOMATED 202 10^3/uL (150-450); RED BLOOD COUNT 4.31 10^6/uL (4.30-6.10); WHITE BLOOD COUNT 6.1 10^3/uL (4.0-10.0)
[2023-01-06 09:07] LABS: ALBUMIN 2.5 G/DL (3.2-5.2); BILIRUBIN,DIRECT 0.1 MG/DL (<0.4); BILIRUBIN,TOTAL 0.2 MG/DL (0.3-1.2); CALCIUM LEVEL 7.8 MG/DL (8.3-10.6); CREATININE FOR GFR 3.17 MG/DL (0.70-1.30); GLOMERULAR FILTRATION RATE 21.2 (>49); POTASSIUM SERUM 4.3 MMOL/L (3.5-5.1); TOTAL PROTEIN 5.3 G/DL (5.7-8.2)
[2023-01-06 09:09] LABS: THYROID STIMULATING HORMONE 1.948 uIU/ML (0.55-4.78)
[2023-01-06] MEDS ORDERED: HOME MED LIST COMPLETE! XX SCH (09:20)
[2023-01-06] MEDS ORDERED: ACETAMINOPHEN TAB 650MG DOSE (2X325MG) PO PRN (12:20)
[2023-01-06] MEDS ORDERED: LORazepam 2 MG TAB PO PRN (12:40)
[2023-01-06] MEDS: MULTIVITAMINS/MINERALS THERAP 1 TAB PO SCH (13:26)
[2023-01-06 15:27] LABS: RSV AMPLIFICATION NEGATIVE (NEGATIVE)
[2023-01-06] MEDS: THIAMINE INJection 500 MG in NS 100 ML IV SCH ×2 (16:03→23:11)
[2023-01-06] MEDS: ALPRAZolam 0.5 MG TAB PO PRN (16:03)
[2023-01-06] MEDS: **hydrALAZINE** 50 MG TAB PO SCH ×2 (16:03→21:35)
[2023-01-06 17:08] VITALS: BP 177/83
[2023-01-06] MEDS ORDERED: cloNIDine 0.1MG TABLET PO PRN (19:00)
[2023-01-06] MEDS ORDERED: TETANUS/DIPHTHERIA TOX ADSORB ADULT 0.5ML SYR/VIAL IM ONE (21:00)
[2023-01-06] MEDS ORDERED: SENNA 8.6 MG TAB (SENOKOT) PO SCH (21:00)
[2023-01-06 21:13] VITALS: BP 162/77
[2023-01-06 21:26] VITALS: BP 162/77
[2023-01-06] MEDS: METOCLOPRAMIDE 5 MG TAB PO SCH (21:26)
[2023-01-06] MEDS: HEPARIN SOD (PORCINE) 5000UNITS/ML 1ML VIAL/SYRINGE SC SCH (21:28)
[2023-01-07 06:00] VITALS: BP 113/79
[2023-01-07] MEDS ORDERED: SODIUM CHLORIDE 0.9% 1000ML IV PRN (06:00)
[2023-01-07] MEDS ORDERED: HEPARIN 1,000UNITS/ML 10ML VIAL (FOR RADIOLOGY & DIALYSIS ONLY) XX SCH (06:05)
[2023-01-07] MEDS ORDERED: HEPARIN 1,000UNITS/ML 10ML VIAL (FOR RADIOLOGY & DIALYSIS ONLY) IV PRN (06:05)
[2023-01-07 06:15] VITALS: BP 113/79
[2023-01-07] MEDS: THIAMINE INJection 500 MG in NS 100 ML IV SCH ×4 (06:44→23:21)
[2023-01-07 06:51] LABS: EOS # 0.1 10^3/uL (0.0-0.5); EOS % 1.9 % (0.0-3.0); HEMATOCRIT 31.9 % (42.0-52.0); LYMPH # 1.1 10^3/uL (1.5-5.0); LYMPH % 26.4 % (24.0-44.0); MEAN CORPUSCULAR HEMOGLOBIN 28.2 pg (27.0-33.0); MEAN CORPUSCULAR HGB CONC 31.3 g/dl (32.0-36.5); MEAN CORPUSCULAR VOLUME 89.9 fl (80.0-96.0); MONO # 0.5 10^3/uL (0.0-0.8); MONO % 10.9 % (2.0-8.0); NEUTROPHILS # 2.5 10^3/uL (1.5-8.5); NEUTROPHILS % 59.6 % (36.0-66.0); PLATELET COUNT, AUTOMATED 202 10^3/uL (150-450); RED BLOOD COUNT 3.55 10^6/uL (4.30-6.10); WHITE BLOOD COUNT 4.2 10^3/uL (4.0-10.0)
[2023-01-07 07:03] LABS: BILIRUBIN,TOTAL 0.2 MG/DL (0.3-1.2); CALCIUM LEVEL 7.3 MG/DL (8.3-10.6); CREATININE FOR GFR 3.68 MG/DL (0.70-1.30); GLOMERULAR FILTRATION RATE 17.9 (>49); MAGNESIUM LEVEL 2.2 MG/DL (1.8-2.4); POTASSIUM SERUM 4.5 MMOL/L (3.5-5.1); TOTAL PROTEIN 4.4 G/DL (5.7-8.2)
[2023-01-07] MEDS: MULTIVITAMINS/MINERALS THERAP 1 TAB PO SCH (08:00)
[2023-01-07] MEDS: FLUoxetine 20MG CAP PO SCH (08:00)
[2023-01-07] MEDS: OMEPRAZOLE 20MG CAP PO SCH (08:00)
[2023-01-07] MEDS: FOLIC ACID 1MG TAB PO SCH (08:00)
[2023-01-07] MEDS: **hydrALAZINE** 50 MG TAB PO SCH ×3 (08:01→20:47)
[2023-01-07] MEDS: HEPARIN SOD (PORCINE) 5000UNITS/ML 1ML VIAL/SYRINGE SC SCH ×2 (08:01→20:47)
[2023-01-07] MEDS: METOCLOPRAMIDE 5 MG TAB PO SCH ×2 (08:10→20:47)
[2023-01-07] MEDS: NIFEdipine 30MG XL TAB PO SCH (08:10)
[2023-01-07] MEDS ORDERED: DOCUSATE SODIUM 100MG CAPSULE PO SCH (09:00)
[2023-01-07] MEDS ORDERED: METOPROLOL SUCC *XL* 25MG TAB (TopROL *XL*) PO SCH (09:00)
[2023-01-07] MEDS: ALPRAZolam 0.5 MG TAB PO PRN (11:01)
[2023-01-07] MEDS: TACROLIMUS 1MG CAP PO SCH (11:01)
[2023-01-07 14:00] VITALS: BP 165/75
[2023-01-07 14:51] VITALS: BP 159/60
[2023-01-07] MEDS: ONDANSETRON 4MG ORAL DISINTEGRATING TAB PO PRN (18:07)
[2023-01-07 20:45] VITALS: BP 137/61
[2023-01-07 20:47] VITALS: BP 137/61
[2023-01-08] VITALS (7 sets, daily range): BP systolic 122–166; BP diastolic 62–91
[2023-01-08 05:56] LABS: BASO % 0.9 % (0.0-1.0); EOS # 0.1 10^3/uL (0.0-0.5); EOS % 2.1 % (0.0-3.0); HEMATOCRIT 36.8 % (42.0-52.0); HEMOGLOBIN 11.5 g/dl (13.5-17.5); LYMPH # 1.1 10^3/uL (1.5-5.0); LYMPH % 22.9 % (24.0-44.0); MEAN CORPUSCULAR HEMOGLOBIN 27.6 pg (27.0-33.0); MEAN CORPUSCULAR HGB CONC 31.3 g/dl (32.0-36.5); MEAN CORPUSCULAR VOLUME 88.5 fl (80.0-96.0); MONO # 0.5 10^3/uL (0.0-0.8); MONO % 10.3 % (2.0-8.0); NEUTROPHILS % 63.6 % (36.0-66.0); PLATELET COUNT, AUTOMATED 203 10^3/uL (150-450); RED BLOOD COUNT 4.16 10^6/uL (4.30-6.10); WHITE BLOOD COUNT 4.7 10^3/uL (4.0-10.0)
[2023-01-08] MEDS: THIAMINE INJection 500 MG in NS 100 ML IV SCH ×3 (06:08→23:23)
[2023-01-08 06:29] LABS: ALBUMIN 2.3 G/DL (3.2-5.2); BILIRUBIN,TOTAL 0.2 MG/DL (0.3-1.2); CALCIUM LEVEL 7.9 MG/DL (8.3-10.6); CREATININE FOR GFR 4.07 MG/DL (0.70-1.30); GLOMERULAR FILTRATION RATE 15.9 (>49); MAGNESIUM LEVEL 2.2 MG/DL (1.8-2.4); POTASSIUM SERUM 4.6 MMOL/L (3.5-5.1)
[2023-01-08] MEDS: **hydrALAZINE** 50 MG TAB PO SCH ×3 (09:16→20:54)
[2023-01-08] MEDS: OMEPRAZOLE 20MG CAP PO SCH (09:16)
[2023-01-08] MEDS: METOCLOPRAMIDE 5 MG TAB PO SCH ×2 (09:16→20:55)
[2023-01-08] MEDS: HEPARIN SOD (PORCINE) 5000UNITS/ML 1ML VIAL/SYRINGE SC SCH ×2 (09:16→20:53)
[2023-01-08] MEDS: MULTIVITAMINS/MINERALS THERAP 1 TAB PO SCH (09:17)
[2023-01-08] MEDS: NIFEdipine 30MG XL TAB PO SCH (09:17)
[2023-01-08] MEDS: FOLIC ACID 1MG TAB PO SCH (09:17)
[2023-01-08] MEDS: FLUoxetine 20MG CAP PO SCH (09:17)
[2023-01-08] MEDS: TACROLIMUS 1MG CAP PO SCH (09:22)
[2023-01-08] MEDS: ALPRAZolam 0.5 MG TAB PO PRN (20:55)
[2023-01-08] MEDS ORDERED: oxyCODONE 5MG TAB PO ONE (23:40)
[2023-01-09 05:20] VITALS: BP 169/82
[2023-01-09] MEDS ORDERED: HEPARIN 1,000UNITS/ML 10ML VIAL (FOR RADIOLOGY & DIALYSIS ONLY) XX SCH (06:00)
[2023-01-09] MEDS ORDERED: LIDOCAINE 1% SDV 5ML VIAL SC PRN (06:00)
[2023-01-09] MEDS ORDERED: SODIUM CHLORIDE 0.9% 1000ML IV PRN (06:00)
[2023-01-09] MEDS: TACROLIMUS 1MG CAP PO SCH (06:17)
[2023-01-09] MEDS: **hydrALAZINE** 50 MG TAB PO SCH ×3 (06:18→20:37)
[2023-01-09] MEDS: MULTIVITAMINS/MINERALS THERAP 1 TAB PO SCH (06:18)
[2023-01-09] MEDS: FLUoxetine 20MG CAP PO SCH (06:19)
[2023-01-09] MEDS: NIFEdipine 30MG XL TAB PO SCH (06:19)
[2023-01-09] MEDS: METOCLOPRAMIDE 5 MG TAB PO SCH ×2 (06:20→20:42)
[2023-01-09] MEDS: ALPRAZolam 0.5 MG TAB PO PRN (06:21)
[2023-01-09] MEDS: OMEPRAZOLE 20MG CAP PO SCH (06:21)
[2023-01-09] MEDS: HEPARIN SOD (PORCINE) 5000UNITS/ML 1ML VIAL/SYRINGE SC SCH ×2 (06:22→20:35)
[2023-01-09] MEDS: THIAMINE INJection 500 MG in NS 100 ML IV SCH (06:22)
[2023-01-09 06:34] LABS: BASO % 1.1 % (0.0-1.0); EOS # 0.1 10^3/uL (0.0-0.5); EOS % 3.3 % (0.0-3.0); HEMATOCRIT 34.5 % (42.0-52.0); HEMOGLOBIN 10.8 g/dl (13.5-17.5); LYMPH % 27.2 % (24.0-44.0); MEAN CORPUSCULAR HEMOGLOBIN 27.9 pg (27.0-33.0); MEAN CORPUSCULAR HGB CONC 31.3 g/dl (32.0-36.5); MEAN CORPUSCULAR VOLUME 89.1 fl (80.0-96.0); MONO # 0.5 10^3/uL (0.0-0.8); MONO % 14.8 % (2.0-8.0); NEUTROPHILS % 53.6 % (36.0-66.0); PLATELET COUNT, AUTOMATED 177 10^3/uL (150-450); RED BLOOD COUNT 3.87 10^6/uL (4.30-6.10); WHITE BLOOD COUNT 3.6 10^3/uL (4.0-10.0)
[2023-01-09 06:53] LABS: ALBUMIN 2.1 G/DL (3.2-5.2); ALKALINE PHOSPHATASE 105 U/L (46-116); ALT/SGPT < 9 U/L (7.0-40); AST/SGOT 11 U/L (<34); BILIRUBIN,TOTAL 0.2 MG/DL (0.3-1.2); BLOOD UREA NITROGEN 27 MG/DL (9-23); CALCIUM LEVEL 7.7 MG/DL (8.3-10.6); CARBON DIOXIDE LEVEL 22 MMOL/L (20-31); CHLORIDE LEVEL 109 MMOL/L (98-107); CREATININE FOR GFR 4.34 MG/DL (0.70-1.30); GLOMERULAR FILTRATION RATE 14.8 (>49); GLUCOSE, FASTING 72 MG/DL (74-106); MAGNESIUM LEVEL 2.2 MG/DL (1.8-2.4); POTASSIUM SERUM 4.8 MMOL/L (3.5-5.1); SODIUM LEVEL 135 MMOL/L (136-145); TOTAL PROTEIN 4.8 G/DL (5.7-8.2)
[2023-01-09] MEDS: ONDANSETRON 4MG ORAL DISINTEGRATING TAB PO PRN (07:23)
[2023-01-09] MEDS: FOLIC ACID 1MG TAB PO SCH (07:26)
[2023-01-09 08:01] VITALS: BP 169/82
[2023-01-09] MEDS ORDERED: tiZANidine 4 MG TAB PO PRN (10:20)
[2023-01-09 15:00] VITALS: BP 124/74
[2023-01-09 15:25] VITALS: BP 169/82
[2023-01-09] MEDS ORDERED: oxyCODONE 5MG TAB PO ONE (20:20)
[2023-01-09 21:00] VITALS: BP 125/75
[2023-01-09] MEDS ORDERED: THIAMINE 200MG 2ML VIAL IV SCH ×2 (21:00)
[2023-01-09] MEDS ORDERED: TACROLIMUS 1MG CAP PO SCH (21:00)
[2023-01-10 05:48] LABS: BASO % 0.8 % (0.0-1.0); EOS # 0.1 10^3/uL (0.0-0.5); EOS % 2.7 % (0.0-3.0); HEMATOCRIT 31.9 % (42.0-52.0); HEMOGLOBIN 10.3 g/dl (13.5-17.5); LYMPH # 1.1 10^3/uL (1.5-5.0); LYMPH % 29.5 % (24.0-44.0); MEAN CORPUSCULAR HEMOGLOBIN 28.3 pg (27.0-33.0); MEAN CORPUSCULAR HGB CONC 32.3 g/dl (32.0-36.5); MEAN CORPUSCULAR VOLUME 87.6 fl (80.0-96.0); MONO # 0.6 10^3/uL (0.0-0.8); MONO % 16.8 % (2.0-8.0); NEUTROPHILS # 1.9 10^3/uL (1.5-8.5); NEUTROPHILS % 50.2 % (36.0-66.0); PLATELET COUNT, AUTOMATED 165 10^3/uL (150-450); RED BLOOD COUNT 3.64 10^6/uL (4.30-6.10); WHITE BLOOD COUNT 3.7 10^3/uL (4.0-10.0)
[2023-01-10 05:49] VITALS: BP 174/74
[2023-01-10 06:11] LABS: ALKALINE PHOSPHATASE 95 U/L (46-116); ALT/SGPT < 9 U/L (7.0-40); AST/SGOT 12 U/L (<34); BILIRUBIN,TOTAL 0.2 MG/DL (0.3-1.2); BLOOD UREA NITROGEN 15 MG/DL (9-23); CALCIUM LEVEL 7.5 MG/DL (8.3-10.6); CARBON DIOXIDE LEVEL 29 MMOL/L (20-31); CHLORIDE LEVEL 104 MMOL/L (98-107); CREATININE FOR GFR 2.74 MG/DL (0.70-1.30); GLOMERULAR FILTRATION RATE 25.1 (>49); GLUCOSE, FASTING 72 MG/DL (74-106); MAGNESIUM LEVEL 1.9 MG/DL (1.8-2.4); SODIUM LEVEL 136 MMOL/L (136-145); TOTAL PROTEIN 4.4 G/DL (5.7-8.2)
[2023-01-10] MEDS: TACROLIMUS 1MG CAP PO SCH (08:47)
[2023-01-10] MEDS: OMEPRAZOLE 20MG CAP PO SCH (08:47)
[2023-01-10] MEDS: MULTIVITAMINS/MINERALS THERAP 1 TAB PO SCH (08:47)
[2023-01-10] MEDS: METOCLOPRAMIDE 5 MG TAB PO SCH (08:47)
[2023-01-10] MEDS: HEPARIN SOD (PORCINE) 5000UNITS/ML 1ML VIAL/SYRINGE SC SCH (08:47)
[2023-01-10] MEDS: FOLIC ACID 1MG TAB PO SCH (08:47)
[2023-01-10] MEDS: FLUoxetine 20MG CAP PO SCH (08:47)
[2023-01-10] MEDS: **hydrALAZINE** 50 MG TAB PO SCH (08:48)
[2023-01-10] MEDS: NIFEdipine 30MG XL TAB PO SCH (08:49)
[2023-01-10] MEDS ORDERED: NIFE1TAB52 PO (11:26)
[2023-01-10] MEDS ORDERED: TACR1CAP3 PO ×2 (11:26→11:28)
[2023-01-10] MEDS ORDERED: **hydrALAZINE** 50 MG TAB PO ONE (12:35)
[2023-01-10 12:40] VITALS: BP 173/95
[2023-01-10] MEDS ORDERED: AMLO1TAB25 PO (12:58)
[2023-01-12] MEDS ORDERED: THIAMINE 100 MG TAB PO SCH (21:00)
== END 2023-01-10 13:08 | disposition left against medical advice (07) ==
LOC: M ED 05:59 → M ED INP 12:19 → INTOOBSV 12:19 → ENRESERV 15:35 → M MSPAV 16:51
PROVIDERS: ADMIT Internal Medicine; ATTEND Internal Medicine
DX: N18.6 End stage renal disease (principal); R53.1 Weakness; S80.219A Abrasion, unspecified knee, initial encounter; W18.30XA Fall on same level, unspecified, initial encounter; Y92.481 Parking lot as the place of occurrence of the external cause; Y93.01 Activity, walking, marching and hiking; A04.0 Enteropathogenic Escherichia coli infection; K70.30 Alcoholic cirrhosis of liver without ascites; Z94.4 Liver transplant status; F10.20 Alcohol dependence, uncomplicated; K31.84 Gastroparesis; Z98.84 Bariatric surgery status; Z99.2 Dependence on renal dialysis; I12.0 Hypertensive chronic kidney disease with stage 5 chronic kidney disease or end stage renal disease; Z86.39 Personal history of other endocrine, nutritional and metabolic disease; D63.1 Anemia in chronic kidney disease; F41.9 Anxiety disorder, unspecified; F32.A Depression, unspecified; G47.00 Insomnia, unspecified; K21.9 Gastro-esophageal reflux disease without esophagitis; Z91.81 History of falling; R11.2 Nausea with vomiting, unspecified; M25.511 Pain in right shoulder; I87.2 Venous insufficiency (chronic) (peripheral); Z91.158 Patient's noncompliance with renal dialysis for other reason; Z79.899 Other long term (current) drug therapy; Z79.620 Long term (current) use of immunosuppressive biologic; Z23 Encounter for immunization
CPT/HCPCS: 36415; 70450; 71045; 80048; 80053; 80076; 82140; 82803; 83605; 83735; 83930; 84443; 85025; 87040; 87507; 87631; 90471; 90714; 93005; 93041; 94760; 96365; 96366; 96372; 96376; 97161; 97165; 99285; G0257; G0378; J3411; J7507

== ENCOUNTER 2023-01-13 17:34 | Emergency (ER) | payer MEDICARE ==
[~2023-01-13] VITALS: Ht 177.8 cm; Wt 68.2 kg
[~2023-01-13 17:34] MED LIST changes: +NIFE1TAB52 PO
[2023-01-13] MEDS ORDERED: ALPRAZolam 0.5 MG TAB PO ONE (20:45)
[2023-01-13] MEDS ORDERED: hydrOXYzine 50 MG TAB PO STA (20:46)
[2023-01-13 21:36] VITALS: BP 164/72
[2023-01-13] MEDS ORDERED: ALPRAZolam 0.25 MG TAB PO ONE (22:25)
[2023-01-13] MEDS ORDERED: XANA0.5T PO (22:34)
[2023-01-13] MEDS ORDERED: HYDR-3363 PO (22:34)
== END 2023-01-13 23:43 | disposition home or self-care (01) ==
LOC: EDBD 17:34 → M ED 17:34
DX: F41.9 Anxiety disorder, unspecified (principal); L29.9 Pruritus, unspecified; Z79.899 Other long term (current) drug therapy

== ENCOUNTER 2023-01-16 04:29 | Emergency (ER) | payer MEDICARE ==
[~2023-01-16] VITALS: Ht 177.8 cm; Wt 68.2 kg
[~2023-01-16 04:29] MED LIST changes: +XANA0.5T PO
[2023-01-16 05:40] LABS: BASO % 0.6 % (0.0-1.0); EOS # 0.3 10^3/uL (0.0-0.5); EOS % 6.6 % (0.0-3.0); HEMOGLOBIN 10.5 g/dl (13.5-17.5); LYMPH # 1.4 10^3/uL (1.5-5.0); LYMPH % 27.1 % (24.0-44.0); MEAN CORPUSCULAR HEMOGLOBIN 28.2 pg (27.0-33.0); MEAN CORPUSCULAR HGB CONC 32.8 g/dl (32.0-36.5); MONO # 0.6 10^3/uL (0.0-0.8); MONO % 12.4 % (2.0-8.0); NEUTROPHILS # 2.7 10^3/uL (1.5-8.5); NEUTROPHILS % 53.1 % (36.0-66.0); PLATELET COUNT, AUTOMATED 135 10^3/uL (150-450); RED BLOOD COUNT 3.72 10^6/uL (4.30-6.10)
[2023-01-16 06:08] LABS: ALBUMIN 2.3 G/DL (3.2-5.2); BILIRUBIN,TOTAL 0.2 MG/DL (0.3-1.2); CALCIUM LEVEL 7.4 MG/DL (8.3-10.6); CREATININE FOR GFR 5.15 MG/DL (0.70-1.30); GLOMERULAR FILTRATION RATE 12.1 (>49); MAGNESIUM LEVEL 2.1 MG/DL (1.8-2.4); POTASSIUM SERUM 4.5 MMOL/L (3.5-5.1); TOTAL PROTEIN 5.2 G/DL (5.7-8.2)
[2023-01-16] MEDS ORDERED: GI COCKTAIL 50ML BTL(HYOSCYAMINE/MAALOX/LIDOCAINE VISCOUS)(1:3:1) PO ONE (06:25)
[2023-01-16 09:30] VITALS: BP 142/79
== END 2023-01-16 10:17 | disposition home or self-care (01) ==
LOC: EDBD 04:29 → M ED 04:29
DX: F41.1 Generalized anxiety disorder (principal); R12 Heartburn; N18.9 Chronic kidney disease, unspecified; I44.0 Atrioventricular block, first degree; I10 Essential (primary) hypertension; K21.9 Gastro-esophageal reflux disease without esophagitis; Z86.79 Personal history of other diseases of the circulatory system; Z79.83 Long term (current) use of bisphosphonates; Z79.899 Other long term (current) drug therapy

== ENCOUNTER 2023-01-23 14:43 | Observation (INO) | payer MEDICARE ==
[~2023-01-23] VITALS: Ht 177.8 cm; Wt 68.2 kg
[2023-01-23 18:05] LABS: HEMATOCRIT 38.4 % (42.0-52.0); HEMOGLOBIN 12.6 g/dl (13.5-17.5); MEAN CORPUSCULAR HEMOGLOBIN 28.3 pg (27.0-33.0); MEAN CORPUSCULAR HGB CONC 32.8 g/dl (32.0-36.5); MEAN CORPUSCULAR VOLUME 86.3 fl (80.0-96.0); PLATELET COUNT, AUTOMATED 101 10^3/uL (150-450); RED BLOOD COUNT 4.45 10^6/uL (4.30-6.10)
[2023-01-23 18:24] LABS: ETHYL ALCOHOL (ETHANOL) < 0.003 % (0.000-0.010)
[2023-01-23 18:26] LABS: ACETAMINOPHEN LEVEL < 2.0 UG/ML (10.0-20.0); SALICYLATE LEVEL < 3.0 MG/DL (<30)
[2023-01-23 18:34] LABS: ALBUMIN 2.6 G/DL (3.2-5.2); ALKALINE PHOSPHATASE 120 U/L (46-116); ALT/SGPT 12 U/L (7.0-40); AST/SGOT 19 U/L (<34); BILIRUBIN,DIRECT 0.1 MG/DL (<0.4); BILIRUBIN,TOTAL 0.3 MG/DL (0.3-1.2); BLOOD UREA NITROGEN 60 MG/DL (9-23); CALCIUM LEVEL 8.2 MG/DL (8.3-10.6); CARBON DIOXIDE LEVEL 20 MMOL/L (20-31); CHLORIDE LEVEL 105 MMOL/L (98-107); CREATININE FOR GFR 8.74 MG/DL (0.70-1.30); GLOMERULAR FILTRATION RATE 6.6 (>49); GLUCOSE, FASTING 72 MG/DL (74-106); MAGNESIUM LEVEL 2.3 MG/DL (1.8-2.4); PHOSPHORUS LEVEL 5.6 MG/DL (2.4-5.1); POTASSIUM SERUM 4.9 MMOL/L (3.5-5.1); SODIUM LEVEL 137 MMOL/L (136-145); THYROID STIMULATING HORMONE 4.278 uIU/ML (0.55-4.78); TOTAL PROTEIN 5.9 G/DL (5.7-8.2)
[2023-01-23] MEDS ORDERED: ACETAMINOPHEN TAB 650MG DOSE (2X325MG) PO PRN (20:00)
[2023-01-23] MEDS ORDERED: **hydrALAZINE** 50 MG TAB PO ONE (20:00)
[2023-01-23] MEDS ORDERED: NIFE30TA50 PO (21:08)
[2023-01-23] MEDS ORDERED: HYDR-3363 PO (21:08)
[2023-01-23] MEDS ORDERED: TACR1CAP3 PO ×2 (21:08)
[2023-01-23] MEDS ORDERED: AMLO1TAB25 PO (21:08)
[2023-01-23] MEDS ORDERED: THIA100T7 PO (21:08)
[2023-01-23] MEDS ORDERED: METO1TAB32 PO (21:08)
[2023-01-23] MEDS ORDERED: HYDR100T26 PO (21:08)
[2023-01-23] MEDS ORDERED: FOLI1TAB11 PO (21:08)
[2023-01-23] MEDS ORDERED: HOME MED LIST COMPLETE! XX SCH (21:10)
[2023-01-23 21:15] VITALS: BP 210/80
[2023-01-23] MEDS ORDERED: ALPRAZolam 0.5 MG TAB PO PRN (21:20)
[2023-01-23] MEDS ORDERED: ONDANSETRON 4MG ORAL DISINTEGRATING TAB PO PRN (21:20)
[2023-01-23] MEDS ORDERED: cloNIDine 0.2 MG TAB PO ONE (21:30)
[2023-01-23] MEDS ORDERED: NIFEdipine 10 MG CAP PO ONE (22:00)
[2023-01-23] MEDS: TACROLIMUS 1MG CAP PO SCH (22:35)
[2023-01-24] VITALS (7 sets, daily range): BP systolic 111–152; BP diastolic 58–81
[2023-01-24 05:46] LABS: HEMATOCRIT 32.7 % (42.0-52.0); HEMOGLOBIN 10.8 g/dl (13.5-17.5); MEAN CORPUSCULAR VOLUME 84.7 fl (80.0-96.0); PLATELET COUNT, AUTOMATED 128 10^3/uL (150-450); RED BLOOD COUNT 3.86 10^6/uL (4.30-6.10); WHITE BLOOD COUNT 3.6 10^3/uL (4.0-10.0)
[2023-01-24] MEDS ORDERED: ONDA4TAB6 PO (06:14)
[2023-01-24] MEDS ORDERED: SENN8.6T28 PO (06:14)
[2023-01-24 06:15] LABS: ALBUMIN 2.3 G/DL (3.2-5.2); BILIRUBIN,TOTAL 0.2 MG/DL (0.3-1.2); CALCIUM LEVEL 7.9 MG/DL (8.3-10.6); CREATININE FOR GFR 9.12 MG/DL (0.70-1.30); GLOMERULAR FILTRATION RATE 6.3 (>49); MAGNESIUM LEVEL 2.3 MG/DL (1.8-2.4); POTASSIUM SERUM 4.9 MMOL/L (3.5-5.1); TOTAL PROTEIN 5.1 G/DL (5.7-8.2)
[2023-01-24] MEDS ORDERED: SENNA 8.6 MG TAB (SENOKOT) PO PRN (06:35)
[2023-01-24] MEDS: TACROLIMUS 1MG CAP PO SCH ×2 (08:50→21:30)
[2023-01-24] MEDS ORDERED: EMLA CREAM 5GM TUBE (LIDOCAINE/PRILOCAINE) TOP SCH ×2 (08:50→09:00)
[2023-01-24] MEDS: FLUoxetine 20MG CAP PO SCH (08:51)
[2023-01-24] MEDS: OMEPRAZOLE 20MG CAP PO SCH (08:51)
[2023-01-24] MEDS: THIAMINE 100 MG TAB PO SCH ×2 (08:51→21:30)
[2023-01-24] MEDS: NIFEdipine 30MG XL TAB PO SCH (08:51)
[2023-01-24] MEDS: METOPROLOL SUCC *XL* 25MG TAB (TopROL *XL*) PO SCH (08:51)
[2023-01-24] MEDS: **hydrALAZINE** 50 MG TAB PO SCH ×3 (08:52→21:30)
[2023-01-24] MEDS: METOCLOPRAMIDE 5 MG TAB PO SCH ×2 (08:52→21:30)
[2023-01-24] MEDS: DOCUSATE SODIUM 100MG CAPSULE PO SCH (08:52)
[2023-01-24] MEDS ORDERED: FOLIC ACID 1MG TAB PO SCH (09:00)
[2023-01-24] MEDS ORDERED: SODIUM CHLORIDE 0.9% 1000ML IV PRN (09:00)
[2023-01-24] MEDS ORDERED: LIDOCAINE 1% SDV 5ML VIAL SC PRN (09:00)
[2023-01-24] MEDS ORDERED: HEPARIN 1,000UNITS/ML 10ML VIAL (FOR RADIOLOGY & DIALYSIS ONLY) XX SCH (09:00)
[2023-01-24] MEDS ORDERED: HEPARIN 1,000UNITS/ML 10ML VIAL (FOR RADIOLOGY & DIALYSIS ONLY) IV PRN (09:00)
[2023-01-24] MEDS: HEPARIN SOD (PORCINE) 5000UNITS/ML 1ML VIAL/SYRINGE SQ SCH (21:31)
[2023-01-25 00:22] VITALS: BP 141/71
[2023-01-25 05:03] VITALS: BP 158/81
[2023-01-25 05:19] LABS: HEMATOCRIT 33.2 % (42.0-52.0); MEAN CORPUSCULAR HGB CONC 33.1 g/dl (32.0-36.5); MEAN CORPUSCULAR VOLUME 84.5 fl (80.0-96.0); PLATELET COUNT, AUTOMATED 136 10^3/uL (150-450); RED BLOOD COUNT 3.93 10^6/uL (4.30-6.10); WHITE BLOOD COUNT 3.5 10^3/uL (4.0-10.0)
[2023-01-25 05:48] LABS: ALBUMIN 2.4 G/DL (3.2-5.2); ALKALINE PHOSPHATASE 101 U/L (46-116); ALT/SGPT < 9 U/L (7.0-40); AST/SGOT 17 U/L (<34); BILIRUBIN,TOTAL 0.2 MG/DL (0.3-1.2); BLOOD UREA NITROGEN 24 MG/DL (9-23); CALCIUM LEVEL 7.4 MG/DL (8.3-10.6); CARBON DIOXIDE LEVEL 27 MMOL/L (20-31); CHLORIDE LEVEL 102 MMOL/L (98-107); CREATININE FOR GFR 4.98 MG/DL (0.70-1.30); GLOMERULAR FILTRATION RATE 12.6 (>49); GLUCOSE, FASTING 68 MG/DL (74-106); SODIUM LEVEL 137 MMOL/L (136-145); TOTAL PROTEIN 5.1 G/DL (5.7-8.2)
[2023-01-25] MEDS: HEPARIN SOD (PORCINE) 5000UNITS/ML 1ML VIAL/SYRINGE SQ SCH (05:51)
[2023-01-25] MEDS ORDERED: LIDOCAINE 1% SDV 5ML VIAL SC PRN (06:00)
[2023-01-25] MEDS ORDERED: HEPARIN 1,000UNITS/ML 10ML VIAL (FOR RADIOLOGY & DIALYSIS ONLY) IV PRN (06:00)
[2023-01-25] MEDS ORDERED: SODIUM CHLORIDE 0.9% 1000ML IV PRN (06:00)
[2023-01-25] MEDS: **hydrALAZINE** 50 MG TAB PO SCH (07:33)
[2023-01-25 07:36] VITALS: BP 151/82
[2023-01-25] MEDS: NIFEdipine 30MG XL TAB PO SCH (07:36)
[2023-01-25] MEDS: METOPROLOL SUCC *XL* 25MG TAB (TopROL *XL*) PO SCH (07:39)
[2023-01-25] MEDS: FLUoxetine 20MG CAP PO SCH (07:47)
[2023-01-25] MEDS: THIAMINE 100 MG TAB PO SCH (07:47)
[2023-01-25] MEDS: METOCLOPRAMIDE 5 MG TAB PO SCH (07:48)
[2023-01-25] MEDS: TACROLIMUS 1MG CAP PO SCH (07:48)
[2023-01-25] MEDS: OMEPRAZOLE 20MG CAP PO SCH (07:48)
[2023-01-25] MEDS: DOCUSATE SODIUM 100MG CAPSULE PO SCH (07:58)
[2023-01-25] MEDS ORDERED: HEPARIN 1,000UNITS/ML 10ML VIAL (FOR RADIOLOGY & DIALYSIS ONLY) XX SCH (18:55)
== END 2023-01-25 11:42 | disposition left against medical advice (07) ==
LOC: M ED 14:43 → M ED INP 19:56 → ENRESERV 20:33 → M PCU 21:03
PROVIDERS: ADMIT Internal Medicine; ATTEND Internal Medicine
DX: I16.0 Hypertensive urgency (principal); N18.6 End stage renal disease; Z99.2 Dependence on renal dialysis; Z91.158 Patient's noncompliance with renal dialysis for other reason; K74.60 Unspecified cirrhosis of liver; Z94.4 Liver transplant status; D69.6 Thrombocytopenia, unspecified; R11.0 Nausea; R53.1 Weakness; F32.A Depression, unspecified; F41.9 Anxiety disorder, unspecified; K21.9 Gastro-esophageal reflux disease without esophagitis; I12.0 Hypertensive chronic kidney disease with stage 5 chronic kidney disease or end stage renal disease; E78.5 Hyperlipidemia, unspecified; G47.00 Insomnia, unspecified; D64.9 Anemia, unspecified; Z98.84 Bariatric surgery status; Z79.899 Other long term (current) drug therapy
CPT/HCPCS: 36415; 71046; 80048; 80053; 80076; 80143; 82077; 83735; 84100; 84443; 85027; 87635; 93005; 96372; 97161; 99285; G0257; G0378; J7507

== ENCOUNTER 2023-02-19 19:56 | Inpatient (IN) | payer MEDICARE ==
[~2023-02-19] VITALS: Ht 177.8 cm; Wt 80.1 kg
[~2023-02-19 19:56] MED LIST changes: +HYDR100T26 PO; +NIFE30TA50 PO; +SENN8.6T28 PO; +THIA100T7 PO
[2023-02-19] MEDS ORDERED: LORazepam 2 MG/ML 1ML VIAL IV STA (20:12)
[2023-02-19] MEDS ORDERED: NS 500 ML IV ONE (20:15)
[2023-02-19] MEDS ORDERED: hydrALAZINE 20MG/ML 1ML VIAL IV ONE (20:30)
[2023-02-19 20:35] LABS: VENOUS BASE EXCESS -3.1 (-2.0-2.0); VENOUS HCO3 20.6 MMOL/L (23.0-27.0); VENOUS O2 SATURATION 98.3 % (60.0-80.0); VENOUS PARTIAL PRESSURE CO2 32.4 mmHg (38.0-50.0); VENOUS PARTIAL PRESSURE O2 130.2 mmHg (30.0-50.0); VENOUS PH 7.422 UNITS (7.330-7.430); VENOUS STANDARD HCO3 21.9 MMOL/L; VENOUS TOTAL CO2 21.6 MMOL/L (24.0-28.0)
[2023-02-19 20:44] LABS: BASO % 0.8 % (0.0-1.0); EOS # 0.3 10^3/uL (0.0-0.5); EOS % 6.8 % (0.0-3.0); HEMATOCRIT 28.2 % (42.0-52.0); HEMOGLOBIN 9.2 g/dl (13.5-17.5); LYMPH # 1.1 10^3/uL (1.5-5.0); LYMPH % 22.1 % (24.0-44.0); MEAN CORPUSCULAR HEMOGLOBIN 27.5 pg (27.0-33.0); MEAN CORPUSCULAR HGB CONC 32.6 g/dl (32.0-36.5); MEAN CORPUSCULAR VOLUME 84.2 fl (80.0-96.0); MONO # 0.6 10^3/uL (0.0-0.8); MONO % 11.5 % (2.0-8.0); NEUTROPHILS # 2.9 10^3/uL (1.5-8.5); NEUTROPHILS % 58.6 % (36.0-66.0); PLATELET COUNT, AUTOMATED 126 10^3/uL (150-450); RED BLOOD COUNT 3.35 10^6/uL (4.30-6.10); WHITE BLOOD COUNT 4.9 10^3/uL (4.0-10.0)
[2023-02-19 21:05] LABS: CK-MB VALUE MASS 1.3 NG/ML (<3.6)
[2023-02-19 21:06] LABS: ETHYL ALCOHOL (ETHANOL) < 0.003 % (0.000-0.010)
[2023-02-19 21:07] LABS: ACETAMINOPHEN LEVEL < 2.0 UG/ML (10.0-20.0); SALICYLATE LEVEL 3.7 MG/DL (<30)
[2023-02-19 21:08] LABS: ALBUMIN 2.9 G/DL (3.2-5.2); ALKALINE PHOSPHATASE 103 U/L (46-116); ALT/SGPT 18 U/L (7.0-40); AST/SGOT 28 U/L (<34); BILIRUBIN,DIRECT 0.1 MG/DL (<0.4); BILIRUBIN,TOTAL 0.4 MG/DL (0.3-1.2); BLOOD UREA NITROGEN 38 MG/DL (9-23); CARBON DIOXIDE LEVEL 22 MMOL/L (20-31); CHLORIDE LEVEL 107 MMOL/L (98-107); CREATININE FOR GFR 3.93 MG/DL (0.70-1.30); GLOMERULAR FILTRATION RATE 16.6 (>49); GLUCOSE, FASTING 76 MG/DL (74-106); POTASSIUM SERUM 5.4 MMOL/L (3.5-5.1); SODIUM LEVEL 138 MMOL/L (136-145); TOTAL PROTEIN 5.4 G/DL (5.7-8.2)
[2023-02-19 21:12] LABS: RSV AMPLIFICATION NEGATIVE (NEGATIVE)
[2023-02-19 21:14] LABS: CPK CREATINE PHOSPHOKINASE 77 U/L (46-171); MB/CK RELATIVE INDEX 1.68 (< OR =4)
[2023-02-19 22:04] LABS: CK-MB VALUE MASS < 1.0 NG/ML (<3.6); CPK CREATINE PHOSPHOKINASE 89 U/L (46-171); MB/CK RELATIVE INDEX 1.12 (< OR =4)
[2023-02-19] MEDS ORDERED: niCARdipine IV 40 MG in IV 1 EA IV SCH ×2 (22:40→23:55)
[2023-02-19] MEDS ORDERED: METO1TAB32 PO (23:31)
[2023-02-19] MEDS ORDERED: ONDA-83 PO (23:31)
[2023-02-19] MEDS ORDERED: HOME MED LIST COMPLETE! XX SCH (23:35)
[2023-02-19] MEDS ORDERED: DEXTROSE 50% 50ML SYRINGE IV PRN (23:55)
[2023-02-19] MEDS ORDERED: MOM 30ML SUSPENSION UDC PO PRN (23:55)
[2023-02-19] MEDS ORDERED: GLUCOSE 4GM CHEW TABLET PO PRN (23:55)
[2023-02-19] MEDS ORDERED: GLUCAGON INJ 1MG VIAL SC PRN (23:55)
[2023-02-20] VITALS (39 sets, daily range): BP systolic 128–189; BP diastolic 63–96
[2023-02-20] MEDS ORDERED: HALOPERIDOL 5MG/ML 1ML VIAL IV ONE (04:45)
[2023-02-20] MEDS: INSULIN LISPRO (NovoLOG) PER UNIT SC SCH ×5 (05:27→21:00)
[2023-02-20 05:35] LABS: HEMATOCRIT 30.4 % (42.0-52.0); MEAN CORPUSCULAR HEMOGLOBIN 27.9 pg (27.0-33.0); MEAN CORPUSCULAR HGB CONC 32.9 g/dl (32.0-36.5); MEAN CORPUSCULAR VOLUME 84.9 fl (80.0-96.0); PLATELET COUNT, AUTOMATED 126 10^3/uL (150-450); RED BLOOD COUNT 3.58 10^6/uL (4.30-6.10); WHITE BLOOD COUNT 4.8 10^3/uL (4.0-10.0)
[2023-02-20] MEDS: HEPARIN SOD (PORCINE) 5000UNITS/ML 1ML VIAL/SYRINGE SC SCH ×3 (06:00→22:00)
[2023-02-20 06:07] LABS: BILIRUBIN,TOTAL 0.5 MG/DL (0.3-1.2); CALCIUM LEVEL 8.2 MG/DL (8.3-10.6); CREATININE FOR GFR 4.12 MG/DL (0.70-1.30); GLOMERULAR FILTRATION RATE 15.7 (>49); POTASSIUM SERUM 5.3 MMOL/L (3.5-5.1); TOTAL PROTEIN 5.5 G/DL (5.7-8.2)
[2023-02-20] MEDS: **hydrALAZINE** 50 MG TAB PO SCH ×3 (07:10→22:00)
[2023-02-20] MEDS: TACROLIMUS 1MG CAP PO SCH ×2 (08:14→21:00)
[2023-02-20] MEDS: DOCUSATE SODIUM 100MG CAPSULE PO SCH ×2 (08:14→21:00)
[2023-02-20] MEDS: FLUoxetine 20MG CAP PO SCH (08:15)
[2023-02-20] MEDS: THIAMINE 100 MG TAB PO SCH ×2 (08:15→21:00)
[2023-02-20] MEDS: FOLIC ACID 1MG TAB PO SCH (08:15)
[2023-02-20] MEDS ORDERED: NIFEdipine 30MG XL TAB PO SCH (09:00)
[2023-02-20] MEDS ORDERED: HEPARIN 1,000UNITS/ML 10ML VIAL (FOR RADIOLOGY & DIALYSIS ONLY) IV PRN (09:35)
[2023-02-20] MEDS ORDERED: LIDOCAINE 1% SDV 5ML VIAL SC PRN (09:35)
[2023-02-20] MEDS ORDERED: SODIUM CHLORIDE 0.9% 1000ML IV PRN (09:35)
[2023-02-20] MEDS ORDERED: HEPARIN 1,000UNITS/ML 10ML VIAL (FOR RADIOLOGY & DIALYSIS ONLY) XX SCH (09:35)
[2023-02-20] MEDS: FUROSEMIDE 100MG/10ML VIAL IV SCH ×3 (10:18→21:00)
[2023-02-20] MEDS: PATIROMER SORBITEX CALCIUM 8.4 GM POWDER PACKET (VELTASSA) PO SCH (12:13)
[2023-02-20 12:15] LABS: AMPHETAMINES LEVEL URINE NEGATIVE (NEGATIVE); BARBITURATES URINE NEGATIVE (NEGATIVE); BENZODIAZEPINES URINE NEGATIVE (NEGATIVE); COCAINE METABOLITE URINE NEGATIVE (NEGATIVE); METHADONE URINE NEGATIVE (NEGATIVE); OPIATES URINE NEGATIVE (NEGATIVE); PHENCYCLIDINE URINE NEGATIVE (NEGATIVE)
[2023-02-20 12:19] LABS: CANNABINOIDS URINE POSITIVE (NEGATIVE)
[2023-02-20] MEDS ORDERED: OLANZapine 5 MG TAB PO ONE (13:00)
[2023-02-20] MEDS ORDERED: HALOPERIDOL 5MG/ML 1ML VIAL IM STA (13:26)
[2023-02-20] MEDS ORDERED: HALOPERIDOL 5MG/ML 1ML VIAL IM PRN (15:45)
[2023-02-21] VITALS (7 sets, daily range): BP systolic 112–172; BP diastolic 56–88
[2023-02-21] MEDS: **hydrALAZINE** 50 MG TAB PO SCH ×3 (06:00→21:59)
[2023-02-21] MEDS: HEPARIN SOD (PORCINE) 5000UNITS/ML 1ML VIAL/SYRINGE SC SCH ×3 (06:00→21:58)
[2023-02-21 06:04] LABS: BASO # 0.1 10^3/uL (0.0-0.2); EOS # 0.5 10^3/uL (0.0-0.5); EOS % 9.1 % (0.0-3.0); HEMOGLOBIN 9.3 g/dl (13.5-17.5); LYMPH # 1.2 10^3/uL (1.5-5.0); LYMPH % 23.1 % (24.0-44.0); MEAN CORPUSCULAR HGB CONC 33.2 g/dl (32.0-36.5); MEAN CORPUSCULAR VOLUME 84.3 fl (80.0-96.0); MONO # 0.5 10^3/uL (0.0-0.8); MONO % 10.1 % (2.0-8.0); NEUTROPHILS # 2.9 10^3/uL (1.5-8.5); NEUTROPHILS % 56.5 % (36.0-66.0); PLATELET COUNT, AUTOMATED 135 10^3/uL (150-450); RED BLOOD COUNT 3.32 10^6/uL (4.30-6.10); WHITE BLOOD COUNT 5.2 10^3/uL (4.0-10.0)
[2023-02-21 06:27] LABS: BILIRUBIN,TOTAL 0.3 MG/DL (0.3-1.2); CREATININE FOR GFR 4.9 MG/DL (0.70-1.30); GLOMERULAR FILTRATION RATE 12.8 (>49); TOTAL PROTEIN 5.4 G/DL (5.7-8.2)
[2023-02-21] MEDS: INSULIN LISPRO (NovoLOG) PER UNIT SC SCH ×4 (07:30→21:00)
[2023-02-21] MEDS: FLUoxetine 20MG CAP PO SCH (08:28)
[2023-02-21] MEDS: DOCUSATE SODIUM 100MG CAPSULE PO SCH ×2 (08:29→21:58)
[2023-02-21] MEDS: NIFEdipine 30MG XL TAB PO SCH (08:29)
[2023-02-21] MEDS: OMEPRAZOLE 20MG CAP PO SCH (08:29)
[2023-02-21] MEDS: TACROLIMUS 1MG CAP PO SCH ×2 (08:29→22:02)
[2023-02-21] MEDS: THIAMINE 100 MG TAB PO SCH ×2 (08:29→21:59)
[2023-02-21] MEDS: FOLIC ACID 1MG TAB PO SCH (08:29)
[2023-02-21] MEDS ORDERED: MIRALAX *UNIT DOSE* 17GM PACKET PO PRN (09:55)
[2023-02-21] MEDS ORDERED: SENNA 8.6 MG TAB (SENOKOT) PO PRN (09:55)
[2023-02-21] MEDS ORDERED: hydrALAZINE 20MG/ML 1ML VIAL IV STA (11:48)
[2023-02-21] MEDS: PATIROMER SORBITEX CALCIUM 8.4 GM POWDER PACKET (VELTASSA) PO SCH (12:10)
[2023-02-21] MEDS ORDERED: ONDANSETRON 4MG 2ML VIAL As Ordered ONE (14:16)
[2023-02-21] MEDS: ONDANSETRON 4MG 2ML VIAL IV PRN ×2 (14:56→21:58)
[2023-02-22 03:41] VITALS: BP 137/65
[2023-02-22 05:59] LABS: BASO # 0.1 10^3/uL (0.0-0.2); EOS # 0.5 10^3/uL (0.0-0.5); EOS % 10.1 % (0.0-3.0); HEMATOCRIT 28.5 % (42.0-52.0); HEMOGLOBIN 9.1 g/dl (13.5-17.5); LYMPH # 1.2 10^3/uL (1.5-5.0); LYMPH % 23.2 % (24.0-44.0); MEAN CORPUSCULAR HEMOGLOBIN 27.6 pg (27.0-33.0); MEAN CORPUSCULAR HGB CONC 31.9 g/dl (32.0-36.5); MEAN CORPUSCULAR VOLUME 86.4 fl (80.0-96.0); MONO # 0.5 10^3/uL (0.0-0.8); MONO % 9.3 % (2.0-8.0); NEUTROPHILS # 2.9 10^3/uL (1.5-8.5); NEUTROPHILS % 56.4 % (36.0-66.0); PLATELET COUNT, AUTOMATED 136 10^3/uL (150-450); WHITE BLOOD COUNT 5.1 10^3/uL (4.0-10.0)
[2023-02-22 06:17] LABS: ALBUMIN 2.7 G/DL (3.2-5.2); ALKALINE PHOSPHATASE 101 U/L (46-116); ALT/SGPT 14 U/L (7.0-40); AST/SGOT 19 U/L (<34); BILIRUBIN,TOTAL < 0.2 MG/DL (0.3-1.2); BLOOD UREA NITROGEN 59 MG/DL (9-23); CARBON DIOXIDE LEVEL 18 MMOL/L (20-31); CHLORIDE LEVEL 108 MMOL/L (98-107); GLOMERULAR FILTRATION RATE 11.2 (>49); GLUCOSE, FASTING 77 MG/DL (74-106); POTASSIUM SERUM 4.8 MMOL/L (3.5-5.1); SODIUM LEVEL 139 MMOL/L (136-145); TOTAL PROTEIN 5.4 G/DL (5.7-8.2)
[2023-02-22] MEDS: HEPARIN SOD (PORCINE) 5000UNITS/ML 1ML VIAL/SYRINGE SC SCH ×3 (06:30→22:34)
[2023-02-22] MEDS: **hydrALAZINE** 50 MG TAB PO SCH ×3 (06:31→22:35)
[2023-02-22] MEDS: INSULIN LISPRO (NovoLOG) PER UNIT SC SCH ×5 (07:30→22:36)
[2023-02-22 07:38] VITALS: BP 132/64
[2023-02-22] MEDS: FOLIC ACID 1MG TAB PO SCH (09:02)
[2023-02-22] MEDS: THIAMINE 100 MG TAB PO SCH ×2 (09:02→22:36)
[2023-02-22] MEDS: FLUoxetine 20MG CAP PO SCH (09:02)
[2023-02-22] MEDS: DOCUSATE SODIUM 100MG CAPSULE PO SCH ×2 (09:02→22:34)
[2023-02-22] MEDS: TACROLIMUS 1MG CAP PO SCH ×2 (09:02→22:34)
[2023-02-22] MEDS: NIFEdipine 30MG XL TAB PO SCH (09:03)
[2023-02-22] MEDS: OMEPRAZOLE 20MG CAP PO SCH (09:03)
[2023-02-22 12:03] VITALS: BP 137/65
[2023-02-22] MEDS: PATIROMER SORBITEX CALCIUM 8.4 GM POWDER PACKET (VELTASSA) PO SCH (14:43)
[2023-02-22 16:02] VITALS: BP 134/62
[2023-02-22 20:30] VITALS: BP 127/63
[2023-02-22 23:52] VITALS: BP 121/57
[2023-02-23 04:00] VITALS: BP 149/70
[2023-02-23 04:25] LABS: BASO % 0.6 % (0.0-1.0); EOS # 0.5 10^3/uL (0.0-0.5); EOS % 10.2 % (0.0-3.0); HEMATOCRIT 27.2 % (42.0-52.0); HEMOGLOBIN 8.8 g/dl (13.5-17.5); LYMPH # 1.1 10^3/uL (1.5-5.0); LYMPH % 22.8 % (24.0-44.0); MEAN CORPUSCULAR HGB CONC 32.4 g/dl (32.0-36.5); MEAN CORPUSCULAR VOLUME 86.6 fl (80.0-96.0); MONO # 0.5 10^3/uL (0.0-0.8); MONO % 10.4 % (2.0-8.0); NEUTROPHILS # 2.8 10^3/uL (1.5-8.5); NEUTROPHILS % 55.8 % (36.0-66.0); PLATELET COUNT, AUTOMATED 125 10^3/uL (150-450); RED BLOOD COUNT 3.14 10^6/uL (4.30-6.10)
[2023-02-23 05:02] LABS: ALBUMIN 2.6 G/DL (3.2-5.2); ALKALINE PHOSPHATASE 101 U/L (46-116); ALT/SGPT 14 U/L (7.0-40); AST/SGOT 17 U/L (<34); BILIRUBIN,TOTAL < 0.2 MG/DL (0.3-1.2); BLOOD UREA NITROGEN 62 MG/DL (9-23); CARBON DIOXIDE LEVEL 19 MMOL/L (20-31); CHLORIDE LEVEL 108 MMOL/L (98-107); CREATININE FOR GFR 5.92 MG/DL (0.70-1.30); GLOMERULAR FILTRATION RATE 10.3 (>49); GLUCOSE, FASTING 63 MG/DL (74-106); POTASSIUM SERUM 4.9 MMOL/L (3.5-5.1); SODIUM LEVEL 140 MMOL/L (136-145)
[2023-02-23 05:59] VITALS: BP 149/70
[2023-02-23] MEDS: HEPARIN SOD (PORCINE) 5000UNITS/ML 1ML VIAL/SYRINGE SC SCH (05:59)
[2023-02-23] MEDS: **hydrALAZINE** 50 MG TAB PO SCH (05:59)
[2023-02-23 07:37] VITALS: BP 148/76
[2023-02-23] MEDS: DOCUSATE SODIUM 100MG CAPSULE PO SCH (09:17)
[2023-02-23] MEDS: FLUoxetine 20MG CAP PO SCH (09:17)
[2023-02-23] MEDS: FOLIC ACID 1MG TAB PO SCH (09:17)
[2023-02-23] MEDS: NIFEdipine 30MG XL TAB PO SCH (09:17)
[2023-02-23] MEDS: TACROLIMUS 1MG CAP PO SCH (09:17)
[2023-02-23] MEDS: OMEPRAZOLE 20MG CAP PO SCH (09:18)
[2023-02-23] MEDS: THIAMINE 100 MG TAB PO SCH (09:18)
== END 2023-02-23 11:09 | disposition left against medical advice (07) | DRG 304 ==
LOC: M ED 19:56 → EDBD 19:56 → M ED INP 23:52 → M ICU 02-20 01:15 → M PCU 02-20 20:03
PROVIDERS: ADMIT Internal Medicine Pulmonary Disease; ATTEND Internal Medicine
DX: I16.1 Hypertensive emergency (principal); N18.6 End stage renal disease; G93.41 Metabolic encephalopathy; Z94.4 Liver transplant status; E87.20 Acidosis, unspecified; Z91.158 Patient's noncompliance with renal dialysis for other reason; Z91.148 Patient's other noncompliance with medication regimen for other reason; Z98.84 Bariatric surgery status; I12.0 Hypertensive chronic kidney disease with stage 5 chronic kidney disease or end stage renal disease; E78.5 Hyperlipidemia, unspecified; K21.9 Gastro-esophageal reflux disease without esophagitis; K44.9 Diaphragmatic hernia without obstruction or gangrene; E55.9 Vitamin D deficiency, unspecified; D63.1 Anemia in chronic kidney disease; Z66 Do not resuscitate; I87.2 Venous insufficiency (chronic) (peripheral); N28.89 Other specified disorders of kidney and ureter; F03.90 Unspecified dementia, unspecified severity, without behavioral disturbance, psychotic disturbance, mood disturbance, and anxiety; F32.A Depression, unspecified; G47.00 Insomnia, unspecified; F41.9 Anxiety disorder, unspecified; F43.20 Adjustment disorder, unspecified; R41.0 Disorientation, unspecified; K59.09 Other constipation; E87.5 Hyperkalemia; Z99.2 Dependence on renal dialysis; Z96.652 Presence of left artificial knee joint; Z79.899 Other long term (current) drug therapy

== ENCOUNTER → 2023-03-22 | Outpatient (REF) | payer MEDICARE ==
[~2023-03-22] MED LIST changes: +NIFE-3 PO; -NIFE30TA50 PO; +SENN-111 PO; -SENN18TA PO
[2023-03-22 13:27] LABS: INR 0.89; PROTHROMBIN TIME 12.2 SECONDS (12.5-14.5)
[2023-03-22 14:31] LABS: FERRITIN 393.4 NG/ML (10.5-307.3)
[2023-03-22 14:32] LABS: PERCENT SATURATION 35.4 % (19.7-50.0)
== END ==
LOC: M LAB REF 12:39
PROVIDERS: ATTEND Internal Medicine
DX: D64.9 Anemia, unspecified (principal); N18.6 End stage renal disease

== ENCOUNTER 2023-05-18 06:41 | Emergency (ER) | payer MEDICARE ==
[~2023-05-18] VITALS: Ht 172.7 cm; Wt 70.5 kg
[~2023-05-18 06:41] MED LIST changes: -LIDO1CRE42 TOP; +LIDO30CR18 TOP
[2023-05-18 06:42] VITALS: BP_DIAS 84
[2023-05-18] MEDS ORDERED: BACITRACIN OINTMENT 30GM TUBE TOP ONE (08:25)
[2023-05-18] MEDS ORDERED: BACI500O8 TOP (08:32)
[2023-05-18 09:29] VITALS: BP_SYST 192; TEMP 97; O2SAT 100
== END 2023-05-18 09:32 | disposition home or self-care (01) ==
LOC: M ED 06:41
DX: S50.812A Abrasion of left forearm, initial encounter (principal); W01.0XXA Fall on same level from slipping, tripping and stumbling without subsequent striking against object, initial encounter; Y92.003 Bedroom of unspecified non-institutional (private) residence as the place of occurrence of the external cause; Y93.89 Activity, other specified; Y99.8 Other external cause status; Z98.84 Bariatric surgery status; R07.9 Chest pain, unspecified; H40.9 Unspecified glaucoma; K44.9 Diaphragmatic hernia without obstruction or gangrene; K74.60 Unspecified cirrhosis of liver; Z94.4 Liver transplant status; F41.9 Anxiety disorder, unspecified; F32.A Depression, unspecified; Z79.899 Other long term (current) drug therapy

== ENCOUNTER 2023-06-01 20:33 | Emergency (ER) | payer MEDICARE ==
[~2023-06-01] VITALS: Ht 177.8 cm; Wt 75.0 kg
[~2023-06-01 20:33] MED LIST changes: +BACI500O8 TOP; -MIRT-62 PO; +MIRT-88 PO
[2023-06-01] MEDS ORDERED: BOOSTRIX VACCINE (TETANUS/DIPHTH/ACEL. PERTUSSIS) 0.5ML SYR IM ONE (22:40)
[2023-06-01 23:06] VITALS: BP 179/84; TEMP 98.1; O2SAT 100
== END 2023-06-01 23:17 | disposition home or self-care (01) ==
LOC: M ED 20:33
DX: S08.0XXA Avulsion of scalp, initial encounter (principal); W01.0XXA Fall on same level from slipping, tripping and stumbling without subsequent striking against object, initial encounter; Y92.009 Unspecified place in unspecified non-institutional (private) residence as the place of occurrence of the external cause; Z23 Encounter for immunization; I12.0 Hypertensive chronic kidney disease with stage 5 chronic kidney disease or end stage renal disease; N18.6 End stage renal disease; Z94.4 Liver transplant status; Z79.899 Other long term (current) drug therapy

== ENCOUNTER 2023-06-30 12:36 | Inpatient (IN) | payer MEDICARE ==
[~2023-06-30] VITALS: Ht 177.8 cm; Wt 68.7 kg
[2023-06-30] MEDS ORDERED: LORazepam 2 MG/ML 1ML VIAL IV STA ×4 (12:58→19:06)
[2023-06-30] MEDS ORDERED: LORazepam 2 MG/ML 1ML VIAL As Ordered ONE (12:58)
[2023-06-30] MEDS ORDERED: levETIRAcetam INJection 1,000 MG in D5W 100 ML IV ONE (13:05)
[2023-06-30 13:21] LABS: BASO % 0.3 % (0.0-1.0); HEMOGLOBIN 9.9 g/dl (13.5-17.5); LYMPH # 0.5 10^3/uL (1.5-5.0); LYMPH % 4.5 % (24.0-44.0); MEAN CORPUSCULAR HEMOGLOBIN 28.3 pg (27.0-33.0); MEAN CORPUSCULAR VOLUME 85.7 fl (80.0-96.0); MONO # 0.9 10^3/uL (0.0-0.8); MONO % 7.3 % (2.0-8.0); NEUTROPHILS # 10.5 10^3/uL (1.5-8.5); NEUTROPHILS % 87.6 % (36.0-66.0); PLATELET COUNT, AUTOMATED 159 10^3/uL (150-450)
[2023-06-30 13:47] LABS: ETHYL ALCOHOL (ETHANOL) < 0.003 % (0.000-0.010)
[2023-06-30 13:48] LABS: ALBUMIN 3.7 G/DL (3.2-5.2); ALKALINE PHOSPHATASE 88 U/L (46-116); ALT/SGPT 53 U/L (7.0-40); AST/SGOT 247 U/L (<34); BILIRUBIN,DIRECT 0.3 MG/DL (<0.4); BILIRUBIN,TOTAL 0.8 MG/DL (0.3-1.2); BLOOD UREA NITROGEN 22 MG/DL (9-23); CALCIUM LEVEL 8.5 MG/DL (8.3-10.6); CARBON DIOXIDE LEVEL 25 MMOL/L (20-31); CHLORIDE LEVEL 100 MMOL/L (98-107); GLOMERULAR FILTRATION RATE 11.9 (>49); GLUCOSE, FASTING 92 MG/DL (74-106); POTASSIUM SERUM 3.5 MMOL/L (3.5-5.1); SODIUM LEVEL 140 MMOL/L (136-145); TOTAL PROTEIN 6.6 G/DL (5.7-8.2)
[2023-06-30 14:16] LABS: CPK CREATINE PHOSPHOKINASE > 7800 U/L (46-171)
[2023-06-30 14:17] LABS: RSV AMPLIFICATION NEGATIVE (NEGATIVE)
[2023-06-30 14:52] LABS: AMPHETAMINES LEVEL URINE NEGATIVE (NEGATIVE); BARBITURATES URINE NEGATIVE (NEGATIVE); COCAINE METABOLITE URINE NEGATIVE (NEGATIVE)
[2023-06-30 14:53] LABS: METHADONE URINE NEGATIVE (NEGATIVE); OPIATES URINE NEGATIVE (NEGATIVE); PHENCYCLIDINE URINE NEGATIVE (NEGATIVE)
[2023-06-30 14:56] LABS: BENZODIAZEPINES URINE POSITIVE (NEGATIVE); CANNABINOIDS URINE POSITIVE (NEGATIVE)
[2023-06-30] MEDS ORDERED: MEROPENEM INJ 1 GM in IV 1 EA IV ONE (15:05)
[2023-06-30 15:08] LABS: CK-MB VALUE MASS 23.7 NG/ML (<3.6); MAGNESIUM LEVEL 2.2 MG/DL (1.8-2.4)
[2023-06-30 15:25] LABS: CPK CREATINE PHOSPHOKINASE > 7800 U/L (46-171)
[2023-06-30] MEDS ORDERED: VALPROATE SOD INJ 1,000 MG in D5W 50 ML IV ONE ×2 (17:20→17:25)
[2023-06-30 17:50] LABS: PROLACTIN 11.31 NG/ML (2.1-17.7)
[2023-06-30] MEDS ORDERED: NS 1,000 ML IV ONE (18:00)
[2023-06-30] MEDS ORDERED: MED REC IN PROGRESS XX SCH (18:10)
[2023-06-30 18:18] LABS: PROCALCITONIN 0.74 ng/ml
[2023-06-30] MEDS: NS 1,000 ML IV SCH ×2 (18:35→23:58)
[2023-06-30] MEDS ORDERED: DEXTROSE 50% 50ML SYRINGE IV PRN (18:35)
[2023-06-30] MEDS ORDERED: GLUCOSE 4GM CHEW TABLET PO PRN (18:35)
[2023-06-30] MEDS ORDERED: GLUCAGON INJ 1MG VIAL SC PRN (18:35)
[2023-06-30] MEDS ORDERED: MED REC CURRENTLY UNOBTAINABLE XX SCH ×2 (18:40→18:55)
[2023-06-30] MEDS ORDERED: METOPROLOL 5 MG/5 ML VIAL IV PRN (18:50)
[2023-06-30] MEDS ORDERED: NITROGLYCERIN 2% OINT 1 GM *U/D* PKT TOP ONE (19:15)
[2023-06-30] MEDS ORDERED: HOME MED LIST COMPLETE! XX SCH (19:15)
[2023-06-30] MEDS ORDERED: ACETAMINOPHEN *IV* 1,000 MG in IV 1 EA IV ONE (19:15)
[2023-06-30] MEDS: hydrALAZINE 20MG/ML 1ML VIAL IV SCH (19:55)
[2023-06-30] MEDS ORDERED: FUROSEMIDE 100MG/10ML VIAL IV ONE (20:15)
[2023-06-30] MEDS: DOXYCYCLINE HYCLATE 100 MG in D5W MINI-BAG PLUS 100 ML IV SCH (21:53)
[2023-06-30 23:41] VITALS: BP 180/89; TEMP 99.1; O2SAT 100
[2023-06-30 23:45] VITALS: O2SAT 100
[2023-06-30] MEDS ORDERED: HALOPERIDOL 5MG/ML 1ML VIAL IV STA (23:54)
[2023-06-30] MEDS ORDERED: HALOPERIDOL 5MG/ML 1ML VIAL As Ordered ONE (23:56)
[2023-06-30] MEDS ORDERED: HALOPERIDOL 5MG/ML 1ML VIAL IM STA (23:57)
[2023-07-01] VITALS (22 sets, daily range): BP systolic 113–173; BP diastolic 64–92; TEMP 98.1–98.9; O2SAT 91–100
[2023-07-01] MEDS: metroNIDAZOLE 500 MG in IV 1 EA IV SCH ×4 (00:26→20:36)
[2023-07-01] MEDS ORDERED: LORazepam 2 MG/ML 1ML VIAL IV STA (00:49)
[2023-07-01] MEDS: cefTRIAXone SOD 2 GM in D5W MINI-BAG PLUS 50 ML IV SCH (01:53)
[2023-07-01] MEDS: hydrALAZINE 20MG/ML 1ML VIAL IV SCH ×4 (01:55→20:33)
[2023-07-01] MEDS: BACITRACIN OINTMENT 30GM TUBE TOP SCH ×3 (01:56→20:15)
[2023-07-01] MEDS ORDERED: LORazepam 2 MG/ML 1ML VIAL IM STA (03:28)
[2023-07-01] MEDS ORDERED: OLANZapine INTRAMUSCULAR 10MG VIAL IM ONE (04:00)
[2023-07-01 05:46] LABS: BASO % 0.1 % (0.0-1.0); HEMATOCRIT 27.1 % (42.0-52.0); HEMOGLOBIN 8.9 g/dl (13.5-17.5); LYMPH # 0.7 10^3/uL (1.5-5.0); LYMPH % 8.5 % (24.0-44.0); MEAN CORPUSCULAR HGB CONC 32.8 g/dl (32.0-36.5); MEAN CORPUSCULAR VOLUME 85.2 fl (80.0-96.0); MONO # 0.4 10^3/uL (0.0-0.8); MONO % 5.3 % (2.0-8.0); NEUTROPHILS # 7.1 10^3/uL (1.5-8.5); NEUTROPHILS % 85.9 % (36.0-66.0); PLATELET COUNT, AUTOMATED 110 10^3/uL (150-450); RED BLOOD COUNT 3.18 10^6/uL (4.30-6.10); WHITE BLOOD COUNT 8.3 10^3/uL (4.0-10.0)
[2023-07-01 06:07] LABS: VALPROIC ACID (DEPAKOTE) 7.7 UG/ML (50.0-100.0)
[2023-07-01 06:09] LABS: CALCIUM LEVEL 7.7 MG/DL (8.3-10.6); CREATININE FOR GFR 5.91 MG/DL (0.70-1.30); FREE T4 0.87 NG/DL (0.89-1.76); GLOMERULAR FILTRATION RATE 10.3 (>49); POTASSIUM SERUM 3.3 MMOL/L (3.5-5.1)
[2023-07-01] MEDS: VALPROATE SOD INJ 500 MG, VIAL MATE ADAPTER 1 EACH in D5W 50 ML IV SCH ×3 (06:50→18:44)
[2023-07-01] MEDS ORDERED: KCL 10MEQ/100ML SWI (KRUN) 10 MEQ in IV 1 EA IV ONE (07:00)
[2023-07-01] MEDS: DOXYCYCLINE HYCLATE 100 MG in D5W MINI-BAG PLUS 100 ML IV SCH ×2 (08:37→18:27)
[2023-07-01] MEDS: HEPARIN SOD (PORCINE) 5000UNITS/ML 1ML VIAL/SYRINGE SQ SCH ×2 (08:43→20:07)
[2023-07-01] MEDS ORDERED: HEPARIN 1,000UNITS/ML 10ML VIAL (FOR RADIOLOGY & DIALYSIS ONLY) XX SCH (08:45)
[2023-07-01] MEDS ORDERED: LIDOCAINE 1% SDV 5ML VIAL SC PRN (08:45)
[2023-07-01] MEDS ORDERED: KCL 10MEQ/100ML SWI (KRUN) 10 MEQ in IV 1 EA IV SCH (13:00)
[2023-07-01] MEDS ORDERED: D5W/0.45% SODIUM CHLORIDE 1,000 ML IV SCH (13:00)
[2023-07-01] MEDS: ACETAMINOPHEN TAB 650MG DOSE (2X325MG) PO PRN (20:02)
[2023-07-02] VITALS (8 sets, daily range): BP systolic 136–160; BP diastolic 61–77; TEMP 98.9–100; O2SAT 94–98
[2023-07-02] MEDS: cefTRIAXone SOD 2 GM in D5W MINI-BAG PLUS 50 ML IV SCH ×2 (00:13→23:04)
[2023-07-02] MEDS: hydrALAZINE 20MG/ML 1ML VIAL IV SCH ×4 (02:09→19:42)
[2023-07-02] MEDS: metroNIDAZOLE 500 MG in IV 1 EA IV SCH ×3 (04:45→20:15)
[2023-07-02 05:01] LABS: BASO % 0.3 % (0.0-1.0); EOS # 0.1 10^3/uL (0.0-0.5); EOS % 1.1 % (0.0-3.0); HEMATOCRIT 25.7 % (42.0-52.0); HEMOGLOBIN 8.4 g/dl (13.5-17.5); LYMPH # 1.2 10^3/uL (1.5-5.0); LYMPH % 17.3 % (24.0-44.0); MEAN CORPUSCULAR HEMOGLOBIN 28.1 pg (27.0-33.0); MEAN CORPUSCULAR HGB CONC 32.7 g/dl (32.0-36.5); MONO # 0.5 10^3/uL (0.0-0.8); MONO % 7.2 % (2.0-8.0); NEUTROPHILS # 5.2 10^3/uL (1.5-8.5); PLATELET COUNT, AUTOMATED 105 10^3/uL (150-450); RED BLOOD COUNT 2.99 10^6/uL (4.30-6.10); WHITE BLOOD COUNT 7.1 10^3/uL (4.0-10.0)
[2023-07-02 05:20] LABS: CALCIUM LEVEL 7.4 MG/DL (8.3-10.6); CREATININE FOR GFR 3.36 MG/DL (0.70-1.30); GLOMERULAR FILTRATION RATE 19.8 (>49); POTASSIUM SERUM 4.2 MMOL/L (3.5-5.1)
[2023-07-02] MEDS: DOXYCYCLINE HYCLATE 100 MG in D5W MINI-BAG PLUS 100 ML IV SCH ×2 (06:25→17:51)
[2023-07-02] MEDS: HEPARIN SOD (PORCINE) 5000UNITS/ML 1ML VIAL/SYRINGE SQ SCH (08:48)
[2023-07-02] MEDS: BACITRACIN OINTMENT 30GM TUBE TOP SCH ×2 (08:49→20:15)
[2023-07-02] MEDS: VALPROATE SOD INJ 500 MG, VIAL MATE ADAPTER 1 EACH in D5W 50 ML IV SCH ×2 (09:38→17:54)
[2023-07-02] MEDS ORDERED: LACOSAMIDE 50 MG TAB (VIMPAT) PO ONE (21:00)
[2023-07-02] MEDS ORDERED: levETIRAcetam 250MG TABLET (KEPPRA) PO ONE (21:00)
[2023-07-03] VITALS: BP 156/74; TEMP 99.6; O2SAT 97
[2023-07-03] MEDS: hydrALAZINE 20MG/ML 1ML VIAL IV SCH ×2 (01:01→08:00)
[2023-07-03 04:00] VITALS: BP 174/76; TEMP 97.5; O2SAT 98
[2023-07-03] MEDS: metroNIDAZOLE 500 MG in IV 1 EA IV SCH (04:16)
[2023-07-03 05:21] LABS: BASO % 0.4 % (0.0-1.0); EOS # 0.3 10^3/uL (0.0-0.5); EOS % 6.7 % (0.0-3.0); HEMATOCRIT 26.5 % (42.0-52.0); HEMOGLOBIN 8.4 g/dl (13.5-17.5); LYMPH # 0.9 10^3/uL (1.5-5.0); LYMPH % 19.2 % (24.0-44.0); MEAN CORPUSCULAR HEMOGLOBIN 27.3 pg (27.0-33.0); MEAN CORPUSCULAR HGB CONC 31.7 g/dl (32.0-36.5); MONO # 0.3 10^3/uL (0.0-0.8); MONO % 6.3 % (2.0-8.0); NEUTROPHILS # 3.1 10^3/uL (1.5-8.5); RED BLOOD COUNT 3.08 10^6/uL (4.30-6.10); WHITE BLOOD COUNT 4.6 10^3/uL (4.0-10.0)
[2023-07-03 05:42] LABS: CALCIUM LEVEL 7.9 MG/DL (8.3-10.6); CREATININE FOR GFR 4.85 MG/DL (0.70-1.30); GLOMERULAR FILTRATION RATE 12.9 (>49); POTASSIUM SERUM 3.6 MMOL/L (3.5-5.1)
[2023-07-03] MEDS ORDERED: SODIUM CHLORIDE 0.9% 1000ML IV PRN (06:00)
[2023-07-03] MEDS ORDERED: HEPARIN 1,000UNITS/ML 10ML VIAL (FOR RADIOLOGY & DIALYSIS ONLY) XX SCH (06:00)
[2023-07-03 06:02] LABS: PLATELET COUNT, AUTOMATED 99 10^3/uL (150-450)
[2023-07-03] MEDS: DOXYCYCLINE HYCLATE 100 MG in D5W MINI-BAG PLUS 100 ML IV SCH (07:00)
[2023-07-03] MEDS: VALPROATE SOD INJ 500 MG, VIAL MATE ADAPTER 1 EACH in D5W 50 ML IV SCH (07:00)
[2023-07-03 08:00] VITALS: BP 169/74; TEMP 99; O2SAT 99
[2023-07-03] MEDS: FOLIC ACID 1MG TAB PO SCH (09:00)
[2023-07-03] MEDS: NIFEdipine 30MG XL TAB PO SCH (09:00)
[2023-07-03] MEDS: DOCUSATE SODIUM 100MG CAPSULE PO SCH (09:00)
[2023-07-03] MEDS ORDERED: DOXYCYCLINE HYCLATE 100MG TABLET PO SCH (09:00)
[2023-07-03] MEDS: TACROLIMUS 1MG CAP PO SCH ×2 (09:00→21:28)
[2023-07-03] MEDS: CINACALCET 30 MG TAB (SENSIPAR) PO SCH (09:12)
[2023-07-03] MEDS: BACITRACIN OINTMENT 30GM TUBE TOP SCH ×2 (09:13→21:28)
[2023-07-03] MEDS: CALCITRIOL 0.25 MCG CAP (S0169) PO SCH (09:13)
[2023-07-03] MEDS ORDERED: metroNIDAZOLE (FLAGYL) 500MG TABLET PO ONE (10:35)
[2023-07-03] MEDS: VALPROIC ACID 250MG CAP PO SCH ×2 (11:15→21:29)
[2023-07-03 11:34] VITALS: BP 128/66; TEMP 99.5; O2SAT 98
[2023-07-03] MEDS ORDERED: ALPRAZolam 0.5 MG TAB PO PRN (13:50)
[2023-07-03] MEDS ORDERED: metroNIDAZOLE (FLAGYL) 500MG TABLET PO SCH (14:00)
[2023-07-03] MEDS ORDERED: PANTOPRAZOLE 40MG VIAL IV ONE (14:05)
[2023-07-03] MEDS ORDERED: PERCOCET 5MG/325MG TAB PO PRN (14:30)
[2023-07-03] MEDS ORDERED: PERCOCET 5MG/325MG TAB PO ONE (14:30)
[2023-07-03] MEDS ORDERED: HYDROMORPHONE HCL 0.5 MG/ 0.5 ML SYRINGE IV ONE (14:40)
[2023-07-03 14:53] LABS: C REACTIVE PROTEIN QUANTITATIV 9.8 MG/DL (<1.0)
[2023-07-03 15:02] LABS: PROCALCITONIN 1.84 ng/ml
[2023-07-03] MEDS: DARBEPOETIN 200MCG/0.4ML *DIALYSIS* SYRINGE IV SCH (15:23)
[2023-07-03] MEDS ORDERED: CEFDINIR 300 MG CAP (OMNICEF) PO SCH (16:00)
[2023-07-03] MEDS ORDERED: LIDOCAINE 1% MDV 20ML VIAL As Ordered ONE (16:13)
[2023-07-03 17:15] VITALS: BP 163/80; TEMP 99.4; O2SAT 99
[2023-07-03] MEDS ORDERED: ONDANSETRON 4MG 2ML VIAL IV ONE (18:00)
[2023-07-03] MEDS ORDERED: ONDANSETRON 4MG 2ML VIAL IV PRN (18:00)
[2023-07-03] MEDS: LACTOBACILLUS ACIDOPHILUS CAP (BACID) PO SCH ×2 (18:00→21:28)
[2023-07-03] MEDS ORDERED: SODIUM CHLORIDE 0.9% INJ 10 ML SYR IV PRN (18:40)
[2023-07-03 20:00] VITALS: BP 165/74; TEMP 98.8; O2SAT 100
[2023-07-03] MEDS: PERCOCET 5MG/325MG TAB PO PRN (21:29)
[2023-07-03] MEDS: DOXYCYCLINE HYCLATE 100MG TABLET PO SCH (21:30)
[2023-07-03] MEDS: SENNA 8.6 MG TAB (SENOKOT) PO SCH (21:30)
[2023-07-03] MEDS: zolPIDEM TARTRATE 5 MG TAB PO PRN (22:46)
[2023-07-04] VITALS: BP 142/64; TEMP 98.5; O2SAT 97
[2023-07-04 04:00] VITALS: BP 138/65; TEMP 98.7; O2SAT 95
[2023-07-04] MEDS: SODIUM CHLORIDE 0.9% INJ 10 ML SYR IV SCH ×2 (05:09→18:13)
[2023-07-04 05:17] LABS: BASO % 0.7 % (0.0-1.0); EOS # 0.4 10^3/uL (0.0-0.5); EOS % 8.2 % (0.0-3.0); HEMATOCRIT 27.9 % (42.0-52.0); HEMOGLOBIN 8.8 g/dl (13.5-17.5); LYMPH # 1.2 10^3/uL (1.5-5.0); LYMPH % 26.9 % (24.0-44.0); MEAN CORPUSCULAR HEMOGLOBIN 27.6 pg (27.0-33.0); MEAN CORPUSCULAR HGB CONC 31.5 g/dl (32.0-36.5); MEAN CORPUSCULAR VOLUME 87.5 fl (80.0-96.0); MONO # 0.5 10^3/uL (0.0-0.8); MONO % 10.8 % (2.0-8.0); NEUTROPHILS # 2.4 10^3/uL (1.5-8.5); NEUTROPHILS % 53.2 % (36.0-66.0); PLATELET COUNT, AUTOMATED 103 10^3/uL (150-450); RED BLOOD COUNT 3.19 10^6/uL (4.30-6.10); WHITE BLOOD COUNT 4.5 10^3/uL (4.0-10.0)
[2023-07-04 05:44] LABS: CALCIUM LEVEL 7.7 MG/DL (8.3-10.6); CREATININE FOR GFR 2.94 MG/DL (0.70-1.30); GLOMERULAR FILTRATION RATE 23.1 (>49); POTASSIUM SERUM 3.3 MMOL/L (3.5-5.1)
[2023-07-04 08:30] VITALS: BP 183/81; TEMP 98.4; O2SAT 98
[2023-07-04] MEDS: LACTOBACILLUS ACIDOPHILUS CAP (BACID) PO SCH ×4 (08:48→21:21)
[2023-07-04] MEDS: PANTOPRAZOLE 40MG TAB (PROTONIX) PO SCH (08:48)
[2023-07-04] MEDS: FOLIC ACID 1MG TAB PO SCH (08:48)
[2023-07-04] MEDS: TACROLIMUS 1MG CAP PO SCH ×2 (08:48→21:21)
[2023-07-04] MEDS: DOXYCYCLINE HYCLATE 100MG TABLET PO SCH ×2 (08:48→21:21)
[2023-07-04] MEDS: DOCUSATE SODIUM 100MG CAPSULE PO SCH (08:48)
[2023-07-04] MEDS: VALPROIC ACID 250MG CAP PO SCH ×2 (08:55→21:21)
[2023-07-04] MEDS ORDERED: POTASSIUM CHLORIDE 10MEQ SR TABLET PO ONE (09:00)
[2023-07-04] MEDS ORDERED: HEPARIN 1,000UNITS/ML 10ML VIAL (FOR RADIOLOGY & DIALYSIS ONLY) IV PRN (09:00)
[2023-07-04] MEDS: PERCOCET 5MG/325MG TAB PO PRN (09:20)
[2023-07-04] MEDS: BACITRACIN OINTMENT 30GM TUBE TOP SCH ×2 (09:22→21:22)
[2023-07-04] MEDS: NIFEdipine 30MG XL TAB PO SCH (11:49)
[2023-07-04 12:00] VITALS: BP 170/72; TEMP 97.9; O2SAT 98
[2023-07-04] MEDS: HEPARIN SOD (PORCINE) 5000UNITS/ML 1ML VIAL/SYRINGE SQ SCH ×2 (15:13→21:21)
[2023-07-04 16:00] VITALS: BP 141/70; TEMP 98.1; O2SAT 99
[2023-07-04 18:07] LABS: BODY FLUID CULTURE Not indicated. (.); LEGIONELLA ANTIGEN URINE Negative (Negative); ORGANISM ID Not indicated. (.); SPECIMEN SOURCE Urine (.); URINE STREP PNEUMONIAE ANTIGEN Negative (Negative)
[2023-07-04 20:00] VITALS: BP 133/63; TEMP 97.9; O2SAT 98
[2023-07-04] MEDS: SENNA 8.6 MG TAB (SENOKOT) PO SCH (21:21)
[2023-07-04] MEDS: zolPIDEM TARTRATE 5 MG TAB PO PRN (23:26)
[2023-07-04] MEDS: ACETAMINOPHEN TAB 650MG DOSE (2X325MG) PO PRN (23:26)
[2023-07-05] VITALS (8 sets, daily range): BP systolic 120–165; BP diastolic 63–82; TEMP 97.2–98.4; O2SAT 94–100
[2023-07-05] MEDS: PERCOCET 5MG/325MG TAB PO PRN ×3 (03:19→12:56)
[2023-07-05 04:41] LABS: BASO % 0.7 % (0.0-1.0); EOS # 0.4 10^3/uL (0.0-0.5); EOS % 9.8 % (0.0-3.0); HEMATOCRIT 27.2 % (42.0-52.0); HEMOGLOBIN 8.8 g/dl (13.5-17.5); LYMPH # 1.4 10^3/uL (1.5-5.0); LYMPH % 33.3 % (24.0-44.0); MEAN CORPUSCULAR HGB CONC 32.4 g/dl (32.0-36.5); MEAN CORPUSCULAR VOLUME 86.6 fl (80.0-96.0); MONO # 0.5 10^3/uL (0.0-0.8); MONO % 12.5 % (2.0-8.0); NEUTROPHILS # 1.8 10^3/uL (1.5-8.5); NEUTROPHILS % 43.5 % (36.0-66.0); PLATELET COUNT, AUTOMATED 105 10^3/uL (150-450); RED BLOOD COUNT 3.14 10^6/uL (4.30-6.10); WHITE BLOOD COUNT 4.1 10^3/uL (4.0-10.0)
[2023-07-05 05:02] LABS: C REACTIVE PROTEIN QUANTITATIV 4.1 MG/DL (<1.0)
[2023-07-05 05:03] LABS: CALCIUM LEVEL 7.5 MG/DL (8.3-10.6); CREATININE FOR GFR 4.1 MG/DL (0.70-1.30); GLOMERULAR FILTRATION RATE 15.7 (>49); POTASSIUM SERUM 3.3 MMOL/L (3.5-5.1)
[2023-07-05] MEDS: SODIUM CHLORIDE 0.9% INJ 10 ML SYR IV SCH ×2 (05:04→17:38)
[2023-07-05] MEDS: HEPARIN SOD (PORCINE) 5000UNITS/ML 1ML VIAL/SYRINGE SQ SCH ×3 (05:04→21:42)
[2023-07-05] MEDS ORDERED: HEPARIN 1,000UNITS/ML 10ML VIAL (FOR RADIOLOGY & DIALYSIS ONLY) XX SCH (06:00)
[2023-07-05] MEDS ORDERED: SODIUM CHLORIDE 0.9% 1000ML IV PRN (06:00)
[2023-07-05] MEDS: CINACALCET 30 MG TAB (SENSIPAR) PO SCH (08:03)
[2023-07-05] MEDS: NIFEdipine 30MG XL TAB PO SCH (08:04)
[2023-07-05] MEDS: PANTOPRAZOLE 40MG TAB (PROTONIX) PO SCH (08:04)
[2023-07-05] MEDS: TACROLIMUS 1MG CAP PO SCH ×2 (08:08→20:32)
[2023-07-05] MEDS: FOLIC ACID 1MG TAB PO SCH (08:08)
[2023-07-05] MEDS: VALPROIC ACID 250MG CAP PO SCH ×2 (08:09→20:32)
[2023-07-05] MEDS: DOCUSATE SODIUM 100MG CAPSULE PO SCH (08:09)
[2023-07-05] MEDS: LACTOBACILLUS ACIDOPHILUS CAP (BACID) PO SCH ×4 (08:09→20:31)
[2023-07-05] MEDS: DOXYCYCLINE HYCLATE 100MG TABLET PO SCH ×2 (08:09→20:31)
[2023-07-05] MEDS: CALCITRIOL 0.25 MCG CAP (S0169) PO SCH (08:09)
[2023-07-05] MEDS: BACITRACIN OINTMENT 30GM TUBE TOP SCH (08:10)
[2023-07-05] MEDS: SENNA 8.6 MG TAB (SENOKOT) PO SCH (20:31)
[2023-07-06] MEDS ORDERED: PERCOCET 5MG/325MG TAB PO ONE (01:10)
[2023-07-06] MEDS: HEPARIN SOD (PORCINE) 5000UNITS/ML 1ML VIAL/SYRINGE SQ SCH ×3 (05:14→21:27)
[2023-07-06] MEDS: SODIUM CHLORIDE 0.9% INJ 10 ML SYR IV SCH ×2 (05:15→18:00)
[2023-07-06 06:00] VITALS: BP 140/69; TEMP 98.1; O2SAT 99
[2023-07-06 06:24] LABS: BASO % 0.8 % (0.0-1.0); EOS # 0.3 10^3/uL (0.0-0.5); EOS % 6.9 % (0.0-3.0); HEMATOCRIT 27.6 % (42.0-52.0); LYMPH # 1.8 10^3/uL (1.5-5.0); LYMPH % 37.6 % (24.0-44.0); MEAN CORPUSCULAR HGB CONC 32.6 g/dl (32.0-36.5); MONO # 0.6 10^3/uL (0.0-0.8); MONO % 12.8 % (2.0-8.0); NEUTROPHILS % 41.7 % (36.0-66.0); PLATELET COUNT, AUTOMATED 125 10^3/uL (150-450); RED BLOOD COUNT 3.21 10^6/uL (4.30-6.10); WHITE BLOOD COUNT 4.8 10^3/uL (4.0-10.0)
[2023-07-06 06:36] LABS: CALCIUM LEVEL 7.6 MG/DL (8.3-10.6); CREATININE FOR GFR 2.99 MG/DL (0.70-1.30); GLOMERULAR FILTRATION RATE 22.6 (>49); POTASSIUM SERUM 3.5 MMOL/L (3.5-5.1)
[2023-07-06 08:00] VITALS: BP 140/82; TEMP 97.6; O2SAT 100
[2023-07-06] MEDS: TACROLIMUS 1MG CAP PO SCH ×2 (09:11→20:01)
[2023-07-06] MEDS: NIFEdipine 30MG XL TAB PO SCH (09:11)
[2023-07-06] MEDS: VALPROIC ACID 250MG CAP PO SCH ×2 (09:11→20:01)
[2023-07-06] MEDS: LACTOBACILLUS ACIDOPHILUS CAP (BACID) PO SCH ×4 (09:12→20:01)
[2023-07-06] MEDS: DOCUSATE SODIUM 100MG CAPSULE PO SCH (09:12)
[2023-07-06] MEDS: DOXYCYCLINE HYCLATE 100MG TABLET PO SCH ×2 (09:14→20:01)
[2023-07-06] MEDS: PANTOPRAZOLE 40MG TAB (PROTONIX) PO SCH (09:14)
[2023-07-06] MEDS: PERCOCET 5MG/325MG TAB PO PRN ×2 (09:14→21:29)
[2023-07-06] MEDS: FOLIC ACID 1MG TAB PO SCH (09:14)
[2023-07-06] MEDS: SENNA 8.6 MG TAB (SENOKOT) PO SCH (20:01)
[2023-07-06] MEDS: zolPIDEM TARTRATE 5 MG TAB PO PRN (21:28)
[2023-07-07] MEDS: TACROLIMUS 1MG CAP PO SCH ×2 (05:57→21:51)
[2023-07-07] MEDS: DOCUSATE SODIUM 100MG CAPSULE PO SCH (05:58)
[2023-07-07 06:00] VITALS: BP 159/82; TEMP 97.5; O2SAT 99
[2023-07-07] MEDS: VALPROIC ACID 250MG CAP PO SCH ×2 (06:00→21:51)
[2023-07-07] MEDS: SODIUM CHLORIDE 0.9% INJ 10 ML SYR IV SCH (06:00)
[2023-07-07] MEDS: FOLIC ACID 1MG TAB PO SCH ×2 (06:00→06:02)
[2023-07-07] MEDS: NIFEdipine 30MG XL TAB PO SCH (06:01)
[2023-07-07] MEDS: PANTOPRAZOLE 40MG TAB (PROTONIX) PO SCH (06:01)
[2023-07-07] MEDS: HEPARIN SOD (PORCINE) 5000UNITS/ML 1ML VIAL/SYRINGE SQ SCH ×3 (06:01→21:52)
[2023-07-07] MEDS: DOXYCYCLINE HYCLATE 100MG TABLET PO SCH ×2 (06:02→21:52)
[2023-07-07 06:16] LABS: BASO % 0.9 % (0.0-1.0); EOS # 0.3 10^3/uL (0.0-0.5); HEMATOCRIT 32.3 % (42.0-52.0); HEMOGLOBIN 10.4 g/dl (13.5-17.5); LYMPH # 1.7 10^3/uL (1.5-5.0); MEAN CORPUSCULAR HGB CONC 32.2 g/dl (32.0-36.5); MEAN CORPUSCULAR VOLUME 87.1 fl (80.0-96.0); MONO # 0.6 10^3/uL (0.0-0.8); MONO % 12.6 % (2.0-8.0); NEUTROPHILS % 43.3 % (36.0-66.0); PLATELET COUNT, AUTOMATED 167 10^3/uL (150-450); RED BLOOD COUNT 3.71 10^6/uL (4.30-6.10); WHITE BLOOD COUNT 4.7 10^3/uL (4.0-10.0)
[2023-07-07 06:33] LABS: CALCIUM LEVEL 8.4 MG/DL (8.3-10.6); CREATININE FOR GFR 4.22 MG/DL (0.70-1.30); GLOMERULAR FILTRATION RATE 15.2 (>49); POTASSIUM SERUM 3.6 MMOL/L (3.5-5.1)
[2023-07-07] MEDS: CALCITRIOL 0.25 MCG CAP (S0169) PO SCH (07:55)
[2023-07-07] MEDS: LACTOBACILLUS ACIDOPHILUS CAP (BACID) PO SCH ×4 (07:55→21:51)
[2023-07-07] MEDS: CINACALCET 30 MG TAB (SENSIPAR) PO SCH (07:55)
[2023-07-07] MEDS ORDERED: LIDOCAINE 1% SDV 5ML VIAL SC PRN (08:10)
[2023-07-07] MEDS ORDERED: SODIUM CHLORIDE 0.9% 1000ML IV PRN (08:10)
[2023-07-07] MEDS ORDERED: HEPARIN 1,000UNITS/ML 10ML VIAL (FOR RADIOLOGY & DIALYSIS ONLY) XX SCH (08:10)
[2023-07-07] MEDS: ONDANSETRON 4MG ORAL DISINTEGRATING TAB PO PRN (08:32)
[2023-07-07] MEDS: PERCOCET 5MG/325MG TAB PO PRN ×2 (08:33→15:56)
[2023-07-07] MEDS: zolPIDEM TARTRATE 5 MG TAB PO PRN (21:51)
[2023-07-07] MEDS: SENNA 8.6 MG TAB (SENOKOT) PO SCH (21:52)
[2023-07-08] MEDS: HEPARIN SOD (PORCINE) 5000UNITS/ML 1ML VIAL/SYRINGE SQ SCH ×3 (05:39→21:50)
[2023-07-08 05:43] VITALS: BP 147/62; TEMP 97.7; O2SAT 98
[2023-07-08] MEDS: DOCUSATE SODIUM 100MG CAPSULE PO SCH (09:00)
[2023-07-08] MEDS: TACROLIMUS 1MG CAP PO SCH ×2 (10:04→21:49)
[2023-07-08] MEDS: VALPROIC ACID 250MG CAP PO SCH ×2 (10:04→21:50)
[2023-07-08] MEDS: PANTOPRAZOLE 40MG TAB (PROTONIX) PO SCH (10:05)
[2023-07-08] MEDS: FOLIC ACID 1MG TAB PO SCH (10:06)
[2023-07-08] MEDS: LACTOBACILLUS ACIDOPHILUS CAP (BACID) PO SCH ×4 (10:06→21:49)
[2023-07-08] MEDS: NIFEdipine 30MG XL TAB PO SCH (10:15)
[2023-07-08] MEDS: SENNA 8.6 MG TAB (SENOKOT) PO SCH (21:50)
[2023-07-08] MEDS: zolPIDEM TARTRATE 5 MG TAB PO PRN (22:04)
[2023-07-08] MEDS: PERCOCET 5MG/325MG TAB PO PRN (22:04)
[2023-07-09] MEDS: HEPARIN SOD (PORCINE) 5000UNITS/ML 1ML VIAL/SYRINGE SQ SCH ×3 (05:36→20:50)
[2023-07-09 05:42] VITALS: TEMP 97.5; O2SAT 100
[2023-07-09 05:43] VITALS: BP 158/78
[2023-07-09] MEDS: NIFEdipine 30MG XL TAB PO SCH (08:46)
[2023-07-09] MEDS: DOCUSATE SODIUM 100MG CAPSULE PO SCH (08:47)
[2023-07-09] MEDS: PANTOPRAZOLE 40MG TAB (PROTONIX) PO SCH (08:47)
[2023-07-09] MEDS: TACROLIMUS 1MG CAP PO SCH ×2 (08:47→20:51)
[2023-07-09] MEDS: LACTOBACILLUS ACIDOPHILUS CAP (BACID) PO SCH ×4 (08:48→20:50)
[2023-07-09] MEDS: FOLIC ACID 1MG TAB PO SCH (08:48)
[2023-07-09] MEDS: VALPROIC ACID 250MG CAP PO SCH ×2 (08:48→20:51)
[2023-07-09] MEDS: SENNA 8.6 MG TAB (SENOKOT) PO SCH (20:51)
[2023-07-10] MEDS: FOLIC ACID 1MG TAB PO SCH (05:18)
[2023-07-10] MEDS: CINACALCET 30 MG TAB (SENSIPAR) PO SCH (05:18)
[2023-07-10] MEDS: LACTOBACILLUS ACIDOPHILUS CAP (BACID) PO SCH ×4 (05:18→21:25)
[2023-07-10] MEDS: HEPARIN SOD (PORCINE) 5000UNITS/ML 1ML VIAL/SYRINGE SQ SCH ×3 (05:18→21:24)
[2023-07-10] MEDS: CALCITRIOL 0.25 MCG CAP (S0169) PO SCH (05:18)
[2023-07-10] MEDS: TACROLIMUS 1MG CAP PO SCH ×2 (05:19→21:25)
[2023-07-10] MEDS: DOCUSATE SODIUM 100MG CAPSULE PO SCH (05:19)
[2023-07-10] MEDS: PANTOPRAZOLE 40MG TAB (PROTONIX) PO SCH (05:19)
[2023-07-10] MEDS: VALPROIC ACID 250MG CAP PO SCH ×2 (05:19→21:25)
[2023-07-10 05:24] VITALS: BP 174/79; TEMP 98.2; O2SAT 100
[2023-07-10] MEDS: NIFEdipine 30MG XL TAB PO SCH (05:25)
[2023-07-10] MEDS ORDERED: HEPARIN 1,000UNITS/ML 10ML VIAL (FOR RADIOLOGY & DIALYSIS ONLY) IV PRN (06:00)
[2023-07-10] MEDS ORDERED: SODIUM CHLORIDE 0.9% 1000ML IV PRN (06:00)
[2023-07-10] MEDS ORDERED: HEPARIN 1,000UNITS/ML 10ML VIAL (FOR RADIOLOGY & DIALYSIS ONLY) XX SCH (06:00)
[2023-07-10 08:00] VITALS: BP 168/75
[2023-07-10] MEDS: DARBEPOETIN 200MCG/0.4ML *DIALYSIS* SYRINGE IV SCH (08:40)
[2023-07-10 12:45] VITALS: BP 166/75; TEMP 97.7; O2SAT 100
[2023-07-10 12:50] VITALS: BP 120/62
[2023-07-10] MEDS: ONDANSETRON 4MG ORAL DISINTEGRATING TAB PO PRN (14:17)
[2023-07-10 15:29] LABS: BASO % 0.7 % (0.0-1.0); EOS # 0.1 10^3/uL (0.0-0.5); EOS % 3.4 % (0.0-3.0); HEMATOCRIT 31.4 % (42.0-52.0); HEMOGLOBIN 10.3 g/dl (13.5-17.5); LYMPH # 0.9 10^3/uL (1.5-5.0); LYMPH % 21.5 % (24.0-44.0); MEAN CORPUSCULAR HEMOGLOBIN 28.3 pg (27.0-33.0); MEAN CORPUSCULAR HGB CONC 32.8 g/dl (32.0-36.5); MEAN CORPUSCULAR VOLUME 86.3 fl (80.0-96.0); MONO # 0.5 10^3/uL (0.0-0.8); MONO % 12.1 % (2.0-8.0); NEUTROPHILS # 2.6 10^3/uL (1.5-8.5); NEUTROPHILS % 61.8 % (36.0-66.0); PLATELET COUNT, AUTOMATED 191 10^3/uL (150-450); RED BLOOD COUNT 3.64 10^6/uL (4.30-6.10); WHITE BLOOD COUNT 4.1 10^3/uL (4.0-10.0)
[2023-07-10 15:32] LABS: ABG BASE EXCESS 6.6 (-2.0-2.0); ABG O2 SATURATION 96.5 % (95.0-99.0); ABG PARTIAL PRESSURE CO2 38.6 mmHg (35.0-45.0); ABG PARTIAL PRESSURE O2 87.5 mmHg (75.0-100.0); ABG STANDARD HCO3 30.4 MMOL/L. (22.0-26.0); ABG TOTAL CO2 31.2 MMOL/L (23.0-31.0); ABG pH (ARTERIAL) 7.509 UNITS (7.350-7.450)
[2023-07-10 15:51] LABS: ERYTHROCYTE SEDIMENTATION RATE 19 mm/hr (0-20)
[2023-07-10 15:52] LABS: BILIRUBIN,TOTAL 0.3 MG/DL (0.3-1.2); C REACTIVE PROTEIN QUANTITATIV 1.1 MG/DL (<1.0); CALCIUM LEVEL 8.1 MG/DL (8.3-10.6); CREATININE FOR GFR 2.57 MG/DL (0.70-1.30); GLOMERULAR FILTRATION RATE 26.9 (>49); POTASSIUM SERUM 3.2 MMOL/L (3.5-5.1); TOTAL PROTEIN 6.2 G/DL (5.7-8.2)
[2023-07-10 15:55] LABS: PROLACTIN 15.58 NG/ML (2.1-17.7)
[2023-07-10 16:00] LABS: PROCALCITONIN 0.25 ng/ml
[2023-07-10] MEDS ORDERED: POTASSIUM CHLORIDE 10MEQ SR TABLET PO ONE (16:20)
[2023-07-10] MEDS ORDERED: VALPROIC ACID 250MG CAP PO SCH (21:00)
[2023-07-10] MEDS: diphenhydrAMINE CREAM 30GM TOP SCH (21:25)
[2023-07-10] MEDS: SENNA 8.6 MG TAB (SENOKOT) PO SCH (21:25)
[2023-07-11] MEDS: HEPARIN SOD (PORCINE) 5000UNITS/ML 1ML VIAL/SYRINGE SQ SCH ×3 (05:18→21:10)
[2023-07-11 05:21] VITALS: BP 143/65; TEMP 97.2; O2SAT 98
[2023-07-11 06:09] LABS: EOS # 0.2 10^3/uL (0.0-0.5); EOS % 4.3 % (0.0-3.0); HEMATOCRIT 27.7 % (42.0-52.0); HEMOGLOBIN 9.1 g/dl (13.5-17.5); LYMPH # 1.5 10^3/uL (1.5-5.0); LYMPH % 36.9 % (24.0-44.0); MEAN CORPUSCULAR HEMOGLOBIN 28.3 pg (27.0-33.0); MEAN CORPUSCULAR HGB CONC 32.9 g/dl (32.0-36.5); MONO # 0.7 10^3/uL (0.0-0.8); MONO % 16.1 % (2.0-8.0); NEUTROPHILS # 1.7 10^3/uL (1.5-8.5); NEUTROPHILS % 41.2 % (36.0-66.0); PLATELET COUNT, AUTOMATED 170 10^3/uL (150-450); RED BLOOD COUNT 3.22 10^6/uL (4.30-6.10); WHITE BLOOD COUNT 4.2 10^3/uL (4.0-10.0)
[2023-07-11 06:41] LABS: VALPROIC ACID (DEPAKOTE) 54.5 UG/ML (50.0-100.0)
[2023-07-11 06:42] LABS: CALCIUM LEVEL 8.1 MG/DL (8.3-10.6); CREATININE FOR GFR 3.68 MG/DL (0.70-1.30); GLOMERULAR FILTRATION RATE 17.8 (>49); POTASSIUM SERUM 3.7 MMOL/L (3.5-5.1)
[2023-07-11] MEDS: PANTOPRAZOLE 40MG TAB (PROTONIX) PO SCH (08:44)
[2023-07-11] MEDS: LACTOBACILLUS ACIDOPHILUS CAP (BACID) PO SCH ×4 (08:44→21:11)
[2023-07-11] MEDS: TACROLIMUS 1MG CAP PO SCH ×2 (08:44→21:11)
[2023-07-11] MEDS: DOCUSATE SODIUM 100MG CAPSULE PO SCH (08:44)
[2023-07-11] MEDS: FOLIC ACID 1MG TAB PO SCH (08:44)
[2023-07-11] MEDS: NIFEdipine 30MG XL TAB PO SCH (08:45)
[2023-07-11] MEDS: diphenhydrAMINE CREAM 30GM TOP SCH ×2 (08:46→21:12)
[2023-07-11] MEDS: VALPROIC ACID 250MG CAP PO SCH ×2 (08:46→21:11)
[2023-07-11] MEDS: ONDANSETRON 4MG ORAL DISINTEGRATING TAB PO PRN ×2 (08:48→17:27)
[2023-07-11 17:32] VITALS: BP 160/98
[2023-07-11] MEDS: SENNA 8.6 MG TAB (SENOKOT) PO SCH (21:11)
[2023-07-12] MEDS: NIFEdipine 30MG XL TAB PO SCH (05:36)
[2023-07-12] MEDS: LACTOBACILLUS ACIDOPHILUS CAP (BACID) PO SCH ×4 (05:37→20:35)
[2023-07-12] MEDS: PANTOPRAZOLE 40MG TAB (PROTONIX) PO SCH (05:37)
[2023-07-12] MEDS: CINACALCET 30 MG TAB (SENSIPAR) PO SCH (05:37)
[2023-07-12] MEDS: HEPARIN SOD (PORCINE) 5000UNITS/ML 1ML VIAL/SYRINGE SQ SCH ×3 (05:37→20:36)
[2023-07-12] MEDS: FOLIC ACID 1MG TAB PO SCH (05:37)
[2023-07-12] MEDS: CALCITRIOL 0.25 MCG CAP (S0169) PO SCH (05:37)
[2023-07-12] MEDS: DOCUSATE SODIUM 100MG CAPSULE PO SCH (05:37)
[2023-07-12] MEDS: VALPROIC ACID 250MG CAP PO SCH ×2 (05:38→20:35)
[2023-07-12] MEDS: TACROLIMUS 1MG CAP PO SCH ×2 (05:39→20:35)
[2023-07-12] MEDS: diphenhydrAMINE CREAM 30GM TOP SCH ×2 (05:39→20:35)
[2023-07-12 05:50] VITALS: BP 160/66; TEMP 98.1; O2SAT 98
[2023-07-12] MEDS ORDERED: SODIUM CHLORIDE 0.9% 1000ML IV PRN (06:00)
[2023-07-12] MEDS ORDERED: HEPARIN 1,000UNITS/ML 10ML VIAL (FOR RADIOLOGY & DIALYSIS ONLY) IV PRN (06:00)
[2023-07-12] MEDS ORDERED: HEPARIN 1,000UNITS/ML 10ML VIAL (FOR RADIOLOGY & DIALYSIS ONLY) XX SCH (06:00)
[2023-07-12 06:27] LABS: EOS # 0.2 10^3/uL (0.0-0.5); EOS % 4.9 % (0.0-3.0); HEMATOCRIT 31.4 % (42.0-52.0); HEMOGLOBIN 10.2 g/dl (13.5-17.5); LYMPH # 1.5 10^3/uL (1.5-5.0); LYMPH % 39.1 % (24.0-44.0); MEAN CORPUSCULAR HEMOGLOBIN 28.4 pg (27.0-33.0); MEAN CORPUSCULAR HGB CONC 32.5 g/dl (32.0-36.5); MEAN CORPUSCULAR VOLUME 87.5 fl (80.0-96.0); MONO # 0.5 10^3/uL (0.0-0.8); MONO % 12.5 % (2.0-8.0); NEUTROPHILS # 1.6 10^3/uL (1.5-8.5); NEUTROPHILS % 42.2 % (36.0-66.0); PLATELET COUNT, AUTOMATED 178 10^3/uL (150-450); RED BLOOD COUNT 3.59 10^6/uL (4.30-6.10); WHITE BLOOD COUNT 3.8 10^3/uL (4.0-10.0)
[2023-07-12 07:10] LABS: CALCIUM LEVEL 8.3 MG/DL (8.3-10.6); CREATININE FOR GFR 5.12 MG/DL (0.70-1.30); GLOMERULAR FILTRATION RATE 12.2 (>49); POTASSIUM SERUM 4.6 MMOL/L (3.5-5.1)
[2023-07-12 11:00] LABS: HEMATOCRIT 28.8 % (42.0-52.0)
[2023-07-12] MEDS: ONDANSETRON 4MG ORAL DISINTEGRATING TAB PO PRN (13:27)
[2023-07-12] MEDS: SENNA 8.6 MG TAB (SENOKOT) PO SCH (20:35)
[2023-07-13] MEDS: PERCOCET 5MG/325MG TAB PO PRN (04:00)
[2023-07-13] MEDS: HEPARIN SOD (PORCINE) 5000UNITS/ML 1ML VIAL/SYRINGE SQ SCH ×3 (05:11→21:30)
[2023-07-13 05:32] VITALS: BP 131/79; TEMP 97.7; O2SAT 98
[2023-07-13 07:49] LABS: BASO % 0.7 % (0.0-1.0); EOS # 0.2 10^3/uL (0.0-0.5); EOS % 4.3 % (0.0-3.0); HEMATOCRIT 29.7 % (42.0-52.0); HEMOGLOBIN 9.7 g/dl (13.5-17.5); LYMPH # 1.7 10^3/uL (1.5-5.0); LYMPH % 38.2 % (24.0-44.0); MEAN CORPUSCULAR HEMOGLOBIN 28.6 pg (27.0-33.0); MEAN CORPUSCULAR HGB CONC 32.7 g/dl (32.0-36.5); MEAN CORPUSCULAR VOLUME 87.6 fl (80.0-96.0); MONO # 0.7 10^3/uL (0.0-0.8); MONO % 15.1 % (2.0-8.0); NEUTROPHILS # 1.9 10^3/uL (1.5-8.5); NEUTROPHILS % 41.5 % (36.0-66.0); PLATELET COUNT, AUTOMATED 186 10^3/uL (150-450); RED BLOOD COUNT 3.39 10^6/uL (4.30-6.10); WHITE BLOOD COUNT 4.5 10^3/uL (4.0-10.0)
[2023-07-13 08:22] LABS: CALCIUM LEVEL 8.5 MG/DL (8.3-10.6); CREATININE FOR GFR 3.71 MG/DL (0.70-1.30); GLOMERULAR FILTRATION RATE 17.6 (>49); POTASSIUM SERUM 3.4 MMOL/L (3.5-5.1)
[2023-07-13] MEDS: diphenhydrAMINE CREAM 30GM TOP SCH ×3 (09:00→21:30)
[2023-07-13] MEDS: LACTOBACILLUS ACIDOPHILUS CAP (BACID) PO SCH ×4 (09:31→21:29)
[2023-07-13] MEDS: VALPROIC ACID 250MG CAP PO SCH ×2 (09:33→21:29)
[2023-07-13] MEDS: DOCUSATE SODIUM 100MG CAPSULE PO SCH (09:34)
[2023-07-13] MEDS: FOLIC ACID 1MG TAB PO SCH (09:34)
[2023-07-13] MEDS: PANTOPRAZOLE 40MG TAB (PROTONIX) PO SCH (09:34)
[2023-07-13] MEDS: NIFEdipine 30MG XL TAB PO SCH (09:35)
[2023-07-13] MEDS: TACROLIMUS 1MG CAP PO SCH ×2 (09:36→21:29)
[2023-07-13] MEDS: SENNA 8.6 MG TAB (SENOKOT) PO SCH (21:29)
[2023-07-13] MEDS: zolPIDEM TARTRATE 5 MG TAB PO PRN (21:29)
[2023-07-14 05:27] LABS: BASO % 0.5 % (0.0-1.0); EOS # 0.3 10^3/uL (0.0-0.5); EOS % 5.8 % (0.0-3.0); HEMATOCRIT 29.5 % (42.0-52.0); HEMOGLOBIN 9.8 g/dl (13.5-17.5); LYMPH # 1.6 10^3/uL (1.5-5.0); LYMPH % 37.7 % (24.0-44.0); MEAN CORPUSCULAR HEMOGLOBIN 29.3 pg (27.0-33.0); MEAN CORPUSCULAR HGB CONC 33.2 g/dl (32.0-36.5); MEAN CORPUSCULAR VOLUME 88.1 fl (80.0-96.0); MONO # 0.7 10^3/uL (0.0-0.8); MONO % 16.4 % (2.0-8.0); NEUTROPHILS # 1.7 10^3/uL (1.5-8.5); NEUTROPHILS % 39.4 % (36.0-66.0); PLATELET COUNT, AUTOMATED 195 10^3/uL (150-450); RED BLOOD COUNT 3.35 10^6/uL (4.30-6.10); WHITE BLOOD COUNT 4.3 10^3/uL (4.0-10.0)
[2023-07-14 05:31] VITALS: BP 149/72; TEMP 97.6; O2SAT 99
[2023-07-14] MEDS ORDERED: HEPARIN 1,000UNITS/ML 10ML VIAL (FOR RADIOLOGY & DIALYSIS ONLY) XX SCH (06:00)
[2023-07-14] MEDS ORDERED: SODIUM CHLORIDE 0.9% 1000ML IV PRN (06:00)
[2023-07-14] MEDS: FOLIC ACID 1MG TAB PO SCH (06:06)
[2023-07-14] MEDS: TACROLIMUS 1MG CAP PO SCH ×2 (06:06→20:45)
[2023-07-14] MEDS: VALPROIC ACID 250MG CAP PO SCH ×2 (06:07→20:45)
[2023-07-14] MEDS: CINACALCET 30 MG TAB (SENSIPAR) PO SCH (06:07)
[2023-07-14] MEDS: DOCUSATE SODIUM 100MG CAPSULE PO SCH (06:07)
[2023-07-14] MEDS: LACTOBACILLUS ACIDOPHILUS CAP (BACID) PO SCH ×4 (06:07→20:45)
[2023-07-14] MEDS: PANTOPRAZOLE 40MG TAB (PROTONIX) PO SCH (06:07)
[2023-07-14] MEDS: CALCITRIOL 0.25 MCG CAP (S0169) PO SCH (06:07)
[2023-07-14] MEDS: HEPARIN SOD (PORCINE) 5000UNITS/ML 1ML VIAL/SYRINGE SQ SCH ×3 (06:08→20:45)
[2023-07-14] MEDS: NIFEdipine 30MG XL TAB PO SCH (06:08)
[2023-07-14 08:30] VITALS: BP 153/78; TEMP 97.7; O2SAT 98
[2023-07-14] MEDS: diphenhydrAMINE CREAM 30GM TOP SCH ×3 (09:00→20:46)
[2023-07-14 14:47] VITALS: BP 138/67; TEMP 97.7; O2SAT 99
[2023-07-14] MEDS: SENNA 8.6 MG TAB (SENOKOT) PO SCH (20:46)
[2023-07-15] MEDS: PERCOCET 5MG/325MG TAB PO PRN ×3 (02:11→20:22)
[2023-07-15 04:40] VITALS: BP 154/83; TEMP 97.7; O2SAT 100
[2023-07-15] MEDS: HEPARIN SOD (PORCINE) 5000UNITS/ML 1ML VIAL/SYRINGE SQ SCH ×3 (04:58→22:16)
[2023-07-15 05:59] LABS: BASO % 0.7 % (0.0-1.0); EOS # 0.2 10^3/uL (0.0-0.5); EOS % 4.4 % (0.0-3.0); HEMATOCRIT 32.2 % (42.0-52.0); HEMOGLOBIN 10.7 g/dl (13.5-17.5); LYMPH # 1.6 10^3/uL (1.5-5.0); LYMPH % 35.2 % (24.0-44.0); MEAN CORPUSCULAR HGB CONC 33.2 g/dl (32.0-36.5); MEAN CORPUSCULAR VOLUME 87.3 fl (80.0-96.0); MONO # 0.8 10^3/uL (0.0-0.8); MONO % 16.7 % (2.0-8.0); NEUTROPHILS # 1.9 10^3/uL (1.5-8.5); NEUTROPHILS % 42.8 % (36.0-66.0); PLATELET COUNT, AUTOMATED 210 10^3/uL (150-450); RED BLOOD COUNT 3.69 10^6/uL (4.30-6.10); WHITE BLOOD COUNT 4.5 10^3/uL (4.0-10.0)
[2023-07-15 06:34] LABS: POTASSIUM SERUM 3.6 MEQ/L (3.6-5.0)
[2023-07-15 06:40] LABS: GLOMERULAR FILTRATION RATE 12.5 (>49)
[2023-07-15 08:05] VITALS: BP 140/78; TEMP 98.1; O2SAT 98
[2023-07-15] MEDS: FOLIC ACID 1MG TAB PO SCH (09:30)
[2023-07-15] MEDS: VALPROIC ACID 250MG CAP PO SCH ×2 (09:31→20:21)
[2023-07-15] MEDS: DOCUSATE SODIUM 100MG CAPSULE PO SCH (09:31)
[2023-07-15] MEDS: TACROLIMUS 1MG CAP PO SCH ×2 (09:33→20:20)
[2023-07-15] MEDS: LACTOBACILLUS ACIDOPHILUS CAP (BACID) PO SCH ×4 (09:33→20:20)
[2023-07-15] MEDS: PANTOPRAZOLE 40MG TAB (PROTONIX) PO SCH (09:33)
[2023-07-15] MEDS: NIFEdipine 30MG XL TAB PO SCH (09:35)
[2023-07-15] MEDS: diphenhydrAMINE CREAM 30GM TOP SCH ×2 (09:36→20:23)
[2023-07-15] MEDS: SENNA 8.6 MG TAB (SENOKOT) PO SCH (20:20)
[2023-07-15] MEDS: zolPIDEM TARTRATE 5 MG TAB PO PRN (22:17)
[2023-07-16 05:10] VITALS: BP 142/73; TEMP 97.5; O2SAT 99
[2023-07-16] MEDS: HEPARIN SOD (PORCINE) 5000UNITS/ML 1ML VIAL/SYRINGE SQ SCH ×3 (05:17→22:29)
[2023-07-16 05:50] LABS: BASO % 0.7 % (0.0-1.0); EOS # 0.2 10^3/uL (0.0-0.5); EOS % 4.2 % (0.0-3.0); HEMATOCRIT 31.7 % (42.0-52.0); HEMOGLOBIN 10.2 g/dl (13.5-17.5); LYMPH # 1.3 10^3/uL (1.5-5.0); MEAN CORPUSCULAR HEMOGLOBIN 28.3 pg (27.0-33.0); MEAN CORPUSCULAR HGB CONC 32.2 g/dl (32.0-36.5); MEAN CORPUSCULAR VOLUME 88.1 fl (80.0-96.0); MONO # 0.8 10^3/uL (0.0-0.8); MONO % 18.5 % (2.0-8.0); NEUTROPHILS # 1.8 10^3/uL (1.5-8.5); NEUTROPHILS % 44.4 % (36.0-66.0); PLATELET COUNT, AUTOMATED 186 10^3/uL (150-450); WHITE BLOOD COUNT 4.1 10^3/uL (4.0-10.0)
[2023-07-16 06:37] LABS: HOMOCYST(E)INE SERUM 21.1 umol/L (0.0-17.2); Methylmalonic Acid 160 nmol/L (0-378)
[2023-07-16] MEDS: FOLIC ACID 1MG TAB PO SCH (08:39)
[2023-07-16] MEDS: VALPROIC ACID 250MG CAP PO SCH ×2 (08:39→22:28)
[2023-07-16] MEDS: PANTOPRAZOLE 40MG TAB (PROTONIX) PO SCH ×2 (08:40→22:29)
[2023-07-16] MEDS: DOCUSATE SODIUM 100MG CAPSULE PO SCH (08:40)
[2023-07-16] MEDS: LACTOBACILLUS ACIDOPHILUS CAP (BACID) PO SCH ×4 (08:40→22:29)
[2023-07-16] MEDS: TACROLIMUS 1MG CAP PO SCH ×2 (08:40→22:28)
[2023-07-16] MEDS: NIFEdipine 30MG XL TAB PO SCH (08:41)
[2023-07-16] MEDS: PERCOCET 5MG/325MG TAB PO PRN ×2 (08:41→15:10)
[2023-07-16] MEDS: diphenhydrAMINE CREAM 30GM TOP SCH ×2 (08:42→22:30)
[2023-07-16 11:41] LABS: CREATININE FOR GFR 3.8 MG/DL (0.7-1.5); GLOMERULAR FILTRATION RATE 17.2 (>49)
[2023-07-16 11:42] LABS: CALCIUM LEVEL 9.2 MG/DL (8.8-10.2); POTASSIUM SERUM 3.6 MEQ/L (3.6-5.0)
[2023-07-16 14:02] LABS: CALCIUM LEVEL 8.7 MG/DL (8.8-10.2); CREATININE FOR GFR 5.2 MG/DL (0.7-1.5); GLOMERULAR FILTRATION RATE 11.9 (>49)
[2023-07-16] MEDS ORDERED: MAALOX 30 ML SUSP *UDC PO PRN (16:45)
[2023-07-16] MEDS ORDERED: MAALOX 30 ML SUSP *UDC PO ONE (17:00)
[2023-07-16] MEDS ORDERED: SUCRALFATE 1 GM TAB PO ONE (17:30)
[2023-07-16] MEDS: ONDANSETRON 4MG ORAL DISINTEGRATING TAB PO PRN (21:54)
[2023-07-16] MEDS: SUCRALFATE SUSP 1GM/10ML UD PO SCH (22:28)
[2023-07-16] MEDS: SENNA 8.6 MG TAB (SENOKOT) PO SCH (22:29)
[2023-07-16] MEDS: zolPIDEM TARTRATE 5 MG TAB PO PRN (22:29)
[2023-07-17 05:40] VITALS: BP 144/76; TEMP 97; O2SAT 99
[2023-07-17] MEDS: SUCRALFATE SUSP 1GM/10ML UD PO SCH ×4 (05:41→21:10)
[2023-07-17] MEDS: DOCUSATE SODIUM 100MG CAPSULE PO SCH (05:42)
[2023-07-17] MEDS: HEPARIN SOD (PORCINE) 5000UNITS/ML 1ML VIAL/SYRINGE SQ SCH ×3 (05:42→21:11)
[2023-07-17] MEDS: LACTOBACILLUS ACIDOPHILUS CAP (BACID) PO SCH ×4 (05:42→21:09)
[2023-07-17] MEDS: FOLIC ACID 1MG TAB PO SCH (05:42)
[2023-07-17] MEDS: PANTOPRAZOLE 40MG TAB (PROTONIX) PO SCH ×2 (05:43→21:10)
[2023-07-17] MEDS: TACROLIMUS 1MG CAP PO SCH ×2 (05:43→21:10)
[2023-07-17] MEDS: VALPROIC ACID 250MG CAP PO SCH ×2 (05:43→21:10)
[2023-07-17] MEDS: NIFEdipine 30MG XL TAB PO SCH (05:44)
[2023-07-17] MEDS: CALCITRIOL 0.25 MCG CAP (S0169) PO SCH (05:44)
[2023-07-17] MEDS: CINACALCET 30 MG TAB (SENSIPAR) PO SCH (05:44)
[2023-07-17 05:50] LABS: BASO % 1.1 % (0.0-1.0); EOS # 0.2 10^3/uL (0.0-0.5); EOS % 5.7 % (0.0-3.0); HEMATOCRIT 31.9 % (42.0-52.0); HEMOGLOBIN 10.3 g/dl (13.5-17.5); LYMPH # 1.5 10^3/uL (1.5-5.0); LYMPH % 41.2 % (24.0-44.0); MEAN CORPUSCULAR HGB CONC 32.3 g/dl (32.0-36.5); MEAN CORPUSCULAR VOLUME 89.9 fl (80.0-96.0); MONO # 0.6 10^3/uL (0.0-0.8); MONO % 17.3 % (2.0-8.0); NEUTROPHILS # 1.3 10^3/uL (1.5-8.5); NEUTROPHILS % 34.4 % (36.0-66.0); PLATELET COUNT, AUTOMATED 197 10^3/uL (150-450); RED BLOOD COUNT 3.55 10^6/uL (4.30-6.10); WHITE BLOOD COUNT 3.7 10^3/uL (4.0-10.0)
[2023-07-17] MEDS: ONDANSETRON 4MG ORAL DISINTEGRATING TAB PO PRN (06:06)
[2023-07-17] MEDS ORDERED: HEPARIN 1,000UNITS/ML 10ML VIAL (FOR RADIOLOGY & DIALYSIS ONLY) IV PRN (07:40)
[2023-07-17] MEDS ORDERED: LIDOCAINE 1% SDV 5ML VIAL SC PRN (07:40)
[2023-07-17] MEDS ORDERED: HEPARIN 1,000UNITS/ML 10ML VIAL (FOR RADIOLOGY & DIALYSIS ONLY) XX SCH (07:40)
[2023-07-17] MEDS ORDERED: SODIUM CHLORIDE 0.9% 1000ML IV PRN (07:40)
[2023-07-17] MEDS: DARBEPOETIN 200MCG/0.4ML *DIALYSIS* SYRINGE IV SCH (09:21)
[2023-07-17] MEDS: diphenhydrAMINE CREAM 30GM TOP SCH ×2 (13:00→21:11)
[2023-07-17 16:00] LABS: CREATININE FOR GFR 6.1 MG/DL (0.7-1.5); GLOMERULAR FILTRATION RATE 9.9 (>49)
[2023-07-17 16:01] LABS: CALCIUM LEVEL 8.7 MG/DL (8.8-10.2); POTASSIUM SERUM 4.3 MEQ/L (3.6-5.0)
[2023-07-17] MEDS: SENNA 8.6 MG TAB (SENOKOT) PO SCH (21:10)
[2023-07-17] MEDS: zolPIDEM TARTRATE 5 MG TAB PO PRN (21:10)
[2023-07-18] MEDS: HEPARIN SOD (PORCINE) 5000UNITS/ML 1ML VIAL/SYRINGE SQ SCH ×3 (05:05→20:45)
[2023-07-18 05:20] VITALS: BP 158/72; TEMP 96.8; O2SAT 99
[2023-07-18] MEDS: VALPROIC ACID 250MG CAP PO SCH ×2 (07:45→19:39)
[2023-07-18] MEDS: LACTOBACILLUS ACIDOPHILUS CAP (BACID) PO SCH ×4 (07:45→19:39)
[2023-07-18] MEDS: NIFEdipine 30MG XL TAB PO SCH (07:46)
[2023-07-18] MEDS: DOCUSATE SODIUM 100MG CAPSULE PO SCH (07:46)
[2023-07-18] MEDS: diphenhydrAMINE CREAM 30GM TOP SCH ×2 (07:47→19:39)
[2023-07-18] MEDS: SUCRALFATE SUSP 1GM/10ML UD PO SCH ×4 (07:47→19:39)
[2023-07-18] MEDS: FOLIC ACID 1MG TAB PO SCH (07:47)
[2023-07-18] MEDS: PANTOPRAZOLE 40MG TAB (PROTONIX) PO SCH ×2 (07:47→19:39)
[2023-07-18] MEDS: TACROLIMUS 1MG CAP PO SCH ×2 (07:48→19:39)
[2023-07-18] MEDS: SENNA 8.6 MG TAB (SENOKOT) PO SCH (19:39)
[2023-07-18] MEDS: zolPIDEM TARTRATE 5 MG TAB PO PRN (20:45)
[2023-07-19] MEDS: HEPARIN SOD (PORCINE) 5000UNITS/ML 1ML VIAL/SYRINGE SQ SCH ×3 (05:12→21:16)
[2023-07-19] MEDS: NIFEdipine 30MG XL TAB PO SCH (05:13)
[2023-07-19] MEDS: TACROLIMUS 1MG CAP PO SCH ×2 (05:14→21:17)
[2023-07-19] MEDS: PANTOPRAZOLE 40MG TAB (PROTONIX) PO SCH ×2 (05:14→21:17)
[2023-07-19] MEDS: VALPROIC ACID 250MG CAP PO SCH ×2 (05:14→21:16)
[2023-07-19] MEDS: SUCRALFATE SUSP 1GM/10ML UD PO SCH ×4 (05:14→21:16)
[2023-07-19] MEDS: FOLIC ACID 1MG TAB PO SCH (05:14)
[2023-07-19] MEDS: CALCITRIOL 0.25 MCG CAP (S0169) PO SCH (05:14)
[2023-07-19] MEDS: DOCUSATE SODIUM 100MG CAPSULE PO SCH (05:15)
[2023-07-19] MEDS: CINACALCET 30 MG TAB (SENSIPAR) PO SCH (05:16)
[2023-07-19] MEDS: LACTOBACILLUS ACIDOPHILUS CAP (BACID) PO SCH ×4 (05:19→21:16)
[2023-07-19] MEDS: diphenhydrAMINE CREAM 30GM TOP SCH ×2 (05:21→21:00)
[2023-07-19 05:23] VITALS: BP 161/72; TEMP 97.9; O2SAT 98
[2023-07-19] MEDS ORDERED: LIDOCAINE 1% SDV 5ML VIAL SC PRN (06:45)
[2023-07-19] MEDS ORDERED: HEPARIN 1,000UNITS/ML 10ML VIAL (FOR RADIOLOGY & DIALYSIS ONLY) XX SCH (06:45)
[2023-07-19] MEDS ORDERED: HEPARIN 1,000UNITS/ML 10ML VIAL (FOR RADIOLOGY & DIALYSIS ONLY) IV PRN (06:45)
[2023-07-19] MEDS ORDERED: SODIUM CHLORIDE 0.9% 1000ML IV PRN (06:45)
[2023-07-19] MEDS: SENNA 8.6 MG TAB (SENOKOT) PO SCH (21:16)
[2023-07-20 04:07] LABS: ARSENIC BLOOD 2 ug/L (0-9); LEAD BLOOD 2.6 ug/dL (0.0-3.4); MERCURY BLOOD <1.0 ug/L (0.0-14.9)
[2023-07-20 05:10] VITALS: BP 164/70; TEMP 97.7; O2SAT 98
[2023-07-20] MEDS: PERCOCET 5MG/325MG TAB PO PRN ×2 (05:21→21:25)
[2023-07-20] MEDS: HEPARIN SOD (PORCINE) 5000UNITS/ML 1ML VIAL/SYRINGE SQ SCH ×3 (05:21→21:28)
[2023-07-20] MEDS: SUCRALFATE SUSP 1GM/10ML UD PO SCH ×4 (08:01→21:28)
[2023-07-20] MEDS: NIFEdipine 30MG XL TAB PO SCH (08:02)
[2023-07-20] MEDS: VALPROIC ACID 250MG CAP PO SCH ×2 (08:03→21:26)
[2023-07-20] MEDS: LACTOBACILLUS ACIDOPHILUS CAP (BACID) PO SCH ×4 (08:03→21:27)
[2023-07-20] MEDS: PANTOPRAZOLE 40MG TAB (PROTONIX) PO SCH ×2 (08:03→21:28)
[2023-07-20] MEDS: DOCUSATE SODIUM 100MG CAPSULE PO SCH (08:04)
[2023-07-20] MEDS: FOLIC ACID 1MG TAB PO SCH (08:04)
[2023-07-20] MEDS: diphenhydrAMINE CREAM 30GM TOP SCH (08:04)
[2023-07-20] MEDS: TACROLIMUS 1MG CAP PO SCH ×2 (08:04→21:28)
[2023-07-20] MEDS: SENNA 8.6 MG TAB (SENOKOT) PO SCH (21:27)
[2023-07-21] MEDS: VALPROIC ACID 250MG CAP PO SCH (05:51)
[2023-07-21] MEDS: TACROLIMUS 1MG CAP PO SCH (05:52)
[2023-07-21] MEDS: NIFEdipine 30MG XL TAB PO SCH (05:55)
[2023-07-21] MEDS: DOCUSATE SODIUM 100MG CAPSULE PO SCH (05:56)
[2023-07-21] MEDS: LACTOBACILLUS ACIDOPHILUS CAP (BACID) PO SCH ×2 (05:56→13:48)
[2023-07-21] MEDS: PANTOPRAZOLE 40MG TAB (PROTONIX) PO SCH (05:56)
[2023-07-21] MEDS: HEPARIN SOD (PORCINE) 5000UNITS/ML 1ML VIAL/SYRINGE SQ SCH ×2 (05:56→13:49)
[2023-07-21 05:57] VITALS: BP 166/70
[2023-07-21] MEDS: CINACALCET 30 MG TAB (SENSIPAR) PO SCH (05:57)
[2023-07-21] MEDS: FOLIC ACID 1MG TAB PO SCH (05:57)
[2023-07-21] MEDS: CALCITRIOL 0.25 MCG CAP (S0169) PO SCH (05:57)
[2023-07-21] MEDS: SUCRALFATE SUSP 1GM/10ML UD PO SCH ×2 (05:57→11:51)
[2023-07-21 06:00] VITALS: BP 166/70; TEMP 97.7; O2SAT 98
[2023-07-21] MEDS: ONDANSETRON 4MG ORAL DISINTEGRATING TAB PO PRN (07:04)
[2023-07-21] MEDS: PERCOCET 5MG/325MG TAB PO PRN (07:05)
[2023-07-21] MEDS ORDERED: HEPARIN 1,000UNITS/ML 10ML VIAL (FOR RADIOLOGY & DIALYSIS ONLY) XX SCH (07:25)
[2023-07-21] MEDS ORDERED: HEPARIN 1,000UNITS/ML 10ML VIAL (FOR RADIOLOGY & DIALYSIS ONLY) IV PRN (07:25)
[2023-07-21] MEDS ORDERED: LIDOCAINE 1% SDV 5ML VIAL SC PRN (07:25)
[2023-07-21] MEDS ORDERED: SODIUM CHLORIDE 0.9% 1000ML IV PRN (07:25)
[2023-07-21] MEDS ORDERED: VALP1CAP2 PO ×2 (10:45)
[2023-07-21] MEDS ORDERED: CINA30TA5 PO ×2 (10:45→17:28)
[2023-07-21] MEDS ORDERED: CALC1CAP31 PO ×2 (10:45→17:28)
== END 2023-07-21 14:32 | disposition home or self-care (01) | DRG 100 ==
LOC: M ED 12:36 → EDBD 12:36 → M ED INP 17:16 → M ICU 23:30 → M MSPAV 07-05 22:52
PROVIDERS: ADMIT General Practice; ATTEND Internal Medicine
PROC: B246ZZZ Ultrasonography of Right and Left Heart (ICD-10-PCS; principal; 2023-06-30)
PROC: 5A1D70Z Performance of Urinary Filtration, Intermittent, Less than 6 Hours Per Day (ICD-10-PCS; 2023-07-01)
PROC: 05HC33Z Insertion of Infusion Device into Left Basilic Vein, Percutaneous Approach (ICD-10-PCS; 2023-07-03)
DX: G40.409 Other generalized epilepsy and epileptic syndromes, not intractable, without status epilepticus (principal); G93.41 Metabolic encephalopathy; J96.01 Acute respiratory failure with hypoxia; I50.33 Acute on chronic diastolic (congestive) heart failure; J15.69 Pneumonia due to other Gram-negative bacteria; J18.9 Pneumonia, unspecified organism; N18.6 End stage renal disease; I24.89 Other forms of acute ischemic heart disease; Z94.4 Liver transplant status; I13.2 Hypertensive heart and chronic kidney disease with heart failure and with stage 5 chronic kidney disease, or end stage renal disease; M62.82 Rhabdomyolysis; F05 Delirium due to known physiological condition; M48.56XA Collapsed vertebra, not elsewhere classified, lumbar region, initial encounter for fracture; N25.81 Secondary hyperparathyroidism of renal origin; D63.1 Anemia in chronic kidney disease; M10.9 Gout, unspecified; Z99.2 Dependence on renal dialysis; K74.60 Unspecified cirrhosis of liver; Z98.84 Bariatric surgery status; F41.9 Anxiety disorder, unspecified; F32.A Depression, unspecified; G47.00 Insomnia, unspecified; E78.5 Hyperlipidemia, unspecified; K21.9 Gastro-esophageal reflux disease without esophagitis; K44.9 Diaphragmatic hernia without obstruction or gangrene; E55.9 Vitamin D deficiency, unspecified; I87.2 Venous insufficiency (chronic) (peripheral); N28.89 Other specified disorders of kidney and ureter; F03.90 Unspecified dementia, unspecified severity, without behavioral disturbance, psychotic disturbance, mood disturbance, and anxiety; Z96.652 Presence of left artificial knee joint; F12.10 Cannabis abuse, uncomplicated; Z79.899 Other long term (current) drug therapy; I44.0 Atrioventricular block, first degree; R94.31 Abnormal electrocardiogram [ECG] [EKG]; R74.8 Abnormal levels of other serum enzymes; E87.6 Hypokalemia; G89.29 Other chronic pain; M54.50 Low back pain, unspecified; M47.816 Spondylosis without myelopathy or radiculopathy, lumbar region; M48.061 Spinal stenosis, lumbar region without neurogenic claudication

== ENCOUNTER → 2023-09-26 | Outpatient (CLI) | payer MEDICARE ==
[~2023-09-26] MED LIST changes: +CINA30TA5 PO; +VALP1CAP2 PO
== END ==
LOC: M LAB 10:01
PROVIDERS: ATTEND Internal Medicine Nephrology
DX: N18.6 End stage renal disease (principal); D63.1 Anemia in chronic kidney disease

== ENCOUNTER 2023-09-27 12:40 | Outpatient (CLI) | payer MEDICARE ==
[~2023-09-27 12:40] MED LIST changes: +ACETAMINOPHEN TAB 650MG DOSE (2X325MG) PO SCH; +diphenhydrAMINE 25MG CAP PO SCH
[2023-09-27 13:25] VITALS: BP 152/72; TEMP 98.6; O2SAT 98
[2023-09-27 14:00] VITALS: BP 165/78; TEMP 97; O2SAT 100
[2023-09-27 15:00] VITALS: BP 191/84; TEMP 98.5; O2SAT 97
[2023-09-27 16:10] VITALS: BP 176/84; TEMP 98.7; O2SAT 96
== END 2023-09-27 16:40 | disposition home or self-care (01) ==
LOC: M INFU 12:40
PROVIDERS: ATTEND Internal Medicine Nephrology
DX: N18.6 End stage renal disease (principal); D64.9 Anemia, unspecified
CPT/HCPCS: 36430; P9016

== ENCOUNTER 2023-09-28 07:17 | Outpatient (CLI) | payer MEDICARE ==
[~2023-09-28] VITALS: Ht 177.8 cm; Wt 68.7 kg
[2023-09-28 07:20] VITALS: BP 171/80; O2SAT 100
[2023-09-28 08:50] VITALS: BP 180/90; TEMP 98; O2SAT 96
[2023-09-28 09:50] VITALS: BP 170/82; TEMP 98.3; O2SAT 97
[2023-09-28 10:55] VITALS: BP 186/90; O2SAT 97
== END 2023-09-28 10:55 | disposition home or self-care (01) ==
LOC: M INFU 07:17
PROVIDERS: ATTEND Internal Medicine Nephrology
DX: N18.6 End stage renal disease (principal); D64.9 Anemia, unspecified
CPT/HCPCS: 36430; P9016

== ENCOUNTER 2023-10-30 11:15 | Inpatient (IN) | payer MEDICARE, OTHER ==
[~2023-10-30] VITALS: Ht 177.8 cm; Wt 76.5 kg
[2023-10-30] VITALS (18 sets, daily range): BP systolic 128–221; BP diastolic 59–133; TEMP 99–99.4; O2SAT 98–100
[~2023-10-30 11:15] MED LIST changes: -ACETAMINOPHEN TAB 650MG DOSE (2X325MG) PO SCH; -HYDR-3910 PO; -HYDR-3911 PO; -HYDR25TA PO; +HYDR25TA87 PO; +HYDR25TA88 PO; -HYDR50TA PO; +HYDR50TA46 PO; +HYDR50TA47 PO; -diphenhydrAMINE 25MG CAP PO SCH
[2023-10-30 13:38] LABS: BASO # 0.1 10^3/uL (0.0-0.2); BASO % 0.6 % (0.0-1.0); EOS # 0.2 10^3/uL (0.0-0.5); EOS % 1.8 % (0.0-3.0); HEMOGLOBIN 10.8 g/dl (13.5-17.5); LYMPH # 0.7 10^3/uL (1.5-5.0); LYMPH % 8.1 % (24.0-44.0); MEAN CORPUSCULAR HEMOGLOBIN 28.7 pg (27.0-33.0); MEAN CORPUSCULAR HGB CONC 33.8 g/dl (32.0-36.5); MEAN CORPUSCULAR VOLUME 85.1 fl (80.0-96.0); MONO # 0.7 10^3/uL (0.0-0.8); MONO % 8.3 % (2.0-8.0); NEUTROPHILS # 6.9 10^3/uL (1.5-8.5); NEUTROPHILS % 80.8 % (36.0-66.0); PLATELET COUNT, AUTOMATED 148 10^3/uL (150-450); RED BLOOD COUNT 3.76 10^6/uL (4.30-6.10); WHITE BLOOD COUNT 8.5 10^3/uL (4.0-10.0)
[2023-10-30 13:57] LABS: VALPROIC ACID (DEPAKOTE) < 3.0 UG/ML (50.0-100.0)
[2023-10-30 13:58] LABS: ETHYL ALCOHOL (ETHANOL) < 0.003 % (0.000-0.010)
[2023-10-30 14:00] LABS: SALICYLATE LEVEL < 3.0 MG/DL (<30)
[2023-10-30 14:01] LABS: THYROID STIMULATING HORMONE 2.036 uIU/ML (0.55-4.78)
[2023-10-30 14:18] LABS: ALBUMIN 3.1 G/DL (3.2-5.2); ALKALINE PHOSPHATASE 79 U/L (46-116); ALT/SGPT 11 U/L (7.0-40); AST/SGOT 47 U/L (<34); BILIRUBIN,DIRECT 0.1 MG/DL (<0.4); BILIRUBIN,TOTAL 0.4 MG/DL (0.3-1.2); BLOOD UREA NITROGEN 21 MG/DL (9-23); CALCIUM LEVEL 8.5 MG/DL (8.3-10.6); CARBON DIOXIDE LEVEL 27 MMOL/L (20-31); CHLORIDE LEVEL 96 MMOL/L (98-107); CK-MB VALUE MASS 1.7 NG/ML (<3.6); CPK CREATINE PHOSPHOKINASE 162 U/L (46-171); CREATININE FOR GFR 6.05 MG/DL (0.70-1.30); GLUCOSE, FASTING 78 MG/DL (74-106); MB/CK RELATIVE INDEX 1.04 (< OR =4); POTASSIUM SERUM 4.1 MMOL/L (3.5-5.1); SODIUM LEVEL 132 MMOL/L (136-145); TOTAL PROTEIN 6.1 G/DL (5.7-8.2)
[2023-10-30 14:21] LABS: RSV AMPLIFICATION NEGATIVE (NEGATIVE)
[2023-10-30] MEDS: LABETALOL 100MG/20ML VIAL IV STA (16:11)
[2023-10-30 16:48] LABS: INR 1.12; PROTHROMBIN TIME 14.1 SECONDS (12.5-14.5)
[2023-10-30 16:49] LABS: PARTIAL THROMBOPLASTIN TIME 29.5 SECONDS (24.8-34.2)
[2023-10-30] MEDS ORDERED: LISI40TA4 PO (17:21)
[2023-10-30] MEDS ORDERED: LAMO25TA4 PO (17:26)
[2023-10-30] MEDS ORDERED: DULO20CA27 PO (17:26)
[2023-10-30] MEDS ORDERED: LEXA1TAB PO (17:26)
[2023-10-30] MEDS: niCARdipine IV 40 MG in IV 1 EA IV SCH (17:46)
[2023-10-30] MEDS ORDERED: ISOVUE-370 76% 100ML VIAL As Ordered ONE (18:40)
[2023-10-30] MEDS: METOPROLOL SUCC *XL* 25MG TAB (TopROL *XL*) PO SCH (20:05)
[2023-10-30] MEDS: lisinopriL 40MG TAB PO SCH (20:06)
[2023-10-30] MEDS: NIFEdipine 30MG XL TAB PO SCH (20:07)
[2023-10-30] MEDS: **hydrALAZINE** 50 MG TAB PO SCH (21:51)
[2023-10-31] VITALS (26 sets, daily range): BP systolic 101–159; BP diastolic 54–95; TEMP 97.9–99.2; O2SAT 97–99
[2023-10-31] MEDS: ACETAMINOPHEN TAB 650MG DOSE (2X325MG) PO PRN (00:01)
[2023-10-31] MEDS: ALPRAZolam 0.5 MG TAB PO PRN (00:20)
[2023-10-31 01:02] LABS: AMPHETAMINES LEVEL URINE NEGATIVE (NEGATIVE); BARBITURATES URINE NEGATIVE (NEGATIVE); COCAINE METABOLITE URINE NEGATIVE (NEGATIVE); METHADONE URINE NEGATIVE (NEGATIVE); OPIATES URINE NEGATIVE (NEGATIVE); PHENCYCLIDINE URINE NEGATIVE (NEGATIVE)
[2023-10-31 01:05] LABS: BENZODIAZEPINES URINE POSITIVE (NEGATIVE); CANNABINOIDS URINE POSITIVE (NEGATIVE)
[2023-10-31] MEDS: AMPICILLIN SOD/SULBACTAM SOD 3 GM in D5W MINI-BAG PLUS 100 ML IV SCH ×2 (02:19→17:29)
[2023-10-31] MEDS: LIDOCAINE 5% (LIDODERM) PATCH TD ONE (02:59)
[2023-10-31] MEDS ORDERED: LIDOCAINE 1% SDV 5ML VIAL SC PRN (06:00)
[2023-10-31] MEDS ORDERED: SODIUM CHLORIDE 0.9% 1000ML IV PRN (06:00)
[2023-10-31] MEDS ORDERED: HEPARIN 1,000UNITS/ML 10ML VIAL (FOR RADIOLOGY & DIALYSIS ONLY) XX SCH (06:00)
[2023-10-31] MEDS: HEPARIN SOD (PORCINE) 5000UNITS/ML 1ML VIAL/SYRINGE SC SCH (08:07)
[2023-10-31] MEDS: TACROLIMUS 1MG CAP PO SCH ×2 (08:07→20:31)
[2023-10-31] MEDS: DULoxetine 20MG CAP (CYMBALTA) PO SCH (08:08)
[2023-10-31] MEDS: ESCITALOPRAM OXALATE 10 MG TAB (LEXAPRO) PO SCH (08:08)
[2023-10-31] MEDS: lamoTRIgine 25MG TAB PO SCH (08:08)
[2023-10-31] MEDS ORDERED: VALP1CAP2 PO ×2 (09:24)
[2023-10-31] MEDS ORDERED: CINA30TA4 PO (09:24)
[2023-10-31] MEDS ORDERED: HOME MED LIST COMPLETE! XX SCH (09:25)
[2023-10-31 09:29] LABS: ALBUMIN 2.9 G/DL (3.2-5.2); ALKALINE PHOSPHATASE 83 U/L (46-116); ALT/SGPT < 9 U/L (7.0-40); AST/SGOT 19 U/L (<34); BILIRUBIN,TOTAL 0.3 MG/DL (0.3-1.2); BLOOD UREA NITROGEN 25 MG/DL (9-23); CALCIUM LEVEL 8.3 MG/DL (8.3-10.6); CARBON DIOXIDE LEVEL 26 MMOL/L (20-31); CHLORIDE LEVEL 98 MMOL/L (98-107); CREATININE FOR GFR 6.93 MG/DL (0.70-1.30); GLOMERULAR FILTRATION RATE 8.6 (>49); GLUCOSE, FASTING 89 MG/DL (74-106); PHOSPHORUS LEVEL 3.9 MG/DL (2.4-5.1); POTASSIUM SERUM 3.2 MMOL/L (3.5-5.1); SODIUM LEVEL 132 MMOL/L (136-145); TOTAL PROTEIN 5.9 G/DL (5.7-8.2)
[2023-10-31] MEDS: CALCIUM CARBONATE 500 MG CHEW U/D PO ONE ×2 (20:31→23:31)
[2023-11-01 01:21] VITALS: BP 134/68; TEMP 98.1; O2SAT 98
[2023-11-01 02:00] VITALS: BP 120/83; TEMP 98.8; O2SAT 98
[2023-11-01 06:00] VITALS: BP 149/73; TEMP 98.6; O2SAT 99
[2023-11-01] MEDS ORDERED: HEPARIN 1,000UNITS/ML 10ML VIAL (FOR RADIOLOGY & DIALYSIS ONLY) IV PRN (06:00)
[2023-11-01] MEDS ORDERED: SODIUM CHLORIDE 0.9% 1000ML IV PRN (06:00)
[2023-11-01] MEDS ORDERED: LIDOCAINE 1% SDV 5ML VIAL SC PRN (06:00)
[2023-11-01] MEDS ORDERED: HEPARIN 1,000UNITS/ML 10ML VIAL (FOR RADIOLOGY & DIALYSIS ONLY) XX SCH (06:00)
[2023-11-01 08:18] LABS: HEMATOCRIT 28.5 % (42.0-52.0); HEMOGLOBIN 9.7 g/dl (13.5-17.5); MEAN CORPUSCULAR HEMOGLOBIN 28.4 pg (27.0-33.0); MEAN CORPUSCULAR VOLUME 83.6 fl (80.0-96.0); PLATELET COUNT, AUTOMATED 159 10^3/uL (150-450); RED BLOOD COUNT 3.41 10^6/uL (4.30-6.10); WHITE BLOOD COUNT 7.3 10^3/uL (4.0-10.0)
[2023-11-01 08:34] LABS: ATYPICAL LYMPH 9 % (0-5); EOSINOPHILS 4 % (0-3); LYMPHOCYTES 12 % (16-44); MONOCYTES 9 % (0-5); NEUTROPHILS 65 % (28-66)
[2023-11-01 08:36] LABS: PLATELET ESTIMATE NORMAL (NORMAL); TOXIC GRANULATION 1+
[2023-11-01] MEDS: CINACALCET 30 MG TAB (SENSIPAR) PO SCH (09:34)
[2023-11-01] MEDS: AUGMENTIN 500MG TAB PO SCH (09:35)
[2023-11-01] MEDS: POTASSIUM CHLORIDE 10MEQ SR TABLET PO ONE (09:35)
[2023-11-01 10:00] VITALS: BP 133/69; TEMP 98.1; O2SAT 98
[2023-11-01] MEDS: ONDANSETRON 4MG 2ML VIAL IV PRN (11:24)
[2023-11-01 14:00] VITALS: BP 130/55; TEMP 98.1; O2SAT 98
[2023-11-01] MEDS: PROCHLORPERAZINE 10MG 2ML VIAL IV PRN (14:44)
[2023-11-01] MEDS: MORPHINE 2 MG/ML 1ML VIAL IV PRN (14:44)
[2023-11-01] MEDS: MORPHINE 4 MG/ML 1ML VIAL IV ONE (15:24)
[2023-11-01] MEDS: FOLIC ACID 1MG TAB PO SCH (17:35)
[2023-11-01 21:09] VITALS: BP 140/52; TEMP 97.9; O2SAT 98
[2023-11-02 01:43] VITALS: BP 138/48; TEMP 98.6; O2SAT 100
[2023-11-02 06:19] VITALS: BP 138/50; TEMP 98.6; O2SAT 100
[2023-11-02 08:00] VITALS: BP 137/52; TEMP 97.5
[2023-11-02 08:13] LABS: BASO % 0.4 % (0.0-1.0); EOS # 0.2 10^3/uL (0.0-0.5); EOS % 2.5 % (0.0-3.0); HEMATOCRIT 30.8 % (42.0-52.0); HEMOGLOBIN 10.2 g/dl (13.5-17.5); LYMPH # 1.3 10^3/uL (1.5-5.0); LYMPH % 17.6 % (24.0-44.0); MEAN CORPUSCULAR HEMOGLOBIN 28.8 pg (27.0-33.0); MEAN CORPUSCULAR HGB CONC 33.1 g/dl (32.0-36.5); MONO # 0.7 10^3/uL (0.0-0.8); MONO % 10.2 % (2.0-8.0); PLATELET COUNT, AUTOMATED 202 10^3/uL (150-450); RED BLOOD COUNT 3.54 10^6/uL (4.30-6.10); WHITE BLOOD COUNT 7.2 10^3/uL (4.0-10.0)
[2023-11-02] MEDS: PANTOPRAZOLE 40MG VIAL IV SCH (08:14)
[2023-11-02 08:42] LABS: ALBUMIN 2.9 G/DL (3.2-5.2); ALKALINE PHOSPHATASE 80 U/L (46-116); ALT/SGPT < 9 U/L (7.0-40); AST/SGOT 17 U/L (<34); BILIRUBIN,DIRECT 0.1 MG/DL (<0.4); BILIRUBIN,TOTAL < 0.2 MG/DL (0.3-1.2); BLOOD UREA NITROGEN 20 MG/DL (9-23); CALCIUM LEVEL 8.3 MG/DL (8.3-10.6); CARBON DIOXIDE LEVEL 26 MMOL/L (20-31); CHLORIDE LEVEL 102 MMOL/L (98-107); CREATININE FOR GFR 6.11 MG/DL (0.70-1.30); GLOMERULAR FILTRATION RATE 9.9 (>49); GLUCOSE, FASTING 74 MG/DL (74-106); PHOSPHORUS LEVEL 3.8 MG/DL (2.4-5.1); POTASSIUM SERUM 4.1 MMOL/L (3.5-5.1); SODIUM LEVEL 138 MMOL/L (136-145); TOTAL PROTEIN 6.1 G/DL (5.7-8.2)
[2023-11-02] MEDS: PINK BISMUTH SUSP 524MG/30ML ORAL SYRINGE PO SCH (09:45)
[2023-11-02 10:00] VITALS: BP 137/52; TEMP 97.5; O2SAT 96
[2023-11-02] MEDS: LR 1,000 ML IV SCH (11:57)
[2023-11-02 14:00] VITALS: BP 135/52; TEMP 97.7; O2SAT 98
[2023-11-02] MEDS: VALPROIC ACID 250MG CAP PO SCH ×2 (16:55→20:04)
[2023-11-02 20:00] VITALS: BP 118/53; TEMP 97.7; O2SAT 95
[2023-11-03 01:40] VITALS: BP 123/50; TEMP 98.1; O2SAT 96
[2023-11-03 04:40] VITALS: BP 141/59; TEMP 97.7; O2SAT 95
[2023-11-03] MEDS ORDERED: HEPARIN 1,000UNITS/ML 10ML VIAL (FOR RADIOLOGY & DIALYSIS ONLY) IV PRN (06:00)
[2023-11-03] MEDS ORDERED: HEPARIN 1,000UNITS/ML 10ML VIAL (FOR RADIOLOGY & DIALYSIS ONLY) XX SCH (06:00)
[2023-11-03] MEDS ORDERED: LIDOCAINE 1% SDV 5ML VIAL SC PRN (06:00)
[2023-11-03] MEDS ORDERED: SODIUM CHLORIDE 0.9% 1000ML IV PRN (06:00)
[2023-11-03] MEDS: ALPRAZolam 0.5 MG TAB PO PRN (07:55)
[2023-11-03 13:56] LABS: HEMOGLOBIN 10.2 g/dl (13.5-17.5); MEAN CORPUSCULAR HEMOGLOBIN 28.7 pg (27.0-33.0); MEAN CORPUSCULAR HGB CONC 32.9 g/dl (32.0-36.5); MEAN CORPUSCULAR VOLUME 87.3 fl (80.0-96.0); PLATELET COUNT, AUTOMATED 214 10^3/uL (150-450); RED BLOOD COUNT 3.55 10^6/uL (4.30-6.10); WHITE BLOOD COUNT 7.1 10^3/uL (4.0-10.0)
[2023-11-03 14:00] VITALS: BP 126/53; TEMP 97.9; O2SAT 98
[2023-11-03 14:18] LABS: CALCIUM LEVEL 7.9 MG/DL (8.3-10.6); CREATININE FOR GFR 3.51 MG/DL (0.70-1.30); GLOMERULAR FILTRATION RATE 18.8 (>49); POTASSIUM SERUM 3.9 MMOL/L (3.5-5.1)
[2023-11-03] MEDS: PINK BISMUTH SUSP 524MG/30ML ORAL SYRINGE PO PRN (17:02)
[2023-11-03 20:29] VITALS: BP 132/79; TEMP 98.6; O2SAT 98
[2023-11-04 06:00] VITALS: BP 167/68; TEMP 98.1; O2SAT 95
[2023-11-04] MEDS: METOCLOPRAMIDE INJ 10MG/2ML VIAL IV SCH (09:45)
[2023-11-04 14:00] VITALS: BP 138/62; TEMP 97.9; O2SAT 97
[2023-11-04] MEDS: metroNIDAZOLE 500 MG in IV 1 EA IV SCH (17:41)
[2023-11-04] MEDS: SUCRALFATE SUSP 1GM/10ML UD PO SCH (18:52)
[2023-11-04 20:40] VITALS: BP 126/53; TEMP 99.3; O2SAT 97
[2023-11-05] VITALS (13 sets, daily range): BP systolic 136–193; BP diastolic 56–78; TEMP 97.9–100.2; O2SAT 93–97
[2023-11-05 07:51] LABS: BASO % 0.6 % (0.0-1.0); EOS # 0.3 10^3/uL (0.0-0.5); EOS % 4.2 % (0.0-3.0); HEMATOCRIT 29.2 % (42.0-52.0); HEMOGLOBIN 9.6 g/dl (13.5-17.5); LYMPH # 0.7 10^3/uL (1.5-5.0); LYMPH % 11.9 % (24.0-44.0); MEAN CORPUSCULAR HEMOGLOBIN 28.9 pg (27.0-33.0); MEAN CORPUSCULAR HGB CONC 32.9 g/dl (32.0-36.5); MONO # 0.8 10^3/uL (0.0-0.8); MONO % 12.2 % (2.0-8.0); NEUTROPHILS # 4.4 10^3/uL (1.5-8.5); NEUTROPHILS % 70.3 % (36.0-66.0); PLATELET COUNT, AUTOMATED 183 10^3/uL (150-450); RED BLOOD COUNT 3.32 10^6/uL (4.30-6.10); WHITE BLOOD COUNT 6.2 10^3/uL (4.0-10.0)
[2023-11-05 08:44] LABS: ALBUMIN 2.5 G/DL (3.2-5.2); ALKALINE PHOSPHATASE 72 U/L (46-116); ALT/SGPT < 9 U/L (7.0-40); AST/SGOT 16 U/L (<34); BILIRUBIN,TOTAL < 0.2 MG/DL (0.3-1.2); BLOOD UREA NITROGEN 15 MG/DL (9-23); CARBON DIOXIDE LEVEL 25 MMOL/L (20-31); CHLORIDE LEVEL 105 MMOL/L (98-107); GLOMERULAR FILTRATION RATE 11.2 (>49); GLUCOSE, FASTING 66 MG/DL (74-106); SODIUM LEVEL 137 MMOL/L (136-145); TOTAL PROTEIN 5.6 G/DL (5.7-8.2)
[2023-11-05] MEDS ORDERED: propofoL 200 MG/20 ML VIAL As Ordered ONE (08:57)
[2023-11-05] MEDS ORDERED: fentaNYL 100 MCG/2 ML INJECTION As Ordered ONE (08:57)
[2023-11-05] MEDS ORDERED: LIDOCAINE 2% 100MG/5ML SDV (FOR ANES.) As Ordered ONE (08:57)
[2023-11-05] MEDS: FAMOTIDINE IV BAG 20 MG in IV 1 EA IV ONE (20:14)
[2023-11-05 20:16] LABS: BASO % 0.5 % (0.0-1.0); EOS # 0.1 10^3/uL (0.0-0.5); EOS % 0.8 % (0.0-3.0); HEMATOCRIT 33.5 % (42.0-52.0); HEMOGLOBIN 10.6 g/dl (13.5-17.5); LYMPH # 0.8 10^3/uL (1.5-5.0); LYMPH % 11.3 % (24.0-44.0); MEAN CORPUSCULAR HEMOGLOBIN 28.6 pg (27.0-33.0); MEAN CORPUSCULAR HGB CONC 31.6 g/dl (32.0-36.5); MEAN CORPUSCULAR VOLUME 90.5 fl (80.0-96.0); MONO # 1.1 10^3/uL (0.0-0.8); MONO % 16.1 % (2.0-8.0); NEUTROPHILS # 4.7 10^3/uL (1.5-8.5); NEUTROPHILS % 70.5 % (36.0-66.0); PLATELET COUNT, AUTOMATED 173 10^3/uL (150-450); WHITE BLOOD COUNT 6.6 10^3/uL (4.0-10.0)
[2023-11-05 20:33] LABS: CK-MB VALUE MASS < 1.0 NG/ML (<3.6)
[2023-11-05 20:34] LABS: ALBUMIN 2.7 G/DL (3.2-5.2); ALKALINE PHOSPHATASE 76 U/L (46-116); ALT/SGPT < 9 U/L (7.0-40); AST/SGOT 19 U/L (<34); BILIRUBIN,TOTAL < 0.2 MG/DL (0.3-1.2); BLOOD UREA NITROGEN 17 MG/DL (9-23); CARBON DIOXIDE LEVEL 21 MMOL/L (20-31); CHLORIDE LEVEL 104 MMOL/L (98-107); CPK CREATINE PHOSPHOKINASE 83 U/L (46-171); CREATININE FOR GFR 5.81 MG/DL (0.70-1.30); GLOMERULAR FILTRATION RATE 10.5 (>49); GLUCOSE, FASTING 83 MG/DL (74-106); POTASSIUM SERUM 4.4 MMOL/L (3.5-5.1); SODIUM LEVEL 135 MMOL/L (136-145); TOTAL PROTEIN 6.1 G/DL (5.7-8.2)
[2023-11-05] MEDS ORDERED: PANTOPRAZOLE 20 MG TAB PO SCH (21:00)
[2023-11-05] MEDS: NYSTATIN 500,000U/5ML SUSP UDC SS SCH (22:24)
[2023-11-05] MEDS: PANTOPRAZOLE 40MG VIAL IV SCH (22:24)
[2023-11-06 02:00] VITALS: BP 141/56; TEMP 99.3; O2SAT 94
[2023-11-06] MEDS: CEPACOL LOZENGE PO PRN (02:29)
[2023-11-06] MEDS ORDERED: LIDOCAINE 1% SDV 5ML VIAL SC PRN (06:45)
[2023-11-06] MEDS ORDERED: HEPARIN 1,000UNITS/ML 10ML VIAL (FOR RADIOLOGY & DIALYSIS ONLY) IV PRN (06:45)
[2023-11-06] MEDS ORDERED: HEPARIN 1,000UNITS/ML 10ML VIAL (FOR RADIOLOGY & DIALYSIS ONLY) XX SCH (06:45)
[2023-11-06] MEDS ORDERED: SODIUM CHLORIDE 0.9% 1000ML IV PRN (06:45)
[2023-11-06 06:59] VITALS: BP 186/68; TEMP 97.9; O2SAT 99
[2023-11-06 08:32] LABS: C REACTIVE PROTEIN QUANTITATIV 16.5 MG/DL (<1.0)
[2023-11-06 08:41] LABS: PROCALCITONIN 0.35 ng/ml
[2023-11-06] MEDS: DARBEPOETIN 100MCG/0.5ML *DIALYSIS* SYRINGE IV SCH (09:43)
[2023-11-06] MEDS: PINK BISMUTH SUSP 524MG/30ML ORAL SYRINGE PO SCH (09:45)
[2023-11-06 14:00] VITALS: BP 137/53; TEMP 98.4; O2SAT 94
[2023-11-06 20:00] VITALS: BP 137/53; TEMP 98.2; O2SAT 95
[2023-11-07 06:21] VITALS: BP 170/76; TEMP 98.2; O2SAT 97
[2023-11-07 07:48] VITALS: BP 128/66
[2023-11-07] MEDS ORDERED: PINK BISMUTH SUSP 524MG/30ML ORAL SYRINGE PO PRN (10:15)
[2023-11-07] MEDS ORDERED: PROMETHAZINE 25MG/ML 1ML VIAL IV PRN (13:25)
[2023-11-07 14:00] VITALS: BP 122/51; TEMP 98.2; O2SAT 98
[2023-11-07] MEDS ORDERED: PROMETHAZINE 25 MG TAB PO PRN (14:15)
[2023-11-07] MEDS: CALCIUM CARBONATE 500 MG CHEW U/D PO SCH (17:23)
[2023-11-07] MEDS ORDERED: PROMETHAZINE 25 MG TAB PO SCH (17:30)
[2023-11-07 19:48] VITALS: BP 172/80; TEMP 98.6; O2SAT 97
[2023-11-07 19:55] VITALS: BP 158/78
[2023-11-07 21:35] VITALS: BP 140/68
[2023-11-08 06:00] VITALS: BP 150/70; TEMP 99; O2SAT 96
[2023-11-08 06:41] LABS: CALCIUM LEVEL 7.7 MG/DL (8.3-10.6); CREATININE FOR GFR 4.81 MG/DL (0.70-1.30); GLOMERULAR FILTRATION RATE 13.1 (>49); MAGNESIUM LEVEL 1.9 MG/DL (1.8-2.4); POTASSIUM SERUM 3.9 MMOL/L (3.5-5.1)
[2023-11-08 06:48] VITALS: BP 150/70
[2023-11-08] MEDS ORDERED: SODIUM CHLORIDE 0.9% 1000ML IV PRN (07:20)
[2023-11-08] MEDS ORDERED: HEPARIN 1,000UNITS/ML 10ML VIAL (FOR RADIOLOGY & DIALYSIS ONLY) XX SCH (07:20)
[2023-11-08] MEDS ORDERED: HEPARIN 1,000UNITS/ML 10ML VIAL (FOR RADIOLOGY & DIALYSIS ONLY) IV PRN (07:20)
[2023-11-08] MEDS ORDERED: LIDOCAINE 1% SDV 5ML VIAL SC PRN (07:20)
[2023-11-08] MEDS ORDERED: BENZ1LOZ9 PO (11:19)
[2023-11-08] MEDS ORDERED: SUCR1ORA PO (11:19)
[2023-11-08] MEDS ORDERED: PROTPAK PO (11:19)
== END 2023-11-08 12:54 | disposition home or self-care (01) | DRG 304 ==
LOC: M ED 11:15 → EDBD 11:15 → M ED INP 17:23 → M ICU 19:16 → M MSPAV 10-31 18:30
PROVIDERS: ADMIT Internal Medicine Pulmonary Disease; ATTEND Student in an Organized Health Care Education/Training Program
PROC: 5A1D70Z Performance of Urinary Filtration, Intermittent, Less than 6 Hours Per Day (ICD-10-PCS; principal; 2023-10-31)
PROC: 0DB38ZX Excision of Lower Esophagus, Via Natural or Artificial Opening Endoscopic, Diagnostic (ICD-10-PCS; 2023-11-05)
PROC: 0DB78ZX Excision of Stomach, Pylorus, Via Natural or Artificial Opening Endoscopic, Diagnostic (ICD-10-PCS; 2023-11-05)
PROC: 0DB98ZX Excision of Duodenum, Via Natural or Artificial Opening Endoscopic, Diagnostic (ICD-10-PCS; 2023-11-05)
DX: I16.1 Hypertensive emergency (principal); N18.6 End stage renal disease; E72.20 Disorder of urea cycle metabolism, unspecified; Z94.4 Liver transplant status; I67.4 Hypertensive encephalopathy; L03.211 Cellulitis of face; R18.8 Other ascites; J90 Pleural effusion, not elsewhere classified; D84.821 Immunodeficiency due to drugs; E87.20 Acidosis, unspecified; D63.1 Anemia in chronic kidney disease; K29.70 Gastritis, unspecified, without bleeding; K74.60 Unspecified cirrhosis of liver; F41.9 Anxiety disorder, unspecified; R13.10 Dysphagia, unspecified; K44.9 Diaphragmatic hernia without obstruction or gangrene; F32.A Depression, unspecified; D69.59 Other secondary thrombocytopenia; G47.00 Insomnia, unspecified; Z66 Do not resuscitate; E78.5 Hyperlipidemia, unspecified; I12.0 Hypertensive chronic kidney disease with stage 5 chronic kidney disease or end stage renal disease; K20.80 Other esophagitis without bleeding; E55.9 Vitamin D deficiency, unspecified; I87.2 Venous insufficiency (chronic) (peripheral); N28.89 Other specified disorders of kidney and ureter; Z91.158 Patient's noncompliance with renal dialysis for other reason; Z99.2 Dependence on renal dialysis; Z98.84 Bariatric surgery status; Z96.652 Presence of left artificial knee joint; Z79.899 Other long term (current) drug therapy

== ENCOUNTER 2023-12-05 20:06 | Inpatient (IN) | payer MEDICARE, OTHER ==
[~2023-12-05] VITALS: Ht 177.8 cm; Wt 81.7 kg
[~2023-12-05 20:06] MED LIST changes: +BENZ1LOZ9 PO; +CINA30TA4 PO; +DULO20CA27 PO; +LAMO25TA4 PO; +LEXA1TAB PO; +PROTPAK PO; +SUCR1ORA PO
[2023-12-06] VITALS (10 sets, daily range): BP systolic 153–182; BP diastolic 61–86; TEMP 98.1–99; O2SAT 99–100
[2023-12-06 02:37] LABS: VENOUS HCO3 27.4 MMOL/L (23.0-27.0); VENOUS O2 SATURATION 98.7 % (60.0-80.0); VENOUS PARTIAL PRESSURE CO2 23.4 mmHg (38.0-50.0); VENOUS PARTIAL PRESSURE O2 128.9 mmHg (30.0-50.0); VENOUS PH 7.686 UNITS (7.330-7.430); VENOUS STANDARD HCO3 30.9 MMOL/L; VENOUS TOTAL CO2 28.1 MMOL/L (24.0-28.0)
[2023-12-06 04:11] LABS: CK-MB VALUE MASS 1.2 NG/ML (<3.6)
[2023-12-06 04:14] LABS: ALBUMIN 2.3 G/DL (3.2-5.2); ALKALINE PHOSPHATASE 76 U/L (46-116); ALT/SGPT < 9 U/L (7.0-40); AST/SGOT 29 U/L (<34); BILIRUBIN,DIRECT 0.1 MG/DL (<0.4); BILIRUBIN,TOTAL 0.2 MG/DL (0.3-1.2); BLOOD UREA NITROGEN 21 MG/DL (9-23); CALCIUM LEVEL 6.9 MG/DL (8.3-10.6); CARBON DIOXIDE LEVEL 26 MMOL/L (20-31); CHLORIDE LEVEL 99 MMOL/L (98-107); CREATININE FOR GFR 6.42 MG/DL (0.70-1.30); GLOMERULAR FILTRATION RATE 9.4 (>49); GLUCOSE, FASTING 73 MG/DL (74-106); POTASSIUM SERUM 3.9 MMOL/L (3.5-5.1); SODIUM LEVEL 135 MMOL/L (136-145); TOTAL PROTEIN 4.9 G/DL (5.7-8.2)
[2023-12-06 04:15] LABS: THYROXINE (T4) 10.4 UG/DL (4.5-10.9)
[2023-12-06 04:16] LABS: THYROID STIMULATING HORMONE 5.528 uIU/ML (0.55-4.78)
[2023-12-06 04:25] LABS: CPK CREATINE PHOSPHOKINASE 117 U/L (46-171); MB/CK RELATIVE INDEX 1.02 (< OR =4)
[2023-12-06 04:57] LABS: BASO % 0.8 % (0.0-1.0); EOS # 0.2 10^3/uL (0.0-0.5); EOS % 6.3 % (0.0-3.0); LYMPH % 40.2 % (24.0-44.0); MEAN CORPUSCULAR HEMOGLOBIN 27.9 pg (27.0-33.0); MEAN CORPUSCULAR HGB CONC 33.8 g/dl (32.0-36.5); MEAN CORPUSCULAR VOLUME 82.4 fl (80.0-96.0); MONO # 0.3 10^3/uL (0.0-0.8); MONO % 11.8 % (2.0-8.0); NEUTROPHILS % 40.9 % (36.0-66.0); PLATELET COUNT, AUTOMATED 115 10^3/uL (150-450); RED BLOOD COUNT 2.44 10^6/uL (4.30-6.10); WHITE BLOOD COUNT 2.5 10^3/uL (4.0-10.0)
[2023-12-06 05:04] LABS: HEMATOCRIT 20.1 % (42.0-52.0); HEMOGLOBIN 6.8 g/dl (13.5-17.5)
[2023-12-06] MEDS ORDERED: MOM 30ML SUSPENSION UDC PO PRN (06:15)
[2023-12-06] MEDS ORDERED: PROTPAK PO (06:47)
[2023-12-06] MEDS ORDERED: HOME MED LIST COMPLETE! XX SCH (06:50)
[2023-12-06] MEDS ORDERED: HEPARIN 1,000UNITS/ML 10ML VIAL (FOR RADIOLOGY & DIALYSIS ONLY) IV PRN (07:00)
[2023-12-06] MEDS ORDERED: HEPARIN 1,000UNITS/ML 10ML VIAL (FOR RADIOLOGY & DIALYSIS ONLY) XX SCH (07:00)
[2023-12-06] MEDS ORDERED: LIDOCAINE 1% SDV 5ML VIAL SC PRN (07:00)
[2023-12-06] MEDS ORDERED: SODIUM CHLORIDE 0.9% 1000ML IV PRN (07:00)
[2023-12-06] MEDS: HEPARIN SOD (PORCINE) 5000UNITS/ML 1ML VIAL/SYRINGE SC SCH (07:14)
[2023-12-06 07:35] LABS: HEMATOCRIT 21.1 % (42.0-52.0)
[2023-12-06 07:44] LABS: HEMOGLOBIN 6.7 g/dl (13.5-17.5)
[2023-12-06 17:47] LABS: HEMATOCRIT 30.4 % (42.0-52.0)
[2023-12-06] MEDS: ACETAMINOPHEN TAB 650MG DOSE (2X325MG) PO PRN (17:55)
[2023-12-06 18:03] LABS: HEMOGLOBIN 10.5 g/dl (13.5-17.5)
[2023-12-06] MEDS: TACROLIMUS 1MG CAP PO SCH (20:35)
[2023-12-06 23:31] LABS: HEMATOCRIT 25.6 % (42.0-52.0); HEMOGLOBIN 8.9 g/dl (13.5-17.5)
[2023-12-07] VITALS (10 sets, daily range): BP systolic 117–194; BP diastolic 59–116; TEMP 97.9–99; O2SAT 91–99
[2023-12-07] MEDS: LIDOCAINE 5% (LIDODERM) PATCH TD PRN (00:48)
[2023-12-07] MEDS: LORazepam 2 MG/ML 1ML VIAL IV STA (01:33)
[2023-12-07] MEDS: MAALOX 30 ML SUSP *UDC PO PRN (01:33)
[2023-12-07] MEDS: NITROGLYCERIN 0.4MG SUBL TABLET SL STA (01:39)
[2023-12-07 02:03] LABS: ABG BASE EXCESS 4.9 (-2.0-2.0); ABG HCO3 26.3 MMOL/L (22.0-26.0); ABG O2 SATURATION 98.6 % (95.0-99.0); ABG PARTIAL PRESSURE CO2 27.9 mmHg (35.0-45.0); ABG PARTIAL PRESSURE O2 116.2 mmHg (75.0-100.0); ABG STANDARD HCO3 28.9 MMOL/L. (22.0-26.0); ABG TOTAL CO2 27.1 MMOL/L (23.0-31.0); ABG pH (ARTERIAL) 7.592 UNITS (7.350-7.450)
[2023-12-07 02:34] LABS: CK-MB VALUE MASS 2.5 NG/ML (<3.6)
[2023-12-07 02:48] LABS: MB/CK RELATIVE INDEX 2.11 (< OR =4)
[2023-12-07 05:00] LABS: CK-MB VALUE MASS 2.1 NG/ML (<3.6)
[2023-12-07 05:15] LABS: CREATININE FOR GFR 4.04 MG/DL (0.70-1.30); MAGNESIUM LEVEL 1.9 MG/DL (1.8-2.4); MB/CK RELATIVE INDEX 1.72 (< OR =4); POTASSIUM SERUM 3.4 MMOL/L (3.5-5.1)
[2023-12-07] MEDS: NIFEdipine 30MG XL TAB PO SCH (09:36)
[2023-12-07] MEDS: DULoxetine 20MG CAP (CYMBALTA) PO SCH (09:36)
[2023-12-07] MEDS: VALPROIC ACID 250MG CAP PO SCH ×2 (09:38→20:22)
[2023-12-07] MEDS: ESCITALOPRAM OXALATE 10 MG TAB (LEXAPRO) PO SCH (09:38)
[2023-12-07] MEDS: POTASSIUM CHLORIDE 10MEQ SR TABLET PO ONE (09:38)
[2023-12-07] MEDS: lisinopriL 40MG TAB PO SCH (09:38)
[2023-12-07] MEDS: TACROLIMUS 1MG CAP PO SCH (09:38)
[2023-12-07] MEDS: ALPRAZolam 0.5 MG TAB PO PRN (09:39)
[2023-12-07] MEDS ORDERED: cefTRIAXone SOD 1 GM in D5W MINI-BAG PLUS 50 ML IV SCH (10:05)
[2023-12-07 10:55] LABS: EOS # 0.2 10^3/uL (0.0-0.5); EOS % 5.9 % (0.0-3.0); HEMATOCRIT 30.3 % (42.0-52.0); HEMOGLOBIN 10.4 g/dl (13.5-17.5); LYMPH # 0.9 10^3/uL (1.5-5.0); LYMPH % 22.1 % (24.0-44.0); MEAN CORPUSCULAR HEMOGLOBIN 28.3 pg (27.0-33.0); MEAN CORPUSCULAR HGB CONC 34.3 g/dl (32.0-36.5); MEAN CORPUSCULAR VOLUME 82.3 fl (80.0-96.0); MONO # 0.4 10^3/uL (0.0-0.8); MONO % 9.4 % (2.0-8.0); NEUTROPHILS # 2.4 10^3/uL (1.5-8.5); NEUTROPHILS % 61.3 % (36.0-66.0); PLATELET COUNT, AUTOMATED 134 10^3/uL (150-450); RED BLOOD COUNT 3.68 10^6/uL (4.30-6.10); WHITE BLOOD COUNT 3.9 10^3/uL (4.0-10.0)
[2023-12-07 11:09] LABS: CALCIUM LEVEL 7.7 MG/DL (8.3-10.6); CREATININE FOR GFR 4.22 MG/DL (0.70-1.30); GLOMERULAR FILTRATION RATE 15.2 (>49); POTASSIUM SERUM 3.7 MMOL/L (3.5-5.1)
[2023-12-07] MEDS: cefTRIAXone SOD 2 GM in D5W MINI-BAG PLUS 50 ML IV SCH (11:53)
[2023-12-07] MEDS: DOXYCYCLINE HYCLATE 100MG TABLET PO SCH (11:53)
[2023-12-07] MEDS ORDERED: ISOVUE-370 76% 100ML VIAL As Ordered ONE (12:46)
[2023-12-07] MEDS: ONDANSETRON 4MG 2ML VIAL IV PRN (13:06)
[2023-12-07] MEDS ORDERED: PILL CUTTER 1 EACH XX PRN (13:15)
[2023-12-07] MEDS: SIMETHICONE 80MG CHEW TAB PO ONE (14:11)
[2023-12-07] MEDS: SIMETHICONE 80MG CHEW TAB PO SCH (16:42)
[2023-12-07] MEDS: LORazepam 2 MG TAB PO PRN (16:43)
[2023-12-07] MEDS: FOLIC ACID 1MG TAB PO SCH (17:50)
[2023-12-07] MEDS: MULTIVITAMINS/MINERALS THERAP 1 TAB PO SCH (17:50)
[2023-12-07] MEDS: THIAMINE 100 MG TAB PO SCH (17:50)
[2023-12-07] MEDS: FAMOTIDINE 20 MG TAB PO SCH (20:23)
[2023-12-07] MEDS ORDERED: OXAZEPAM 10MG CAP PO SCH (22:00)
[2023-12-08] VITALS (8 sets, daily range): BP systolic 136–168; BP diastolic 63–82; TEMP 98.1–98.6; O2SAT 95–99
[2023-12-08] MEDS ORDERED: HEPARIN 1,000UNITS/ML 10ML VIAL (FOR RADIOLOGY & DIALYSIS ONLY) XX SCH (06:35)
[2023-12-08] MEDS ORDERED: SODIUM CHLORIDE 0.9% 1000ML IV PRN (06:35)
[2023-12-08] MEDS ORDERED: LIDOCAINE 1% SDV 5ML VIAL SC PRN (06:35)
[2023-12-08] MEDS ORDERED: HEPARIN 1,000UNITS/ML 10ML VIAL (FOR RADIOLOGY & DIALYSIS ONLY) IV PRN (06:35)
[2023-12-08 07:48] LABS: BASO % 0.7 % (0.0-1.0); EOS # 0.1 10^3/uL (0.0-0.5); EOS % 2.9 % (0.0-3.0); HEMOGLOBIN 10.1 g/dl (13.5-17.5); LYMPH # 1.2 10^3/uL (1.5-5.0); LYMPH % 26.4 % (24.0-44.0); MEAN CORPUSCULAR HEMOGLOBIN 28.7 pg (27.0-33.0); MEAN CORPUSCULAR HGB CONC 33.7 g/dl (32.0-36.5); MEAN CORPUSCULAR VOLUME 85.2 fl (80.0-96.0); MONO # 0.4 10^3/uL (0.0-0.8); MONO % 7.9 % (2.0-8.0); NEUTROPHILS # 2.8 10^3/uL (1.5-8.5); NEUTROPHILS % 61.7 % (36.0-66.0); PLATELET COUNT, AUTOMATED 138 10^3/uL (150-450); RED BLOOD COUNT 3.52 10^6/uL (4.30-6.10); WHITE BLOOD COUNT 4.6 10^3/uL (4.0-10.0)
[2023-12-08 08:00] LABS: CALCIUM LEVEL 7.9 MG/DL (8.3-10.6); CREATININE FOR GFR 4.91 MG/DL (0.70-1.30); GLOMERULAR FILTRATION RATE 12.8 (>49); POTASSIUM SERUM 3.9 MMOL/L (3.5-5.1)
[2023-12-08] MEDS: DARBEPOETIN 100MCG/0.5ML *DIALYSIS* SYRINGE IV SCH (10:06)
[2023-12-08] MEDS: OXAZEPAM 10MG CAP PO SCH (13:16)
[2023-12-08] MEDS: PANTOPRAZOLE 40MG VIAL IV SCH (14:55)
[2023-12-08] MEDS: NS 1,000 ML IV SCH (15:00)
[2023-12-09 02:10] VITALS: BP 136/59; TEMP 98.8; O2SAT 98
[2023-12-09 05:30] VITALS: BP 140/61; TEMP 98.6; O2SAT 96
[2023-12-09 07:09] LABS: CALCIUM LEVEL 8.3 MG/DL (8.3-10.6); CREATININE FOR GFR 3.17 MG/DL (0.70-1.30); GLOMERULAR FILTRATION RATE 21.2 (>49); MAGNESIUM LEVEL 2.1 MG/DL (1.8-2.4); POTASSIUM SERUM 3.6 MMOL/L (3.5-5.1)
[2023-12-09 14:00] VITALS: BP 141/65; TEMP 98.8; O2SAT 96
[2023-12-09 20:49] VITALS: BP 147/64; TEMP 98.2; O2SAT 98
[2023-12-10 06:07] VITALS: BP 149/74; TEMP 98.2; O2SAT 99
[2023-12-10 07:05] LABS: CALCIUM LEVEL 8.1 MG/DL (8.3-10.6); CREATININE FOR GFR 3.93 MG/DL (0.70-1.30); GLOMERULAR FILTRATION RATE 16.5 (>49); MAGNESIUM LEVEL 1.9 MG/DL (1.8-2.4); PHOSPHORUS LEVEL 2.4 MG/DL (2.4-5.1); POTASSIUM SERUM 3.6 MMOL/L (3.5-5.1)
[2023-12-10] MEDS: PANTOPRAZOLE 40MG TAB (PROTONIX) PO SCH (09:36)
[2023-12-10 10:00] VITALS: BP 144/71; TEMP 98.8; O2SAT 66; O2SAT 99
[2023-12-10] MEDS: ONDANSETRON 4MG ORAL DISINTEGRATING TAB PO PRN (10:03)
[2023-12-10 14:00] VITALS: BP 141/72; TEMP 97.7; O2SAT 100
[2023-12-10 21:00] VITALS: BP 134/61; TEMP 98.1; O2SAT 99
[2023-12-11 06:00] VITALS: BP 148/65; TEMP 98.1; O2SAT 100
[2023-12-11] MEDS ORDERED: SODIUM CHLORIDE 0.9% 1000ML IV PRN (06:00)
[2023-12-11] MEDS ORDERED: HEPARIN 1,000UNITS/ML 10ML VIAL (FOR RADIOLOGY & DIALYSIS ONLY) XX SCH (06:00)
[2023-12-11] MEDS ORDERED: LIDOCAINE 1% SDV 5ML VIAL SC PRN (06:00)
[2023-12-11 06:24] LABS: BASO % 0.9 % (0.0-1.0); EOS # 0.2 10^3/uL (0.0-0.5); EOS % 4.7 % (0.0-3.0); HEMATOCRIT 29.3 % (42.0-52.0); HEMOGLOBIN 9.7 g/dl (13.5-17.5); LYMPH # 1.6 10^3/uL (1.5-5.0); LYMPH % 46.2 % (24.0-44.0); MEAN CORPUSCULAR HEMOGLOBIN 28.1 pg (27.0-33.0); MEAN CORPUSCULAR HGB CONC 33.1 g/dl (32.0-36.5); MEAN CORPUSCULAR VOLUME 84.9 fl (80.0-96.0); MONO # 0.3 10^3/uL (0.0-0.8); MONO % 8.9 % (2.0-8.0); NEUTROPHILS # 1.3 10^3/uL (1.5-8.5); NEUTROPHILS % 38.7 % (36.0-66.0); PLATELET COUNT, AUTOMATED 128 10^3/uL (150-450); RED BLOOD COUNT 3.45 10^6/uL (4.30-6.10); WHITE BLOOD COUNT 3.4 10^3/uL (4.0-10.0)
[2023-12-11 06:58] LABS: CALCIUM LEVEL 8.1 MG/DL (8.3-10.6); CREATININE FOR GFR 4.67 MG/DL (0.70-1.30); GLOMERULAR FILTRATION RATE 13.5 (>49); POTASSIUM SERUM 3.6 MMOL/L (3.5-5.1)
[2023-12-11 15:00] VITALS: BP 149/64; TEMP 98.2; O2SAT 99
[2023-12-11] MEDS ORDERED: LIDOCAINE 1% MDV 20ML VIAL As Ordered ONE (16:02)
[2023-12-11 17:29] LABS: SOURCE, BODY FLUID GLUCOSE LT SHOULDER
[2023-12-11 17:42] LABS: SOURCE, BODY FLUID URIC ACID LT SHOULDER; URIC ACID, BODY FLUID 1.7 MG/DL (NOT ESTABLISHED)
[2023-12-11 17:45] LABS: SOURCE, BODY FLUID LT SHOULDER; SYNOVIAL FLUID COLOR RED (COLORLESS)
[2023-12-11 17:58] LABS: CRYSTALS, BODY FLUID NONE SEEN (NONE SEEN); SOURCE, BODY FLUID CRYSTALS LT SHOULDER
[2023-12-11 20:25] VITALS: BP 153/79; TEMP 98.1; O2SAT 97
[2023-12-11 20:30] VITALS: TEMP 98
[2023-12-11] MEDS: MAALOX 30 ML SUSP *UDC PO PRN (21:09)
[2023-12-11] MEDS: RAMELTEON 8 MG TAB (ROZEREM) PO PRN (21:09)
[2023-12-11 21:53] LABS: CK-MB VALUE MASS 2.2 NG/ML (<3.6)
[2023-12-11 21:54] LABS: MB/CK RELATIVE INDEX 3.01 (< OR =4)
[2023-12-11 21:55] LABS: BASO % 0.7 % (0.0-1.0); EOS # 0.1 10^3/uL (0.0-0.5); EOS % 2.4 % (0.0-3.0); HEMATOCRIT 30.5 % (42.0-52.0); HEMOGLOBIN 10.3 g/dl (13.5-17.5); LYMPH # 0.8 10^3/uL (1.5-5.0); LYMPH % 26.2 % (24.0-44.0); MEAN CORPUSCULAR HEMOGLOBIN 28.1 pg (27.0-33.0); MEAN CORPUSCULAR HGB CONC 33.8 g/dl (32.0-36.5); MEAN CORPUSCULAR VOLUME 83.3 fl (80.0-96.0); MONO # 0.3 10^3/uL (0.0-0.8); MONO % 9.9 % (2.0-8.0); NEUTROPHILS # 1.8 10^3/uL (1.5-8.5); NEUTROPHILS % 60.8 % (36.0-66.0); PLATELET COUNT, AUTOMATED 146 10^3/uL (150-450); RED BLOOD COUNT 3.66 10^6/uL (4.30-6.10); WHITE BLOOD COUNT 2.9 10^3/uL (4.0-10.0)
[2023-12-11 22:01] LABS: CALCIUM LEVEL 8.3 MG/DL (8.3-10.6); CREATININE FOR GFR 2.84 MG/DL (0.70-1.30); MAGNESIUM LEVEL 1.9 MG/DL (1.8-2.4); POTASSIUM SERUM 3.3 MMOL/L (3.5-5.1)
[2023-12-12 05:00] VITALS: BP 154/76; TEMP 98.2; O2SAT 96
[2023-12-12 06:51] LABS: CREATININE FOR GFR 3.2 MG/DL (0.70-1.30); GLOMERULAR FILTRATION RATE 20.9 (>49); POTASSIUM SERUM 3.4 MMOL/L (3.5-5.1)
[2023-12-12] MEDS: KCL 10MEQ/100ML SWI (KRUN) 10 MEQ in IV 1 EA IV ONE (08:36)
[2023-12-12 14:00] VITALS: BP 116/92; TEMP 98.6; O2SAT 97
[2023-12-12 21:02] VITALS: BP 160/75; TEMP 98.2; O2SAT 98
[2023-12-13 06:00] VITALS: BP 163/77; TEMP 97.9; O2SAT 94
[2023-12-13] MEDS ORDERED: SODIUM CHLORIDE 0.9% 1000ML IV PRN (06:00)
[2023-12-13] MEDS ORDERED: HEPARIN 1,000UNITS/ML 10ML VIAL (FOR RADIOLOGY & DIALYSIS ONLY) XX SCH (06:00)
[2023-12-13] MEDS ORDERED: LIDOCAINE 1% SDV 5ML VIAL SC PRN (06:00)
[2023-12-13 06:54] LABS: CALCIUM LEVEL 8.2 MG/DL (8.3-10.6); CREATININE FOR GFR 4.03 MG/DL (0.70-1.30); POTASSIUM SERUM 3.6 MMOL/L (3.5-5.1)
[2023-12-13 14:00] VITALS: BP 147/81; TEMP 97.5; O2SAT 99
[2023-12-13] MEDS ORDERED: CINACALCET 30 MG TAB (SENSIPAR) PO SCH (17:30)
[2023-12-13 19:54] VITALS: BP 179/85; TEMP 97.9; O2SAT 95
[2023-12-13] MEDS: **hydrALAZINE** 50 MG TAB PO SCH (20:20)
[2023-12-13] MEDS: lamoTRIgine 25MG TAB PO SCH (20:20)
[2023-12-14 02:40] VITALS: BP 170/74
[2023-12-14] MEDS ORDERED: amLODIPine 5 MG TAB PO ONE (04:00)
[2023-12-14] MEDS: cloNIDine 0.1MG TABLET PO ONE (04:01)
[2023-12-14 05:52] VITALS: BP 168/83; TEMP 98.1; O2SAT 100
[2023-12-14 05:54] VITALS: BP 168/74
[2023-12-14 08:37] VITALS: BP 178/70
[2023-12-14 11:02] VITALS: BP 154/64; TEMP 97.8; O2SAT 100
[2023-12-14] MEDS ORDERED: AMLO1TAB25 PO (13:15)
[2023-12-14] MEDS ORDERED: PANT40TA29 PO (13:15)
[2023-12-14] MEDS ORDERED: HYDR100T26 PO (13:15)
[2023-12-14] MEDS ORDERED: TACR1CAP3 PO ×2 (13:15)
[2023-12-14] MEDS ORDERED: DULO20CA27 PO (13:15)
[2023-12-14] MEDS ORDERED: NIFE-3 PO (13:15)
[2023-12-14] MEDS ORDERED: VALP1CAP2 PO ×2 (13:15)
[2023-12-14] MEDS ORDERED: LAMO25TA4 PO (13:15)
[2023-12-14] MEDS ORDERED: CINA30TA4 PO (13:15)
[2023-12-14] MEDS ORDERED: LISI40TA4 PO (13:15)
== END 2023-12-14 13:14 | disposition home or self-care (01) | DRG 640 ==
LOC: M ED 20:06 → M ED INP 20:07 → M MSPAV 12-06 09:30 → OBSVTOIN 12-07 10:03
PROVIDERS: ADMIT Internal Medicine; ATTEND Student in an Organized Health Care Education/Training Program
PROC: 5A1D70Z Performance of Urinary Filtration, Intermittent, Less than 6 Hours Per Day (ICD-10-PCS; principal; 2023-12-06)
PROC: 30233N1 Transfusion of Nonautologous Red Blood Cells into Peripheral Vein, Percutaneous Approach (ICD-10-PCS; 2023-12-06)
PROC: 0R9K3ZX Drainage of Left Shoulder Joint, Percutaneous Approach, Diagnostic (ICD-10-PCS; 2023-12-11)
DX: E87.70 Fluid overload, unspecified (principal); N18.6 End stage renal disease; Z94.4 Liver transplant status; I12.0 Hypertensive chronic kidney disease with stage 5 chronic kidney disease or end stage renal disease; J90 Pleural effusion, not elsewhere classified; F10.239 Alcohol dependence with withdrawal, unspecified; E87.1 Hypo-osmolality and hyponatremia; F41.9 Anxiety disorder, unspecified; F32.A Depression, unspecified; G47.00 Insomnia, unspecified; E78.5 Hyperlipidemia, unspecified; K21.00 Gastro-esophageal reflux disease with esophagitis, without bleeding; K44.9 Diaphragmatic hernia without obstruction or gangrene; E55.9 Vitamin D deficiency, unspecified; D63.1 Anemia in chronic kidney disease; E83.51 Hypocalcemia; Z66 Do not resuscitate; I87.2 Venous insufficiency (chronic) (peripheral); N28.89 Other specified disorders of kidney and ureter; F03.90 Unspecified dementia, unspecified severity, without behavioral disturbance, psychotic disturbance, mood disturbance, and anxiety; E87.20 Acidosis, unspecified; M25.512 Pain in left shoulder; D69.6 Thrombocytopenia, unspecified; E87.6 Hypokalemia; Z99.2 Dependence on renal dialysis; Z98.84 Bariatric surgery status; Z96.652 Presence of left artificial knee joint; Z91.158 Patient's noncompliance with renal dialysis for other reason; Z91.148 Patient's other noncompliance with medication regimen for other reason; Z79.899 Other long term (current) drug therapy

== ENCOUNTER 2023-12-20 12:52 | Inpatient (IN) | payer OTHER ==
[~2023-12-20] VITALS: Ht 177.8 cm; Wt 80.3 kg
[~2023-12-20 12:52] MED LIST changes: +PANT40TA29 PO
[2023-12-20] MEDS: **hydrALAZINE** 50 MG TAB PO ONE (13:29)
[2023-12-20 15:00] LABS: BASO % 0.2 % (0.0-1.0); EOS # 0.1 10^3/uL (0.0-0.5); EOS % 1.2 % (0.0-3.0); HEMATOCRIT 29.2 % (42.0-52.0); HEMOGLOBIN 9.8 g/dl (13.5-17.5); LYMPH # 0.7 10^3/uL (1.5-5.0); LYMPH % 17.2 % (24.0-44.0); MEAN CORPUSCULAR HEMOGLOBIN 28.5 pg (27.0-33.0); MEAN CORPUSCULAR HGB CONC 33.6 g/dl (32.0-36.5); MEAN CORPUSCULAR VOLUME 84.9 fl (80.0-96.0); MONO # 0.5 10^3/uL (0.0-0.8); MONO % 12.7 % (2.0-8.0); NEUTROPHILS # 2.8 10^3/uL (1.5-8.5); NEUTROPHILS % 68.2 % (36.0-66.0); PLATELET COUNT, AUTOMATED 135 10^3/uL (150-450); RED BLOOD COUNT 3.44 10^6/uL (4.30-6.10); WHITE BLOOD COUNT 4.1 10^3/uL (4.0-10.0)
[2023-12-20 15:17] LABS: ETHYL ALCOHOL (ETHANOL) < 0.003 % (0.000-0.010)
[2023-12-20 15:18] LABS: CK-MB VALUE MASS 2.5 NG/ML (<3.6); SALICYLATE LEVEL < 3.0 MG/DL (<30)
[2023-12-20 15:19] LABS: ALBUMIN 2.4 G/DL (3.2-5.2); ALKALINE PHOSPHATASE 87 U/L (46-116); ALT/SGPT < 9 U/L (7.0-40); AST/SGOT 17 U/L (<34); BILIRUBIN,DIRECT 0.2 MG/DL (<0.4); BILIRUBIN,TOTAL 0.3 MG/DL (0.3-1.2); BLOOD UREA NITROGEN 19 MG/DL (9-23); CALCIUM LEVEL 7.9 MG/DL (8.3-10.6); CARBON DIOXIDE LEVEL 26 MMOL/L (20-31); CHLORIDE LEVEL 100 MMOL/L (98-107); CREATININE FOR GFR 6.01 MG/DL (0.70-1.30); GLOMERULAR FILTRATION RATE 10.1 (>49); GLUCOSE, FASTING 70 MG/DL (74-106); POTASSIUM SERUM 3.8 MMOL/L (3.5-5.1); SODIUM LEVEL 135 MMOL/L (136-145); TOTAL PROTEIN 5.2 G/DL (5.7-8.2)
[2023-12-20 15:20] LABS: ABG BASE EXCESS 2.7 (-2.0-2.0); ABG O2 SATURATION 98.3 % (95.0-99.0); ABG PARTIAL PRESSURE CO2 30.8 mmHg (35.0-45.0); ABG PARTIAL PRESSURE O2 107.1 mmHg (75.0-100.0); ABG STANDARD HCO3 26.9 MMOL/L. (22.0-26.0); ABG pH (ARTERIAL) 7.528 UNITS (7.350-7.450)
[2023-12-20 15:21] LABS: THYROID STIMULATING HORMONE 8.419 uIU/ML (0.55-4.78)
[2023-12-20 15:23] LABS: VALPROIC ACID (DEPAKOTE) 11.5 UG/ML (50.0-100.0)
[2023-12-20 15:29] LABS: CPK CREATINE PHOSPHOKINASE 82 U/L (46-171); MB/CK RELATIVE INDEX 3.04 (< OR =4)
[2023-12-20] MEDS: lisinopriL 40MG TAB PO ONE (15:33)
[2023-12-20] MEDS: METOPROLOL SUCC *XL* 25MG TAB (TopROL *XL*) PO ONE (15:34)
[2023-12-20 16:20] LABS: CK-MB VALUE MASS 2.7 NG/ML (<3.6)
[2023-12-20 16:22] LABS: MB/CK RELATIVE INDEX 3.29 (< OR =4)
[2023-12-20] MEDS: NIFEdipine 30MG XL TAB PO STA (16:46)
[2023-12-20] MEDS ORDERED: LABETALOL 100MG/20ML VIAL IV PRN (17:35)
[2023-12-20] MEDS: hydrALAZINE 20MG/ML 1ML VIAL IV STA (17:37)
[2023-12-20 18:09] LABS: FREE T4 0.85 NG/DL (0.89-1.76)
[2023-12-20] MEDS ORDERED: HYDR100T PO (18:33)
[2023-12-20] MEDS ORDERED: DULO1CAP4 PO (18:33)
[2023-12-20] MEDS ORDERED: CINA30TA5 PO (18:33)
[2023-12-20] MEDS ORDERED: NIFE1TAB52 PO (18:33)
[2023-12-20] MEDS ORDERED: PANT-23 PO (18:33)
[2023-12-20] MEDS ORDERED: med rec (18:39)
[2023-12-20] MEDS ORDERED: HOME MED LIST COMPLETE! XX SCH ×2 (18:40→21:20)
[2023-12-20] MEDS: ONDANSETRON 4MG 2ML VIAL IV PRN (19:54)
[2023-12-20 20:47] VITALS: BP 154/70; TEMP 98.4; O2SAT 97
[2023-12-20] MEDS ORDERED: ALPRAZolam 0.5 MG TAB PO PRN (21:25)
[2023-12-20] MEDS: CINACALCET 30 MG TAB (SENSIPAR) PO SCH (22:13)
[2023-12-20] MEDS: **hydrALAZINE** 50 MG TAB PO SCH (22:14)
[2023-12-20] MEDS: VALPROIC ACID 250MG CAP PO SCH (22:22)
[2023-12-20] MEDS: TACROLIMUS 1MG CAP PO SCH (22:22)
[2023-12-21] VITALS (7 sets, daily range): BP systolic 144–176; BP diastolic 67–84; TEMP 97.2–99.2; O2SAT 97–99
[2023-12-21 05:34] LABS: HEMATOCRIT 27.7 % (42.0-52.0); HEMOGLOBIN 9.1 g/dl (13.5-17.5); MEAN CORPUSCULAR HGB CONC 32.9 g/dl (32.0-36.5); MEAN CORPUSCULAR VOLUME 85.2 fl (80.0-96.0); PLATELET COUNT, AUTOMATED 138 10^3/uL (150-450); RED BLOOD COUNT 3.25 10^6/uL (4.30-6.10); WHITE BLOOD COUNT 3.9 10^3/uL (4.0-10.0)
[2023-12-21 05:55] LABS: CALCIUM LEVEL 7.5 MG/DL (8.3-10.6); CREATININE FOR GFR 6.49 MG/DL (0.70-1.30); GLOMERULAR FILTRATION RATE 9.3 (>49)
[2023-12-21] MEDS: HEPARIN SOD (PORCINE) 5000UNITS/ML 1ML VIAL/SYRINGE SC SCH (05:57)
[2023-12-21] MEDS ORDERED: HEPARIN 1,000UNITS/ML 10ML VIAL (FOR RADIOLOGY & DIALYSIS ONLY) IV PRN (06:30)
[2023-12-21] MEDS ORDERED: HEPARIN 1,000UNITS/ML 10ML VIAL (FOR RADIOLOGY & DIALYSIS ONLY) XX SCH (06:30)
[2023-12-21] MEDS ORDERED: SODIUM CHLORIDE 0.9% 1000ML IV PRN (06:30)
[2023-12-21] MEDS ORDERED: LIDOCAINE 1% SDV 5ML VIAL SC PRN (06:30)
[2023-12-21] MEDS ORDERED: DEXTROSE 50% 50ML SYRINGE IV PRN (07:30)
[2023-12-21] MEDS ORDERED: GLUCOSE 4GM CHEW TABLET PO PRN (07:30)
[2023-12-21] MEDS ORDERED: GLUCAGON INJ 1MG VIAL SC PRN (07:30)
[2023-12-21 07:35] LABS: FREE T4 0.84 NG/DL (0.89-1.76); THYROID STIMULATING HORMONE 8.979 uIU/ML (0.55-4.78)
[2023-12-21] MEDS: DARBEPOETIN 100MCG/0.5ML *DIALYSIS* SYRINGE IV SCH (09:14)
[2023-12-21] MEDS: FOLIC ACID 1MG TAB PO SCH (14:14)
[2023-12-21] MEDS: lisinopriL 40MG TAB PO SCH (14:14)
[2023-12-21] MEDS: ESCITALOPRAM OXALATE 10 MG TAB (LEXAPRO) PO SCH (14:15)
[2023-12-21] MEDS: NIFEdipine 30MG XL TAB PO SCH (14:15)
[2023-12-21] MEDS: VALPROIC ACID 250MG CAP PO SCH (14:15)
[2023-12-21] MEDS: PANTOPRAZOLE 40MG TAB (PROTONIX) PO SCH (14:16)
[2023-12-21] MEDS: TACROLIMUS 1MG CAP PO SCH (14:16)
[2023-12-21] MEDS: DULoxetine 20MG CAP (CYMBALTA) PO SCH (14:16)
[2023-12-21] MEDS: LEVOTHYROXINE 25MCG TABLET (0.025MG) PO SCH (14:18)
== END 2023-12-21 19:15 | disposition left against medical advice (07) | DRG 304 ==
LOC: EDBD 12:52 → M ED 12:52 → M ED INP 17:33 → ENRESERV 19:58 → M PCU 20:40
PROVIDERS: ADMIT Internal Medicine; ATTEND Internal Medicine
PROC: 5A1D70Z Performance of Urinary Filtration, Intermittent, Less than 6 Hours Per Day (ICD-10-PCS; principal; 2023-12-21)
DX: I16.9 Hypertensive crisis, unspecified (principal); N18.6 End stage renal disease; G92.8 Other toxic encephalopathy; Z94.4 Liver transplant status; D63.1 Anemia in chronic kidney disease; Z99.2 Dependence on renal dialysis; K21.00 Gastro-esophageal reflux disease with esophagitis, without bleeding; G40.909 Epilepsy, unspecified, not intractable, without status epilepticus; F32.A Depression, unspecified; I12.0 Hypertensive chronic kidney disease with stage 5 chronic kidney disease or end stage renal disease; N28.89 Other specified disorders of kidney and ureter; F70 Mild intellectual disabilities; F12.10 Cannabis abuse, uncomplicated; Z66 Do not resuscitate; Z91.158 Patient's noncompliance with renal dialysis for other reason; Z91.148 Patient's other noncompliance with medication regimen for other reason; Z98.84 Bariatric surgery status; Z96.652 Presence of left artificial knee joint; Z79.899 Other long term (current) drug therapy

== ENCOUNTER 2024-01-29 11:20 | Inpatient (IN) | payer MEDICARE, OTHER ==
[~2024-01-29] VITALS: Ht 177.8 cm; Wt 73.2 kg
[~2024-01-29 11:20] MED LIST changes: +DULO1CAP4 PO; +PANT-23 PO; +med rec
[2024-01-29 12:38] LABS: BASO % 0.9 % (0.0-1.0); EOS # 0.2 10^3/uL (0.0-0.5); EOS % 4.7 % (0.0-3.0); HEMATOCRIT 31.6 % (42.0-52.0); HEMOGLOBIN 10.9 g/dl (13.5-17.5); LYMPH # 1.2 10^3/uL (1.5-5.0); MEAN CORPUSCULAR HEMOGLOBIN 27.3 pg (27.0-33.0); MEAN CORPUSCULAR HGB CONC 34.5 g/dl (32.0-36.5); MEAN CORPUSCULAR VOLUME 79.2 fl (80.0-96.0); MONO # 0.5 10^3/uL (0.0-0.8); MONO % 11.6 % (2.0-8.0); NEUTROPHILS # 2.7 10^3/uL (1.5-8.5); NEUTROPHILS % 57.6 % (36.0-66.0); PLATELET COUNT, AUTOMATED 152 10^3/uL (150-450); RED BLOOD COUNT 3.99 10^6/uL (4.30-6.10); WHITE BLOOD COUNT 4.6 10^3/uL (4.0-10.0)
[2024-01-29 12:52] LABS: INR 0.99; PROTHROMBIN TIME 12.8 SECONDS (12.5-14.5)
[2024-01-29 13:01] LABS: CK-MB VALUE MASS 2.7 NG/ML (<3.6)
[2024-01-29 13:02] LABS: C REACTIVE PROTEIN QUANTITATIV 1.2 MG/DL (<1.0)
[2024-01-29 13:03] LABS: ALBUMIN 2.1 G/DL (3.2-5.2); BILIRUBIN,DIRECT 0.1 MG/DL (<0.4); BILIRUBIN,TOTAL 0.2 MG/DL (0.3-1.2); CALCIUM LEVEL 8.3 MG/DL (8.3-10.6); CREATININE FOR GFR 7.6 MG/DL (0.70-1.30); GLOMERULAR FILTRATION RATE 7.7 (>49); MAGNESIUM LEVEL 1.8 MG/DL (1.8-2.4); PHOSPHORUS LEVEL 2.4 MG/DL (2.4-5.1); POTASSIUM SERUM 4.6 MMOL/L (3.5-5.1); TOTAL PROTEIN 5.3 G/DL (5.7-8.2)
[2024-01-29 13:10] LABS: PROCALCITONIN 0.19 ng/ml
[2024-01-29 13:13] LABS: MB/CK RELATIVE INDEX 2.96 (< OR =4)
[2024-01-29] MEDS ORDERED: HOME MED LIST COMPLETE! XX SCH (14:25)
[2024-01-29 16:25] VITALS: BP 141/75; TEMP 97; O2SAT 100
[2024-01-29 19:14] VITALS: BP 116/63; TEMP 97.5; O2SAT 98
[2024-01-29] MEDS: VALPROIC ACID 250MG CAP PO SCH (20:02)
[2024-01-29] MEDS: lamoTRIgine 25MG TAB PO SCH (20:02)
[2024-01-29] MEDS: TACROLIMUS 1MG CAP PO SCH (20:02)
[2024-01-29] MEDS: KETOROLAC 0.5% OPHTH SOLN OU SCH (20:03)
[2024-01-29 23:21] VITALS: BP 140/82; TEMP 97.7; O2SAT 99
[2024-01-30 03:45] VITALS: BP 152/86; TEMP 97.8; O2SAT 98
[2024-01-30] MEDS ORDERED: SODIUM CHLORIDE 0.9% 1000ML IV PRN (07:15)
[2024-01-30] MEDS ORDERED: LIDOCAINE 1% SDV 5ML VIAL SC PRN (07:15)
[2024-01-30] MEDS ORDERED: HEPARIN 1,000UNITS/ML 10ML VIAL (FOR RADIOLOGY & DIALYSIS ONLY) XX SCH (07:15)
[2024-01-30] MEDS ORDERED: HEPARIN 1,000UNITS/ML 10ML VIAL (FOR RADIOLOGY & DIALYSIS ONLY) IV PRN (07:15)
[2024-01-30 07:46] VITALS: BP 132/65; TEMP 97.7; O2SAT 100
[2024-01-30 08:12] LABS: EOS # 0.3 10^3/uL (0.0-0.5); EOS % 6.8 % (0.0-3.0); HEMATOCRIT 29.2 % (42.0-52.0); LYMPH # 1.2 10^3/uL (1.5-5.0); LYMPH % 29.9 % (24.0-44.0); MEAN CORPUSCULAR HEMOGLOBIN 27.2 pg (27.0-33.0); MEAN CORPUSCULAR HGB CONC 34.2 g/dl (32.0-36.5); MEAN CORPUSCULAR VOLUME 79.3 fl (80.0-96.0); MONO # 0.4 10^3/uL (0.0-0.8); MONO % 9.2 % (2.0-8.0); NEUTROPHILS # 2.2 10^3/uL (1.5-8.5); NEUTROPHILS % 53.1 % (36.0-66.0); PLATELET COUNT, AUTOMATED 137 10^3/uL (150-450); RED BLOOD COUNT 3.68 10^6/uL (4.30-6.10); WHITE BLOOD COUNT 4.1 10^3/uL (4.0-10.0)
[2024-01-30 08:51] LABS: CREATININE FOR GFR 8.1 MG/DL (0.70-1.30); GLOMERULAR FILTRATION RATE 7.2 (>49); POTASSIUM SERUM 4.3 MMOL/L (3.5-5.1)
[2024-01-30 12:58] VITALS: BP 161/81; TEMP 97.9; O2SAT 100
[2024-01-30] MEDS: TACROLIMUS 1MG CAP PO SCH (13:10)
[2024-01-30] MEDS: PANTOPRAZOLE 40MG TAB (PROTONIX) PO SCH (13:11)
[2024-01-30] MEDS: DULoxetine 20MG CAP (CYMBALTA) PO SCH (13:11)
[2024-01-30] MEDS: VALPROIC ACID 250MG CAP PO SCH (13:11)
[2024-01-30] MEDS: ESCITALOPRAM OXALATE 10 MG TAB (LEXAPRO) PO SCH (13:12)
[2024-01-30] MEDS: HEPARIN SOD (PORCINE) 5000UNITS/ML 1ML VIAL/SYRINGE SQ SCH (13:12)
[2024-01-30] MEDS ORDERED: ONDANSETRON 4MG 2ML VIAL IV PRN (13:30)
[2024-01-30] MEDS: SCOPOLAMINE 1MG TRANSDERMAL PATCH TOP SCH (14:06)
[2024-01-30] MEDS: ONDANSETRON 4MG 2ML VIAL IV ONE ×2 (14:06→23:31)
[2024-01-30 15:43] VITALS: BP 164/72; TEMP 98; O2SAT 98
[2024-01-30] MEDS: **hydrALAZINE** 50 MG TAB PO SCH (18:41)
[2024-01-30 19:55] VITALS: BP 164/88; TEMP 98.1; O2SAT 99
[2024-01-30] MEDS: ARTIFICIAL TEARS DROPS 15ML BTL (VISINE DRY RELIEF) OU SCH (21:15)
[2024-01-30 23:42] VITALS: BP 150/81; TEMP 98.4; O2SAT 96
[2024-01-31 04:39] VITALS: BP 148/79; TEMP 98.6; O2SAT 100
[2024-01-31 06:46] LABS: BASO % 0.9 % (0.0-1.0); EOS # 0.2 10^3/uL (0.0-0.5); EOS % 7.5 % (0.0-3.0); HEMOGLOBIN 8.5 g/dl (13.5-17.5); LYMPH # 0.9 10^3/uL (1.5-5.0); LYMPH % 39.9 % (24.0-44.0); MEAN CORPUSCULAR HEMOGLOBIN 27.2 pg (27.0-33.0); MEAN CORPUSCULAR VOLUME 79.9 fl (80.0-96.0); MONO # 0.2 10^3/uL (0.0-0.8); MONO % 9.2 % (2.0-8.0); PLATELET COUNT, AUTOMATED 113 10^3/uL (150-450); RED BLOOD COUNT 3.13 10^6/uL (4.30-6.10)
[2024-01-31 07:44] LABS: CALCIUM LEVEL 7.3 MG/DL (8.3-10.6); CREATININE FOR GFR 5.13 MG/DL (0.70-1.30); GLOMERULAR FILTRATION RATE 12.1 (>49)
[2024-01-31 07:50] VITALS: BP 143/75; TEMP 97.8; O2SAT 98
[2024-01-31] MEDS: lisinopriL 40MG TAB PO SCH (08:39)
[2024-01-31 09:03] LABS: WHITE BLOOD COUNT 2.3 10^3/uL (4.0-10.0)
[2024-01-31 09:04] LABS: NEUTROPHILS % 42.5 % (36.0-66.0)
[2024-01-31] MEDS ORDERED: LIDOCAINE 1% SDV 5ML VIAL SC PRN (09:25)
[2024-01-31] MEDS ORDERED: SODIUM CHLORIDE 0.9% 1000ML IV PRN (09:25)
[2024-01-31] MEDS ORDERED: HEPARIN 1,000UNITS/ML 10ML VIAL (FOR RADIOLOGY & DIALYSIS ONLY) XX SCH (09:25)
[2024-01-31] MEDS ORDERED: HEPARIN 1,000UNITS/ML 10ML VIAL (FOR RADIOLOGY & DIALYSIS ONLY) IV PRN (09:25)
[2024-01-31] MEDS ORDERED: GLUCOSE 4 GM CHEW PO PRN (12:05)
[2024-01-31] MEDS ORDERED: DEXTROSE 50% 50ML SYRINGE IV PRN (12:05)
[2024-01-31] MEDS ORDERED: GLUCAGON INJ 1MG VIAL SC PRN (12:05)
[2024-01-31 15:51] VITALS: BP 160/70; TEMP 97.8; O2SAT 99
[2024-01-31] MEDS: ONDANSETRON 4MG 2ML VIAL IV PRN (17:19)
[2024-01-31 19:51] VITALS: BP 140/65; TEMP 97.7; O2SAT 99
[2024-01-31 23:44] VITALS: BP 154/70; TEMP 98.3; O2SAT 97
[2024-02-01] VITALS (8 sets, daily range): BP systolic 120–180; BP diastolic 68–86; TEMP 96.9–98.1; O2SAT 96–100
[2024-02-01 05:33] LABS: BASO % 1.1 % (0.0-1.0); EOS # 0.1 10^3/uL (0.0-0.5); EOS % 5.3 % (0.0-3.0); HEMATOCRIT 25.7 % (42.0-52.0); HEMOGLOBIN 8.6 g/dl (13.5-17.5); LYMPH # 1.1 10^3/uL (1.5-5.0); LYMPH % 42.6 % (24.0-44.0); MEAN CORPUSCULAR HGB CONC 33.5 g/dl (32.0-36.5); MEAN CORPUSCULAR VOLUME 80.8 fl (80.0-96.0); MONO # 0.3 10^3/uL (0.0-0.8); MONO % 10.6 % (2.0-8.0); NEUTROPHILS # 1.1 10^3/uL (1.5-8.5); PLATELET COUNT, AUTOMATED 116 10^3/uL (150-450); RED BLOOD COUNT 3.18 10^6/uL (4.30-6.10); WHITE BLOOD COUNT 2.7 10^3/uL (4.0-10.0)
[2024-02-01 06:08] LABS: CALCIUM LEVEL 7.9 MG/DL (8.3-10.6); CREATININE FOR GFR 3.48 MG/DL (0.70-1.30)
[2024-02-02] VITALS (7 sets, daily range): BP systolic 135–206; BP diastolic 69–91; TEMP 97.1–98.4; O2SAT 98–99
[2024-02-02] MEDS ORDERED: SODIUM CHLORIDE 0.9% 1000ML IV PRN (05:35)
[2024-02-02] MEDS ORDERED: HEPARIN 1,000UNITS/ML 10ML VIAL (FOR RADIOLOGY & DIALYSIS ONLY) XX SCH (05:35)
[2024-02-02] MEDS ORDERED: LIDOCAINE 1% SDV 5ML VIAL SC PRN (05:35)
[2024-02-02] MEDS ORDERED: HEPARIN 1,000UNITS/ML 10ML VIAL (FOR RADIOLOGY & DIALYSIS ONLY) IV PRN (05:35)
[2024-02-02 05:54] LABS: BASO % 0.9 % (0.0-1.0); EOS # 0.1 10^3/uL (0.0-0.5); EOS % 5.3 % (0.0-3.0); HEMATOCRIT 25.3 % (42.0-52.0); HEMOGLOBIN 8.6 g/dl (13.5-17.5); LYMPH # 1.1 10^3/uL (1.5-5.0); LYMPH % 49.8 % (24.0-44.0); MEAN CORPUSCULAR HEMOGLOBIN 27.4 pg (27.0-33.0); MEAN CORPUSCULAR VOLUME 80.6 fl (80.0-96.0); MONO # 0.2 10^3/uL (0.0-0.8); MONO % 8.9 % (2.0-8.0); NEUTROPHILS % 35.1 % (36.0-66.0); PLATELET COUNT, AUTOMATED 108 10^3/uL (150-450); RED BLOOD COUNT 3.14 10^6/uL (4.30-6.10); WHITE BLOOD COUNT 2.3 10^3/uL (4.0-10.0)
[2024-02-02 06:12] LABS: CALCIUM LEVEL 7.6 MG/DL (8.3-10.6); CREATININE FOR GFR 4.14 MG/DL (0.70-1.30); GLOMERULAR FILTRATION RATE 15.5 (>49); POTASSIUM SERUM 4.1 MMOL/L (3.5-5.1)
[2024-02-02 06:54] LABS: NEUTROPHILS # 0.8 10^3/uL (1.5-8.5)
[2024-02-02] MEDS: PANTOPRAZOLE 40MG VIAL IV SCH (12:33)
[2024-02-02] MEDS: hydrALAZINE 20MG/ML 1ML VIAL IV PRN (13:45)
[2024-02-02] MEDS: METOPROLOL SUCC *XL* 25MG TAB (TopROL *XL*) PO SCH (21:37)
[2024-02-03] VITALS (8 sets, daily range): BP systolic 138–186; BP diastolic 62–88; TEMP 98.1–99.3; O2SAT 98–100
[2024-02-03 08:23] LABS: CALCIUM LEVEL 7.9 MG/DL (8.3-10.6); CREATININE FOR GFR 3.08 MG/DL (0.70-1.30); GLOMERULAR FILTRATION RATE 21.9 (>49); POTASSIUM SERUM 4.1 MMOL/L (3.5-5.1)
[2024-02-03] MEDS: NIFEdipine 30MG XL TAB PO SCH (11:51)
[2024-02-03] MEDS: METOCLOPRAMIDE INJ 10MG/2ML VIAL IV PRN (12:28)
[2024-02-03] MEDS: MIRALAX *UNIT DOSE* 17GM PACKET PO SCH (13:05)
[2024-02-03] MEDS: SENOKOT S TAB PO SCH (13:06)
[2024-02-03] MEDS: BISACODYL 10MG SUPP PR ONE (17:10)
[2024-02-04 00:06] VITALS: BP 164/79; TEMP 98.4; O2SAT 96
[2024-02-04 04:05] VITALS: BP 140/67; TEMP 98.2; O2SAT 99
[2024-02-04 07:27] VITALS: BP 160/78; TEMP 97.9; O2SAT 98
[2024-02-04 10:09] VITALS: BP 151/72
[2024-02-04 10:34] VITALS: BP 151/72
[2024-02-04] MEDS ORDERED: SENN-122 PO (10:37)
[2024-02-04] MEDS ORDERED: ONDA-83 PO (10:37)
[2024-02-04] MEDS ORDERED: MIRA3350 PO (10:37)
[2024-02-04] MEDS ORDERED: NIFE90TA46 PO (10:37)
== END 2024-02-04 13:48 | disposition home health service (06) | DRG 640 ==
LOC: M ED 11:20 → EDBD 11:20 → M ED INP 15:11 → M PCU 16:22
PROVIDERS: ADMIT Internal Medicine Nephrology; ATTEND Internal Medicine
PROC: 5A1D70Z Performance of Urinary Filtration, Intermittent, Less than 6 Hours Per Day (ICD-10-PCS; principal; 2024-01-30)
DX: E87.70 Fluid overload, unspecified (principal); N18.6 End stage renal disease; Z94.4 Liver transplant status; I12.0 Hypertensive chronic kidney disease with stage 5 chronic kidney disease or end stage renal disease; D61.818 Other pancytopenia; D63.1 Anemia in chronic kidney disease; K74.60 Unspecified cirrhosis of liver; G40.909 Epilepsy, unspecified, not intractable, without status epilepticus; K21.9 Gastro-esophageal reflux disease without esophagitis; I95.3 Hypotension of hemodialysis; N28.89 Other specified disorders of kidney and ureter; F03.90 Unspecified dementia, unspecified severity, without behavioral disturbance, psychotic disturbance, mood disturbance, and anxiety; E78.5 Hyperlipidemia, unspecified; Z66 Do not resuscitate; K31.84 Gastroparesis; E55.9 Vitamin D deficiency, unspecified; I87.2 Venous insufficiency (chronic) (peripheral); H10.13 Acute atopic conjunctivitis, bilateral; F32.A Depression, unspecified; G47.00 Insomnia, unspecified; F41.9 Anxiety disorder, unspecified; F20.9 Schizophrenia, unspecified; K44.9 Diaphragmatic hernia without obstruction or gangrene; Z99.2 Dependence on renal dialysis; Z91.151 Patient's noncompliance with renal dialysis due to financial hardship; Z79.899 Other long term (current) drug therapy; Z98.84 Bariatric surgery status; Z96.652 Presence of left artificial knee joint

== ENCOUNTER 2024-02-12 12:52 | Inpatient (IN) | payer OTHER ==
[~2024-02-12] VITALS: Ht 177.8 cm; Wt 71.1 kg
[~2024-02-12 12:52] MED LIST changes: +FLUO-365 PO; -FLUO20CA22 PO; +MIRA3350 PO; +NIFE90TA46 PO; +ONDA-282 PO; -ONDA4TAB6 PO; +SENN-122 PO
[2024-02-12] MEDS: GLUCAGON INJ 1MG VIAL IM STA (13:22)
[2024-02-12] MEDS ORDERED: DEXTROSE 50% 50ML SYRINGE As Ordered ONE (13:36)
[2024-02-12] MEDS: DEXTROSE 50% 50ML SYRINGE IV STA (13:47)
[2024-02-12 13:59] LABS: EOS # 0.1 10^3/uL (0.0-0.5); EOS % 2.7 % (0.0-3.0); HEMATOCRIT 25.4 % (42.0-52.0); HEMOGLOBIN 8.6 g/dl (13.5-17.5); LYMPH # 0.7 10^3/uL (1.5-5.0); LYMPH % 22.4 % (24.0-44.0); MEAN CORPUSCULAR HGB CONC 33.9 g/dl (32.0-36.5); MEAN CORPUSCULAR VOLUME 79.9 fl (80.0-96.0); MONO # 0.3 10^3/uL (0.0-0.8); MONO % 9.7 % (2.0-8.0); NEUTROPHILS # 1.9 10^3/uL (1.5-8.5); NEUTROPHILS % 63.9 % (36.0-66.0); RED BLOOD COUNT 3.18 10^6/uL (4.30-6.10)
[2024-02-12 14:30] LABS: ETHYL ALCOHOL (ETHANOL) < 0.003 % (0.000-0.010)
[2024-02-12 14:32] LABS: ALBUMIN 2.2 G/DL (3.2-5.2); ALKALINE PHOSPHATASE 68 U/L (46-116); ALT/SGPT < 9 U/L (7.0-40); AST/SGOT 20 U/L (<34); BILIRUBIN,DIRECT 0.1 MG/DL (<0.4); BILIRUBIN,TOTAL 0.3 MG/DL (0.3-1.2); BLOOD UREA NITROGEN 38 MG/DL (9-23); CARBON DIOXIDE LEVEL 18 MMOL/L (20-31); CHLORIDE LEVEL 103 MMOL/L (98-107); CK-MB VALUE MASS 4.5 NG/ML (<3.6); CREATININE FOR GFR 7.86 MG/DL (0.70-1.30); GLOMERULAR FILTRATION RATE 7.4 (>49); GLUCOSE, FASTING 56 MG/DL (74-106); POTASSIUM SERUM 5.1 MMOL/L (3.5-5.1); SODIUM LEVEL 132 MMOL/L (136-145)
[2024-02-12 14:34] LABS: THYROID STIMULATING HORMONE 9.663 uIU/ML (0.55-4.78)
[2024-02-12 14:35] LABS: CPK CREATINE PHOSPHOKINASE 135 U/L (46-171); MB/CK RELATIVE INDEX 3.33 (< OR =4)
[2024-02-12 14:44] LABS: PLATELET COUNT, AUTOMATED 91 10^3/uL (150-450)
[2024-02-12 15:54] LABS: AMPHETAMINES LEVEL URINE NEGATIVE (NEGATIVE); BARBITURATES URINE NEGATIVE (NEGATIVE); BENZODIAZEPINES URINE NEGATIVE (NEGATIVE); CANNABINOIDS URINE POSITIVE (NEGATIVE); COCAINE METABOLITE URINE NEGATIVE (NEGATIVE); METHADONE URINE NEGATIVE (NEGATIVE); OPIATES URINE NEGATIVE (NEGATIVE); PHENCYCLIDINE URINE NEGATIVE (NEGATIVE)
[2024-02-12] MEDS: NIFEdipine 30MG XL TAB PO STA (16:30)
[2024-02-12] MEDS: lisinopriL 40MG TAB PO ONE (16:30)
[2024-02-12] MEDS: **hydrALAZINE** 50 MG TAB PO ONE (16:30)
[2024-02-12] MEDS: D10W 1,000 ML IV SCH ×2 (18:01→18:10)
[2024-02-12] MEDS ORDERED: GLUCOSE 4 GM CHEW PO PRN (18:10)
[2024-02-12] MEDS ORDERED: GLUCAGON INJ 1MG VIAL SC PRN (18:10)
[2024-02-12] MEDS ORDERED: HOME MED LIST COMPLETE! XX SCH (18:20)
[2024-02-12] MEDS: hydrALAZINE 20MG/ML 1ML VIAL IV PRN (18:33)
[2024-02-12 19:13] LABS: INR 1.05; PARTIAL THROMBOPLASTIN TIME 26.3 SECONDS (24.8-34.2); PROTHROMBIN TIME 13.4 SECONDS (12.5-14.5)
[2024-02-12] MEDS: SENOKOT S TAB PO SCH (21:00)
[2024-02-12 21:49] VITALS: BP 143/70; TEMP 98.2; O2SAT 100
[2024-02-12] MEDS: **hydrALAZINE** 50 MG TAB PO SCH (22:51)
[2024-02-12] MEDS: ONDANSETRON 4MG TAB PO SCH (22:51)
[2024-02-12] MEDS: TACROLIMUS 1MG CAP PO SCH (22:52)
[2024-02-12] MEDS: VALPROIC ACID 250MG CAP PO SCH (22:52)
[2024-02-12] MEDS: lamoTRIgine 25MG TAB PO SCH (22:52)
[2024-02-12 23:33] VITALS: BP 126/73; TEMP 98.4; O2SAT 98
[2024-02-13 04:09] VITALS: BP 135/76; TEMP 97.7; O2SAT 96
[2024-02-13 06:19] LABS: HEMATOCRIT 24.2 % (42.0-52.0); HEMOGLOBIN 8.2 g/dl (13.5-17.5); MEAN CORPUSCULAR HEMOGLOBIN 27.1 pg (27.0-33.0); MEAN CORPUSCULAR HGB CONC 33.9 g/dl (32.0-36.5); MEAN CORPUSCULAR VOLUME 79.9 fl (80.0-96.0); RED BLOOD COUNT 3.03 10^6/uL (4.30-6.10); WHITE BLOOD COUNT 3.2 10^3/uL (4.0-10.0)
[2024-02-13 06:27] LABS: PLATELET COUNT, AUTOMATED 94 10^3/uL (150-450)
[2024-02-13 06:42] LABS: ALKALINE PHOSPHATASE 65 U/L (46-116); ALT/SGPT < 9 U/L (7.0-40); AST/SGOT 18 U/L (<34); BILIRUBIN,TOTAL 0.2 MG/DL (0.3-1.2); BLOOD UREA NITROGEN 40 MG/DL (9-23); CALCIUM LEVEL 7.7 MG/DL (8.3-10.6); CARBON DIOXIDE LEVEL 20 MMOL/L (20-31); CHLORIDE LEVEL 105 MMOL/L (98-107); CREATININE FOR GFR 8.12 MG/DL (0.70-1.30); GLOMERULAR FILTRATION RATE 7.1 (>49); GLUCOSE, FASTING 81 MG/DL (74-106); POTASSIUM SERUM 4.7 MMOL/L (3.5-5.1); SODIUM LEVEL 134 MMOL/L (136-145); TOTAL PROTEIN 4.8 G/DL (5.7-8.2)
[2024-02-13] MEDS ORDERED: SODIUM CHLORIDE 0.9% 1000ML IV PRN (07:45)
[2024-02-13] MEDS ORDERED: HEPARIN 1,000UNITS/ML 10ML VIAL (FOR RADIOLOGY & DIALYSIS ONLY) IV PRN (07:45)
[2024-02-13] MEDS ORDERED: LIDOCAINE 1% SDV 5ML VIAL SC PRN (07:45)
[2024-02-13 07:56] VITALS: BP 104/54; TEMP 98.1; O2SAT 98
[2024-02-13] MEDS: FOLIC ACID 1MG TAB PO SCH (08:12)
[2024-02-13] MEDS: DULoxetine 20MG CAP (CYMBALTA) PO SCH (08:12)
[2024-02-13] MEDS: VALPROIC ACID 250MG CAP PO SCH (08:13)
[2024-02-13] MEDS: TACROLIMUS 1MG CAP PO SCH (08:13)
[2024-02-13] MEDS: MIRALAX *UNIT DOSE* 17GM PACKET PO SCH (08:18)
[2024-02-13] MEDS: ESCITALOPRAM OXALATE 10 MG TAB (LEXAPRO) PO SCH (08:18)
[2024-02-13] MEDS: NIFEdipine 30MG XL TAB PO SCH (08:31)
[2024-02-13] MEDS: HEPARIN SOD (PORCINE) 5000UNITS/ML 1ML VIAL/SYRINGE SQ SCH (08:32)
[2024-02-13] MEDS: lisinopriL 40MG TAB PO SCH (08:32)
[2024-02-13 12:02] VITALS: BP 139/66; TEMP 97.7; O2SAT 95
[2024-02-13] MEDS: PANTOPRAZOLE 40MG VIAL IV SCH (12:30)
[2024-02-13] MEDS: METOCLOPRAMIDE INJ 10MG/2ML VIAL IV SCH (12:31)
[2024-02-13] MEDS: SUCRALFATE SUSP 1GM/10ML UD PO SCH (12:31)
[2024-02-13] MEDS: HEPARIN 1,000UNITS/ML 10ML VIAL (FOR RADIOLOGY & DIALYSIS ONLY) XX SCH (14:54)
[2024-02-13] MEDS: DARBEPOETIN 100MCG/0.5ML *DIALYSIS* SYRINGE IV SCH (14:55)
[2024-02-13 17:28] LABS: FREE T4 1.24 NG/DL (0.89-1.76); THYROID STIMULATING HORMONE 8.166 uIU/ML (0.55-4.78)
[2024-02-13 18:52] VITALS: BP 143/74; TEMP 98; O2SAT 100
[2024-02-13 20:33] VITALS: BP 154/78
[2024-02-13 23:43] VITALS: BP 160/82; TEMP 98.3; O2SAT 99
[2024-02-14 05:37] LABS: BASO % 0.8 % (0.0-1.0); EOS # 0.1 10^3/uL (0.0-0.5); EOS % 5.4 % (0.0-3.0); HEMATOCRIT 23.6 % (42.0-52.0); HEMOGLOBIN 7.9 g/dl (13.5-17.5); LYMPH % 37.2 % (24.0-44.0); MEAN CORPUSCULAR HEMOGLOBIN 26.9 pg (27.0-33.0); MEAN CORPUSCULAR HGB CONC 33.5 g/dl (32.0-36.5); MEAN CORPUSCULAR VOLUME 80.3 fl (80.0-96.0); MONO # 0.4 10^3/uL (0.0-0.8); MONO % 13.4 % (2.0-8.0); NEUTROPHILS # 1.1 10^3/uL (1.5-8.5); NEUTROPHILS % 42.8 % (36.0-66.0); RED BLOOD COUNT 2.94 10^6/uL (4.30-6.10); WHITE BLOOD COUNT 2.6 10^3/uL (4.0-10.0)
[2024-02-14 05:48] LABS: CALCIUM LEVEL 7.9 MG/DL (8.3-10.6); CREATININE FOR GFR 4.55 MG/DL (0.70-1.30); GLOMERULAR FILTRATION RATE 13.9 (>49)
[2024-02-14 05:56] LABS: PLATELET COUNT, AUTOMATED 96 10^3/uL (150-450)
[2024-02-14 07:34] VITALS: BP 146/74; TEMP 98; O2SAT 100
[2024-02-14 09:34] LABS: PERCENT SATURATION 39.4 % (19.7-50.0)
[2024-02-14 09:36] LABS: FERRITIN 502.3 NG/ML (10.5-307.3)
[2024-02-14 09:37] LABS: FOLATE 6.29 NG/ML (>5.4)
[2024-02-14 11:56] VITALS: BP 149/77; TEMP 98; O2SAT 97
[2024-02-14 17:03] VITALS: BP 144/73
[2024-02-14 19:17] VITALS: BP 130/79; TEMP 97.8; O2SAT 100
[2024-02-15 04:04] VITALS: BP 156/76; TEMP 97.7; O2SAT 99
[2024-02-15] MEDS ORDERED: SODIUM CHLORIDE 0.9% 1000ML IV PRN (07:15)
[2024-02-15] MEDS ORDERED: HEPARIN 1,000UNITS/ML 10ML VIAL (FOR RADIOLOGY & DIALYSIS ONLY) IV PRN (07:15)
[2024-02-15] MEDS ORDERED: LIDOCAINE 1% SDV 5ML VIAL SC PRN (07:15)
[2024-02-15 07:56] VITALS: BP 155/84; TEMP 97.9; O2SAT 99
[2024-02-15] MEDS: HEPARIN 1,000UNITS/ML 10ML VIAL (FOR RADIOLOGY & DIALYSIS ONLY) XX SCH (09:01)
[2024-02-15 09:04] LABS: EOS # 0.1 10^3/uL (0.0-0.5); EOS % 4.1 % (0.0-3.0); HEMATOCRIT 22.3 % (42.0-52.0); HEMOGLOBIN 7.6 g/dl (13.5-17.5); LYMPH # 0.9 10^3/uL (1.5-5.0); LYMPH % 31.1 % (24.0-44.0); MEAN CORPUSCULAR HEMOGLOBIN 27.3 pg (27.0-33.0); MEAN CORPUSCULAR HGB CONC 34.1 g/dl (32.0-36.5); MEAN CORPUSCULAR VOLUME 80.2 fl (80.0-96.0); MONO # 0.5 10^3/uL (0.0-0.8); MONO % 15.2 % (2.0-8.0); NEUTROPHILS # 1.4 10^3/uL (1.5-8.5); NEUTROPHILS % 47.6 % (36.0-66.0); RED BLOOD COUNT 2.78 10^6/uL (4.30-6.10)
[2024-02-15 09:12] LABS: PLATELET COUNT, AUTOMATED 96 10^3/uL (150-450)
[2024-02-15 09:31] LABS: CALCIUM LEVEL 7.8 MG/DL (8.3-10.6); CREATININE FOR GFR 5.07 MG/DL (0.70-1.30); GLOMERULAR FILTRATION RATE 12.3 (>49); POTASSIUM SERUM 3.2 MMOL/L (3.5-5.1)
[2024-02-15 12:50] VITALS: BP 174/88; TEMP 97.5; O2SAT 100
[2024-02-15 14:00] VITALS: BP 153/76; TEMP 98.6; O2SAT 100
[2024-02-15] MEDS: METOCLOPRAMIDE 5 MG TAB PO SCH (17:31)
[2024-02-16 07:42] LABS: BASO % 0.4 % (0.0-1.0); EOS # 0.1 10^3/uL (0.0-0.5); EOS % 3.8 % (0.0-3.0); HEMATOCRIT 23.2 % (42.0-52.0); HEMOGLOBIN 7.9 g/dl (13.5-17.5); LYMPH # 0.8 10^3/uL (1.5-5.0); LYMPH % 31.2 % (24.0-44.0); MEAN CORPUSCULAR HEMOGLOBIN 27.2 pg (27.0-33.0); MEAN CORPUSCULAR HGB CONC 34.1 g/dl (32.0-36.5); MONO # 0.4 10^3/uL (0.0-0.8); MONO % 15.8 % (2.0-8.0); NEUTROPHILS # 1.3 10^3/uL (1.5-8.5); NEUTROPHILS % 48.8 % (36.0-66.0); PLATELET COUNT, AUTOMATED 111 10^3/uL (150-450); WHITE BLOOD COUNT 2.6 10^3/uL (4.0-10.0)
[2024-02-16 08:20] LABS: CALCIUM LEVEL 8.3 MG/DL (8.3-10.6); CREATININE FOR GFR 3.25 MG/DL (0.70-1.30); GLOMERULAR FILTRATION RATE 20.6 (>49); POTASSIUM SERUM 3.7 MMOL/L (3.5-5.1)
[2024-02-16 13:49] VITALS: BP 149/70; TEMP 98.6; O2SAT 100
[2024-02-16 14:14] VITALS: BP 169/89; TEMP 97.5; O2SAT 100
[2024-02-16 14:59] VITALS: BP 156/75; TEMP 97.7; O2SAT 100
[2024-02-16 15:39] VITALS: BP 155/73; TEMP 97.7; O2SAT 100
[2024-02-16 20:36] VITALS: BP 174/86; TEMP 97.9; O2SAT 100
[2024-02-17 04:59] VITALS: BP 164/86; TEMP 97.7; O2SAT 100
[2024-02-17 05:51] LABS: HEMOGLOBIN 8.7 g/dl (13.5-17.5)
[2024-02-17] MEDS ORDERED: SODIUM CHLORIDE 0.9% 1000ML IV PRN (06:00)
[2024-02-17] MEDS ORDERED: HEPARIN 1,000UNITS/ML 10ML VIAL (FOR RADIOLOGY & DIALYSIS ONLY) IV PRN (06:00)
[2024-02-17 06:11] LABS: CALCIUM LEVEL 7.7 MG/DL (8.3-10.6); CREATININE FOR GFR 3.75 MG/DL (0.70-1.30); GLOMERULAR FILTRATION RATE 17.4 (>49); POTASSIUM SERUM 3.6 MMOL/L (3.5-5.1)
[2024-02-17] MEDS: HEPARIN 1,000UNITS/ML 10ML VIAL (FOR RADIOLOGY & DIALYSIS ONLY) XX SCH (10:54)
[2024-02-17 12:31] VITALS: BP 173/87
[2024-02-17 14:00] VITALS: BP 152/71; TEMP 98.1; O2SAT 100
[2024-02-17 20:23] VITALS: BP 144/74; TEMP 97.7; O2SAT 99
[2024-02-18 05:26] VITALS: BP 147/74; TEMP 98.4; O2SAT 100
[2024-02-18 06:38] LABS: CALCIUM LEVEL 7.7 MG/DL (8.3-10.6); CREATININE FOR GFR 2.6 MG/DL (0.70-1.30); GLOMERULAR FILTRATION RATE 26.6 (>49); POTASSIUM SERUM 3.5 MMOL/L (3.5-5.1)
[2024-02-18] MEDS: ONDANSETRON 4MG 2ML VIAL IV PRN (11:04)
[2024-02-18] MEDS: PERCOCET 5MG/325MG TAB PO PRN (11:04)
[2024-02-18 12:22] LABS: C REACTIVE PROTEIN QUANTITATIV 1.2 MG/DL (<1.0)
[2024-02-18 14:00] VITALS: BP 158/84; TEMP 97; O2SAT 100
[2024-02-18] MEDS: BISACODYL 10MG SUPP PR ONE (15:25)
[2024-02-18 22:00] VITALS: BP 138/90; TEMP 97.7; O2SAT 96
[2024-02-19] MEDS ORDERED: SODIUM CHLORIDE 0.9% 1000ML IV PRN (06:00)
[2024-02-19] MEDS ORDERED: LIDOCAINE 1% SDV 5ML VIAL SC PRN (06:00)
[2024-02-19 06:23] VITALS: BP 159/81; TEMP 98.4; O2SAT 99
[2024-02-19 07:25] LABS: BASO % 0.7 % (0.0-1.0); EOS # 0.1 10^3/uL (0.0-0.5); EOS % 3.6 % (0.0-3.0); HEMATOCRIT 26.5 % (42.0-52.0); HEMOGLOBIN 8.8 g/dl (13.5-17.5); LYMPH # 1.1 10^3/uL (1.5-5.0); LYMPH % 39.6 % (24.0-44.0); MEAN CORPUSCULAR HEMOGLOBIN 27.3 pg (27.0-33.0); MEAN CORPUSCULAR HGB CONC 33.2 g/dl (32.0-36.5); MEAN CORPUSCULAR VOLUME 82.3 fl (80.0-96.0); MONO # 0.4 10^3/uL (0.0-0.8); MONO % 14.6 % (2.0-8.0); NEUTROPHILS # 1.2 10^3/uL (1.5-8.5); NEUTROPHILS % 41.1 % (36.0-66.0); RED BLOOD COUNT 3.22 10^6/uL (4.30-6.10); WHITE BLOOD COUNT 2.8 10^3/uL (4.0-10.0)
[2024-02-19 07:30] LABS: PLATELET COUNT, AUTOMATED 90 10^3/uL (150-450)
[2024-02-19 07:51] LABS: CREATININE FOR GFR 3.21 MG/DL (0.70-1.30); GLOMERULAR FILTRATION RATE 20.8 (>49); POTASSIUM SERUM 3.7 MMOL/L (3.5-5.1)
[2024-02-19] MEDS: HEPARIN 1,000UNITS/ML 10ML VIAL (FOR RADIOLOGY & DIALYSIS ONLY) XX SCH (10:50)
[2024-02-19 12:50] VITALS: BP 162/82; TEMP 97.5; O2SAT 99
[2024-02-19] MEDS: DEXTROSE 50% 50ML SYRINGE IV PRN (12:56)
[2024-02-19] MEDS ORDERED: ISOVUE-370 76% 100ML VIAL As Ordered ONE (13:04)
[2024-02-19 14:00] VITALS: BP 155/85; TEMP 97.2; O2SAT 100
[2024-02-19 22:00] VITALS: BP 132/74; TEMP 98.6; O2SAT 100
[2024-02-20] VITALS (12 sets, daily range): BP systolic 124–199; BP diastolic 60–89; TEMP 96.9–97.9; O2SAT 93–100
[2024-02-20 06:57] LABS: BASO % 0.4 % (0.0-1.0); EOS # 0.1 10^3/uL (0.0-0.5); LYMPH # 0.9 10^3/uL (1.5-5.0); LYMPH % 34.7 % (24.0-44.0); MEAN CORPUSCULAR HEMOGLOBIN 28.2 pg (27.0-33.0); MEAN CORPUSCULAR VOLUME 82.9 fl (80.0-96.0); MONO # 0.4 10^3/uL (0.0-0.8); MONO % 14.4 % (2.0-8.0); NEUTROPHILS # 1.3 10^3/uL (1.5-8.5); NEUTROPHILS % 47.1 % (36.0-66.0); RED BLOOD COUNT 2.45 10^6/uL (4.30-6.10); WHITE BLOOD COUNT 2.7 10^3/uL (4.0-10.0)
[2024-02-20 07:02] LABS: PLATELET COUNT, AUTOMATED 75 10^3/uL (150-450)
[2024-02-20 07:03] LABS: HEMATOCRIT 20.3 % (42.0-52.0); HEMOGLOBIN 6.9 g/dl (13.5-17.5)
[2024-02-20 07:17] LABS: BLOOD UREA NITROGEN < 5 MG/DL (9-23); CALCIUM LEVEL 7.6 MG/DL (8.3-10.6); CARBON DIOXIDE LEVEL 28 MMOL/L (20-31); CHLORIDE LEVEL 108 MMOL/L (98-107); CREATININE FOR GFR 2.28 MG/DL (0.70-1.30); GLOMERULAR FILTRATION RATE 30.9 (>49); GLUCOSE, FASTING 70 MG/DL (74-106); POTASSIUM SERUM 3.3 MMOL/L (3.5-5.1); SODIUM LEVEL 140 MMOL/L (136-145)
[2024-02-20] MEDS ORDERED: E-Z-PAQUE 96% w/w SUSP 176GM BTL As Ordered ONE (08:38)
[2024-02-20] MEDS ORDERED: E-Z-GAS II EFFERVESCENT PACKET (SODIUM BICARB./CITRIC ACID/SIMETHICONE) As Ordered ONE (08:38)
[2024-02-20] MEDS ORDERED: E-Z-HD 98% w/w 340GM SUSP BTL As Ordered ONE (08:39)
[2024-02-20] MEDS: DEXTROSE 50% 50ML SYRINGE IV STA (11:07)
[2024-02-20] MEDS: cloNIDine 0.1MG TABLET PO ONE ×2 (11:12→12:19)
[2024-02-20] MEDS: **hydrALAZINE** 50 MG TAB PO SCH ×2 (11:14→17:28)
[2024-02-20 11:51] LABS: ABG BASE EXCESS -0.7 (-2.0-2.0); ABG HCO3 22.5 MMOL/L (22.0-26.0); ABG O2 SATURATION 98.4 % (95.0-99.0); ABG PARTIAL PRESSURE CO2 31.4 mmHg (35.0-45.0); ABG PARTIAL PRESSURE O2 125.9 mmHg (75.0-100.0); ABG STANDARD HCO3 23.9 MMOL/L. (22.0-26.0); ABG TOTAL CO2 23.5 MMOL/L (23.0-31.0); ABG pH (ARTERIAL) 7.474 UNITS (7.350-7.450)
[2024-02-20] MEDS: NITROGLYCERIN 2% OINT 1 GM *U/D* PKT TOP ONE (12:20)
[2024-02-20 12:40] LABS: HEMATOCRIT 23.3 % (42.0-52.0); HEMOGLOBIN 7.8 g/dl (13.5-17.5)
[2024-02-20 13:05] LABS: CALCIUM LEVEL 7.8 MG/DL (8.3-10.6); CREATININE FOR GFR 2.43 MG/DL (0.70-1.30); GLOMERULAR FILTRATION RATE 28.7 (>49); POTASSIUM SERUM 3.3 MMOL/L (3.5-5.1)
[2024-02-20] MEDS ORDERED: hydrALAZINE 20MG/ML 1ML VIAL IV SCH (18:00)
[2024-02-20] MEDS: POTASSIUM CHLORIDE 10MEQ SR TABLET PO ONE (20:33)
[2024-02-20] MEDS: SENOKOT S TAB PO ONE (21:10)
[2024-02-20 21:41] LABS: HEMATOCRIT 31.2 % (42.0-52.0); HEMOGLOBIN 10.7 g/dl (13.5-17.5)
[2024-02-20] MEDS: PANTOPRAZOLE 40MG TAB (PROTONIX) PO SCH (22:18)
[2024-02-21] VITALS (9 sets, daily range): BP systolic 136–204; BP diastolic 72–90; TEMP 97–97.9; O2SAT 98–100
[2024-02-21 05:39] LABS: HEMATOCRIT 26.7 % (42.0-52.0); MEAN CORPUSCULAR HEMOGLOBIN 28.3 pg (27.0-33.0); MEAN CORPUSCULAR HGB CONC 33.7 g/dl (32.0-36.5); RED BLOOD COUNT 3.18 10^6/uL (4.30-6.10)
[2024-02-21] MEDS ORDERED: SODIUM CHLORIDE 0.9% 1000ML IV PRN (06:00)
[2024-02-21] MEDS ORDERED: LIDOCAINE 1% SDV 5ML VIAL SC PRN (06:00)
[2024-02-21] MEDS ORDERED: HEPARIN 1,000UNITS/ML 10ML VIAL (FOR RADIOLOGY & DIALYSIS ONLY) XX SCH (06:00)
[2024-02-21 06:02] LABS: PLATELET COUNT, AUTOMATED 78 10^3/uL (150-450)
[2024-02-21 06:03] LABS: CALCIUM LEVEL 7.7 MG/DL (8.3-10.6); CREATININE FOR GFR 2.85 MG/DL (0.70-1.30); GLOMERULAR FILTRATION RATE 23.9 (>49); POTASSIUM SERUM 3.8 MMOL/L (3.5-5.1)
[2024-02-21] MEDS: hydrALAZINE 20MG/ML 1ML VIAL IV PRN (06:23)
[2024-02-21] MEDS: DEXTROSE 50% 50ML SYRINGE IV STA ×2 (07:51→10:08)
[2024-02-21] MEDS: NITROGLYCERIN 2% OINT 1 GM *U/D* PKT TOP ONE (08:05)
[2024-02-21] MEDS: HEPARIN 1,000UNITS/ML 10ML VIAL (FOR RADIOLOGY & DIALYSIS ONLY) IV PRN (11:07)
[2024-02-21] MEDS: D10W 500 ML IV SCH (13:16)
[2024-02-21] MEDS ORDERED: propofoL 200 MG/20 ML VIAL As Ordered ONE (15:01)
[2024-02-21] MEDS ORDERED: LIDOCAINE 2% 100MG/5ML SDV (FOR ANES.) As Ordered ONE (15:01)
[2024-02-21] MEDS: hydrALAZINE 20MG/ML 1ML VIAL IV ONE (16:14)
[2024-02-21] MEDS: ISOSORBIDE DIN. (ISORDIL) 30 MG TAB PO SCH (18:00)
[2024-02-22] VITALS (7 sets, daily range): BP systolic 113–180; BP diastolic 59–96; TEMP 96.9–98; O2SAT 95–100
[2024-02-22 08:27] LABS: HEMOGLOBIN 8.8 g/dl (13.5-17.5); MEAN CORPUSCULAR HEMOGLOBIN 28.1 pg (27.0-33.0); MEAN CORPUSCULAR HGB CONC 33.8 g/dl (32.0-36.5); MEAN CORPUSCULAR VOLUME 83.1 fl (80.0-96.0); RED BLOOD COUNT 3.13 10^6/uL (4.30-6.10); WHITE BLOOD COUNT 4.9 10^3/uL (4.0-10.0)
[2024-02-22 08:43] LABS: PLATELET COUNT, AUTOMATED 78 10^3/uL (150-450)
[2024-02-22 08:48] LABS: CALCIUM LEVEL 8.1 MG/DL (8.3-10.6); CREATININE FOR GFR 2.34 MG/DL (0.70-1.30); POTASSIUM SERUM 3.3 MMOL/L (3.5-5.1)
[2024-02-22] MEDS: ISOSORBIDE DIN. (ISORDIL) 20 MG TAB PO SCH (14:25)
[2024-02-23 01:59] VITALS: BP 116/63; TEMP 97.7; O2SAT 100
[2024-02-23] MEDS ORDERED: LIDOCAINE 1% SDV 5ML VIAL SC PRN (06:00)
[2024-02-23] MEDS ORDERED: SODIUM CHLORIDE 0.9% 1000ML IV PRN (06:00)
[2024-02-23 07:31] VITALS: BP 157/75; TEMP 97.9; O2SAT 100
[2024-02-23] MEDS: **hydrALAZINE** 50 MG TAB PO SCH (07:43)
[2024-02-23 08:20] VITALS: BP 149/70; TEMP 98; O2SAT 98
[2024-02-23] MEDS: DEXTROSE 50% 50ML SYRINGE IV STA ×4 (08:22→13:13)
[2024-02-23 11:55] LABS: HEMATOCRIT 28.9 % (42.0-52.0); HEMOGLOBIN 9.7 g/dl (13.5-17.5); MEAN CORPUSCULAR HEMOGLOBIN 28.2 pg (27.0-33.0); MEAN CORPUSCULAR HGB CONC 33.6 g/dl (32.0-36.5); PLATELET COUNT, AUTOMATED 81 10^3/uL (150-450); RED BLOOD COUNT 3.44 10^6/uL (4.30-6.10); WHITE BLOOD COUNT 6.4 10^3/uL (4.0-10.0)
[2024-02-23] MEDS: D10W 1,000 ML IV SCH (13:02)
[2024-02-23 15:54] VITALS: BP 133/62; TEMP 97.8; O2SAT 100
[2024-02-23] MEDS: POTASSIUM CHLORIDE 10MEQ SR TABLET PO ONE (18:11)
[2024-02-23 18:13] LABS: CALCIUM LEVEL 8.2 MG/DL (8.3-10.6); CREATININE FOR GFR 3.32 MG/DL (0.70-1.30); GLOMERULAR FILTRATION RATE 20.1 (>49); POTASSIUM SERUM 3.6 MMOL/L (3.5-5.1)
[2024-02-23 19:37] VITALS: BP 104/60; TEMP 97.2; O2SAT 96
[2024-02-24] MEDS ORDERED: HEPARIN 1,000UNITS/ML 10ML VIAL (FOR RADIOLOGY & DIALYSIS ONLY) IV PRN (00:20)
[2024-02-24] MEDS ORDERED: SODIUM CHLORIDE 0.9% 1000ML IV PRN (00:20)
[2024-02-24] MEDS ORDERED: LIDOCAINE 1% SDV 5ML VIAL SC PRN (00:20)
[2024-02-24] MEDS ORDERED: HEPARIN 1,000UNITS/ML 10ML VIAL (FOR RADIOLOGY & DIALYSIS ONLY) XX SCH (00:20)
[2024-02-24 03:40] VITALS: BP 108/61; TEMP 98.1; O2SAT 99
[2024-02-24 06:01] LABS: HEMATOCRIT 27.1 % (42.0-52.0); HEMOGLOBIN 9.1 g/dl (13.5-17.5); MEAN CORPUSCULAR HEMOGLOBIN 28.1 pg (27.0-33.0); MEAN CORPUSCULAR HGB CONC 33.6 g/dl (32.0-36.5); MEAN CORPUSCULAR VOLUME 83.6 fl (80.0-96.0); RED BLOOD COUNT 3.24 10^6/uL (4.30-6.10); WHITE BLOOD COUNT 3.8 10^3/uL (4.0-10.0)
[2024-02-24 06:04] LABS: PLATELET COUNT, AUTOMATED 65 10^3/uL (150-450)
[2024-02-24 06:28] LABS: ALBUMIN 1.9 G/DL (3.2-5.2); ALKALINE PHOSPHATASE 59 U/L (46-116); ALT/SGPT < 9 U/L (7.0-40); AST/SGOT 10 U/L (<34); BILIRUBIN,TOTAL 0.2 MG/DL (0.3-1.2); BLOOD UREA NITROGEN 17 MG/DL (9-23); CALCIUM LEVEL 8.5 MG/DL (8.3-10.6); CARBON DIOXIDE LEVEL 24 MMOL/L (20-31); CHLORIDE LEVEL 101 MMOL/L (98-107); CREATININE FOR GFR 3.63 MG/DL (0.70-1.30); GLOMERULAR FILTRATION RATE 18.1 (>49); GLUCOSE, FASTING 81 MG/DL (74-106); POTASSIUM SERUM 3.9 MMOL/L (3.5-5.1); SODIUM LEVEL 133 MMOL/L (136-145); TOTAL PROTEIN 4.8 G/DL (5.7-8.2)
[2024-02-24 07:28] VITALS: BP 159/79; TEMP 97.6; O2SAT 100
[2024-02-24] MEDS: DEXTROSE 50% 50ML SYRINGE IV STA (08:19)
[2024-02-24] MEDS: HEPARIN 1,000UNITS/ML 10ML VIAL (FOR RADIOLOGY & DIALYSIS ONLY) XX SCH (09:24)
[2024-02-24 12:20] VITALS: BP 127/64; TEMP 97.2; O2SAT 100
[2024-02-24 13:50] VITALS: BP 140/67; TEMP 97.7; O2SAT 100
[2024-02-24 19:43] LABS: FREE T3 1.7 PG/ML (2.3-4.2); FREE T4 0.97 NG/DL (0.89-1.76); THYROID STIMULATING HORMONE 11.468 uIU/ML (0.55-4.78)
[2024-02-24 20:20] VITALS: BP 166/80; TEMP 97.7; O2SAT 100
[2024-02-24] MEDS ORDERED: DEXTROSE 50% 50ML SYRINGE IV STA (22:29)
[2024-02-25 00:17] VITALS: BP 166/69; TEMP 97.7; O2SAT 100
[2024-02-25 01:23] LABS: CK-MB VALUE MASS 3.8 NG/ML (<3.6)
[2024-02-25 01:25] LABS: CPK CREATINE PHOSPHOKINASE 80 U/L (46-171); MB/CK RELATIVE INDEX 4.75 (< OR =4)
[2024-02-25 01:27] LABS: THYROID STIMULATING HORMONE 13.017 uIU/ML (0.55-4.78)
[2024-02-25] MEDS ORDERED: NITROGLYCERIN 0.3MG SUBL TAB SL PRN (01:30)
[2024-02-25 01:31] LABS: ALBUMIN 2.3 G/DL (3.2-5.2); ALKALINE PHOSPHATASE 67 U/L (46-116); ALT/SGPT < 9 U/L (7.0-40); AST/SGOT 15 U/L (<34); BILIRUBIN,TOTAL 0.2 MG/DL (0.3-1.2); BLOOD UREA NITROGEN 9 MG/DL (9-23); CALCIUM LEVEL 8.8 MG/DL (8.3-10.6); CARBON DIOXIDE LEVEL 25 MMOL/L (20-31); CHLORIDE LEVEL 104 MMOL/L (98-107); CREATININE FOR GFR 2.44 MG/DL (0.70-1.30); GLOMERULAR FILTRATION RATE 28.6 (>49); GLUCOSE, FASTING 85 MG/DL (74-106); POTASSIUM SERUM 4.3 MMOL/L (3.5-5.1); SODIUM LEVEL 134 MMOL/L (136-145); TOTAL PROTEIN 5.5 G/DL (5.7-8.2)
[2024-02-25 04:13] VITALS: BP 146/68; TEMP 97.9; O2SAT 95
[2024-02-25 06:28] LABS: HEMATOCRIT 30.5 % (42.0-52.0); HEMOGLOBIN 10.3 g/dl (13.5-17.5); MEAN CORPUSCULAR HEMOGLOBIN 28.1 pg (27.0-33.0); MEAN CORPUSCULAR HGB CONC 33.8 g/dl (32.0-36.5); MEAN CORPUSCULAR VOLUME 83.3 fl (80.0-96.0); RED BLOOD COUNT 3.66 10^6/uL (4.30-6.10)
[2024-02-25 06:30] LABS: PLATELET COUNT, AUTOMATED 85 10^3/uL (150-450)
[2024-02-25 06:57] LABS: CALCIUM LEVEL 8.6 MG/DL (8.3-10.6); CREATININE FOR GFR 2.64 MG/DL (0.70-1.30); GLOMERULAR FILTRATION RATE 26.1 (>49)
[2024-02-25] MEDS: ARTIFICIAL TEARS DROPS 15ML BTL (VISINE DRY RELIEF) OU SCH (10:27)
[2024-02-25] MEDS: LEVOTHYROXINE 25MCG TABLET (0.025MG) PO SCH (10:29)
[2024-02-25] MEDS: ACETAMINOPHEN 500 MG TAB PO ONE (10:30)
[2024-02-25] MEDS: LIDOCAINE 5% (LIDODERM) PATCH TD SCH (10:30)
[2024-02-25] MEDS: OLOPATADINE 0.1% OPHTH SOL 5ML(PATANOL) OU SCH (10:36)
[2024-02-25 11:38] LABS: CHOLESTEROL LEVEL 127 MG/DL (<200); CHOLESTEROL RISK RATIO 1.91 (<5); FREE T3 1.7 PG/ML (2.3-4.2); FREE T4 1.04 NG/DL (0.89-1.76); HDL CHOLESTEROL 66.2 MG/DL (>40); LDL CHOLESTEROL 49.8 MG/DL (<100); NON-HDL-C 60.8 MG/DL; TRIGLYCERIDES LEVEL 55 MG/DL (<150)
[2024-02-25 14:00] VITALS: BP 120/56; TEMP 97.9; O2SAT 99
[2024-02-25 20:00] VITALS: BP 126/78; TEMP 98.4; O2SAT 99
[2024-02-25] MEDS: ATORVASTATIN 20 MG TAB PO SCH (20:57)
[2024-02-26 04:00] VITALS: BP 141/64; TEMP 98.1; O2SAT 98
[2024-02-26] MEDS ORDERED: LIDOCAINE 1% SDV 5ML VIAL SC PRN (05:20)
[2024-02-26] MEDS ORDERED: SODIUM CHLORIDE 0.9% 1000ML IV PRN (05:20)
[2024-02-26] MEDS ORDERED: HEPARIN 1,000UNITS/ML 10ML VIAL (FOR RADIOLOGY & DIALYSIS ONLY) IV PRN (05:20)
[2024-02-26 06:50] LABS: HEMATOCRIT 30.1 % (42.0-52.0); MEAN CORPUSCULAR HEMOGLOBIN 28.6 pg (27.0-33.0); MEAN CORPUSCULAR HGB CONC 33.2 g/dl (32.0-36.5); WHITE BLOOD COUNT 4.1 10^3/uL (4.0-10.0)
[2024-02-26 06:53] LABS: PLATELET COUNT, AUTOMATED 89 10^3/uL (150-450)
[2024-02-26] MEDS: ASPIRIN 81MG ENTERIC TABLET PO SCH (08:05)
[2024-02-26] MEDS: HEPARIN 1,000UNITS/ML 10ML VIAL (FOR RADIOLOGY & DIALYSIS ONLY) XX SCH (08:38)
[2024-02-26 12:00] VITALS: BP 151/70; TEMP 97.9; O2SAT 100
[2024-02-26 20:43] VITALS: BP 150/70; TEMP 98.1; O2SAT 99
[2024-02-27 03:45] VITALS: BP 148/73; TEMP 98.6; O2SAT 98
[2024-02-27 07:02] LABS: HEMATOCRIT 29.7 % (42.0-52.0); HEMOGLOBIN 9.9 g/dl (13.5-17.5); MEAN CORPUSCULAR HEMOGLOBIN 28.6 pg (27.0-33.0); MEAN CORPUSCULAR HGB CONC 33.3 g/dl (32.0-36.5); MEAN CORPUSCULAR VOLUME 85.8 fl (80.0-96.0); RED BLOOD COUNT 3.46 10^6/uL (4.30-6.10); WHITE BLOOD COUNT 3.3 10^3/uL (4.0-10.0)
[2024-02-27 07:17] LABS: PLATELET COUNT, AUTOMATED 86 10^3/uL (150-450)
[2024-02-27 12:00] VITALS: BP 135/80; TEMP 97.9; O2SAT 98
[2024-02-27 20:33] VITALS: BP 149/72; TEMP 97.9; O2SAT 100
[2024-02-28 00:13] VITALS: BP 120/61; TEMP 98.4; O2SAT 99
[2024-02-28 04:06] VITALS: BP 118/62; TEMP 97.9; O2SAT 100
[2024-02-28] MEDS ORDERED: SODIUM CHLORIDE 0.9% 1000ML IV PRN (06:55)
[2024-02-28] MEDS ORDERED: HEPARIN 1,000UNITS/ML 10ML VIAL (FOR RADIOLOGY & DIALYSIS ONLY) XX SCH (06:55)
[2024-02-28] MEDS ORDERED: LIDOCAINE 1% SDV 5ML VIAL SC PRN (06:55)
[2024-02-28] MEDS: HEPARIN 1,000UNITS/ML 10ML VIAL (FOR RADIOLOGY & DIALYSIS ONLY) IV PRN (08:32)
[2024-02-28 12:41] VITALS: BP 125/64; TEMP 98.4; O2SAT 100
[2024-02-28 20:00] VITALS: BP 145/69; TEMP 98.2; O2SAT 69
[2024-02-29 04:54] VITALS: BP 144/70; TEMP 98.2; O2SAT 98
[2024-02-29] MEDS ORDERED: MINO2.5T PO (10:15)
[2024-02-29] MEDS ORDERED: HYDR50TA46 PO (10:15)
[2024-02-29] MEDS ORDERED: ALCOPAD25 TOP (10:18)
[2024-02-29] MEDS ORDERED: GLUC1TES2 TOP (10:18)
[2024-02-29] MEDS ORDERED: LANC30MI XX (10:18)
[2024-02-29] MEDS ORDERED: BLOOKIT21 TOP (10:18)
[2024-02-29] MEDS ORDERED: NEPR1LIQ2 PO (10:19)
[2024-02-29] MEDS ORDERED: ACARBOSE 25 MG PO SCH (12:00)
[2024-02-29] MEDS ORDERED: ACAR25TA2 PO (12:18)
[2024-02-29] MEDS ORDERED: NON-FORMULARY 1 EA EA PO SCH (12:20)
[2024-02-29 20:10] VITALS: BP 154/80; TEMP 97.9; O2SAT 99
[2024-03-01 04:10] VITALS: BP 137/69; TEMP 97.8; O2SAT 97
[2024-03-01] MEDS ORDERED: ACETAMINOPHEN TAB 650MG DOSE (2X325MG) PO PRN (04:45)
[2024-03-01] MEDS ORDERED: LIDOCAINE 1% SDV 5ML VIAL SC PRN (05:15)
[2024-03-01] MEDS ORDERED: HEPARIN 1,000UNITS/ML 10ML VIAL (FOR RADIOLOGY & DIALYSIS ONLY) IV PRN (05:15)
[2024-03-01] MEDS ORDERED: HEPARIN 1,000UNITS/ML 10ML VIAL (FOR RADIOLOGY & DIALYSIS ONLY) XX SCH (05:15)
[2024-03-01] MEDS ORDERED: SODIUM CHLORIDE 0.9% 1000ML IV PRN (05:15)
[2024-03-01] MEDS: PERCOCET 5MG/325MG TAB PO PRN (05:23)
[2024-03-01 06:26] LABS: HEMATOCRIT 27.6 % (42.0-52.0); HEMOGLOBIN 9.1 g/dl (13.5-17.5); MEAN CORPUSCULAR HEMOGLOBIN 28.8 pg (27.0-33.0); MEAN CORPUSCULAR VOLUME 87.3 fl (80.0-96.0); RED BLOOD COUNT 3.16 10^6/uL (4.30-6.10); WHITE BLOOD COUNT 3.2 10^3/uL (4.0-10.0)
[2024-03-01 06:34] LABS: PLATELET COUNT, AUTOMATED 82 10^3/uL (150-450)
[2024-03-01 06:49] LABS: CALCIUM LEVEL 8.4 MG/DL (8.3-10.6); CREATININE FOR GFR 3.35 MG/DL (0.70-1.30); GLOMERULAR FILTRATION RATE 19.8 (>49); PHOSPHORUS LEVEL 2.1 MG/DL (2.4-5.1); POTASSIUM SERUM 4.6 MMOL/L (3.5-5.1)
[2024-03-01 12:00] VITALS: BP 140/69; TEMP 97.9; O2SAT 99
[2024-03-01 20:29] VITALS: BP 151/68; TEMP 98.4; O2SAT 100
[2024-03-02] MEDS ORDERED: SODIUM CHLORIDE 0.9% 1000ML IV PRN (06:00)
[2024-03-02] MEDS ORDERED: HEPARIN 1,000UNITS/ML 10ML VIAL (FOR RADIOLOGY & DIALYSIS ONLY) XX SCH (06:00)
[2024-03-02] MEDS ORDERED: LIDOCAINE 1% SDV 5ML VIAL SC PRN (06:00)
[2024-03-02] MEDS ORDERED: HEPARIN 1,000UNITS/ML 10ML VIAL (FOR RADIOLOGY & DIALYSIS ONLY) IV PRN (06:00)
[2024-03-02 06:21] VITALS: BP 147/66; TEMP 98.1; O2SAT 98
[2024-03-02 06:45] LABS: BASO % 0.7 % (0.0-1.0); EOS # 0.3 10^3/uL (0.0-0.5); EOS % 7.3 % (0.0-3.0); HEMOGLOBIN 10.2 g/dl (13.5-17.5); LYMPH # 1.4 10^3/uL (1.5-5.0); LYMPH % 32.7 % (24.0-44.0); MEAN CORPUSCULAR HEMOGLOBIN 29.2 pg (27.0-33.0); MEAN CORPUSCULAR HGB CONC 32.9 g/dl (32.0-36.5); MEAN CORPUSCULAR VOLUME 88.8 fl (80.0-96.0); MONO # 0.8 10^3/uL (0.0-0.8); MONO % 18.6 % (2.0-8.0); NEUTROPHILS # 1.8 10^3/uL (1.5-8.5); NEUTROPHILS % 40.2 % (36.0-66.0); RED BLOOD COUNT 3.49 10^6/uL (4.30-6.10); WHITE BLOOD COUNT 4.4 10^3/uL (4.0-10.0)
[2024-03-02 07:08] LABS: PLATELET COUNT, AUTOMATED 89 10^3/uL (150-450)
[2024-03-02 07:21] LABS: ALBUMIN 1.9 G/DL (3.2-5.2); BILIRUBIN,TOTAL 0.2 MG/DL (0.3-1.2); CALCIUM LEVEL 8.7 MG/DL (8.3-10.6); CREATININE FOR GFR 4.04 MG/DL (0.70-1.30); PHOSPHORUS LEVEL 2.5 MG/DL (2.4-5.1); POTASSIUM SERUM 5.3 MMOL/L (3.5-5.1); TOTAL PROTEIN 4.9 G/DL (5.7-8.2)
[2024-03-02 09:08] VITALS: BP 141/66
== END 2024-03-02 10:50 | disposition left against medical advice (07) | DRG 640 ==
LOC: M ED 12:52 → M ED INP 18:06 → M PCU 21:39 → M MSPAV 02-15 10:19 → M PCU 02-20 13:32 → M MSPAV 02-24 11:34
PROVIDERS: ADMIT Internal Medicine; ATTEND Family Medicine
PROC: 5A1D70Z Performance of Urinary Filtration, Intermittent, Less than 6 Hours Per Day (ICD-10-PCS; principal; 2024-02-13)
PROC: 30233N1 Transfusion of Nonautologous Red Blood Cells into Peripheral Vein, Percutaneous Approach (ICD-10-PCS; 2024-02-16)
PROC: 0DB68ZX Excision of Stomach, Via Natural or Artificial Opening Endoscopic, Diagnostic (ICD-10-PCS; 2024-02-21)
DX: E16.2 Hypoglycemia, unspecified (principal); N18.6 End stage renal disease; G93.41 Metabolic encephalopathy; Z94.4 Liver transplant status; I12.0 Hypertensive chronic kidney disease with stage 5 chronic kidney disease or end stage renal disease; I16.1 Hypertensive emergency; D61.818 Other pancytopenia; R47.01 Aphasia; F05 Delirium due to known physiological condition; D84.9 Immunodeficiency, unspecified; R44.3 Hallucinations, unspecified; E87.1 Hypo-osmolality and hyponatremia; E78.5 Hyperlipidemia, unspecified; K21.00 Gastro-esophageal reflux disease with esophagitis, without bleeding; D63.1 Anemia in chronic kidney disease; K44.9 Diaphragmatic hernia without obstruction or gangrene; E55.9 Vitamin D deficiency, unspecified; I87.2 Venous insufficiency (chronic) (peripheral); N28.89 Other specified disorders of kidney and ureter; F32.A Depression, unspecified; F41.9 Anxiety disorder, unspecified; Z66 Do not resuscitate; G47.00 Insomnia, unspecified; F03.90 Unspecified dementia, unspecified severity, without behavioral disturbance, psychotic disturbance, mood disturbance, and anxiety; R11.2 Nausea with vomiting, unspecified; G40.909 Epilepsy, unspecified, not intractable, without status epilepticus; M25.512 Pain in left shoulder; M25.412 Effusion, left shoulder; R53.81 Other malaise; M62.84 Sarcopenia; E02 Subclinical iodine-deficiency hypothyroidism; M19.012 Primary osteoarthritis, left shoulder; M75.102 Unspecified rotator cuff tear or rupture of left shoulder, not specified as traumatic; R47.1 Dysarthria and anarthria; K29.70 Gastritis, unspecified, without bleeding; D50.9 Iron deficiency anemia, unspecified; R93.3 Abnormal findings on diagnostic imaging of other parts of digestive tract; K91.1 Postgastric surgery syndromes; R63.0 Anorexia; G25.70 Drug induced movement disorder, unspecified; F12.10 Cannabis abuse, uncomplicated; I48.91 Unspecified atrial fibrillation; I44.0 Atrioventricular block, first degree; R13.10 Dysphagia, unspecified; Z98.84 Bariatric surgery status; Z96.652 Presence of left artificial knee joint; Z91.158 Patient's noncompliance with renal dialysis for other reason; Z99.2 Dependence on renal dialysis; Z86.73 Personal history of transient ischemic attack (TIA), and cerebral infarction without residual deficits; Z79.899 Other long term (current) drug therapy; T45.0X5A Adverse effect of antiallergic and antiemetic drugs, initial encounter

== ENCOUNTER 2024-03-29 14:58 | Observation (INO) | payer MEDICARE, OTHER ==
[~2024-03-29] VITALS: Ht 177.8 cm; Wt 76.2 kg
[~2024-03-29 14:58] MED LIST changes: +ACAR25TA2 PO; +ALCOPAD25 TOP; +BLOOKIT21 TOP; +GABA-1172; +GABA-1172 PO; -GABA-282; -GABA-282 PO; +GLUC1TES2 TOP; +LANC30MI XX; +METH85CR6 TOP; +MINO2.5T PO; -MUSCCRE9 TOP; +NEPR1LIQ2 PO; -SENN-111 PO; +SENN-165 PO
[2024-03-29 17:00] LABS: CALCIUM LEVEL 8.1 MG/DL (8.3-10.6); CREATININE FOR GFR 2.12 MG/DL (0.70-1.30); GLOMERULAR FILTRATION RATE 33.5 (>49); MAGNESIUM LEVEL 1.8 MG/DL (1.8-2.4); POTASSIUM SERUM 4.7 MMOL/L (3.5-5.1)
[2024-03-29 17:13] LABS: BASO % 0.6 % (0.0-1.0); EOS # 0.2 10^3/uL (0.0-0.5); EOS % 6.4 % (0.0-3.0); LYMPH # 1.1 10^3/uL (1.5-5.0); LYMPH % 32.2 % (24.0-44.0); MEAN CORPUSCULAR HEMOGLOBIN 30.7 pg (27.0-33.0); MEAN CORPUSCULAR HGB CONC 33.3 g/dl (32.0-36.5); MEAN CORPUSCULAR VOLUME 92.2 fl (80.0-96.0); MONO # 0.4 10^3/uL (0.0-0.8); NEUTROPHILS # 1.6 10^3/uL (1.5-8.5); NEUTROPHILS % 48.5 % (36.0-66.0); PLATELET COUNT, AUTOMATED 134 10^3/uL (150-450); RED BLOOD COUNT 2.93 10^6/uL (4.30-6.10); WHITE BLOOD COUNT 3.3 10^3/uL (4.0-10.0)
[2024-03-29] MEDS ORDERED: med rec comment (18:36)
[2024-03-29] MEDS ORDERED: HOME MED LIST COMPLETE! XX SCH (18:40)
[2024-03-29] MEDS ORDERED: GLUCAGON INJ 1MG VIAL SC PRN (19:15)
[2024-03-29] MEDS ORDERED: DEXTROSE 50% 50ML SYRINGE IV PRN (19:15)
[2024-03-29] MEDS ORDERED: GLUCOSE 4 GM CHEW PO PRN (19:15)
[2024-03-29] MEDS: PANTOPRAZOLE 40MG TAB (PROTONIX) PO ONE (20:39)
[2024-03-29] MEDS: **hydrALAZINE** 50 MG TAB PO SCH (20:40)
[2024-03-29] MEDS: HEPARIN SOD (PORCINE) 5000UNITS/ML 1ML VIAL/SYRINGE SQ SCH (20:41)
[2024-03-29] MEDS: INSULIN LISPRO (NovoLOG) PER UNIT SC SCH (20:56)
[2024-03-29] MEDS: ALPRAZolam 0.5 MG TAB PO PRN (21:02)
[2024-03-30] MEDS: INSULIN LISPRO (NovoLOG) PER UNIT SC SCH (07:30)
[2024-03-31] MEDS: FOLIC ACID 1MG TAB PO SCH (12:06)
[2024-03-31] MEDS: diphenhydrAMINE 25MG CAP PO PRN (12:20)
[2024-04-01 08:50] LABS: BASO % 0.6 % (0.0-1.0); EOS # 0.2 10^3/uL (0.0-0.5); EOS % 6.5 % (0.0-3.0); HEMATOCRIT 30.3 % (42.0-52.0); HEMOGLOBIN 9.8 g/dl (13.5-17.5); LYMPH # 1.2 10^3/uL (1.5-5.0); LYMPH % 36.1 % (24.0-44.0); MEAN CORPUSCULAR HEMOGLOBIN 30.6 pg (27.0-33.0); MEAN CORPUSCULAR HGB CONC 32.3 g/dl (32.0-36.5); MEAN CORPUSCULAR VOLUME 94.7 fl (80.0-96.0); MONO # 0.4 10^3/uL (0.0-0.8); MONO % 10.7 % (2.0-8.0); NEUTROPHILS # 1.6 10^3/uL (1.5-8.5); NEUTROPHILS % 45.8 % (36.0-66.0); PLATELET COUNT, AUTOMATED 161 10^3/uL (150-450); WHITE BLOOD COUNT 3.4 10^3/uL (4.0-10.0)
[2024-04-01 09:29] LABS: ALBUMIN 2.3 G/DL (3.2-5.2); BILIRUBIN,TOTAL 0.2 MG/DL (0.3-1.2); CALCIUM LEVEL 8.3 MG/DL (8.3-10.6); CREATININE FOR GFR 4.04 MG/DL (0.70-1.30); GLOMERULAR FILTRATION RATE 15.9 (>49); MAGNESIUM LEVEL 2.1 MG/DL (1.8-2.4); PHOSPHORUS LEVEL 3.5 MG/DL (2.4-5.1); POTASSIUM SERUM 4.5 MMOL/L (3.5-5.1); TOTAL PROTEIN 5.3 G/DL (5.7-8.2)
[2024-04-01 09:30] VITALS: BP 179/85; TEMP 98.8; O2SAT 93
[2024-04-01] MEDS ORDERED: LIDOCAINE 1% SDV 5ML VIAL SC PRN (11:25)
[2024-04-01] MEDS ORDERED: SODIUM CHLORIDE 0.9% 1000ML IV PRN (11:25)
[2024-04-01] MEDS ORDERED: HEPARIN 1,000UNITS/ML 10ML VIAL (FOR RADIOLOGY & DIALYSIS ONLY) XX SCH (11:25)
[2024-04-01 12:00] VITALS: BP 180/83; TEMP 98.1; O2SAT 99
[2024-04-01] MEDS: DARBEPOETIN 100MCG/0.5ML *DIALYSIS* SYRINGE IV SCH (13:35)
[2024-04-01] MEDS: HEPARIN 1,000UNITS/ML 10ML VIAL (FOR RADIOLOGY & DIALYSIS ONLY) IV PRN (15:43)
[2024-04-01 20:00] VITALS: BP 163/78; TEMP 98.2; O2SAT 94
[2024-04-01] MEDS: ALPRAZolam 0.5 MG TAB PO PRN (22:32)
[2024-04-02 04:00] VITALS: BP 135/76; TEMP 98.6; O2SAT 100
[2024-04-02 06:22] LABS: BASO % 0.7 % (0.0-1.0); EOS # 0.2 10^3/uL (0.0-0.5); EOS % 5.4 % (0.0-3.0); HEMATOCRIT 26.3 % (42.0-52.0); HEMOGLOBIN 8.6 g/dl (13.5-17.5); LYMPH # 0.9 10^3/uL (1.5-5.0); LYMPH % 31.6 % (24.0-44.0); MEAN CORPUSCULAR HEMOGLOBIN 30.4 pg (27.0-33.0); MEAN CORPUSCULAR HGB CONC 32.7 g/dl (32.0-36.5); MEAN CORPUSCULAR VOLUME 92.9 fl (80.0-96.0); MONO # 0.3 10^3/uL (0.0-0.8); MONO % 11.4 % (2.0-8.0); NEUTROPHILS # 1.5 10^3/uL (1.5-8.5); NEUTROPHILS % 50.6 % (36.0-66.0); PLATELET COUNT, AUTOMATED 159 10^3/uL (150-450); RED BLOOD COUNT 2.83 10^6/uL (4.30-6.10)
[2024-04-02 06:57] LABS: CALCIUM LEVEL 8.1 MG/DL (8.3-10.6); CREATININE FOR GFR 2.56 MG/DL (0.70-1.30); POTASSIUM SERUM 3.7 MMOL/L (3.5-5.1)
[2024-04-02] MEDS: LORazepam 1 MG TAB PO STA (09:41)
[2024-04-02 12:00] VITALS: BP 134/64; TEMP 99.3; O2SAT 99
[2024-04-02] MEDS: LORazepam 1 MG TAB PO PRN ×2 (15:53→22:19)
[2024-04-02 20:00] VITALS: BP 141/78; TEMP 98.6; O2SAT 98
[2024-04-02] MEDS ORDERED: ACETAMINOPHEN TAB 650MG DOSE (2X325MG) PO PRN (22:10)
[2024-04-02] MEDS: traMADol 50 MG TAB PO ONE (22:19)
[2024-04-03 04:00] VITALS: BP 144/72; TEMP 98.6; O2SAT 98
[2024-04-03] MEDS ORDERED: HEPARIN 1,000UNITS/ML 10ML VIAL (FOR RADIOLOGY & DIALYSIS ONLY) XX SCH (06:00)
[2024-04-03] MEDS ORDERED: SODIUM CHLORIDE 0.9% 1000ML IV PRN (06:00)
[2024-04-03] MEDS ORDERED: LIDOCAINE 1% SDV 5ML VIAL SC PRN (06:00)
[2024-04-03] MEDS ORDERED: HEPARIN 1,000UNITS/ML 10ML VIAL (FOR RADIOLOGY & DIALYSIS ONLY) IV PRN (06:00)
[2024-04-03 12:00] VITALS: BP 153/75; TEMP 96.8; O2SAT 99
[2024-04-03 20:00] VITALS: BP 151/73; TEMP 97.9; O2SAT 98
[2024-04-04] MEDS: ONDANSETRON 4MG 2ML VIAL IV ONE (01:00)
[2024-04-04] MEDS: traMADol 50 MG TAB PO ONE (05:15)
[2024-04-04 05:17] VITALS: BP 150/75; TEMP 98.2; O2SAT 99
[2024-04-04 06:55] LABS: HEMATOCRIT 25.1 % (42.0-52.0); HEMOGLOBIN 8.2 g/dl (13.5-17.5); MEAN CORPUSCULAR HEMOGLOBIN 30.7 pg (27.0-33.0); MEAN CORPUSCULAR HGB CONC 32.7 g/dl (32.0-36.5); PLATELET COUNT, AUTOMATED 148 10^3/uL (150-450); RED BLOOD COUNT 2.67 10^6/uL (4.30-6.10); WHITE BLOOD COUNT 3.6 10^3/uL (4.0-10.0)
[2024-04-04 08:53] VITALS: BP 153/73
[2024-04-04] MEDS ORDERED: ARTIFICIAL TEARS DROPS 15ML BTL (VISINE DRY RELIEF) OU PRN (11:55)
[2024-04-04 12:00] VITALS: BP 155/74; TEMP 98.2; O2SAT 99
[2024-04-04] MEDS: PERCOCET 5MG/325MG TAB PO PRN (12:01)
[2024-04-04] MEDS ORDERED: HYDROMORPHONE HCL 0.5 MG/ 0.5 ML SYRINGE IV PRN ×4 (12:35→12:40)
[2024-04-04] MEDS ORDERED: LORazepam 2 MG/ML 1ML VIAL IV PRN (12:40)
[2024-04-04] MEDS: SCOPOLAMINE 1MG TRANSDERMAL PATCH TOP SCH (12:59)
[2024-04-04] MEDS: LORazepam 1 MG TAB PO PRN (16:58)
[2024-04-04] MEDS: HYDROmorphone 4MG TABLET PO PRN (16:58)
[2024-04-05] MEDS: ONDANSETRON 4MG TAB PO SCH (11:40)
[2024-04-05] MEDS: LORazepam 1 MG TAB PO SCH (11:41)
[2024-04-06] MEDS: PROMETHAZINE 25MG/ML 1ML VIAL IV ONE (16:14)
[2024-04-06] MEDS ORDERED: PILL CUTTER 1 EACH XX PRN (16:40)
[2024-04-06] MEDS: PROMETHAZINE 25 MG TAB PO ONE (17:23)
[2024-04-06] MEDS: LORazepam 1 MG TAB PO PRN (21:05)
[2024-04-08] MEDS ORDERED: ARTIFICIAL TEARS DROPS 15ML BTL (VISINE DRY RELIEF) OU PRN (11:00)
[2024-04-08] MEDS: HYDROmorphone 4MG TABLET PO PRN (15:39)
[2024-04-12] MEDS ORDERED: HYDROmorphone 4MG TABLET As Ordered ONE (09:01)
[2024-04-12] MEDS ORDERED: ONDANSETRON 4MG TAB As Ordered ONE (09:01)
[2024-04-13] MEDS: RAMELTEON 8 MG TAB (ROZEREM) PO PRN (04:33)
[2024-04-13] MEDS: LORazepam 1 MG TAB PO PRN (16:09)
[2024-04-13] MEDS: MORPHINE 10MG/0.5ML ORAL CONCENTRATE SOLUTION U/D SL PRN (18:41)
[2024-04-14] MEDS: MORPHINE 10MG/0.5ML ORAL CONCENTRATE SOLUTION U/D SL PRN (12:15)
[2024-04-15] MEDS: MORPHINE 10MG/0.5ML ORAL CONCENTRATE SOLUTION U/D SL PRN (06:36)
[2024-04-15] MEDS: ONDANSETRON 4MG ORAL DISINTEGRATING TAB PO SCH (08:51)
[2024-04-16] MEDS: fentaNYL 25 MCG/HR PATCH TOP SCH (09:00)
[2024-04-16] MEDS ORDERED: FENTANYL REMOVAL DOCUMENTATION MISC XX SCH (11:10)
[2024-04-16] MEDS ORDERED: fentaNYL 25 MCG/HR PATCH TOP SCH (11:10)
[2024-04-16] MEDS: MORPHINE 10MG/0.5ML ORAL CONCENTRATE SOLUTION U/D SL ONE (11:30)
[2024-04-16] MEDS: MORPHINE 10MG/0.5ML ORAL CONCENTRATE SOLUTION U/D SL PRN (12:53)
[2024-04-19] MEDS ORDERED: FENTANYL REMOVAL DOCUMENTATION MISC XX SCH (09:00)
== END 2024-04-18 09:17 | disposition expired ==
LOC: EDBD 14:58 → M ED 14:58 → M ED INP 14:59 → M MSPAV 04-01 09:31
PROVIDERS: ADMIT Hospitalist; ATTEND General Practice
DX: N18.6 End stage renal disease (principal); Z99.2 Dependence on renal dialysis; Z91.158 Patient's noncompliance with renal dialysis for other reason; Z91.148 Patient's other noncompliance with medication regimen for other reason; Z74.2 Need for assistance at home and no other household member able to render care; R53.1 Weakness; I12.0 Hypertensive chronic kidney disease with stage 5 chronic kidney disease or end stage renal disease; E11.22 Type 2 diabetes mellitus with diabetic chronic kidney disease; K31.84 Gastroparesis; K29.50 Unspecified chronic gastritis without bleeding; E78.5 Hyperlipidemia, unspecified; K70.30 Alcoholic cirrhosis of liver without ascites; Z94.4 Liver transplant status; F41.9 Anxiety disorder, unspecified; F32.A Depression, unspecified; F19.11 Other psychoactive substance abuse, in remission; G47.00 Insomnia, unspecified; R00.1 Bradycardia, unspecified; E87.5 Hyperkalemia; D64.9 Anemia, unspecified; R13.10 Dysphagia, unspecified; E66.9 Obesity, unspecified; R22.0 Localized swelling, mass and lump, head; Z87.81 Personal history of (healed) traumatic fracture; Z98.84 Bariatric surgery status; Z96.652 Presence of left artificial knee joint; Z79.899 Other long term (current) drug therapy; Z66 Do not resuscitate; Z51.5 Encounter for palliative care
CPT/HCPCS: 36415; 80048; 80053; 83735; 84100; 85025; 85027; 93005; 96372; 99285; G0257; G0378; J0882; J1815